=== PATIENT | male | born 1955 | race Two or more races ===

== ENCOUNTER 2024-05-01 12:15 | Inpatient (IN) | payer MEDICARE, MEDICAID, SELFPAY ==
[2024-05-01] VITALS (44 sets, daily range): BP systolic 111–212; BP diastolic 41–86; PULSE 55–81; RESP 11–98; TEMP 36.6–37.3; O2SAT 94–100; BMI 32.6
--- NOTE | 2024-05-01 | XR_ITS ---
Examinations: MRI Brain without intravenous contrast. MRA brain without intravenous contrast. MRA carotids without intravenous contrast 3-D vascular reconstructions Date and time of exam: May 01, 2024 1808 hrs. Indications: Onset stroke alert, focal neurologic deficit today Technique: Multiple axial and sagittal images of the brain have been obtained MRA brain carotid images without contrast obtained, including 3-D postprocessing, vascular maximum intensity projection images Findings: [place] is not enlarged. The optic chiasm and infundibular stalk are not remarkable. Prepontine and interpeduncular cisterns are not enlarged. No localized enlargement of the medulla or roro. Fourth ventricle and cerebellar tonsils normal in position. Subacute hemorrhage is not seen. Fourth ventricle is midline. Mass in the cerebellopontine angle region is not evident. 7th and 8th nerve complexes exhibits symmetry. Globes are symmetrical with no retro-orbital mass. Increased white matter signal prominent Significant frontal ethmoid sinusitis Diffusion-weighted images demonstrate no focus of restricted diffusion Mass-effect upon the ventricular system is not identified. MRA carotid images no significant stenoses MRA brain images high-grade stenosis P2 segment right posterior cerebral artery, possible stenosis bifurcation branch of the right middle cerebral artery Impression: Negative for acute hemorrhage mass effect or midline shift Prominent chronic microvascular white matter change High-grade stenosis P2 segment right posterior cerebral artery, possible stenosis bifurcation branch of the right middle cerebral artery
--- NOTE | 2024-05-01 12:25 | XR_ITS ---
Examination: CTA carotids with intravenous contrast CTA brain, head with intravenous contrast. 2-D sagittal, coronal reconstructions. 3-D reconstructions. Exam date and time: May 01, 2024 at 1246 hrs. Indications: Stroke alert, onset focal neurologic deficit today Early CTDI: vol (mGy) 22.7 DLP: (mGycm) 172 Technique: Multiple CTA axial brain, head carotid images post intravenous contrast injection 100 cc, Isovue-370. 2-D sagittal, coronal reconstructions. 3-D reconstructions, 3-D post processing including vascular maximum intensity projection images. Low dose protocols were performed. One or more of the following dose reduction techniques were used; automated exposure control, adjustment of the mA and/or KV according to patient size, use of iterative reconstruction technique. Findings: No significant common carotid carotid bifurcation or internal carotid artery stenoses Essentially codominant vertebral arteries with no critical stenoses Possible termination of the distal M1 segment right middle cerebral artery which may represent an anatomic variant Middle cerebral artery trifurcation vessels do fill Posterior cerebral branches and anterior cerebral arteries fill Impression: No significant neck arterial stenoses Fairly abrupt termination of the distal M1 segment right middle cerebral artery, clinical correlation advised
--- NOTE | 2024-05-01 12:25 | XR_ITS ---
Examination: CT brain head without contrast. 2-D sagittal coronal reconstructions Date and time of exam:May 01, 2024 1233 hrs. Indications: Shoulder, onset focal neurologic deficit today CTDI: vol (mGy):50.6 DLP: (mGycm):1280 Technique: Multiple CT axial sections of the brain have been obtained, 5 mm slice thickness. Contrast has not been administered. 2-D sagittal, coronal reconstructions have been obtained Low dose protocols were performed. One or more of the following dose reduction techniques were used; automated exposure control, adjustment of the mA and/or KV according to patient size, use of iterative reconstruction technique. Findings: No significant ventricular enlargement. Intra-axial or extra-axial hemorrhage density is not seen. No mass effect or midline shift Basal cisterns are not remarkable. Fourth ventricle is midline. Cranial vault intact. Impression: Negative for acute hemorrhage, mass effect or midline shift
--- NOTE | 2024-05-01 12:25 | EKG_ITS ---
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
--- NOTE | 2024-05-01 12:29 | PD.EDNEURO ---
Neuro Symptoms Deficit-RME/HPI General Chief Complaint: Neuro Symptoms/Deficit Stated Complaint: CONFUSED/TALKING INCOHERENT x25 MINUTES, LKW 1130 Time Seen by Provider: 05/01/24 12:25 Arrival date/time: 05/01/24 12:15 RME / HPI RME / HPI Narrative: 68-year-old male with a past medical history of hypertension diabetes type 2 chronic A-fib, heart failure with reduced ejection fraction of 35% (2021), abdominal wall hernia was brought in by family for evaluation regarding confusion, difficulty finding words, and difficulty ambulating. Onset of symptoms about 25 minutes prior to ER visit. Last well-known time 11:30 AM today. On my initial evaluation patient is having good eye contact however having difficulty expressing words. Patient also was noted to have difficulty ambulating. I did not notice any upper extremity weakness. There is no drifting noted. Stroke alert was initiated right away. Patient is taking Plavix. Related Data Home Medications ?Medication ?Instructions ?Recorded ?Confirmed tamsulosin 0.4 mg capsule 0.4 mg PO QDAY 06/13/20 03/01/24 clonidine HCl 0.2 mg tablet 0.2 mg PO BID 03/10/23 03/01/24 ferrous sulfate 325 mg (65 mg 325 mg PO BID 03/10/23 03/01/24 iron) tablet gabapentin 600 mg tablet 600 mg PO QDAY 03/10/23 03/01/24 glipizide 10 mg tablet 10 mg PO QDAY 03/10/23 03/01/24 metoprolol tartrate 25 mg tablet 50 mg PO QDAY 03/10/23 03/01/24 furosemide 20 mg tablet 20 mg PO QDAY 03/01/24 03/01/24 Previous Rx's ?Medication ?Instructions ?Recorded blood sugar diagnostic (Accu-Chek #50 ea 12/18/21 Angelina Plus test strips) flash glucose scanning reader #1 ea 12/18/21 (FreeStyle Antonino 14 Day [place]) flash glucose sensor (FreeStyle #1 ea 12/18/21 Antonino 2 Sensor kit) insulin degludec 100 unit/mL 20 unit (0.2 mL) subcut QDAY #10 mL 12/18/21 subcutaneous solution (Tresiba U-100 Insulin) lancets #100 ea 12/18/21 metformin 500 mg tablet 500 mg PO BID #60 tabs 12/18/21 Allergies Allergy/AdvReac Type Severity Reaction Status Date / Time No Known Allergies Allergy Verified 05/01/24 12:20 Review of Systems Review of Systems Narrative Review of Systems: Review of system reviewed and within normal limits except mentioned in HPI ED Exam Narrative Physical exam: VITAL SIGNS: Reviewed. GENERAL APPEARANCE: Alert and good eye contact, dysarthria, follows simple commands, no acute distress, HEAD AND FACE: Non-traumatic. ENT: PERRL, pink conjunctivitis, eyelid no trauma, Mucous membrane moist. NECK: Supple, nontender, no nuchal rigidity. CHEST: No tenderness, no crepitus, no paradoxical movement, no retractions. LUNGS: Clear, well ventilated, symmetric, no rales, no wheezing, no ronchi, no stridor, good breath sounds bilaterally. HEART: Regular rate, regular rhythm, no murmur, no gallops. ABDOMEN: Soft, positive bowel sounds, nondistended, no guarding, nontender, no rebound, no masses, RECTAL: Deferred. GENITAL: Deferred. NEUROLOGICAL: Gross motor function intact sensory function intact, Appropriate for age. MUSCULOSKELETAL: low back nontender, full range of motion. EXTREMITIES: Nontender, full range of motion. SKIN: Color pink, dry, no rash, no lacerations, no abrasions, no contusions. LYMPHATICS: Deferred. Course Quality Measures none Orders Category Date Time Status Bedside Blood Glucose NOW Care 05/01/24 12:25 Active COVID-19 Screening Questionnaire NOW Care 05/01/24 14:14 Active Building Performance Consultant NOW Care 05/01/24 12:25 Active Continuous Pulse Oximetry NOW Care 05/01/24 12:25 Completed Decision to Admit X1 Care 05/01/24 14:14 Completed EKG (ED ONLY) *Do not use* NOW Care 05/01/24 12:25 Completed In and Out Catheter NEEDED Care 05/01/24 12:25 Active Insert IV NOW Care 05/01/24 12:25 Active NIH Stroke Scale Q4HX8,QSHIFT Care 05/01/24 13:37 Active NIH Stroke Scale now Care 05/01/24 12:25 Active NPO NOW Care 05/01/24 12:25 Active Neuro Check Q15M Care 05/01/24 13:37 Active Nurse Swallow Screen x1 Care 05/01/24 12:25 Active Vital Signs Q15M Care 05/01/24 13:37 Active Consult to Neurology / Tele-Neurology Routine Cons 05/01/24 12:[address] angio stroke protocol Stat Exams 05/01/24 12:[address] stroke protocol Stat Exams 05/01/24 12:25 Completed EKG (ED Only) Stat Exams 05/01/24 12:25 Draft CBC Stat Lab 05/01/24 12:27 Completed Comprehensive Metabolic Panel Stat Lab 05/01/24 12:27 Completed Drug Screen,Urine Stat Lab 05/01/24 13:27 Received Magnesium Stat Lab 05/01/24 12:27 Completed Partial Thromboplastin Time Stat Lab 05/01/24 12:27 Completed Prothrombin Time with INR Stat Lab 05/01/24 12:27 Completed Troponin I Stat Lab 05/01/24 12:27 Completed Urinalysis Stat Lab 05/01/24 13:27 Received Urine Culture Stat Lab 05/01/24 12:25 Received Acetaminophen Supp [Tylenol Supp] Med 05/01/24 14:01 Discontinued 650 mg AR X1 ONE Labetalol IV [Trandate IV] Med 05/01/24 13:22 Active 10 mg IVP PRNMRX1 PRN Labetalol IV [Trandate IV] Med 05/01/24 13:22 Active 10 mg IVP PRNMRX1 PRN Nicardipine/Ns 20Mg Ivpb [Cardene Ivpb] Med 05/01/24 13:22 Active 20 mg in 200 ml IV 5 mg/hr Ondansetron Inj [Zofran Inj] Med 05/01/24 12:25 Active 4 mg IV Q4HR PRN Tenecteplase Inj [TNKase Inj] Med 05/01/24 13:22 Discontinued 24 mg IV X1 ONE Tenecteplase Inj [TNKase Inj] Med 05/01/24 13:24 Discontinued 50 mg .ROUTE .STK-MED ONE Oxygen Delivery NOW RT 05/01/24 12:25 Active Vital Signs Vital signs: Vital Signs Temperature 98.4 F 05/01/24 12:19 Pulse Rate 77 05/01/24 12:19 Respiratory Rate 18 05/01/24 12:19 Blood Pressure 186/66 H 05/01/24 12:19 Pulse Oximetry (%) 100 05/01/24 12:19 Oxygen Delivery Method Room Air 05/01/24 12:19 Neuro Symptoms / Deficit MDM Narrative MDM Narrative:: 68-year-old male with a past medical history of hypertension diabetes type 2 chronic A-fib, heart failure with reduced ejection fraction of 35% (2021), abdominal wall hernia was brought in by family for evaluation regarding confusion, difficulty finding words, and difficulty ambulating. Onset of symptoms about 25 minutes prior to ER visit. Last well-known time 11:30 AM today. On my initial evaluation patient is having good eye contact however having difficulty expressing words. Patient also was noted to have difficulty ambulating. I did not notice any upper extremity weakness. There is no drifting noted. Stroke alert was initiated right away. Patient is taking Plavix. Stroke alert was initiated right away Initial NIH H score was 4 I spoke with teleneurologist, who gave TNKase to the patient at 1332, after 10 minutes, patient fully recovered. Now talking normal walking normal Spoke with ICU MD, Dr. Myles, who admitted the patient Patient data External records reviewed:: None Clinical information provided by:: family Social determinants that could affect healthcare access:: none Patient has the following chronic illnesses:: Hypertension chronic A-fib congestive heart failure diabetes mellitus How is presenting disease/condition affected by chronic disease/condition?: exacerbated by Evaluation data The following diagnostics were reviewed and interpreted by me:: lab results, radiology exam(s) and EKG tracing(s) Lab and/or radiology exams considered but not ordered:: None Interpretation Summary: CT scan of the head came back unremarkable. CT angiogram of the head and neck showed possible occlusion of M1 segment but could be a variant anatomically according to radiologist. The rest of the labs unremarkable. Medications / Prescriptions Medications or Prescriptions considered but not ordered:: None Medication administrations:: Medication Administration History Nicardipine/Sodium Chloride (Cardene Ivpb) 20 mg in 200 mls @ 50 mls/hr IV .Q4H PRN; Protocol PRN Reason: Per Nicardipine Stroke Protocol Stop: 05/31/24 13:21 Labetalol HCl (Labetalol Inj 5 Mg/Ml Vial 20 Ml) 10 mg IVP PRNMRX1 PRN PRN Reason: SBP > 185 mmHg and/or DBP > 110 Labetalol HCl (Labetalol Inj 5 Mg/Ml Vial 20 Ml) 10 mg IVP PRNMRX1 PRN PRN Reason: SBP > 180 mmHg or DBP > 105 Ondansetron HCl (Ondansetron Inj 2 Mg/Ml Inj 2 Ml) 4 mg IV Q4HR PRN PRN Reason: NAUSEA OR VOMITING Stop: 05/31/24 12:24 Discontinued Medications Acetaminophen (Acetaminophen Supp 650 Mg Supp) 650 mg AR X1 ONE Stop: 05/01/24 14:02 Tenecteplase (Tenecteplase Inj 50 Mg Vial) 24 mg IV X1 ONE Stop: 05/01/24 13:23 Last Admin: 05/01/24 13:32 Dose: 24 mg Documented By: CORIN Co-signed By: NIKOS Tenecteplase (Tenecteplase Inj 50 Mg Vial) Confirm Administered Dose 50 mg .ROUTE .STK-MED ONE Stop: 05/01/24 13:25 Last Admin: 05/01/24 13:35 Dose: Not Given Documented By: CORIN Non-Admin Reason: Duplicate Medication on eMAR Tnkase, Tylenol, Zofran Consultations Consultation(s) initiated? (list below): Yes Consultation #1 (Physician, Specialty, Details): Teleneurologist Diagnosis Neuro Differential Diagnosis: cerebrovascular accident, transient cerebral ischemia and other Most likely diagnosis given after review of the tests above:: CVA Admission Indicated Admission indicated?: indicated Admission Request Was there a request for admission?: Yes Admission Attestation Admission request attestation: Discussed case with [Dr Myles] assembly line driver regarding admission. Discussed patients ED course, exam findings, labs, and radiology results. The Hospitalist [agrees] to accept the patient for admission. Disposition Plan Disposition Plan: Admit Critical Care Time Critical Care Time Total Critical Care Time (min.): 45 Attestation: Critical Care Time The very real possibility of a deterioration of this patient's condition required the highest level of my preparedness for sudden, emergent intervention for the following systems: Cardiac and Metabolic. I provided critical care services, which included medication orders, frequent re-evaluations of the patient's condition and response to treatment, ordering and reviewing test results, and discussing the case with various consultants including: nursing staff, hospitalist, and more. The critical care time associated with the care of this patient was 45 minutes. Discharge Plan Plan Patient Disposition: Admit Acute Care w/in Hospital Prescriptions/Referrals Prescriptions/Med Rec: No Action furosemide 20 mg tablet 20 mg PO QDAY tamsulosin 0.4 mg capsule 0.4 mg PO QDAY metformin 500 mg tablet 500 mg PO BID Qty: 60 0RF (DME) FreeStyle Antonino 14 Day Brusly Misc See Rx Instructions .Route Qty: 1 0RF Rx Instructions: As directed (DME) FreeStyle Antonino 2 Sensor Kit See Rx Instructions .Route Qty: 1 0RF Rx Instructions: As directed (DME) Accu-Chek Angelina Plus test strp Strip See Rx Instructions .Route Qty: 50 0RF Rx Instructions: As directed insulin degludec [Tresiba U-100 Insulin] 100 unit/mL solution 20 unit subcut QDAY Qty: 10 0RF (DME) lancets Misc See Rx Instructions .Route Qty: 100 0RF Rx Instructions: As directed metoprolol tartrate 25 mg tablet 50 mg PO QDAY Patient Comments: TOME DRISS TABLETA DOS VECES AL D A CON ALIMENTO gabapentin 600 mg tablet 600 mg PO QDAY glipizide 10 mg tablet 10 mg PO QDAY clonidine HCl 0.2 mg tablet 0.2 mg PO BID Patient Comments: TOME DRISS TABLETA POR V A ORAL DOS VECES AL D A PARA LA PRESI N ARTERIAL ferrous sulfate 325 mg (65 mg iron) Tablet 325 mg PO BID Referrals: Mitchel Lima MD [Primary Care Provider] - In 1 week Problem List Clinical Impression: Acute CVA (cerebrovascular accident) Patient/Caregiver Discharge Instructions Print Language: Guinean Stand Alone Forms: Kellen Award Info., Patient Portal Info Letter
[2024-05-01 12:47] LABS: Basophils % (Auto) 0 % (0-2.5); Eosinophils # (Auto) 0.2 Thou/mm3 (0.0-0.5); Eosinophils % (Auto) 2 % (0-10); Hematocrit 34.7 % (41.0-53.0); Immature Granulocytes % (Auto) 1 % (0-0); Immature Granulocytes Auto 0.05 Thou/mm3 (0.00-0.00); Lymphocytes # (Auto) 2.8 Thou/mm3 (1.0-4.8); Lymphocytes % (Auto) 30 % (10-50); Mean Corpuscular HGB Conc 31.7 g/dl (31.0-37.0); Mean Corpuscular Hemoglobin 23.5 pg (25.0-35.0); Mean Corpuscular Volume 74 fL (80-100); Monocytes # (Auto) 0.7 Thou/mm3 (0.0-0.8); Monocytes % (Auto) 7 % (0-12); Neutrophils # (Auto) 5.7 Thou/mm3 (1.8-7.7); Neutrophils % (Auto) 61 % (37-80); Nucleated Red Blood Cell % 0 /100 WBC (0); Platelet Count 317 Thou/mm3 (140-440); RDW Standard Deviation 46.6 fL (35.1-43.9); Red Blood Count 4.69 Miln/mm3 (4.50-5.90); White Blood Count 9.4 Thou/mm3 (3.8-10.6)
--- NOTE | 2024-05-01 13:04 | PRELIM_ITS ---
CT scan of the head without intravenous contrast (axial sections with sagittal and coronal reformats) May 01, 2024 1233 hoursClinical history: Focal neuro deficit, stroke suspectedComparison: No pr ior study is available for comparison. Findings:There is no evidence of intracranial hemorrhage, mass effect or midline shift. There are periventricular white matter hypodensities, compatible with chron ic small vessel ischemia. There is moderate volume loss. Basal ganglia calcifications are present mariam aterally. The calvarium is unremarkable. A retention cyst/polyp is seen in the left maxillary sinus. The remainder of the visualized paranasal sinuses and mastoid air cells are clear.Impression:No evide nce of intracranial hemorrhage, mass effect or midline shift. Chronic small vessel ischemia and volum e loss.If there are persistent clinical symptoms or additional clinical concerns, consider MRI. Repo rt Electronically Signed By: Colton Rene 05/01/2024 1:03:28 PM [EST]
[2024-05-01 13:05] LABS: INR 1.1 (0.9-1.3); Partial Thromboplastin Time 23.8 Seconds (22.0-36.0); Prothrombin Time 11.9 Seconds (9.0-12.2)
[2024-05-01 13:07] LABS: Alanine Aminotransferase 11 U/L (10-49); Albumin, Serum 4.2 gm/dL (3.4-4.8); Albumin/Globulin Ratio 1.7 (1.2-2.2); Alkaline Phosphatase 87 U/L (46-116); Anion Gap 4 (7-16); Aspartate Amino Transferase < 8 U/L (0-34); BUN/Creatinine Ratio 23 Ratio (12-20); Bilirubin,Total 0.4 mg/dL (0.3-1.2); Blood Urea Nitrogen 18 mg/dL (9-23); Calcium 9.4 mg/dL (8.3-10.6); Calcium (Corrected) 9.4 mg/dL (8.5-10.1); Carbon Dioxide 29.5 mMol/L (20.0-31.0); Chloride 103 mMol/L (98-107); Creatinine (Component) 0.8 mg/dL (0.6-1.3); Globulin 2.5 gm/dL (2.3-3.5); Glucose 196 mg/dL (74-106); Osmolality,Calculated 278 (275-295); Potassium 3.8 mMol/L (3.4-5.1); Sodium 136 mMol/L (136-145); Total Protein 6.7 gm/dL (5.7-8.2); Troponin I 0.037 ng/mL (0.0-0.045); eGFR > 60 See Note
[2024-05-01] MEDS: TENECTEPLASE INJ 50 MG VIAL 24 MG IV (13:32)
--- NOTE | 2024-05-01 13:37 | PC.NURSE ---
28 mg TNK administered at 1332. Patient complaining of not being to breath after TNK administration with spo2 at 98. Patient placed on 3L nasal canula.
--- NOTE | 2024-05-01 13:37 | PC.NURSE ---
48 mg TNK administered at 1332. Patient complaining of not being to breath after TNK administration with spo2 at 98. Patient placed on 3L nasal canula.
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
[2024-05-01 14:11] LABS: Collection Type, Urine Clean Catch
[2024-05-01 14:19] LABS: Bilirubin,Urine Negative (Negative); Blood,Urine Negative (Negative); Clarity,Urine Clear (Clear/Hazy); Color,Urine Lt-Yellow (Lt Yel-Yel); Glucose, Urine Negative (Negative); Ketones,Urine Negative (Negative); Leukocyte Esterase,Urine Negative (Negative); Nitrite,Urine Negative (Negative); PH,Urine 6.5 (5.0-7.0); Protein,Urine Negative (Neg - Trace); RBC,Urine 1 /hpf (0-3); Specific Gravity,Urine 1.037 (1.001-1.035); Squamous Epithelial Cell,Urine < 1 /hpf (0-5); Urobilinogen,Urine Negative mg/dL (0.0-1.0); WBC,Urine 1 /hpf (0-5)
[2024-05-01] MEDS: LABETALOL INJ 5 MG/ML VIAL 20 ML 10 MG IVP ×2 (14:22→17:20)
[2024-05-01 14:29] LABS: Amphetamine/Methamp Scrn,U Negative (Negative); Barbiturate Screen,Urine Negative (Negative); Benzodiazepines Screen,Urine Negative (Negative); Benzoylecgonine Screen, Ur Negative (Negative); Fentanyl Screen,Urine Negative (Negative); Opiate Screen,Urine Negative (Negative); THC Screen,Urine Negative (Negative)
--- NOTE | 2024-05-01 15:03 | XR_ITS ---
Examination: AP chest single view Technique: AP portable semiupright chest single view Exam date and time: May 01, 2024 1541 hrs. Comparison December 01, 2023 Indications: Onset chest pain today. Findings: Mild enlargement cardiac contour No pneumonia or pulmonary edema Mild accentuation basilar bronchovascular markings Impression: Mild basilar bronchitis pattern
--- NOTE | 2024-05-01 15:09 | ECHO_ITS ---
Transthoracic Echo Report Ht (in): 67 Wt (lb): 208 Exam Location: Echo Lab Status: Emergency Tax Technician: Selene Boothe Indications: Procedure Performed: BP: 184 / 76 HR: 68 Technical Quality: Technically difficult study MEASUREMENTS (Male / Female) Normal Values 2D ECHO LV Diastolic Diameter PLAX 4.0 cm 4.2 - 5.9 / 3.9 - 5.3 cm LV Systolic Diameter PLAX 2.9 cm IVS Diastolic Thickness 1.3 cm 0.6 - 1.0 / 0.6 - 0.9 cm LVPW Diastolic Thickness 1.3 cm 0.6 - 1.0 / 0.6 - 0.9 cm LV Relative Wall Thickness 0.7 LVOT Diameter 2.1 cm Aortic Root Diameter 3.5 cm DOPPLER AV Peak Velocity 278.0 cm/s AV Peak Gradient 30.9 mmHg AV Mean Gradient 16.0 mmHg AV Velocity Time Integral 56.3 cm LVOT Peak Velocity 125.0 cm/s LVOT Peak Gradient 6.3 mmHg LVOT Velocity Time Integral 19.7 cm LVOT Cardiac Index 2163.7 cm?/min?m? AV Area Cont Eq vti 1.2 cm? AV Area Cont Eq pk 1.6 cm? MV Area PHT 3.8 cm? Mitral E Point Velocity 50.0 cm/s Mitral A Point Velocity 62.5 cm/s Mitral E to A Ratio 0.8 FINDINGS Left Ventricle Normal left ventricular size, wall thickness, systolic function with no obvious regional wall motion abnormalities. Normal left ventricular diastolic filling pattern for age. The ejection fraction is v isually estimated at 60-65%. Right Ventricle The right ventricular systolic function is normal. Left Atrium The left atrium is normal by two-dimensional, color flow and Doppler imaging with no structural abnormalities, no thrombus formation present. Right Atrium The right atrium is normal by two-dimensional imaging, color flow and Doppler imaging with no struct ural abnormalities, no thrombus formation present. Atrial Septum The interatrial septum appears normal with no evidence of a shunt. Aorta The aorta is normal by two-dimensional, color flow and Doppler interrogation. Mitral Valve The mitral valve is mildly MAC. No mitral regurgitation. Aortic Valve Moderate stenosis. Tricuspid Valve The tricuspid valve is normal by two-dimensional, color flow and Doppler interrogation. There is tra ce tricuspid valve regurgitation. Pulmonic Valve The pulmonic valve is not well visualized. There is no significant pulmonic valve regurgitation. Vessels The pulmonary artery appears normal. The inferior vena cava pulmonary and hepatic veins appear sabiha l. Pericardium The pericardium is normal by two-dimensional imaging. There is no significant pericardial effusion. CONCLUSIONS Indication: TIA with bubble study Negative bubble study Normal LVsize, wall thickness. Estimated EF 60-65%. The RV systolic function is normal. MV is mildly MAC. Moderate . Trace TR. Nga Lindo (Electronically Signed) Final Date: 04 May 2024 14:55
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
[2024-05-01] MEDS: ACETAMINOPHEN 325 MG TABLET 650 MG PO ×2 (16:13→21:19)
[2024-05-01] MEDS: SODIUM CHLORIDE 0.9% 1000 ML 1,000 ML 60 ML IV (17:16)
[2024-05-01] MEDS: NICARDIPINE/NS 20MG IVPB 20 MG/200 ML BAG 50 MG IV (18:59)
--- NOTE | 2024-05-01 19:19 | PC.NURSE ---
received patient from ED RN Severo at 1855. Pt's BP elevated and started Nicardipine gtt per protocol. Report given to MARCIAL Vanegas. Assessment done jennifer Vanegas upon shift change.
[2024-05-01] MEDS: NIFEdipine 10 MG CAPSULE 20 MG PO (21:14)
[2024-05-01] MEDS: ATORVASTATIN CALCIUM 20 MG TABLET 80 MG PO (21:15)
[2024-05-02] VITALS (48 sets, daily range): BP systolic 117–181; BP diastolic 41–82; PULSE 60–94; RESP 2–25; TEMP 37.1–37.2; O2SAT 94–99; BMI 32.0
[2024-05-02] MEDS: ACETAMINOPHEN 325 MG TABLET 650 MG PO ×2 (05:40→20:52)
[2024-05-02] MEDS: NIFEdipine 10 MG CAPSULE 20 MG PO ×3 (05:40→20:39)
[2024-05-02 06:12] LABS: Basophils % (Auto) 0 % (0-2.5); Eosinophils # (Auto) 0.1 Thou/mm3 (0.0-0.5); Eosinophils % (Auto) 2 % (0-10); Hematocrit 34.1 % (41.0-53.0); Hemoglobin 10.7 g/dL (13.5-16.0); Immature Granulocytes % (Auto) 0 % (0-0); Immature Granulocytes Auto 0.02 Thou/mm3 (0.00-0.00); Lymphocytes # (Auto) 1.7 Thou/mm3 (1.0-4.8); Lymphocytes % (Auto) 22 % (10-50); Mean Corpuscular HGB Conc 31.4 g/dl (31.0-37.0); Mean Corpuscular Hemoglobin 23.2 pg (25.0-35.0); Mean Corpuscular Volume 74 fL (80-100); Monocytes # (Auto) 0.6 Thou/mm3 (0.0-0.8); Monocytes % (Auto) 8 % (0-12); Neutrophils # (Auto) 5.2 Thou/mm3 (1.8-7.7); Neutrophils % (Auto) 67 % (37-80); Nucleated Red Blood Cell % 0 /100 WBC (0); Platelet Count 319 Thou/mm3 (140-440); RDW Standard Deviation 46.8 fL (35.1-43.9); Red Blood Count 4.61 Miln/mm3 (4.50-5.90); White Blood Count 7.8 Thou/mm3 (3.8-10.6)
[2024-05-02 06:20] LABS: Glucose Estimated Average 128 mg/dL (80-131); Hemoglobin A1C 6.1 % Hgb (4.8-6.0)
[2024-05-02 06:34] LABS: Alanine Aminotransferase 13 U/L (10-49); Albumin/Globulin Ratio 1.6 (1.2-2.2); Alkaline Phosphatase 89 U/L (46-116); Anion Gap 6 (7-16); Aspartate Amino Transferase 14 U/L (0-34); BUN/Creatinine Ratio 19 Ratio (12-20); Bilirubin,Total 0.6 mg/dL (0.3-1.2); Blood Urea Nitrogen 13 mg/dL (9-23); Calcium 9.1 mg/dL (8.3-10.6); Calcium (Corrected) 9.1 mg/dL (8.5-10.1); Carbon Dioxide 28.8 mMol/L (20.0-31.0); Cardiac Risk Estimate 4.4 RATIO (4.0-6.7); Chloride 104 mMol/L (98-107); Cholesterol 190 mg/dL (132-200); Creatinine (Component) 0.7 mg/dL (0.6-1.3); Estimated Creatinine Clearance 112.2 mL/min (>60); Globulin 2.5 gm/dL (2.3-3.5); Glucose 117 mg/dL (74-106); HDL Cholesterol 43 mg/dL (40-60); LDL Cholesterol,Calculated 116 mg/dL (0-130); Osmolality,Calculated 278 (275-295); Phosphorous 3.7 mg/dL (2.4-5.1); Potassium 4.2 mMol/L (3.4-5.1); Sodium 139 mMol/L (136-145); Thyroid Stimulating Hormone 0.66 uIU/mL (0.55-4.78); Total Protein 6.5 gm/dL (5.7-8.2); Triglycerides 154 mg/dL (30-150); eGFR > 60 See Note
--- NOTE | 2024-05-02 08:24 | EKG_ITS ---
[facility] Test Date: 2024-05-02 Pat Name: RHINA GARDUNO [facility] Gender: Male Statistician Theoretical: CLARISSE : 1955 Requested By: Maria Del Rosario Alexandra Order Number: [id number] Reading MD: Maria Del Rosario Alexandra Measurements Intervals [place] Rate: 74 P: 67 [place]: 210 QRS: 27 QRSD: 109 T: 76 QT: 391 QTc: 436 Interpretive Statements SINUS RHYTHM WITH FIRST DEGREE AV BLOCK NONSPECIFIC T-WAVE ABNORMALITY Compared to ECG 05/01/2024 13:15:39 T-wave abnormality now present Intraventricular conduction delay no longer present /store/S0/[id number]
[2024-05-02 09:23] LABS: Iron 40 mcg/dL (65-175); Percent Iron Saturation 10 % (20-55); Total Iron Binding Capacity 365 mcg/dL (250-425); Unsaturated Iron Binding 325 (225-295)
--- NOTE | 2024-05-02 10:50 | ESPR_ITS ---
Documentation for date of: 05/02/24 Subjective Subjective Interval history: 05/02: overnigt pt has 1.1 L of urine output. Pt. was hypertensive with systolic above 200 and diastolic above 110. pt was given 2 doses of labetalol 10mg without improvement therefore Pt. was started on nicardipine drip. Pt vitals this morning are stable and saturating on room air. Pt. is alert & Oriented x3, able to speak in full sentenced and no focal neurological deficits noted. Pt has no new complain. Exam Vital Signs Temp Pulse Resp BP Pulse Ox O2 Del Method O2 Flow Rate 99.0 F 74 17 135/70 H 98 Room Air 1 05/02/24 07:02 05/02/24 10:00 05/02/24 10:00 05/02/24 10:00 05/02/24 10:00 05/01/24 18:56 05/01/24 17:16 Narrative Exam GENERAL: A&Ox3 . Awake, Not in acute distress NEURO: no focal neurological deficits HEENT: Atraumatic, Normocephalic. mucous membranes moist. Eyes open, symmetrical, & clear, facial reconstructive surgical scars HEART: Normal Heart Sounds LUNGS: Clear to auscultation with no wheezing or crackles. ABDOMEN: soft, non-distended, mildy-tender to palpation, extensive abdominal surgical scars SKIN: No Rash or ecchymoses EXTREMITIES: No edema, tenderness, able to move all 4 extremities, pedal pulses palpated Objective Labs 05/02/24 05:30 05/02/24 05:30 Labs: Laboratory Results - last 24 hr 05/01/24 05/01/24 05/02/24 12:27 13:27 05:30 WBC 9.4 7.8 RBC 4.69 4.61 Hgb 11.0 L 10.7 L Hct 34.7 L 34.1 L MCV 74 L 74 L MCH 23.5 L 23.2 L MCHC 31.7 31.4 RDW Std Deviation 46.6 H 46.8 H Plt Count 317 319 Neut % (Auto) 61 67 Lymph % (Auto) 30 22 [place] % (Auto) 7 8 Eos % (Auto) 2 2 Baso % (Auto) 0 0 Neut # (Auto) 5.7 5.2 Lymph # (Auto) 2.8 1.7 [place] # (Auto) 0.7 0.6 Eos # (Auto) 0.2 0.1 Baso # (Auto) 0.0 0.0 Immature Gran # (Auto) 0.05 H 0.02 H Absolute Nucleated RBC 0.00 0.00 Immature Gran % 1 H 0 Nucleated RBC % 0 0 PT 11.9 INR 1.1 APTT 23.8 Sodium 136 139 Potassium 3.8 4.2 Chloride 103 104 Carbon Dioxide 29.5 28.8 Anion Gap 4 L 6 L BUN 18 13 Creatinine 0.8 0.7 Estim Creat Clear Calc Not Performed. 112.2 eGFR > 60 > 60 BUN/Creatinine Ratio 23 H 19 Glucose [address] Glu mg/dL 128 Hemoglobin A1c 6.1 H Calculated Osmolality 278 278 Calcium 9.4 9.1 Corrected Calcium 9.4 9.1 Phosphorus 3.7 Magnesium 2.0 2.0 Iron 40 L TIBC 365 Iron Saturation 10 L Unsat Iron Binding 325 H Total Bilirubin 0.4 0.6 AST < 8 14 ALT 11 13 Alkaline Phosphatase 87 89 Troponin I 0.037 Total Protein 6.7 6.5 Albumin 4.2 4.0 Globulin 2.5 2.5 Albumin/Globulin Ratio 1.7 1.6 Triglycerides 154 H Cholesterol 190 LDL Cholesterol, Calc 116 HDL Cholesterol 43 Cholesterol/HDL Ratio 4.4 TSH 0.66 Ur Collection Type Clean Catch Urine Color Lt-Yellow Urine Clarity Clear Urine pH 6.5 Ur Specific [place] 1.037 H Urine Protein Negative Urine Glucose (UA) Negative Urine Ketones Negative Urine Blood Negative Urine Nitrite Negative Urine Bilirubin Negative Urine Urobilinogen (Auto) Negative Ur Leukocyte Esterase Negative Urine RBC 1 Urine WBC 1 Ur Squamous Epith Cells < 1 Urine Bacteria None Urine Opiates Screen Negative Urine Fentanyl Screen Negative Ur Barbiturates Screen Negative U Amphetamin/Meth Scrn Negative U Benzodiazepines Scrn Negative U Cocaine Metab Screen Negative U Marijuana (THC) Screen Negative Quality Measures Quality Measures none Advance care planning discussed with:: spouse and child Assessment & Plan Assessment Current Active Medications: Generic Name Dose Route Start Last Admin Trade Name Freq PRN Reason Stop Dose Admin Acetaminophen 650 mg 05/01/24 15:03 05/02/24 05:40 Acetaminophen 325 Mg Tablet PO 05/31/24 15:02 650 mg Q4HR PRN Administration PAIN SCALE 1-3 (mild Acetaminophen 650 mg 05/01/24 15:03 Acetaminophen Supp 650 Mg Supp FL 05/31/24 15:02 Q4HR PRN PAIN SCALE 1-3 (mild Al Hydrox/Mg Hydrox/Simethicone 30 ml 05/01/24 15:03 Mg Hyd/Al Hyd/Joel (Maalox Reg) Susp 30 Ml Udc PO 05/31/24 15:02 Q4HR PRN Heartburn or Upset Stomach Atorvastatin Calcium 80 mg 05/01/24 21:00 05/01/24 21:15 Atorvastatin Calcium 20 Mg Tablet PO 05/31/24 20:59 80 mg HS TERRI Administration Dextrose 25 ml 05/01/24 15:42 Dextrose 50%-Water Inj 50 Ml Syringe IV 05/31/24 15:41 Q15MIN PRN BG 50-70 responsive npo pt Dextrose 50 ml 05/01/24 15:42 Dextrose 50%-Water Inj 50 Ml Syringe IV 05/31/24 15:41 Q15MIN PRN BG <50 OR BG <70 & pt unresponsive Enoxaparin Sodium 40 mg 05/02/24 21:00 Enoxaparin Sod Inj 40 Mg/0.4 Ml Syringe SC 05/16/24 20:59 HS TERRI Glucagon 1 mg 05/01/24 15:42 Glucagon Inj 1 Mg Vial IM Q15MIN PRN BG <70, and no IV access Hydralazine HCl 10 mg 05/01/24 18:30 Hydralazine Inj 20 Mg/Ml Vial IV 05/31/24 18:29 Q4H PRN SBP>180 or DBP>105 and HR<75 Nicardipine/Sodium Chloride 20 mg in 200 mls @ 50 mls/hr 05/01/24 13:22 05/01/24 21:50 Cardene Ivpb IV 05/31/24 13:21 0 mg/hr .Q4H PRN 0 mls/hr Per Nicardipine Stroke Protocol Titration Protocol 5 MG/HR Insulin Glargine 10 unit 05/01/24 21:00 05/01/24 21:03 Insulin Glargine (Lantus) 5 Unit/0.05 Ml (Per 5 Units) SC 05/31/24 20:59 Not Given HS TERRI Insulin Human Lispro 0 unit 05/02/24 07:30 05/02/24 07:54 Insulin Lispro (Admelog) 1 Unit/0.01 Ml Unit SC 06/01/24 07:29 Not Given ACHS COUNT INCLUDES THE [facility] Protocol Labetalol HCl 50 mg 05/01/24 18:31 Labetalol 100 Mg Tablet PO 05/31/24 17:59 Q2H PRN SBP>180 or DBP>105 and HR>75 Magnesium Hydroxide 30 ml 05/01/24 15:03 Milk Of Magnesia Susp 30 Ml Udc PO 05/31/24 15:02 QDAY PRN CONSTIPATION Nifedipine 20 mg 05/01/24 22:00 05/02/24 05:40 Nifedipine 10 Mg Capsule PO 05/31/24 21:59 20 mg TID TERRI Administration Ondansetron HCl 4 mg 05/01/24 12:25 Ondansetron Inj 2 Mg/Ml Inj 2 Ml IV 05/31/24 12:24 Q4HR PRN NAUSEA OR VOMITING Plan Mr. Le is a 68-year-old male with past medical history significant for A-fib, CHF, hypertension and insulin-dependent type 2 diabetes presented to the ED after family noticed that he was having difficulties completing sentences and not being able to recognize close family members. Patient complains of a headache that is 10 out of 10 and feels like his eyes are burning and sensitive to light patient continues to be nauseous denies any vomiting. Patient states that he has had the headache for a long time and he takes 600 mg of ibuprofen daily. Patient denies any chest pain abdominal pain dizziness or weakness. Head CTA showed fairly abrupt termination of the distal M1 segment of right MCA and patient received 24 Mg tPA for ischemic stroke and patient is admitted to the ICU for close monitoring. Neuro: # Ischemic stroke -CT head negative for acute hemorrhage, mass effect or midline shift -Head/neck CTA?fairly abrupt termination of the distal M1 segment right middle cerebral artery -EKG showed sinus rhythm with first-degree heart block -Patient received 24 Mg tPA on 05/01 -repeat CT brain 24 hours post Thrombolytic- will be repeated at 12:30pm on 05/02 -A1c, lipid panel, TSH done (with in normal limits) -No antiplatelets or anticoagulation in the first 24 hours -Statin therapy started -In-house neurology consulted Cardiovasc: # History of CHF -Echo done in November [address] Lindo showed ejection fraction of 35 to 39% -Repeat echo November [address] Wisdom showed ejection fraction 60 to 65%, and moderate to severe calcific aortic valve stenosis -holding home furosemide- #History of A-fib -Hold home Plavix due to recent tPA administration #History of hypertension -Will hold home metoprolol, clonidine, furosemide due to permissive hypertension in the setting of a stroke Pulm: # No active problems Renal: # No active problems GI: ?No active problems -diet is carbohydrate consistent Endo: # Insulin-dependent type 2 diabetes -Hemoglobin A1c on 11/29/2023 was 6.1, blood glucose 196 -Will hold home metformin, Tresiba (20 units), glipizide 10 Mg -Insulin sliding scale started with 10 units of Lantus Heme/Onc: #Microcytic anemia -hemoglobin 11.0, hematocrit 34.7, MCV 74 -Iron panel ordered -Will continue to monitor daily CBC #DVT ppx - Lovenox will be resumed 05/02 Infxs: - No active problems Skin/Musc -No active problems Disposition: ICU- Pt. received tPA, requiring 24-hour close monitoring DVT Prophylaxis: started enoxaparin 40mg 05/02 Diet: diet is carbohydrate consistent Code status: Full Assessment and plan discussed with my attending physician Dr. Shar Todd (PGY-1)- Internal medicine resident Attending Provider Attestation/Addendum Patient was seen and examined, agree with above. In brief this is a 71-year-old male admitted yesterday for stroke status post TNK. The patient has done well overnight. He has no residual deficits. He is able to speak in clear and distinct sentences. He feels well and is tolerating a p.o. intake. He will be downgraded to telemetry to continue his stroke workup. Case discussed with ICU team Labs, imaging and records reviewed Approximate 35 minutes required for eval, exam, review, intervention and discussion and formulation of plan of care for this 62-year-old male with stroke
[2024-05-02] MEDS: INSULIN LISPRO (AdmeLOG) 1 UNIT/0.01 ML UNIT SC ×3 (11:35→20:37)
--- NOTE | 2024-05-02 11:45 | PCS.ST ---
swallow eval completed. see report for details
--- NOTE | 2024-05-02 12:43 | PD.INTPROC ---
Procedures Procedure Date / Time 05/02/24 1243 Central Line Placement Right IJ: Indication(s): shock Informed consent obtained: obtained from surrogate decision maker Time out done, and the following verified: correct patient, side and site, procedure, patient position and implants and/or equipment Patient placed on monitor/pulse ox: Yes Hand Hygiene: scrub and alcohol-based hand rub Max Sterile Barrier Techniques used: cap, mask, sterile gown, sterile gloves and sterile full body drape Central line prep: Povidone-Iodine 1%, Chlorhexidine scrub and sterile drapes applied Local anesthesia used: lidocaine 1% Amount of anesthesia used (mL): 4 Ultrasound used for placement: Yes Sterile Technique if Ultrasound used, including sterile gel: yes Central line lumen inserted: triple Post procedure: sutured in place, good blood return, all ports aspirated, flushed, capped and sterile dressing applied Post procedure x-ray: tip of catheter in good position and no pneumothorax seen Patient tolerated procedure: well and no complications EBL(ml): 5 Complications: none
--- NOTE | 2024-05-02 13:35 | XR_ITS ---
Examination: CT brain head without contrast. 2-D sagittal coronal reconstructions Date and time of exam:May 02, 2024 1659 hrs. Comparison May 01, 2024 Indications: Transient ischemic attacks, CT stroke alert May 01, 2014, onset focal neurologic deficit CTDI: vol (mGy):58.2 DLP: (mGycm):1204 Technique: Multiple CT axial sections of the brain have been obtained, 5 mm slice thickness. Contrast has not been administered. 2-D sagittal, coronal reconstructions have been obtained Low dose protocols were performed. One or more of the following dose reduction techniques were used; automated exposure control, adjustment of the mA and/or KV according to patient size, use of iterative reconstruction technique. Findings: No significant ventricular enlargement. Intra-axial or extra-axial hemorrhage density is not seen. No mass effect or midline shift Basal cisterns are not remarkable. Fourth ventricle is midline. Cranial vault intact. Impression: Negative for acute hemorrhage, mass effect or midline shift
--- NOTE | 2024-05-02 16:01 | PC.NURSE ---
Called CT X3 for pending Head CT order and no answer.
--- NOTE | 2024-05-02 17:49 | PC.NURSE ---
Pt back from CT @170. BP 155/65
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
[2024-05-02] MEDS: ATORVASTATIN CALCIUM 20 MG TABLET 80 MG PO (20:37)
[2024-05-02] MEDS: ENOXAPARIN SOD INJ 40 MG/0.4 ML SYRINGE SC (20:37)
[2024-05-02] MEDS: INSULIN GLARGINE (Lantus) 5 UNIT/0.05 ML (PER 5 UNITS) 10 UNIT SC (20:37)
--- NOTE | 2024-05-02 20:44 | VVPN_ITS ---
Telemedicine visit statement This visit was conducted with the use of phone was obtained on 05/02/24 at 2044. Documentation for date of: 05/02/24 Subjective Subjective Interval history: Patient is in ICU, s/p TNK, doing fine, no recurrence of similar symptoms noted. Virtual exam Vital Signs Temp Pulse Resp BP Pulse Ox O2 Del Method O2 Flow Rate 98.8 F 79 25 H 155/65 H 98 Room Air 1 05/02/24 16:00 05/02/24 20:39 05/02/24 17:09 05/02/24 20:39 05/02/24 17:09 05/01/24 18:56 05/01/24 17:16 Objective Labs 05/03/24 05:19 05/03/24 05:19 Labs: Laboratory Results - last 24 hr 05/02/24 05:30 WBC 7.8 RBC 4.61 Hgb 10.7 L Hct 34.1 L MCV 74 L MCH 23.2 L MCHC 31.4 RDW Std Deviation 46.8 H Plt Count 319 Neut % (Auto) 67 Lymph % (Auto) 22 [place] % (Auto) 8 Eos % (Auto) 2 Baso % (Auto) 0 Neut # (Auto) 5.2 Lymph # (Auto) 1.7 [place] # (Auto) 0.6 Eos # (Auto) 0.1 Baso # (Auto) 0.0 Immature Gran # (Auto) 0.02 H Absolute Nucleated RBC 0.00 Immature Gran % 0 Nucleated RBC % 0 Sodium 139 Potassium 4.2 Chloride 104 Carbon Dioxide 28.8 Anion Gap 6 L BUN 13 Creatinine 0.7 Estim Creat Clear Calc 112.2 eGFR > 60 BUN/Creatinine Ratio 19 Glucose [address] Glu mg/dL 128 Hemoglobin A1c 6.1 H Calculated Osmolality 278 Calcium 9.1 Corrected Calcium 9.1 Phosphorus 3.7 Magnesium 2.0 Iron 40 L TIBC 365 Iron Saturation 10 L Unsat Iron Binding 325 H Total Bilirubin 0.6 AST 14 ALT 13 Alkaline Phosphatase 89 Total Protein 6.5 Albumin 4.0 Globulin 2.5 Albumin/Globulin Ratio 1.6 Triglycerides 154 H Cholesterol 190 LDL Cholesterol, Calc 116 HDL Cholesterol 43 Cholesterol/HDL Ratio 4.4 TSH 0.66 Assessment & Plan Problem List (1) Acute CVA (cerebrovascular accident): Status: Acute Assessment and plan: resolved with no residual deficit or recurrence s/p TNK MRI brain: negative for acute infarction. As there is ICS from MRA, he would need DAPT upon discharge with close monitoring his HGB/HCT. continue with statin. (2) Type 2 diabetes mellitus with hyperosmolar nonketotic hyperglycemia: Status: Acute Assessment and plan: A1C: 6.1, continue to check FSG and follow sliding scale (3) Atrial fibrillation with RVR: Status: Acute Assessment and plan: can resume Palvix keep the rate controlled (4) Hypertension: Status: Acute Assessment and plan: continue with aggressive BP mgt. (5) Anemia: Status: Acute Assessment and plan: from iron deficiency Needs Iron supplement.
[2024-05-03] VITALS (14 sets, daily range): BP systolic 140–184; BP diastolic 69–89; PULSE 66–123; RESP 12–21; TEMP 36.6; O2SAT 96–98; BMI 33.0
[2024-05-03] MEDS: hydrALAZINE INJ 20 MG/ML VIAL 10 MG IV (05:03)
[2024-05-03] MEDS: NIFEdipine 10 MG CAPSULE 20 MG PO (05:04)
[2024-05-03 05:59] LABS: Basophils % (Auto) 1 % (0-2.5); Eosinophils # (Auto) 0.1 Thou/mm3 (0.0-0.5); Eosinophils % (Auto) 2 % (0-10); Hematocrit 36.2 % (41.0-53.0); Hemoglobin 11.3 g/dL (13.5-16.0); Immature Granulocytes % (Auto) 0 % (0-0); Immature Granulocytes Auto 0.03 Thou/mm3 (0.00-0.00); Lymphocytes # (Auto) 1.8 Thou/mm3 (1.0-4.8); Lymphocytes % (Auto) 21 % (10-50); Mean Corpuscular HGB Conc 31.2 g/dl (31.0-37.0); Mean Corpuscular Hemoglobin 23.2 pg (25.0-35.0); Mean Corpuscular Volume 74 fL (80-100); Monocytes # (Auto) 0.8 Thou/mm3 (0.0-0.8); Monocytes % (Auto) 9 % (0-12); Neutrophils # (Auto) 5.6 Thou/mm3 (1.8-7.7); Neutrophils % (Auto) 67 % (37-80); Nucleated Red Blood Cell % 0 /100 WBC (0); Platelet Count 353 Thou/mm3 (140-440); RDW Standard Deviation 46.4 fL (35.1-43.9); Red Blood Count 4.87 Miln/mm3 (4.50-5.90); White Blood Count 8.4 Thou/mm3 (3.8-10.6)
[2024-05-03 06:23] LABS: Alanine Aminotransferase 12 U/L (10-49); Albumin, Serum 3.9 gm/dL (3.4-4.8); Albumin/Globulin Ratio 1.3 (1.2-2.2); Alkaline Phosphatase 93 U/L (46-116); Anion Gap 8 (7-16); Aspartate Amino Transferase 13 U/L (0-34); BUN/Creatinine Ratio 20 Ratio (12-20); Bilirubin,Total 0.4 mg/dL (0.3-1.2); Blood Urea Nitrogen 12 mg/dL (9-23); Calcium 9.5 mg/dL (8.3-10.6); Calcium (Corrected) 9.6 mg/dL (8.5-10.1); Carbon Dioxide 27.2 mMol/L (20.0-31.0); Chloride 105 mMol/L (98-107); Creatinine (Component) 0.6 mg/dL (0.6-1.3); Estimated Creatinine Clearance 129.7 mL/min (>60); Glucose 131 mg/dL (74-106); Osmolality,Calculated 281 (275-295); Phosphorous 3.5 mg/dL (2.4-5.1); Potassium 4.1 mMol/L (3.4-5.1); Sodium 140 mMol/L (136-145); Total Protein 6.9 gm/dL (5.7-8.2); eGFR > 60 See Note
--- NOTE | 2024-05-03 07:08 | PC.NURSE ---
pt in a-fib, pt asymptomatic, notified dr arellano, no new orders received at this time
[2024-05-03] MEDS: ONDANSETRON INJ 2 MG/ML INJ 2 ML 4 MG IV (08:39)
[2024-05-03] MEDS: INSULIN LISPRO (AdmeLOG) 1 UNIT/0.01 ML UNIT SC ×4 (08:43→21:03)
[2024-05-03] MEDS: METOPROLOL SUCCINATE XL 25 MG TABCR 50 MG PO (08:46)
[2024-05-03] MEDS: Milk Of Magnesia Susp 30 ML UDC PO (08:47)
[2024-05-03] MEDS: ASPIRIN EC 81 MG TABEC PO (08:47)
[2024-05-03] MEDS: CLOPIDOGREL BISULFATE 75 MG TABLET PO (08:47)
[2024-05-03] MEDS: Furosemide 20 MG TABLET PO (08:48)
--- NOTE | 2024-05-03 10:13 | ESPR_ITS ---
<Statement entered by Brijesh Winkler MD - 05/03/24 16:13> Patient was seen and examined at the bedside. This patient is ICU downgrade post tPA for ischemic CVA. Restart the patient on aspirin and Eliquis as the patient has a history of A-fib per neurology recommendations. Patient was ambulating independently. We are currently waiting on echocardiogram.All labs and orders were reviewed. I saw and examined the patient, and I agree with current management stated by Dr José Luis MD,PGY1. Plan of care was discussed with the attending physician and resident physician. Disclaimer: Despite multiple revisions, due to the dictation software being used, the document bellow may not be free of grammatical errors including phonetic/typographic errors. However, this does not deter from our commitment to providing health care in the patient's best interest in mind. Dr. Peterson MD, PGY 2 Documentation for date of: 05/03/24 Subjective Subjective Interval history: Patient Danish-speaking and interaction facilitated by registered healthcare secondary school teacher Patient was seen and examined at bedside this AM. No acute exents overnight. Patient tolerating diet, adequate urine output and mentation is at baseline. Patient denies any dizziness, weakness, or signs of bleeding. Dysarthria and aphasia have now resolved Patient is now out of the window for permissive hypertension, Home medication, metoprolol succinate 50 Mg p.o. daily and furosemide 20 Mg p.o. daily were resumed Patient will need antiplatelet for stroke prophylaxis and also anticoagulation for A-fib. Neurology recommended Eliquis and aspirin with close monitoring for bleeding. Echocardiogram still pending Exam Vital Signs Temp Pulse Resp BP Pulse Ox O2 Del Method O2 Flow Rate 97.8 F 115 H 16 140/69 H 96 Room Air 1 05/03/24 04:03 05/03/24 08:48 05/03/24 04:03 05/03/24 08:48 05/03/24 04:03 05/01/24 18:56 05/01/24 17:16 Narrative Exam Constitutional Alert, oriented x 3 and comfortable HEENT Vision grossly intact. Patent nares. Trachea midline Respiratory Chest normal on inspection and clear auscultation bilaterally Cardiovascular S1 and S2 audible. JVD not assessed Abdominal Soft and non tender to palpation in all quadrants. BS + Genitourinary No bladder tenderness, no flank pain. Normal to palpation Musculoskeletal Extremities tone within normal limits. No LE edema. Neurological CN II - XII grossly intact. Extremity motor and sensation grossly intact. Skin Warm, dry and intact. No apparent lesions. Psychiatric Patient has good affect, is cooperative Objective Labs 05/04/24 05:56 05/04/24 05:56 Labs: Laboratory Results - last 24 hr 05/03/24 05:19 WBC 8.4 RBC 4.87 Hgb 11.3 L Hct 36.2 L MCV 74 L MCH 23.2 L MCHC 31.2 RDW Std Deviation 46.4 H Plt Count 353 D Neut % (Auto) 67 Lymph % (Auto) 21 [place] % (Auto) 9 Eos % (Auto) 2 Baso % (Auto) 1 Neut # (Auto) 5.6 Lymph # (Auto) 1.8 [place] # (Auto) 0.8 Eos # (Auto) 0.1 Baso # (Auto) 0.0 Immature Gran # (Auto) 0.03 H Absolute Nucleated RBC 0.00 Immature Gran % 0 Nucleated RBC % 0 Sodium 140 Potassium 4.1 Chloride 105 Carbon Dioxide 27.2 Anion Gap 8 BUN 12 Creatinine 0.6 Estim Creat Clear Calc 129.7 eGFR > 60 BUN/Creatinine Ratio 20 Glucose 131 H Calculated Osmolality 281 Calcium 9.5 Corrected Calcium 9.6 Phosphorus 3.5 Magnesium 2.0 Total Bilirubin 0.4 AST 13 ALT 12 Alkaline Phosphatase 93 Total Protein 6.9 Albumin 3.9 Globulin 3.0 Albumin/Globulin Ratio 1.3 Quality Measures Quality Measures none Advance care planning discussed with:: patient Assessment & Plan Assessment Current Active Medications: Generic Name Dose Route Start Last Admin Trade Name Freq PRN Reason Stop Dose Admin Acetaminophen 650 mg 05/01/24 15:03 05/02/24 20:52 Acetaminophen 325 Mg Tablet PO 05/31/24 15:02 650 mg Q4HR PRN Administration PAIN SCALE 1-3 (mild Acetaminophen 650 mg 05/01/24 15:03 Acetaminophen Supp 650 Mg Supp [place] 05/31/24 15:02 Q4HR PRN PAIN SCALE 1-3 (mild Al Hydrox/Mg Hydrox/Simethicone 30 ml 05/01/24 15:03 Mg Hyd/Al Hyd/Joel (Maalox Reg) Susp 30 Ml Udc PO 05/31/24 15:02 Q4HR PRN Heartburn or Upset Stomach Aspirin 81 mg 05/03/24 09:00 12/16/24 08:47 Aspirin Ec 81 Mg Tabec PO 06/02/24 08:59 81 mg QDAY TERRI Administration Atorvastatin Calcium 80 mg 05/01/24 21:00 05/02/24 20:37 Atorvastatin Calcium 20 Mg Tablet PO 05/31/24 20:59 80 mg HS TERRI Administration Clopidogrel Bisulfate 75 mg 05/03/24 09:00 05/03/24 08:47 Clopidogrel Bisulfate 75 Mg Tablet PO 06/02/24 08:59 75 mg QDAY TERRI Administration Dextrose 25 ml 05/01/24 15:42 Dextrose 50%-Water Inj 50 Ml Syringe IV 05/31/24 15:41 Q15MIN PRN BG 50-70 responsive npo pt Dextrose 50 ml 05/01/24 15:42 Dextrose 50%-Water Inj 50 Ml Syringe IV 05/31/24 15:41 Q15MIN PRN BG <50 OR BG <70 & pt unresponsive Enoxaparin Sodium 40 mg 05/02/24 21:00 05/02/24 20:37 Enoxaparin Sod Inj 40 Mg/0.4 Ml Syringe SC 05/16/24 20:59 40 mg HS TERRI Administration Furosemide 20 mg 05/03/24 09:00 05/03/24 08:48 Furosemide 20 Mg Tablet PO 06/02/24 08:59 20 mg QAM TERRI Administration Glucagon 1 mg 05/01/24 15:42 Glucagon Inj 1 Mg Vial IM Q15MIN PRN BG <70, and no IV access Hydralazine HCl 10 mg 05/03/24 08:08 Hydralazine Inj 20 Mg/Ml Vial IV 05/31/24 18:29 Q6HR PRN SBP>180 or DBP>105 and HR<75 Insulin Glargine 10 unit 05/01/24 21:00 05/02/24 20:37 Insulin Glargine (Lantus) 5 Unit/0.05 Ml (Per 5 Units) SC 05/31/24 20:59 10 unit HS TERRI Administration Insulin Human Lispro 0 unit 05/02/24 07:30 05/03/24 08:43 Insulin Lispro (Admelog) 1 Unit/0.01 Ml Unit SC 06/01/24 07:29 4 unit ACHS TERRI Administration Protocol Magnesium Hydroxide 30 ml 05/01/24 15:03 05/03/24 08:47 Milk Of Magnesia Susp 30 Ml Udc PO 05/31/24 15:02 30 ml QDAY PRN Administration CONSTIPATION Metoprolol Succinate 50 mg 05/03/24 09:00 05/03/24 08:46 Metoprolol Succinate Xl 25 Mg Tabcr PO 06/02/24 08:59 50 mg QDAY TERRI Administration Nifedipine 20 mg 05/01/24 22:00 05/03/24 05:04 Nifedipine 10 Mg Capsule PO 05/31/24 21:59 20 mg TID TERRI Administration Ondansetron HCl 4 mg 05/01/24 12:25 05/03/24 08:39 Ondansetron Inj 2 Mg/Ml Inj 2 Ml IV 05/31/24 12:24 4 mg Q4HR PRN Administration NAUSEA OR VOMITING Plan Patient is a 68-year-old male with a past medical history significant for essential hypertension, atrial fibrillation on Eliquis, HFpEF [60 to 65%] IDDM type II [6.1]. Presented with dysathria, headache, and altered mental status. Stroke alert was called and patient received TPA with resolution of symptoms. He was admitted to ICU for acute stroke work up. His blood pressure was controlled in the ICU on a nicardipine drip. Repeat head CT was negative and CTA showed abrupt termination in the RMCA M1. 1. Acute ischemic stroke Presented with dysathria, headache, and altered mental status. Stroke alert was called and patient received TPA with resolution of symptoms. He was admitted to ICU for acute stroke work up. His blood pressure was controlled in the ICU on a nicardipine drip. Repeat head CT was negative and CTA showed abrupt termination in the RMCA M1. Brain MRI with MRA showed high-grade stenosis P2 segment right posterior cerebral artery, possible stenosis bifurcation branch of the right MCA. Plan: - Neuro checks q 4H - Head of bed elevated to 30 degrees - PRN Acetaminophen 650mg to avoid hyperthermia ? Pending echo with bubble study ? Continue PT ? For anticoagulation and antiplatelet with Eliquis 5 Mg p.o. twice daily and aspirin 81 Mg p.o. daily with close monitoring for bleeding as per neurology recommendations. ? Neurology, Dr. Tubbs consulted 2. Atrial fibrillation?paroxysmal For a few years patient endorses intermittent palpitations. On admission EKG showed sinus rhythm with first-degree AV block, rate 74. No acute ST elevation or depression. [id number]: 6 points; 9.7% stroke risk per year [DM, stroke, HTN, CHF, Age] HAS-BLED : 4 points; high risk of major bleeding. Plan: ? Continue moderate telemetry monitoring ? Continue rate control with home medication metoprolol XL 50 Mg p.o. daily. ? Start anticoagulation with Eliquis 5 Mg p.o. twice daily from tomorrow 3. Chronic congestive heart failure with preserved ejection fraction [60-65%] 4. Moderate to severe aortic stenosis Patient does not currently have any SOB, lower extremity swollen. On exam also does not have any crackles on auscultation no lower extremity swelling. Home medication furosemide 20 Mg p.o. daily On admission BNP 251 NYHA class II stage B Transthoracic echocardiogram completed on 11/29/2023 findings include: Normal LV size and function. Mild LVH. Estimated EF 60-65% Normal RV size and function. Moderate to severe calcific aortic valve tenosis, peak gradient 45 mm hG mean gradient 25mmHg, vmax 3.5m/s. Mild tricuspid regurgitation Plan: ? 2G sodium restricted diet ? Daily weights ? Strict input output charting ? 1800 cc/day fluid restriction ? Furosemide 20 Mg p.o. daily ? Continue follow-up with your mail courier as outpatient for monitoring of moderate to severe aortic stenosis 5. Essential hypertension On admission BP 186/66. Currently BP 146/70 Home medication metoprolol XL 50 Mg p.o. daily and clonidine 0.2 Mg p.o. twice daily. Plan: ? Resume home medication metoprolol XL 50 Mg p.o. daily 6. Insulin-dependent diabetes mellitus type 2 [6.1] Patient's HbA1c on admission 6.1% Home medication Tresiba and metformin Plan: ? Increase insulin glargine to 11 units from 10 units at bedtime ? Insulin lispro 3U SC 3 times daily with meals ? SSI to cover any glucose spikes 7. Iron deficiency anemia Iron panel on this admission significant for FE 40, TIBC 325 Plan: ? Start ferrous sulfate 325 mg p.o. every other day 8. Hyperlipidemia Lipid panel significant for triglycerides 154, cholesterol 190, LDL 116, HDL 43 Plan: ? Continue atorvastatin 80 Mg p.o. at bedtime Health maintenance: Disposition: Pending echo with bubble study Diet: Cardiac Lines: pIVs GI Prophylaxis: None Thrombo Prophylaxis: Eliquis Code status: FULL CODE Plan of care discussed with Attending Dr. Martins and PGY2 Dr. Peterson Ordonez MD PGY 1 Attending Provider Attestation/Addendum Dinah, Razia Martins DO, attest that I was physically present for the [place] portions of the service and evaluated the patient with the resident and I reviewed and discussed the case with the resident and agree with the resident's findings and plans of care as documented above Patient is a 68-year-old male with past medical history of A-fib, cardiomyopathy, hypertension, type II IDDM who was brought to ED due to aphasia. Patient was downgraded from ICU today after he received tPA. Symptoms have since resolved. An MRI was done showing high-grade stenosis of P2 segment of right posterior cerebral artery and possible stenosis bifurcation branches of the right middle cerebral artery. Patient is now able to articulate speech without issue and ambulate to the bathroom independently. Patient states that prior to this episode he had experienced several episodes of dizziness in the past. Explained findings of MRI to patient and his family at bedside including his and daughter. They were aware that he had A-fib, but has not been on any anticoagulation. [id number] score is 6. Patient states that he had previously taken aspirin and Coumadin after an accident about 22 years ago. He had also undergone recent angiogram on February 11 of this year. Spoke with patient's outpatient mail courier, patient has clean coronaries and mild aortic stenosis. Otherwise, he has no stents. Due to [id number] score of 6 and evidence of A-fib, patient will need full dose anticoagulation. Cleared with cardiology and neurology regarding start of Eliquis in addition to 1 antiplatelet, instead of dual antiplatelet therapy as initially recommended. Neurology recommends starting aspirin and Eliquis and monitor for any signs of bleeding. Patient and family were given follow-up precautions and discussed bleeding risks with which they were well aware of and verbalized understanding. Currently pending echocardiogram and physical therapy. anticipate discharge in the next 24 hours.
--- NOTE | 2024-05-03 10:58 | PD.RESPRO ---
Documentation for date of: 05/03/24 Subjective Subjective Interval history: No overnight events, patient denies headache, dizziness, weakness. Tolerating well food, ambulating properly. Exam Vital Signs Temp Pulse Resp BP Pulse Ox O2 Del Method O2 Flow Rate 97.8 F 115 H 16 140/69 H 96 Room Air 1 05/03/24 04:03 05/03/24 08:48 05/03/24 04:03 05/03/24 08:48 05/03/24 04:03 05/01/24 18:56 05/01/24 17:16 Narrative Exam GENERAL APPEARANCE: Well hydrated, well-nourished in no acute distress. HEENT: Normocephalic, atraumatic, extraocular movements intact. Pupils: Equal reacting to light and accommodation, tympanic membranes are bilaterally intact. There is no bulge or retraction. Throat without erythema or exudate. Moist oral mucosa. NECK: Supple, no JVD or bruits. CARDIOVASULAR: Heart: S1, S2 heard, irregular without S3-S4 or murmur no rubs or gallops. LUNGS/CHEST: Clear to auscultation bilaterally. No rails, rhonchi, or wheezing. Normal inspection. ABDOMEN: Soft, nontender, with normal bowel sounds. No pulsatile masses. No rebound, rigidity, or guarding. Normal inspection and palpation. EXTREMITIES: Normal inspection and palpation. No edema, clubbing or cyanosis. SKIN: Warm and dry without rashes. Normal inspection. MUSCULOSKELETAL: No cervical, thoracic, lumbar or midline bony tenderness. Normal inspection. NEURO: Alert, awake and oriented x3. Cranial nerves: II through XII grossly intact. Speech and language: Normal with no dysarthria or dysphasia. Motor system: Tone and bulk: Normal: Strength: 5 out of 5 in all 4 extremities; No pronator drift noted. Deep tendon reflexes: 2+ bilaterally symmetrical. Plantar reflex: Downgoing bilaterally. Sensory system: Intact to all modalities of sensation bilaterally. Coordination: Intact to [id number] and exhh-[id number] test bilaterally. No ataxia, no dysmetria, or dysdiadochokinesia noted. No intention tremors noted. Gait: Normal. Toe, heel, tandem walk all are normal. Romberg: Negative. No signs of meningeal irritation noted. PSYCHIATRIC: Normal mood and affect. Objective Labs 05/04/24 05:56 05/04/24 05:56 Labs: Laboratory Results - last 24 hr 05/03/24 05:19 WBC 8.4 RBC 4.87 Hgb 11.3 L Hct 36.2 L MCV 74 L MCH 23.2 L MCHC 31.2 RDW Std Deviation 46.4 H Plt Count 353 D Neut % (Auto) 67 Lymph % (Auto) 21 [place] % (Auto) 9 Eos % (Auto) 2 Baso % (Auto) 1 Neut # (Auto) 5.6 Lymph # (Auto) 1.8 [place] # (Auto) 0.8 Eos # (Auto) 0.1 Baso # (Auto) 0.0 Immature Gran # (Auto) 0.03 H Absolute Nucleated RBC 0.00 Immature Gran % 0 Nucleated RBC % 0 Sodium 140 Potassium 4.1 Chloride 105 Carbon Dioxide 27.2 Anion Gap 8 BUN 12 Creatinine 0.6 Estim Creat Clear Calc 129.7 eGFR > 60 BUN/Creatinine Ratio 20 Glucose 131 H Calculated Osmolality 281 Calcium 9.5 Corrected Calcium 9.6 Phosphorus 3.5 Magnesium 2.0 Total Bilirubin 0.4 AST 13 ALT 12 Alkaline Phosphatase 93 Total Protein 6.9 Albumin 3.9 Globulin 3.0 Albumin/Globulin Ratio 1.3 Quality Measures Quality Measures none Advance care planning discussed with:: patient Assessment & Plan Assessment Current Active Medications: Generic Name Dose Route Start Last Admin Trade Name Freq PRN Reason Stop Dose Admin Acetaminophen 650 mg 05/01/24 15:03 05/02/24 20:52 Acetaminophen 325 Mg Tablet PO 05/31/24 15:02 650 mg Q4HR PRN Administration PAIN SCALE 1-3 (mild Acetaminophen 650 mg 05/01/24 15:03 Acetaminophen Supp 650 Mg Supp ND 05/31/24 15:02 Q4HR PRN PAIN SCALE 1-3 (mild Al Hydrox/Mg Hydrox/Simethicone 30 ml 05/01/24 15:03 Mg Hyd/Al Hyd/Joel (Maalox Reg) Susp 30 Ml Udc PO 05/31/24 15:02 Q4HR PRN Heartburn or Upset Stomach Aspirin 81 mg 05/03/24 09:00 05/03/24 08:47 Aspirin Ec 81 Mg Tabec PO 06/02/24 08:59 81 mg QDAY TERRI Administration Atorvastatin Calcium 80 mg 05/01/24 21:00 05/02/24 20:37 Atorvastatin Calcium 20 Mg Tablet PO 05/31/24 20:59 80 mg HS TERRI Administration Clopidogrel Bisulfate 75 mg 05/03/24 09:00 05/03/24 08:47 Clopidogrel Bisulfate 75 Mg Tablet PO 06/02/24 08:59 75 mg QDAY TERRI Administration Dextrose 25 ml 05/01/24 15:42 Dextrose 50%-Water Inj 50 Ml Syringe IV 05/31/24 15:41 Q15MIN PRN BG 50-70 responsive npo pt Dextrose 50 ml 05/01/24 15:42 Dextrose 50%-Water Inj 50 Ml Syringe IV 05/31/24 15:41 Q15MIN PRN BG <50 OR BG <70 & pt unresponsive Enoxaparin Sodium 40 mg 05/02/24 21:00 05/02/24 20:37 Enoxaparin Sod Inj 40 Mg/0.4 Ml Syringe SC 05/16/24 20:59 40 mg HS TERRI Administration Furosemide 20 mg 05/03/24 09:00 05/03/24 08:48 Furosemide 20 Mg Tablet PO 06/02/24 08:59 20 mg QAM TERRI Administration Glucagon 1 mg 05/01/24 15:42 Glucagon Inj 1 Mg Vial IM Q15MIN PRN BG <70, and no IV access Hydralazine HCl 10 mg 05/03/24 08:08 Hydralazine Inj 20 Mg/Ml Vial IV 05/31/24 18:29 Q6HR PRN SBP>180 or DBP>105 and HR<75 Insulin Glargine 10 unit 05/01/24 21:00 05/02/24 20:37 Insulin Glargine (Lantus) 5 Unit/0.05 Ml (Per 5 Units) SC 05/31/24 20:59 10 unit HS TERRI Administration Insulin Human Lispro 0 unit 05/02/24 07:30 05/03/24 08:43 Insulin Lispro (Admelog) 1 Unit/0.01 Ml Unit SC 06/01/24 07:29 4 unit ACHS TERRI Administration Protocol Magnesium Hydroxide 30 ml 05/01/24 15:03 05/03/24 08:47 Milk Of Magnesia Susp 30 Ml Udc PO 05/31/24 15:02 30 ml QDAY PRN Administration CONSTIPATION Metoprolol Succinate 50 mg 05/03/24 09:00 05/03/24 08:46 Metoprolol Succinate Xl 25 Mg Tabcr PO 06/02/24 08:59 50 mg QDAY TERRI Administration Nifedipine 30 mg 05/03/24 14:00 Nifedipine 10 Mg Capsule PO 06/02/24 13:59 TID TERRI Ondansetron HCl 4 mg 05/01/24 12:25 05/03/24 08:39 Ondansetron Inj 2 Mg/Ml Inj 2 Ml IV 05/31/24 12:24 4 mg Q4HR PRN Administration NAUSEA OR VOMITING Plan Mimi is a 68-year-old male with past medical history significant for A-fib, CHF, hypertension and insulin-dependent type 2 diabetes presented to the ED after family noticed that he was having difficulties completing sentences and not being able to recognize close family members, patient was brought to the ED and received tPA. #Acute CVA post tPA #Intracranial stenosis Resolved with no residual deficit or recurrence s/p TNK MRI brain: negative for acute infarction, chronic microvascular white matter change, High-grade stenosis P2 segment right posterior cerebral artery, possible stenosis bifurcation branch of the right middle cerebral artery As there is ICS from MRA chronic atrial fibrillation, he will need Eliquis and aspirin 81 mg upon discharge with close monitoring his HGB/HCT. Continue with statin. Patient's care discussed with attending physician, Dr Suly Hinton MD PGY3 Attending Provider Attestation/Addendum I personally have seen and examined the patient at the bedside and I agree with resident's findings, assessment and plan of care. Patient is stable for discharge on Eliquis and aspirin 81 upon discharge with close monitoring hemoglobin
[2024-05-03] MEDS: NIFEdipine 10 MG CAPSULE 30 MG PO ×2 (14:33→21:02)
[2024-05-03] MEDS: FERROUS SULF 325 MG TABLET PO (15:54)
[2024-05-03] MEDS: INSULIN LISPRO (AdmeLOG) 1 UNIT/0.01 ML UNIT 3 UNIT SC (16:51)
[2024-05-03] MEDS: ATORVASTATIN CALCIUM 20 MG TABLET 80 MG PO (21:00)
[2024-05-03] MEDS: SENNA TABLET 1 TAB PO (21:02)
[2024-05-03] MEDS: INSULIN GLARGINE (Lantus) 5 UNIT/0.05 ML (PER 5 UNITS) 11 UNIT SC (21:03)
[2024-05-04] VITALS (10 sets, daily range): BP systolic 145–164; BP diastolic 67–87; PULSE 64–80; RESP 14–18; TEMP 36.1–36.5; O2SAT 97–99
[2024-05-04] MEDS: NIFEdipine 10 MG CAPSULE 30 MG PO ×2 (05:16→13:53)
[2024-05-04 06:25] LABS: Basophils % (Auto) 0 % (0-2.5); Eosinophils # (Auto) 0.2 Thou/mm3 (0.0-0.5); Eosinophils % (Auto) 2 % (0-10); Hematocrit 37.1 % (41.0-53.0); Hemoglobin 11.8 g/dL (13.5-16.0); Immature Granulocytes % (Auto) 1 % (0-0); Immature Granulocytes Auto 0.05 Thou/mm3 (0.00-0.00); Lymphocytes # (Auto) 1.9 Thou/mm3 (1.0-4.8); Lymphocytes % (Auto) 18 % (10-50); Mean Corpuscular HGB Conc 31.8 g/dl (31.0-37.0); Mean Corpuscular Hemoglobin 23.3 pg (25.0-35.0); Mean Corpuscular Volume 73 fL (80-100); Monocytes # (Auto) 0.8 Thou/mm3 (0.0-0.8); Monocytes % (Auto) 8 % (0-12); Neutrophils # (Auto) 7.2 Thou/mm3 (1.8-7.7); Neutrophils % (Auto) 71 % (37-80); Nucleated Red Blood Cell % 0 /100 WBC (0); Platelet Count 386 Thou/mm3 (140-440); RDW Standard Deviation 47.4 fL (35.1-43.9); Red Blood Count 5.07 Miln/mm3 (4.50-5.90); White Blood Count 10.2 Thou/mm3 (3.8-10.6)
[2024-05-04 07:17] LABS: Alanine Aminotransferase 14 U/L (10-49); Albumin, Serum 4.2 gm/dL (3.4-4.8); Albumin/Globulin Ratio 1.6 (1.2-2.2); Alkaline Phosphatase 93 U/L (46-116); Anion Gap 7 (7-16); Aspartate Amino Transferase 13 U/L (0-34); BUN/Creatinine Ratio 18 Ratio (12-20); Bilirubin,Total 0.5 mg/dL (0.3-1.2); Blood Urea Nitrogen 14 mg/dL (9-23); Calcium 9.3 mg/dL (8.3-10.6); Calcium (Corrected) 9.3 mg/dL (8.5-10.1); Carbon Dioxide 26.2 mMol/L (20.0-31.0); Chloride 103 mMol/L (98-107); Creatinine (Component) 0.8 mg/dL (0.6-1.3); Estimated Creatinine Clearance 97.1 mL/min (>60); Globulin 2.6 gm/dL (2.3-3.5); Glucose 155 mg/dL (74-106); Magnesium 2.1 mg/dL (1.6-2.6); Osmolality,Calculated 275 (275-295); Phosphorous 3.2 mg/dL (2.4-5.1); Potassium 4.4 mMol/L (3.4-5.1); Sodium 136 mMol/L (136-145); Total Protein 6.8 gm/dL (5.7-8.2); eGFR > 60 See Note
[2024-05-04] MEDS: INSULIN LISPRO (AdmeLOG) 1 UNIT/0.01 ML UNIT SC ×2 (07:36→11:43)
[2024-05-04] MEDS: INSULIN LISPRO (AdmeLOG) 1 UNIT/0.01 ML UNIT 3 UNIT SC ×2 (07:36→11:42)
--- NOTE | 2024-05-04 07:51 | PD.RESPRO ---
Documentation for date of: 05/04/24 Subjective Subjective Interval history: Patient Chilean-speaking and interaction facilitated by registered healthcare store assistant Patient was seen and examined at bedside this AM. No acute exents overnight. Patient tolerating diet, adequate urine output and mentation is at baseline. Patient complains of intermittent palpitations which last for about 3?5 seconds and spontaneously resolved. He also has not had a bowel movement for the past 3 days. From telemetry review rate between 70s?90s, sinus rhythm with first-degree AV block overnight K 4.4 and Mg 2.1.will maintain potassium >4 and magnesium >2 at all times to prevent any further arrhythmias. Transthoracic echocardiogram with bubble study pending Exam Vital Signs Temp Pulse Resp BP Pulse Ox O2 Del Method O2 Flow Rate 97.0 F 67 14 156/87 H 97 Room Air 1 05/04/24 04:00 05/04/24 05:16 05/04/24 04:00 05/04/24 05:16 05/04/24 04:00 05/03/24 20:00 05/01/24 17:16 Narrative Exam Constitutional Alert, oriented x 3 and comfortable. Elderly male HEENT Vision grossly intact. Patent nares. Trachea midline Respiratory Chest normal on inspection and clear auscultation bilaterally Cardiovascular S1 and S2 audible. 4/6 ejection systolic murmur heard at right sternal border with radiation to the carotids B/L. JVD not assessed Abdominal Soft and non tender to palpation in all quadrants. BS + Genitourinary No bladder tenderness, no flank pain. Normal to palpation Musculoskeletal Extremities tone within normal limits. No LE edema. Neurological CN II - XII grossly intact. Extremity motor and sensation grossly intact. NIHSS 0 Skin Warm, dry and intact. No apparent lesions. Psychiatric Patient has good affect, is cooperative Objective Labs 05/04/24 05:56 05/04/24 05:56 Labs: Laboratory Results - last 24 hr 05/04/24 05:56 WBC 10.2 RBC 5.07 Hgb 11.8 L Hct 37.1 L MCV 73 L MCH 23.3 L MCHC 31.8 RDW Std Deviation 47.4 H Plt Count 386 D Neut % (Auto) 71 Lymph % (Auto) 18 [place] % (Auto) 8 Eos % (Auto) 2 Baso % (Auto) 0 Neut # (Auto) 7.2 Lymph # (Auto) 1.9 [place] # (Auto) 0.8 Eos # (Auto) 0.2 Baso # (Auto) 0.0 Immature Gran # (Auto) 0.05 H Absolute Nucleated RBC 0.00 Immature Gran % 1 H Nucleated RBC % 0 Sodium 136 Potassium 4.4 Chloride 103 Carbon Dioxide 26.2 Anion Gap 7 BUN 14 Creatinine 0.8 Estim Creat Clear Calc 97.1 eGFR > 60 BUN/Creatinine Ratio 18 Glucose 155 H Calculated Osmolality 275 Calcium 9.3 Corrected Calcium 9.3 Phosphorus 3.2 Magnesium 2.1 Total Bilirubin 0.5 AST 13 ALT 14 Alkaline Phosphatase 93 Total Protein 6.8 Albumin 4.2 Globulin 2.6 Albumin/Globulin Ratio 1.6 Quality Measures Quality Measures none Advance care planning discussed with:: patient Assessment & Plan Assessment Current Active Medications: Generic Name Dose Route Start Last Admin Trade Name Freq PRN Reason Stop Dose Admin Acetaminophen 650 mg 05/01/24 15:03 05/02/24 20:52 Acetaminophen 325 Mg Tablet PO 05/31/24 15:02 650 mg Q4HR PRN Administration PAIN SCALE 1-3 (mild Acetaminophen 650 mg 05/01/24 15:03 Acetaminophen Supp 650 Mg Supp TX 05/31/24 15:02 Q4HR PRN PAIN SCALE 1-3 (mild Al Hydrox/Mg Hydrox/Simethicone 30 ml 05/01/24 15:03 Mg Hyd/Al Hyd/Joel (Maalox Reg) Susp 30 Ml Udc PO 05/31/24 15:02 Q4HR PRN Heartburn or Upset Stomach Apixaban 5 mg 05/04/24 09:00 Apixaban 2.5 Mg Tablet PO 06/03/24 08:59 BID TERRI Aspirin 81 mg 05/03/24 09:00 05/03/24 08:47 Aspirin Ec 81 Mg Tabec PO 06/02/24 08:59 81 mg QDAY TERRI Administration Atorvastatin Calcium 80 mg 05/01/24 21:00 05/03/24 21:00 Atorvastatin Calcium 20 Mg Tablet PO 05/31/24 20:59 80 mg HS TERRI Administration Dextrose 25 ml 05/01/24 15:42 Dextrose 50%-Water Inj 50 Ml Syringe IV 05/31/24 15:41 Q15MIN PRN BG 50-70 responsive npo pt Dextrose 50 ml 05/01/24 15:42 Dextrose 50%-Water Inj 50 Ml Syringe IV 05/31/24 15:41 Q15MIN PRN BG <50 OR BG <70 & pt unresponsive Ferrous Sulfate 325 mg 05/03/24 15:45 05/03/24 15:54 Ferrous Sulf 325 Mg Tablet PO 06/02/24 15:44 325 mg QOD TERRI Administration Furosemide 20 mg 05/03/24 09:00 05/03/24 08:48 Furosemide 20 Mg Tablet PO 06/02/24 08:59 20 mg QAM TERRI Administration Glucagon 1 mg 05/01/24 15:42 Glucagon Inj 1 Mg Vial IM Q15MIN PRN BG <70, and no IV access Hydralazine HCl 10 mg 05/03/24 08:08 Hydralazine Inj 20 Mg/Ml Vial IV 05/31/24 18:29 Q6HR PRN SBP>180 or DBP>105 and HR<75 Insulin Glargine 11 unit 05/03/24 21:00 05/03/24 21:03 Insulin Glargine (Lantus) 5 Unit/0.05 Ml (Per 5 Units) SC 06/02/24 20:59 11 unit HS TERRI Administration Insulin Human Lispro 0 unit 05/02/24 07:30 05/04/24 07:36 Insulin Lispro (Admelog) 1 Unit/0.01 Ml Unit SC 06/01/24 07:29 2 unit ACHS TERRI Administration Protocol Insulin Human Lispro 3 unit 05/03/24 17:30 05/04/24 07:36 Insulin Lispro (Admelog) 1 Unit/0.01 Ml Unit SC 06/02/24 17:29 3 unit TIDWM TERRI Administration Magnesium Hydroxide 30 ml 05/01/24 15:03 05/03/24 08:47 Milk Of Magnesia Susp 30 Ml Udc PO 05/31/24 15:02 30 ml QDAY PRN Administration CONSTIPATION Metoprolol Succinate 50 mg 05/03/24 09:00 05/03/24 08:46 Metoprolol Succinate Xl 25 Mg Tabcr PO 06/02/24 08:59 50 mg QDAY TERRI Administration Nifedipine 30 mg 05/03/24 14:00 05/04/24 05:16 Nifedipine 10 Mg Capsule PO 06/02/24 13:59 30 mg TID TERRI Administration Ondansetron HCl 4 mg 05/01/24 12:25 05/03/24 08:39 Ondansetron Inj 2 Mg/Ml Inj 2 Ml IV 05/31/24 12:24 4 mg Q4HR PRN Administration NAUSEA OR VOMITING Sennosides 1 tab 05/03/24 21:00 05/03/24 21:02 Senna Tablet PO 06/02/24 20:59 1 tab QDAY TERRI Administration Protocol Plan Patient is a 68-year-old male with a past medical history significant for essential hypertension, atrial fibrillation on Eliquis, HFpEF [60 to 65%] IDDM type II [6.1]. Presented with dysathria, headache, and altered mental status. Stroke alert was called and patient received TPA with resolution of symptoms. He was admitted to ICU for acute stroke work up. His blood pressure was controlled in the ICU on a nicardipine drip. Repeat head CT was negative and CTA showed abrupt termination in the RMCA M1. 1. Acute ischemic stroke Presented with dysathria, headache, and altered mental status. Stroke alert was called and patient received TPA with resolution of symptoms. He was admitted to ICU for acute stroke work up. His blood pressure was controlled in the ICU on a nicardipine drip. Repeat head CT was negative and CTA showed abrupt termination in the RMCA M1. Brain MRI with MRA showed high-grade stenosis P2 segment right posterior cerebral artery, possible stenosis bifurcation branch of the right MCA. Currently patient's dysarthria and altered mental status have resolved and he is back to his baseline. Plan: - Neuro checks q 4H - Head of bed elevated to 30 degrees - PRN Acetaminophen 650mg to avoid hyperthermia ? Pending echo with bubble study ? Continue PT ? Comtinue anticoagulation and antiplatelet with Eliquis 5 Mg p.o. twice daily and aspirin 81 Mg p.o. daily with close monitoring for bleeding as per neurology recommendations. ? Neurology, Dr. Tubbs consulted 2. Atrial fibrillation?paroxysmal 3. First-degree AV block For a few years patient endorses intermittent palpitations. On admission EKG showed sinus rhythm with first-degree AV block, rate 74. No acute ST elevation or depression. [id number]: 6 points; 9.7% stroke risk per year [DM, stroke, HTN, CHF, Age] HAS-BLED : 4 points; high risk of major bleeding. From telemetry review rate between 70s?90s, sinus rhythm with first-degree AV block overnight K 4.4 and Mg 2.1.will maintain potassium >4 and magnesium >2 at all times to prevent any further arrhythmias. Plan: ? Continue Monitoring telemetry monitoring ? Continue rate control with home medication metoprolol XL 50 Mg p.o. daily. ? Start anticoagulation with Eliquis 5 Mg p.o. twice daily from tomorrow 4. Chronic congestive heart failure with preserved ejection fraction [60-65%] 5. Moderate to severe aortic stenosis Patient does not currently have any SOB, lower extremity swollen. On exam 08/22 ejection systolic murmur heard at right sternal border with radiation to carotids, does not have any crackles on auscultation no lower extremity swelling. Home medication furosemide 20 Mg p.o. daily On admission BNP 251 NYHA class II stage B Transthoracic echocardiogram completed on 11/29/2023 findings include: Normal LV size and function. Mild LVH. Estimated EF 60-65% Normal RV size and function. Moderate to severe calcific aortic valve tenosis, peak gradient 45 mm hG mean gradient 25mmHg, vmax 3.5m/s. Mild tricuspid regurgitation Plan: ? 2G sodium restricted diet ? Daily weights ? Strict input output charting ? 1800 cc/day fluid restriction ? Furosemide 20 Mg p.o. daily ? Continue follow-up with your strategic partner development manager as outpatient for monitoring of moderate to severe aortic stenosis 6. Essential hypertension On admission BP 186/66. Currently BP 156/87 Home medication metoprolol XL 50 Mg p.o. daily and clonidine 0.2 Mg p.o. twice daily. Plan: ? Continue home medication metoprolol XL 50 Mg p.o. daily ? Continue nifedipine 30 Mg p.o. 3 times daily ? Will transition to nicardipine XL 90 Mg p.o. daily upon discharge 7. Insulin-dependent diabetes mellitus type 2 [6.1] Patient's HbA1c on admission 6.1% Home medication Tresiba and metformin Plan: ? Increase insulin glargine to 11 units from 10 units at bedtime ? Insulin lispro 3U SC 3 times daily with meals ? SSI to cover any glucose spikes 8. Iron deficiency anemia Iron panel on this admission significant for FE 40, TIBC 325 Plan: ? Start ferrous sulfate 325 mg p.o. every other day 9. Hyperlipidemia Lipid panel significant for triglycerides 154, cholesterol 190, LDL 116, HDL 43 Plan: ? Continue atorvastatin 80 Mg p.o. at bedtime Health maintenance: Disposition: Pending echo with bubble study Diet: Cardiac Lines: pIVs GI Prophylaxis: None Thrombo Prophylaxis: Eliquis Code status: FULL CODE Plan of care discussed with Attending Dr. Martins and PGY2 Dr. Peterson Ordonez MD PGY 1
[2024-05-04] MEDS: SENNA TABLET 1 TAB PO (08:31)
[2024-05-04] MEDS: METOPROLOL SUCCINATE XL 25 MG TABCR 50 MG PO (08:31)
[2024-05-04] MEDS: APIXABAN 2.5 MG TABLET 5 MG PO (08:31)
[2024-05-04] MEDS: Furosemide 20 MG TABLET PO (08:32)
[2024-05-04] MEDS: ASPIRIN EC 81 MG TABEC PO (08:33)
[2024-05-04] MEDS: Milk Of Magnesia Susp 30 ML UDC PO (08:35)
--- NOTE | 2024-05-04 09:46 | PC.SS ---
Patient Addison Muñoz is a 68 Year old male admitted for APHASIA AND CONFUSION. SS contacted patient's , Jena Diaz in order to complete initial and verify demographic information. She reports patient lives at home with her, she reports she is surrogate decision maker [phone]. Patient did not utilize any source of DME to assist with ambulation. Patient does need assistance completing ADL's. Patient's PCP is Mitchel Lima. Choice of pharmacy is [email or web address]. At time of discharge patient will return home with HH. has not preference in HH agency. Family will provide transportation. Home with HH- No Preference in Agency Next of Kin: , Jena Diaz PCP: Mitchel Lima which he last seen last Friday
[2024-05-04] MEDS: POLYETHYLENE GLYCOL 17 GM PACKET PO (10:00)
--- NOTE | 2024-05-04 10:05 | ESPR_ITS ---
Documentation for date of: 05/04/24 Subjective Subjective Interval history: Patient was examined bedside this morning.No acute overnight events .he is complaning of not having bowel movement since 3 days. Exam Vital Signs Temp Pulse Resp BP Pulse Ox O2 Del Method O2 Flow Rate 97.4 F 75 14 164/70 H 99 Room Air 1 05/04/24 08:00 05/04/24 08:32 05/04/24 08:00 05/04/24 08:32 05/04/24 08:00 05/04/24 08:00 05/01/24 17:16 Narrative Exam GENERAL: Comfortable adult seen resting comfortably in hospital bed, no acute distress VITALS: All vitals were reviewed and the pulse ox is 98% on room air HEENT: Normocephalic, atraumatic. Pupils are equal and reactive. Oral mucosa is moist. NECK: Supple, nontender, no JVD CHEST: Symmetrical, atraumatic and with equal expansion ,Nontender on palpation CARDIOVASCULAR: Heart regular rhythm & rate. S1/S2. no murmur or gallop rub or extra beats. LUNGS: Clear to auscultation bilaterally with symmetrical chest rise. No laboring tachypnea or wheezing. No intercostal subcostal retraction. No rales and no rhonchi. ABDOMEN: Soft, flat, nontender to palpation, no guarding or rebound tenderness. Active and normal bowel sounds. EXTREMITIES:Moves all 4 extremities,No B/L LE edema. SKIN: Warm and dry, no jaundice or rashes noted. NEURO: Patient is AO x 3, Cranial nerves II through XII grossly intact. There is no focal neurologic deficits noted. PSYCHIATRIC: Patient is in normal mood, cooperative, no SI or HI or hallucinations. Objective Labs 05/04/24 05:56 05/04/24 05:56 Labs: Laboratory Results - last 24 hr 05/04/24 05:56 WBC 10.2 RBC 5.07 Hgb 11.8 L Hct 37.1 L MCV 73 L MCH 23.3 L MCHC 31.8 RDW Std Deviation 47.4 H Plt Count 386 D Neut % (Auto) 71 Lymph % (Auto) 18 [place] % (Auto) 8 Eos % (Auto) 2 Baso % (Auto) 0 Neut # (Auto) 7.2 Lymph # (Auto) 1.9 [place] # (Auto) 0.8 Eos # (Auto) 0.2 Baso # (Auto) 0.0 Immature Gran # (Auto) 0.05 H Absolute Nucleated RBC 0.00 Immature Gran % 1 H Nucleated RBC % 0 Sodium 136 Potassium 4.4 Chloride 103 Carbon Dioxide 26.2 Anion Gap 7 BUN 14 Creatinine 0.8 Estim Creat Clear Calc 97.1 eGFR > 60 BUN/Creatinine Ratio 18 Glucose 155 H Calculated Osmolality 275 Calcium 9.3 Corrected Calcium 9.3 Phosphorus 3.2 Magnesium 2.1 Total Bilirubin 0.5 AST 13 ALT 14 Alkaline Phosphatase 93 Total Protein 6.8 Albumin 4.2 Globulin 2.6 Albumin/Globulin Ratio 1.6 Quality Measures Quality Measures none Advance care planning discussed with:: patient Assessment & Plan Assessment Current Active Medications: Generic Name Dose Route Start Last Admin Trade Name Freq PRN Reason Stop Dose Admin Acetaminophen 650 mg 05/01/24 15:03 05/02/24 20:52 Acetaminophen 325 Mg Tablet PO 05/31/24 15:02 650 mg Q4HR PRN Administration PAIN SCALE 1-3 (mild Acetaminophen 650 mg 05/01/24 15:03 Acetaminophen Supp 650 Mg Supp MA 05/31/24 15:02 Q4HR PRN PAIN SCALE 1-3 (mild Al Hydrox/Mg Hydrox/Simethicone 30 ml 05/01/24 15:03 Mg Hyd/Al Hyd/Joel (Maalox Reg) Susp 30 Ml Udc PO 05/31/24 15:02 Q4HR PRN Heartburn or Upset Stomach Apixaban 5 mg 05/04/24 09:00 05/04/24 08:31 Apixaban 2.5 Mg Tablet PO 06/03/24 08:59 5 mg BID TERRI Administration Aspirin 81 mg 05/03/24 09:00 05/04/24 08:33 Aspirin Ec 81 Mg Tabec PO 06/02/24 08:59 81 mg QDAY TERRI Administration Atorvastatin Calcium 80 mg 05/01/24 21:00 05/03/24 21:00 Atorvastatin Calcium 20 Mg Tablet PO 05/31/24 20:59 80 mg HS TERRI Administration Dextrose 25 ml 05/01/24 15:42 Dextrose 50%-Water Inj 50 Ml Syringe IV 05/31/24 15:41 Q15MIN PRN BG 50-70 responsive npo pt Dextrose 50 ml 05/01/24 15:42 Dextrose 50%-Water Inj 50 Ml Syringe IV 05/31/24 15:41 Q15MIN PRN BG <50 OR BG <70 & pt unresponsive Ferrous Sulfate 325 mg 05/03/24 15:45 05/03/24 15:54 Ferrous Sulf 325 Mg Tablet PO 06/02/24 15:44 325 mg QOD TERRI Administration Furosemide 20 mg 05/03/24 09:00 05/04/24 08:32 Furosemide 20 Mg Tablet PO 06/02/24 08:59 20 mg QAM TERRI Administration Glucagon 1 mg 05/01/24 15:42 Glucagon Inj 1 Mg Vial IM Q15MIN PRN BG <70, and no IV access Hydralazine HCl 10 mg 05/03/24 08:08 Hydralazine Inj 20 Mg/Ml Vial IV 05/31/24 18:29 Q6HR PRN SBP>180 or DBP>105 and HR<75 Insulin Glargine 11 unit 05/03/24 21:00 05/03/24 21:03 Insulin Glargine (Lantus) 5 Unit/0.05 Ml (Per 5 Units) SC 06/02/24 20:59 11 unit HS TERRI Administration Insulin Human Lispro 0 unit 05/02/24 07:30 05/04/24 07:36 Insulin Lispro (Admelog) 1 Unit/0.01 Ml Unit SC 06/01/24 07:29 2 unit ACHS TERRI Administration Protocol Insulin Human Lispro 3 unit 05/03/24 17:30 05/04/24 07:36 Insulin Lispro (Admelog) 1 Unit/0.01 Ml Unit SC 06/02/24 17:29 3 unit TIDWM TERRI Administration Magnesium Hydroxide 30 ml 05/01/24 15:03 05/04/24 08:35 Milk Of Magnesia Susp 30 Ml Udc PO 05/31/24 15:02 30 ml QDAY PRN Administration CONSTIPATION Metoprolol Succinate 50 mg 05/03/24 09:00 05/04/24 08:31 Metoprolol Succinate Xl 25 Mg Tabcr PO 06/02/24 08:59 50 mg QDAY TERRI Administration Nifedipine 30 mg 05/03/24 14:00 05/04/24 05:16 Nifedipine 10 Mg Capsule PO 06/02/24 13:59 30 mg TID TERRI Administration Ondansetron HCl 4 mg 05/01/24 12:25 12/16/24 08:39 Ondansetron Inj 2 Mg/Ml Inj 2 Ml IV 05/31/24 12:24 4 mg Q4HR PRN Administration NAUSEA OR VOMITING Polyethylene Glycol 17 gm 05/04/24 09:45 05/04/24 10:00 Polyethylene Glycol 17 Gm Packet PO 06/03/24 09:44 17 gm QDAY TERRI Administration Sennosides 1 tab 05/03/24 21:00 05/04/24 08:31 Senna Tablet PO 06/02/24 20:59 1 tab QDAY TERRI Administration Protocol Plan Mimi is a 68-year-old male with past medical history significant for A- fib, CHF, hypertension and insulin-dependent type 2 diabetes presented to the ED after family noticed that he was having difficulties completing sentences and not being able to recognize close family members, patient was brought to the ED and received tPA. #Acute CVA post tPA #Intracranial stenosis -Resolved with no residual deficit or recurrence s/p TNK -MRI brain: negative for acute infarction, chronic microvascular white matter change, High-grade stenosis P2 segment right posterior cerebral artery, possible stenosis bifurcation branch of the right middle cerebral artery As there is ICS from MRA, he will need DAPT upon discharge with close monitoring his HGB/HCT. - Continue with statin. Patient's care discussed with attending physician, Dr Suly Lambert MD PGY3 Attending Provider Attestation/Addendum I personally have seen and examined the patient at the bedside and I agree with resident's findings, assessment and plan of care. Patient is stable for discharge home on Eliquis and aspirin with statin. Follow-up in 2 weeks Does not have any focal neurological deficit, MRI brain is negative for acute stroke. MRI brain showed WEAVER AXMINSTER stenosis.
--- NOTE | 2024-05-04 15:40 | PC.NURSE ---
ok to discharge per dr. hassan, folow up in 2 weeks, call [phone] for your appointment.
--- NOTE | 2024-05-04 16:48 | PC.PT ---
Patient will be D/C from PT services secondary to he is xI with his bed mobility, transfers, and ambulation with no DME. Patient is safe to ambulate xI in the hallway with no DME. Patient is at his PLOF. RN notified.
--- NOTE | 2024-05-04 17:07 | ESDS_ITS ---
<Statement entered by Razia Martins DO - 05/05/24 16:34> I, Razia Martins DO, attest that I was physically present for the [place] portions of the service and evaluated the patient with the resident and I reviewed and discussed the case with the resident and agree with the resident's findings and plans of care as documented above <Statement entered by Brijesh Winkler MD - 05/04/24 17:11> I saw and examined the patient, and I agree with current management stated by Dr José Luis MD,PGY1. Plan of care was discussed with the attending physician and resident physician. Disclaimer: Despite multiple revisions, due to the dictation software being used, the document bellow may not be free of grammatical errors including phonetic/typographic errors. However, this does not deter from our commitment to providing health care in the patient's best interest in mind. Dr. Peterson MD, PGY 2 Planned Discharge Date 05/04/24 DS: Providers Provider Date of admission: 05/01/24 15:03 Primary care physician: Mitchel Lima MD Admitting Provider: Maria Del Rosario Myles MD Attending Provider on Admission: Razia Martins DO Consults: 05/01/24 12:25 Consult to Neurology / Tele-Neurology Routine Comment: Consulting Provider: [facility] 05/01/24 15:21 Referral Physical Therapy Urgent Comment: Physician Instructions: Referral Speech Therapy Stat Comment: 05/01/24 15:32 Consult to Neurology / Tele-Neurology Stat Comment: TIA Consulting Provider: Kb Tubbs 05/03/24 08:11 Referral Physical Therapy Routine Comment: Physician Instructions: Attending Provider on DC: Kojo Ordonez MD Discharging Provider: Kojo Ordonez MD DS: Diagnosis Problem List Completed Was Problem List Reviewed/Reconciled?: Yes Hospital Course Hospital Course Hospital course: Patient is a 68-year-old male with a past medical history significant for essential hypertension, atrial fibrillation on Eliquis, HFpEF [60 to 65%] IDDM type II [6.1]. Presented with dysathria, headache, and altered mental status. Stroke alert was called and patient received TPA with resolution of symptoms. He was admitted to ICU for acute stroke work up. His blood pressure was controlled in the ICU on a nicardipine drip. Repeat head CT was negative and CTA showed abrupt termination in the RMCA M1. Brain MRI with MRA showed high-grade stenosis P2 segment right posterior cerebral artery, possible stenosis bifurcation branch of the right MCA. With regards to acute ischemic stroke patient's dysarthria, headache and altered mental status improved s/p tPA administration. He was admitted to the ICU initially and observed for [address] brain showed no signs of hemorrhage, mass effect or midline shift. For his paroxysmal atrial fibrillation patient [id number] score was 6 and was started on anticoagulation with Eliquis 5 Mg p.o. twice daily. Bleeding risks and fall precautions discussed with patient and family at bedside, all of whom verbalized understanding. All patient's labs are now returning to baseline. Patient is now clinically stable and fit for discharge to home with home health. Discharge diagnoses: 1. Acute ischemic stroke?resolved 2. Atrial fibrillation?paroxysmal 3. Chronic congestive heart failure with preserved ejection fraction [60 to 65%] 4. Moderate to severe aortic stenosis 5. Essential hypertension 6. Insulin-dependent diabetes mellitus type 2 [6.1%] 7. Iron deficiency anemia 8. Hyperlipidemia Discharge plan: -We have started you on aspirin. Please take 1 tablet once a day. -We have started you on a medication for your atrial fibrillation and to prevent strokes, Eliquis. Please take 1 tablet twice a day. -We have started you on a medication metoprolol succinate for your heart rate. Please take 1 tablet once a day. -We have started you on a cholesterol tablet atorvastatin. Please take 1 tablet at night. -I have started you on a new blood pressure medication nifedipine.please take 1 tablet once a day. -We have discontinued your blood pressure medication clonidine, Do not take anymore. -We have discontinued gabapentin, do not take any now. -We have discontinued your diabetes medication glipizide. Please do not take anymore. -Please follow-up with your contracts advisor within 1 week of discharge. -Please follow-up with neurology within 2 weeks of discharge -Please follow-up with your primary doctor within 1 week of discharge -If you experience any new, persistent or worsening symptoms please call your primary doctor, dial 911 or present to the emergency department. We are grateful to be able to participate in Mr. Le's care. We wish him the best. Plan of care discussed with Attending Dr. Martins and PGY2 Dr. Peterson Ordonez MD PGY 1 Time Spent with Patient Time attestation: Total time spent providing and/or coordinating discharge services: Time spent: Greater than 30 minutes (37) Home Health Home Health Referral Orders: 05/04/24 07:53 Home Health Referral Routine Reason For Exam: CVA Home-Bound The patient must either because of illness or injury, need the aid of supportive devices such as crutches, canes, wheelchairs, and walkers; the use of special transportation; or the assistance of another person in order to leave their place of residence; OR have a condition such that leaving his or her home is medically contraindicated. In addition, the patient also meets the following criteria: patient is normally unable to leave the home and leaving home requires considerable taxing effort. Addendum to Home Health Certification Practitioner's Certification: I certify that the patient has been under my care in the hospital and the care of attending physician (see below). We had a [id number] encounter on (see date below). My clinical findings indicate that the patient is home bound per the above criteria and the Home Health Services noted in these orders are medically necessary. The primary reason for the [id number] encounter is related to the fact that the patient requires home health services. Date Certifying [id number]-Ybuv Physician Encounter: 05/01/24 Physician's Name who will Assume Oversight for Services: Mitchel Lima Physician's Phone No.who will Assume Oversight for Service: FIELD SERVICE ENGINEER - Community Resources: No PT to Evaluate: Yes PT to evaluate and provide a treatmnet plan to increase patient's mobility and strength. Wound Care: No IV Therapy: No RN Safety Evaluation: Yes RN to evaluate and create a plan of care that will produce positive outcomes. Palliative Treatment: No Palliative treatment and evaluate the need for hospice. Home Health Aide - Personal Care: Yes Home Health Aide to assist with any ADL's. Exam Vital Signs Temp Pulse Resp BP Pulse Ox O2 Del Method O2 Flow Rate 97.6 F 78 18 155/75 H 97 Room Air 1 05/04/24 15:42 05/04/24 15:42 05/04/24 15:42 05/04/24 15:42 05/04/24 15:42 05/04/24 15:42 05/01/24 17:16 Narrative Exam Constitutional Alert, oriented x 3 and comfortable. Elderly Male HEENT Vision grossly intact. Patent nares. Trachea midline Respiratory Chest normal on inspection and clear auscultation bilaterally Cardiovascular S1 and S2 audible. JVD not assessed Abdominal Soft and non tender to palpation in all quadrants. BS + Genitourinary No bladder tenderness, no flank pain. Normal to palpation Musculoskeletal Extremities tone within normal limits. No LE edema. Neurological CN II - XII grossly intact. Extremity motor and sensation grossly intact. NIHSS 0 Skin Warm, dry and intact. No apparent lesions. Psychiatric Patient has good affect, is cooperative Discharge Plan Plan Patient Disposition: Home w/HOME HEALTH Patient condition on transfer: Stable Care Plan Goals: We have started you on aspirin. Please take 1 tablet once a day. We have started you on a medication for your atrial fibrillation and to prevent strokes, Eliquis. Please take 1 tablet twice a day. We have started you on a medication metoprolol succinate for your heart rate. Please take 1 tablet once a day. We have started you on a cholesterol tablet atorvastatin. Please take 1 tablet at night. I have started you on a new blood pressure medication nifedipine.please take 1 tablet once a day. We have discontinued your blood pressure medication clonidine, Do not take anymore. We have discontinued gabapentin, do not take any now. We have discontinued your diabetes medication glipizide. Please do not take anymore. Please follow-up with your contracts advisor within 1 week of discharge. Please follow-up with neurology within 2 weeks of discharge Please follow-up with your primary doctor within 1 week of discharge If you experience any new, persistent or worsening symptoms please call your primary doctor, dial 911 or present to the emergency department. Prescriptions/Referrals Prescriptions/Med Rec: New aspirin 81 mg Tablet,Delayed Release (Dr/Ec) 81 mg PO QDAY 21 Days Qty: 21 0RF atorvastatin 80 mg tablet 80 mg PO HS 30 Days Qty: 30 0RF metoprolol succinate 50 mg tablet extended release 24 hr 50 mg PO QDAY 30 Days Qty: 30 0RF Eliquis 5 mg tablet 5 mg PO BID Qty: 60 0RF nifedipine 90 mg tablet extended release 90 mg PO QDAY Qty: 30 0RF Rx Instructions: Hold if SBP below 100 and DBP below 60 mmHg Continued furosemide 20 mg tablet 20 mg PO QDAY tamsulosin 0.4 mg capsule 0.4 mg PO QDAY metformin 500 mg tablet 500 mg PO BID Qty: 60 0RF (DME) FreeStyle Antonino 14 Day [place] Misc See Rx Instructions .Route Qty: 1 0RF Rx Instructions: As directed (DME) FreeStyle Antonino 2 Sensor Kit See Rx Instructions .Route Qty: 1 0RF Rx Instructions: As directed (DME) Accu-Chek Angelina Plus test strp Strip See Rx Instructions .Route Qty: 50 0RF Rx Instructions: As directed insulin degludec [Tresiba U-100 Insulin] 100 unit/mL solution 20 unit subcut QDAY Qty: 10 0RF (DME) lancets Misc See Rx Instructions .Route Qty: 100 0RF Rx Instructions: As directed ferrous sulfate 325 mg (65 mg iron) Tablet 325 mg PO BID Discontinued metoprolol tartrate 25 mg tablet 50 mg PO QDAY Patient Comments: TOME DRISS TABLETA DOS VECES AL D A CON ALIMENTO gabapentin 600 mg tablet 600 mg PO QDAY glipizide 10 mg tablet 10 mg PO QDAY clonidine HCl 0.2 mg tablet 0.2 mg PO BID Patient Comments: TOME DRISS TABLETA POR V A ORAL DOS VECES AL D A PARA LA PRESI N ARTERIAL Referrals: Mitchel Lima MD [Primary Care Provider] - Kb Tubbs MD [Physician] - Patient/Caregiver Discharge Instructions Other Discharge Activity Instructions:: follow up with dr. tubbs in 2 weeks, call [phone] for your appointment Education Materials: Using Blood Thinners Anticoagulants, Stroke: Taking Medicines, Discharge Instructions for Stroke, Stroke Self Care After, Tests to Diagnose a Stroke Print Language: Russian Stand Alone Forms: Kellen Award Info., Patient Portal Info Letter Discharge Order Discharge Orders: Discharge (Routine); Ordered 05/04/24 Ordered By: Brijesh Winkler Quality Discharge Quality Measures VTE prophylaxis
--- NOTE | 2024-05-05 12:43 | PC.CM ---
Addendum entered by Eleazar Oliver RN 05/05/24 16:39: [facility] accepted the pt. Booked [facility]. Pending start of care date. Original Note: No preference of HH agency per SS notes. HH referral sent on [facility]. Awaiting responses. Pending start of care date.
--- NOTE | 2024-05-08 13:47 | PC.CM ---
[facility] accepted patient and start of care date set for 05/09.
--- NOTE | 2024-05-31 13:35 | PD.TNEURO ---
Tele Neuro Consultation Consultation Date 05/31/24 Most Recent Vital Signs Last Vital Signs Temp 97.6 F 05/04/24 15:42 Pulse 75 05/04/24 16:00 Resp 18 05/04/24 15:42 BP 155/75 H 05/04/24 15:42 Pulse Ox 97 05/04/24 15:42 O2 Del Method Room Air 05/04/24 15:42 O2 Flow Rate 1 05/01/24 17:16 Laboratory-Coagulation Panel PT 11.9 Seconds (9.0-12.2) 05/01/24 12:27 INR 1.1 (0.9-1.3) 05/01/24 12:27 APTT 23.8 Seconds (22.0-36.0) 05/01/24 12:27 Consultation Narrative [facility] Patient Name:???Addison Cottrell Date of :???1955 Identification Number:??? Date of Service:???05/31/2024 12:51:57 Diagnosis:?G45.9 - Transient cerebral ischemic attack, unspecified Impression: ?69 y/o male with hx of afib(On Eliquis), HTN, CHF, DM2 presenting with transient right facial numbness, left arm numbness and left shoulder pain lKN last night. NIHSS of 0. Head CT w/o acute intracranial abnormalities. ? ?Transient right facial numbness, left arm numbness concerning for a potential TIA given patient's risk factors. Recommend TIA workup. 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 ? ?Unclear the cause of his left shoulder pain, but cardiac has been ruled out. Recommend to consider abdominal imaging to r/o referred pain as patient is stating is a first time and was pretty acute. ? ?Recommendations: ?1. Brain MRI w/o ?2. Continue home Eliquis ?3. A1c, LDL, TSH ?4. Normotension ?5. Neurology follow up Our recommendations are outlined below. Recommendations: ? Stroke/Telemetry Floor ? Neuro Checks ? Bedside Swallow Eval ? IV Fluids, Normal Saline ? Head of Bed 30 Degrees ? Euglycemia and Avoid Hyperthermia (PRN Acetaminophen) Sign Out: ? Discussed with Emergency Department Provider Advanced Imaging:Advanced Imaging Deferred because: Non-disabling symptoms as verified by the patient; no cortical signs so not consistent with LVO Metrics: Last Known Well: 05/30/2024 20:00:07 Dispatch Time: 05/31/2024 12:51:57 Arrival Time: 05/31/2024 12:52:15 Initial Response Time: 05/31/2024 12:54:23Symptoms: transient right facial numbness, left hand numbness. . Initial patient interaction: 05/31/2024 12:55:14 NIHSS Assessment Completed: 05/31/2024 13:00:04Patient is not a candidate for Thrombolytic. Thrombolytic Medical Decision: 05/31/2024 13:00:09Patient was not deemed candidate for Thrombolytic because of following reasons: LKW outside 4.5 hr window. . Thrombin Inhibitor/Factor Xa inhibitor administered less than 48 hours with facility inability to obtain appropriate lab testing in timely fashion (including ecarin clotting time/direct factor Xa activity assays). . Resolved symptoms . I personally Reviewed the CT Head and it Showed no acute intracranial abnormalities Primary Provider Notified of Diagnostic Impression and Management Plan on: 05/31/2024 13:28:08 History of Present Illness:Patient is a 69 year old Male. Patient was brought by private transportation with symptoms of transient right facial numbness, left hand numbness. . Patient was on his usual state of health until last night when all of the sudden he developed severe left shoulder pain accompanied with left arm numbness. Patient also states that around the same time he experienced right facial numbness. symptoms subsided after several hours except for the left shoulder pain which patient states its severe, and has never experienced it before. He went to his PCP today, and they noticed his BP was elevated. Patient was advised to come to the ED because of that. Patient denies any active neurologic deficits at the moment. cardiac workup has been negative. ? Past Medical History: ?Diabetes Mellitus Medications: Anticoagulant use:??Yes?Eliquis 5mg BID No Antiplatelet use Reviewed EMR for current medications Allergies:? Reviewed Social History: Patient Is: Smoking: No Alcohol Use: No Drug Use: No Family History: There is no family history of premature cerebrovascular disease pertinent to this consultation ROS : 14 Points Review of Systems was performed and was negative except mentioned in HPI. Past Surgical History: There Is No Surgical History Contributory To Today?s Visit ? Examination: BP(193/76),?Pulse(78),?Blood Glucose(107) 1A: Level of Consciousness - Alert; keenly responsive?+ 0 1B: Ask Month and Age - Both Questions Right?+ 0 1C: Blink Eyes & Squeeze Hands - Performs Both Tasks?+ 0 2: Test Horizontal Extraocular Movements - Normal?+ 0 3: Test Visual Shaffer - No Visual Loss?+ 0 4: Test Facial Palsy (Use Grimace if Obtunded) - Normal symmetry?+ 0 5A: Test Left Arm Motor Drift - No Drift for 10 Seconds?+ 0 5B: Test Right Arm Motor Drift - No Drift for 10 Seconds?+ 0 6A: Test Left Leg Motor Drift - No Drift for 5 Seconds?+ 0 6B: Test Right Leg Motor Drift - No Drift for 5 Seconds?+ 0 7: Test Limb Ataxia (FNF/Heel-[place]) - No Ataxia?+ 0 8: Test Sensation - Normal; No sensory loss?+ 0 9: Test Language/Aphasia - Normal; No aphasia?+ 0 10: Test Dysarthria - Normal?+ 0 11: Test Extinction/Inattention - No abnormality?+ 0 NIHSS Score:?0 Pre-Morbid Modified Lui Scale:3 Points = Moderate disability; requiring some help, but able to walk without assistance Spoke with :?ED provider This consult was conducted in real time using interactive audio and video technology. Patient was informed of the technology being used for this visit and agreed to proceed. Patient located in hospital and provider located at home/office setting. Patient is being evaluated for possible acute neurologic impairment and high probability of imminent or life-threatening deterioration. I spent total of 45 minutes providing care to this patient, including time for face to face visit via telemedicine, review of medical records, imaging studies and discussion of findings with providers, the patient and/or family. Dr Rolando Balbuena [facility] For Inpatient follow-up with [facility] physician please call [facility] at . As we are not an outpatient service for any post hospital discharge needs please contact the hospital for assistance. If you have any questions for the [facility] physicians or need to reconsult for clinical or diagnostic changes please contact us via [facility] at . ?
== END 2024-05-04 18:33 | disposition home health service (06) | DRG 62 ==
LOC: SERX 14:19 → SERHOLD 15:50 → S2SX 18:55 → S2NX 05-03 13:43
PROVIDERS: Nurse Practitioner Family; Student in an Organized Health Care Education/Training Program; Admitting Provider Internal Medicine; Emergency Provider Emergency Medicine; PCP Family Medicine; Visit Provider Internal Medicine
DX: I63.531 Cerebral infarction due to unspecified occlusion or stenosis of right posterior cerebral artery (principal); I42.9 Cardiomyopathy, unspecified; I50.32 Chronic diastolic (congestive) heart failure; I11.0 Hypertensive heart disease with heart failure; E11.9 Type 2 diabetes mellitus without complications; I44.0 Atrioventricular block, first degree; R29.704 NIHSS score 4; R47.1 Dysarthria and anarthria; I35.0 Nonrheumatic aortic (valve) stenosis; I48.0 Paroxysmal atrial fibrillation; D50.9 Iron deficiency anemia, unspecified; E78.5 Hyperlipidemia, unspecified; Z79.01 Long term (current) use of anticoagulants; Z79.4 Long term (current) use of insulin; Z79.84 Long term (current) use of oral hypoglycemic drugs; Z79.82 Long term (current) use of aspirin; Z79.899 Other long term (current) drug therapy
CPT/HCPCS: 36415; 70450; 70496; 70498; 70544; 71045; 80053; 80061; 80307; 81001; 83036; 83540; 83550; 83735; 84100; 84443; 84484; 85025; 85610; 85730; 87081; 87086; 92610; 93005; 93306; 96374; 97162; 99291; A4649; J0360; J1650; J1815; J2404; J2405; J3101; J3490; J7030; Q9967; A9270; J1920

== ENCOUNTER 2024-05-31 10:03 | Inpatient (IN) | payer MEDICARE, MEDICAID, SELFPAY ==
[2024-05-31] VITALS (8 sets, daily range): BP systolic 142–223; BP diastolic 59–79; PULSE 52–70; RESP 15–98; TEMP 36.6–37; O2SAT 96–100
--- NOTE | 2024-05-31 | XR_ITS ---
Examinations: MRI Brain without intravenous contrast. MRA brain without intravenous contrast. MRA carotids without intravenous contrast 3-D vascular reconstructions Date and time of exam: May 31, 2024 1538 hours Comparison May 01, 2024 INDICATIONS: Onset generalized head pain numbness and paresthesias in the mouth left arm pain and left arm numbness intermittent beginning one month ago Technique: Multiple axial and sagittal images of the brain have been obtained MRA brain carotid images without contrast obtained, including 3-D postprocessing, vascular maximum intensity projection images Findings: Sellaturc[place] is not enlarged. The optic chiasm and infundibular stalk are not remarkable. Prepontine and interpeduncular cisterns are not enlarged. No localized enlargement of the medulla or roro. Fourth ventricle and cerebellar tonsils normal in position. Subacute hemorrhage is not seen. Fourth ventricle is midline. Mass in the cerebellopontine angle region is not evident. 7th and 8th nerve complexes exhibits symmetry. Globes are symmetrical with no retro-orbital mass. Increased white matter signal moderate Diffusion-weighted images demonstrate no focus of restricted diffusion Mass-effect upon the ventricular system is not identified. MRA carotid images no significant carotid stenoses. MRA brain images moderate generalized cerebral arterial irregularity 90% stenosis P2 segment right posterior cerebral artery 60% stenosis P1 segment left posterior cerebral artery 90% stenosis proximal right middle cerebral artery branch Impression: Negative for acute hemorrhage mass effect or midline shift No acute infarct Moderate chronic microvascular white matter change Significant cerebral arterial sclerotic disease as above
--- NOTE | 2024-05-31 10:41 | EKG_ITS ---
[facility] Test Date: 2024-05-31 Pat Name: RHINA GARDUNO Department: Room: - Gender: Male Back Grinder: : 1955 Requested By: Tony Field (SHIRT FOLDER) Order Number: [id number] Reading MD: Tony Field (SHIRT FOLDER) Measurements Intervals [place] Rate: 62 P: 2 W[place]: 209 QRS: 8 QRSD: 108 T: 88 QT: 394 QTc: 401 Interpretive Statements SINUS RHYTHM NONSPECIFIC ST & T-WAVE ABNORMALITY Compared to ECG 05/02/2024 08:57:35 First degree AV block no longer present T-wave abnormality still present /store/S0/[id number].pdf
--- NOTE | 2024-05-31 10:55 | XR_ITS ---
Examination: PA lateral chest 2 views TECHNIQUE: Upright PA lateral chest 2 views Exam date and time: May 31, 2024 1109 hours Comparison the 2023 INDICATIONS: Onset chest pain today. FINDINGS: Mild to moderate elevation left hemidiaphragm Pleural scarring at the left lateral costophrenic angle Mild opacity left base on the lateral view obscuring detail left hemidiaphragm Right lung clear IMPRESSION: Mild pneumonia left base
--- NOTE | 2024-05-31 10:55 | XR_ITS ---
Examination: CT brain head without contrast. 2-D sagittal coronal reconstructions Date and time of exam:May 31, 2024 1220 hours INDICATIONS: Onset generalized head pain radiating to the left arm today CTDI: vol (mGy):56.6 DLP: (mGycm):1159 Technique: Multiple CT axial sections of the brain have been obtained, 5 mm slice thickness. Contrast has not been administered. 2-D sagittal, coronal reconstructions have been obtained Low dose protocols were performed. One or more of the following dose reduction techniques were used; automated exposure control, adjustment of the mA and/or KV according to patient size, use of iterative reconstruction technique. Findings: No significant ventricular enlargement. Intra-axial or extra-axial hemorrhage density is not seen. No mass effect or midline shift Basal cisterns are not remarkable. Fourth ventricle is midline. Cranial vault intact. Old depression anterior cranial vault Impression: Negative for acute hemorrhage, mass effect or midline shift If new onset symptoms persist, consider brain MRI follow-up
--- NOTE | 2024-05-31 10:56 | PD.EDRME ---
Rapid Medical Screening Exam RME Arrival date/time: 05/31/24 10:03 69-year-old male with history of recent stroke presents emergency department complaints of numbness and tingling and headache ongoing x 1 month patient also reports left arm pain and left arm numbness intermittently Chief Complaint: Extremity Problem,Nontraumatic Time Seen by Provider: 05/31/24 10:14 Vital signs: Vital Signs Temperature 98.4 F 05/31/24 10:29 Pulse Rate 70 05/31/24 10:29 Respiratory Rate 20 05/31/24 10:29 Blood Pressure 183/72 H 05/31/24 10:29 Pulse Oximetry (%) 96 05/31/24 10:29 Oxygen Delivery Method Room Air 05/31/24 10:29
[2024-05-31 11:24] LABS: Basophils % (Auto) 0 % (0-2.5); Eosinophils # (Auto) 0.1 Thou/mm3 (0.0-0.5); Eosinophils % (Auto) 1 % (0-10); Hematocrit 31.9 % (41.0-53.0); Hemoglobin 9.9 g/dL (13.5-16.0); Immature Granulocytes % (Auto) 1 % (0-0); Immature Granulocytes Auto 0.04 Thou/mm3 (0.00-0.00); Lymphocytes # (Auto) 1.5 Thou/mm3 (1.0-4.8); Lymphocytes % (Auto) 19 % (10-50); Mean Corpuscular Hemoglobin 23.1 pg (25.0-35.0); Mean Corpuscular Volume 74 fL (80-100); Monocytes # (Auto) 0.5 Thou/mm3 (0.0-0.8); Monocytes % (Auto) 6 % (0-12); Neutrophils # (Auto) 5.9 Thou/mm3 (1.8-7.7); Neutrophils % (Auto) 74 % (37-80); Nucleated Red Blood Cell % 0 /100 WBC (0); Platelet Count 439 Thou/mm3 (140-440); RDW Standard Deviation 46.5 fL (35.1-43.9); Red Blood Count 4.29 Miln/mm3 (4.50-5.90)
[2024-05-31 11:37] LABS: Collection Type, Urine Clean Catch; Squamous Epithelial Cell,Urine 0 /hpf (0-5)
[2024-05-31 11:39] LABS: INR 1.2 (0.9-1.3); Partial Thromboplastin Time 28.3 Seconds (22.0-36.0); Prothrombin Time 13.4 Seconds (9.0-12.2)
[2024-05-31 11:44] LABS: B-Type Natriuretic Peptide 133 pg/mL (0-100)
[2024-05-31 11:46] LABS: Bilirubin,Urine Negative (Negative); Blood,Urine Negative (Negative); Clarity,Urine Clear (Clear/Hazy); Color,Urine Lt-Yellow (Lt Yel-Yel); Glucose, Urine Negative (Negative); Ketones,Urine Negative (Negative); Leukocyte Esterase,Urine Negative (Negative); Nitrite,Urine Negative (Negative); PH,Urine 6.5 (5.0-7.0); Protein,Urine Negative (Neg - Trace); RBC,Urine 2 /hpf (0-3); Specific Gravity,Urine 1.015 (1.001-1.035); Urobilinogen,Urine Negative mg/dL (0.0-1.0); WBC,Urine 1 /hpf (0-5)
[2024-05-31 12:44] LABS: Alanine Aminotransferase 12 U/L (10-49); Albumin, Serum 4.3 gm/dL (3.4-4.8); Albumin/Globulin Ratio 1.4 (1.2-2.2); Alkaline Phosphatase 117 U/L (46-116); Anion Gap 6 (7-16); Aspartate Amino Transferase 14 U/L (0-34); BUN/Creatinine Ratio 16 Ratio (12-20); Bilirubin,Total 0.3 mg/dL (0.3-1.2); Blood Urea Nitrogen 11 mg/dL (9-23); Calcium 9.4 mg/dL (8.3-10.6); Calcium (Corrected) 9.4 mg/dL (8.5-10.1); Carbon Dioxide 29.7 mMol/L (20.0-31.0); Chloride 105 mMol/L (98-107); Creatinine (Component) 0.7 mg/dL (0.6-1.3); Glucose 107 mg/dL (74-106); LDH (Lactate Dehydrogenase) 170 U/L (120-246); Magnesium 2.1 mg/dL (1.6-2.6); Osmolality,Calculated 280 (275-295); Potassium 4.3 mMol/L (3.4-5.1); Sodium 141 mMol/L (136-145); Total Protein 7.3 gm/dL (5.7-8.2); Troponin I < 0.020 ng/mL (0.0-0.045); eGFR > 60 See Note
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
--- NOTE | 2024-05-31 13:05 | PC.NURSE ---
Telenuro Dr. doty assessing Pt at this time
[2024-05-31] MEDS: APIXABAN 2.5 MG TABLET 5 MG PO ×2 (14:50→20:30)
[2024-05-31 15:44] LABS: Glucose Estimated Average 143 mg/dL (80-131); Hemoglobin A1C 6.6 % Hgb (4.8-6.0)
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
[2024-05-31] MEDS: METOPROLOL SUCCINATE XL 25 MG TABCR 50 MG PO (16:35)
[2024-05-31] MEDS: cloNIDine HCL 0.1 MG TABLET 0.2 MG PO (16:35)
--- NOTE | 2024-05-31 17:23 | PC.NURSE ---
Patient arrived to unit via marce Jimenez RN. Patient awake, alert and oriented with at bedside.
--- NOTE | 2024-05-31 18:01 | PC.NURSE ---
Dr. Tubbs at bedside speaking with patient.
[2024-05-31] MEDS: ATORVASTATIN CALCIUM 20 MG TABLET 80 MG PO (20:29)
[2024-06-01] VITALS (11 sets, daily range): BP systolic 118–179; BP diastolic 55–72; PULSE 43–74; RESP 14–97; TEMP 36.4–36.8; O2SAT 95–100; BMI 32.3
[2024-06-01] MEDS: ACETAMINOPHEN 325 MG TABLET 650 MG PO ×3 (03:49→23:08)
[2024-06-01 06:02] LABS: Basophils % (Auto) 0 % (0-2.5); Eosinophils # (Auto) 0.1 Thou/mm3 (0.0-0.5); Eosinophils % (Auto) 2 % (0-10); Hematocrit 28.6 % (41.0-53.0); Immature Granulocytes % (Auto) 1 % (0-0); Immature Granulocytes Auto 0.04 Thou/mm3 (0.00-0.00); Lymphocytes # (Auto) 1.4 Thou/mm3 (1.0-4.8); Lymphocytes % (Auto) 17 % (10-50); Mean Corpuscular HGB Conc 31.5 g/dl (31.0-37.0); Mean Corpuscular Hemoglobin 23.2 pg (25.0-35.0); Mean Corpuscular Volume 74 fL (80-100); Monocytes # (Auto) 0.8 Thou/mm3 (0.0-0.8); Monocytes % (Auto) 9 % (0-12); Neutrophils # (Auto) 6.2 Thou/mm3 (1.8-7.7); Neutrophils % (Auto) 72 % (37-80); Nucleated Red Blood Cell % 0 /100 WBC (0); Platelet Count 334 Thou/mm3 (140-440); RDW Standard Deviation 45.8 fL (35.1-43.9); Red Blood Count 3.88 Miln/mm3 (4.50-5.90); White Blood Count 8.6 Thou/mm3 (3.8-10.6)
--- NOTE | 2024-06-01 06:11 | PC.NURSE ---
satellite project site monitor notified me of patient HR sustaining 42, upon entering room patient asleep, once patient woke up HR went up to 60's, patient is in no respiratory distress, breathing unlabored and equal, alert and oriented.
[2024-06-01 06:52] LABS: Alanine Aminotransferase 10 U/L (10-49); Albumin, Serum 3.7 gm/dL (3.4-4.8); Albumin/Globulin Ratio 1.5 (1.2-2.2); Alkaline Phosphatase 103 U/L (46-116); Anion Gap 9 (7-16); Aspartate Amino Transferase 18 U/L (0-34); BUN/Creatinine Ratio 14 Ratio (12-20); Bilirubin,Total 0.3 mg/dL (0.3-1.2); Blood Urea Nitrogen 11 mg/dL (9-23); Calcium (Corrected) 9.2 mg/dL (8.5-10.1); Carbon Dioxide 26.7 mMol/L (20.0-31.0); Cardiac Risk Estimate 2.9 RATIO (4.0-6.7); Chloride 103 mMol/L (98-107); Cholesterol 82 mg/dL (132-200); Creatinine (Component) 0.8 mg/dL (0.6-1.3); Free T4 (Free Thyroxine) 1.07 ng/dL (0.89-1.76); Globulin 2.5 gm/dL (2.3-3.5); Glucose 148 mg/dL (74-106); HDL Cholesterol 28 mg/dL (40-60); LDL Cholesterol,Calculated 39 mg/dL (0-130); Osmolality,Calculated 279 (275-295); Phosphorous 3.8 mg/dL (2.4-5.1); Potassium 4.7 mMol/L (3.4-5.1); Sodium 139 mMol/L (136-145); Thyroid Stimulating Hormone 0.99 uIU/mL (0.55-4.78); Total Protein 6.2 gm/dL (5.7-8.2); Triglycerides 73 mg/dL (30-150); eGFR > 60 See Note
[2024-06-01] MEDS: METOPROLOL SUCCINATE XL 25 MG TABCR 50 MG PO (08:49)
[2024-06-01] MEDS: APIXABAN 2.5 MG TABLET 5 MG PO ×2 (08:49→20:52)
[2024-06-01] MEDS: Furosemide 20 MG TABLET PO (08:49)
[2024-06-01] MEDS: cloNIDine HCL 0.1 MG TABLET 0.2 MG PO (08:49)
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
--- NOTE | 2024-06-01 09:17 | PC.NURSE ---
Dr. Jon made aware patient does not have a fluid restriction ordered; patient notes he is on a 32oz fluid restriction at home per well tender, Dr. Lindo. Per Dr. Silvestre he will consult with team. No new orders received.
--- NOTE | 2024-06-01 10:29 | PC.SS ---
Patient Addison Diaz is a 69 Year old male admitted for Stroke R/O. SS met with patient at bedside to discuss discharge plan; Patient reports he lives at home with his , Jena Diaz who is his surrogate decision maker [phone]. Patient reports he utilizes a FWW at home to assist with ambulation. Patient is able to complete all ADL's independently. Choice of pharmacy is [facility]. PCP is Mitchel Lima. At time of discharge patient will return home. Next of Kin: , Jena Diaz Discharge plan: Home
[2024-06-01] MEDS: ASPIRIN EC 81 MG TABEC PO (12:04)
[2024-06-01] MEDS: INSULIN LISPRO (AdmeLOG) 1 UNIT/0.01 ML UNIT SC (12:04)
--- NOTE | 2024-06-01 14:30 | PC.NURSE ---
Dr. Rosas made aware of discrepancy in patients orthostatic vitals. New order received for bolus of NS.
[2024-06-01] MEDS: SODIUM CHLORIDE 0.9% 500 ML 500 ML 999 ML IV (14:49)
--- NOTE | 2024-06-01 15:23 | ESPR_ITS ---
Documentation for date of: 06/01/24 Subjective Subjective Interval history: Patient was seen in telemetry today. No new symptoms reported other than headache, for which he is asking for Tylenol or ibuprofen. His paresthesias in the left hemibody have completely resolved Exam - Neurology Vital Signs Temp Pulse Resp BP Pulse Ox O2 Del Method 97.6 F 52 L 18 172/66 H 97 Room Air 06/01/24 12:00 06/01/24 14:30 06/01/24 12:00 06/01/24 14:06/01/24 12:00 06/01/24 12:00 Narrative Exam GENERAL APPEARANCE: Well hydrated, well-nourished in no acute distress. HEENT: Normocephalic, atraumatic, extraocular movements intact. Pupils: Equal reacting to light and accommodation NECK: Supple, no JVD or bruits. CARDIOVASULAR: Heart: S1, S2 heard, regular without S3-S4 or murmur no rubs or gallops. LUNGS/CHEST: Clear to auscultation bilaterally. No rails, rhonchi, or wheezing. Normal inspection. ABDOMEN: Soft, nontender, with normal bowel sounds. No pulsatile masses. No rebound, rigidity, or guarding. Normal inspection and palpation. EXTREMITIES: Normal inspection and palpation. No edema, clubbing or cyanosis. SKIN: Warm and dry without rashes. Normal inspection. MUSCULOSKELETAL: No cervical, thoracic, lumbar or midline bony tenderness. Normal inspection. NEURO: Alert, awake and oriented x3. Cranial nerves: II through XII grossly intact. Speech and language: Normal with no dysarthria or dysphasia. Motor system: Tone and bulk: Normal: Strength: 5 out of 5 in all 4 extremities; No pronator drift noted. Deep tendon reflexes: 2+ bilaterally symmetrical. Plantar reflex: Downgoing bilaterally. Sensory system: Intact to all modalities of sensation bilaterally. Coordination: Intact to [id number]-[id number] and qjzg-quhl-[id number] test bilaterally. No ataxia, no dysmetria, or dysdiadochokinesia noted. No intention tremors noted. Gait: Normal. Toe, heel, tandem walk all are normal. Romberg: Negative. No signs of meningeal irritation noted. PSYCHIATRIC: Normal mood and affect. Objective Labs 06/01/24 04:30 06/01/24 04:30 Labs: Laboratory Results - last 24 hr 05/31/24 06/01/24 11:03 04:30 WBC 8.6 RBC 3.88 L Hgb 9.0 L Hct 28.6 L MCV 74 L MCH 23.2 L MCHC 31.5 RDW Std Deviation 45.8 H Plt Count 334 D Neut % (Auto) 72 Lymph % (Auto) 17 [place] % (Auto) 9 Eos % (Auto) 2 Baso % (Auto) 0 Neut # (Auto) 6.2 Lymph # (Auto) 1.4 [place] # (Auto) 0.8 Eos # (Auto) 0.1 Baso # (Auto) 0.0 Immature Gran # (Auto) 0.04 H Absolute Nucleated RBC 0.00 Immature Gran % 1 H Nucleated RBC % 0 Sodium 139 Potassium 4.7 Chloride 103 Carbon Dioxide 26.7 Anion Gap 9 BUN 11 Creatinine 0.8 Estim Creat Clear Calc Not Performed. eGFR > 60 BUN/Creatinine Ratio [address] Glu mg/dL 143 H Hemoglobin A1c 6.6 H Calculated Osmolality 279 Calcium 9.0 Corrected Calcium 9.2 Phosphorus 3.8 Magnesium 2.0 Total Bilirubin 0.3 AST 18 ALT 10 Alkaline Phosphatase 103 Total Protein 6.2 Albumin 3.7 D Globulin 2.5 Albumin/Globulin Ratio 1.5 Triglycerides 73 Cholesterol 82 L LDL Cholesterol, Calc 39 HDL Cholesterol 28 L Cholesterol/HDL Ratio 2.9 L TSH 0.99 Free T4 1.07 Assessment & Plan Assessment and plan (1) Transient ischemic attack: Status: Resolved Assessment and plan: Reassurance given to the patient regarding the negative workup. Continue with aspirin and Eliquis. Noted that it is covered by his insurance with less co-pay for better compliance for long-term therapy. Patient is stable for discharge and I will see him back in 2 to 3 weeks. (2) Hypertension: Status: Chronic Assessment and plan: Under control on clonidine, lisinopril, nifedipine (3) Type 2 diabetes mellitus with hyperosmolar nonketotic hyperglycemia: Status: Chronic Assessment and plan: Continue to keep diabetes under control on home meds in addition to diet and exercise (4) Chronic daily headache: Status: Chronic Assessment and plan: Will try gabapentin 300 mg 3 times a day advised him to stop taking Tylenol and ibuprofen to prevent rebound headache and complications with interactions with anticoagulant and antiplatelet agent (5) Chronic atrial fibrillation: Status: Acute
--- NOTE | 2024-06-01 19:40 | ESPR_ITS ---
<Statement entered by Brijesh Winkler MD - 06/02/24 07:33> I saw and examined the patient, and I agree with current management stated by Dr Mike MD,PGY1. Plan of care was discussed with the attending physician and resident physician. Disclaimer: Despite multiple revisions, due to the dictation software being used, the document bellow may not be free of grammatical errors including phonetic/typographic errors. However, this does not deter from our commitment to providing health care in the patient's best interest in mind. Dr. Peterson MD, PGY 2 Documentation for date of: 06/01/24 Subjective Subjective Interval history: 06/01: Neurology recommended restart Eliquis and aspirin for outpatient treatment. Patient mentating well this a.m. Vital signs appear stable, CBC appears stable, electrolytes appear stable, sugars well-controlled. Patient states that his left arm pain appears well resolved, states that his headache appears to be better. Initially about the discharge, however patient's orthostatic measurements quite significant, had a bout of major nausea upon changing positions. Greater than 30 change in systolic. Ordered a bolus of fluid, ordered PT evaluation, will continue to trend. Exam Vital Signs Temp Pulse Resp BP Pulse Ox O2 Del Method 98.2 F 55 L 20 128/59 L 98 Room Air 06/01/24 16:00 06/01/24 16:00 06/01/24 16:00 06/01/24 16:00 06/01/24 16:00 06/01/24 12:00 Narrative Exam GENERAL: NAD, NC/AT, responsive/cooperative. A&Ox3 NEURO: bridal stylist sales consultant grossly intact, moves extremities x4, [id number] test normal, finger-nose test normal. No apparent sensory neural deficits. HEENT: Moist mucosa. Eyes open, symmetrical, & clear CARDIO: No chest pain on palpation. Heart RRR, no obvious murmurs PULM: No noted coughing/dyspnea. Lungs CTA B/L, no R/W/R GI: Abdomen soft, nondistended, no pain on palpation. BSx4 URO/IGNITER ASSEMBLER:: No further abnormalities noted. SKIN/MSK/EXT: Pedal pulses present bilaterally. Small periumbilical ulcer noted on left side without drainage, erythema, tenderness to palpation. Appears to have chronic skin breakage Objective Labs 06/02/24 05:55 06/02/24 05:55 Labs: Laboratory Results - last 24 hr 06/01/24 04:30 WBC 8.6 RBC 3.88 L Hgb 9.0 L Hct 28.6 L MCV 74 L MCH 23.2 L MCHC 31.5 RDW Std Deviation 45.8 H Plt Count 334 D Neut % (Auto) 72 Lymph % (Auto) 17 [place] % (Auto) 9 Eos % (Auto) 2 Baso % (Auto) 0 Neut # (Auto) 6.2 Lymph # (Auto) 1.4 [place] # (Auto) 0.8 Eos # (Auto) 0.1 Baso # (Auto) 0.0 Immature Gran # (Auto) 0.04 H Absolute Nucleated RBC 0.00 Immature Gran % 1 H Nucleated RBC % 0 Sodium 139 Potassium 4.7 Chloride 103 Carbon Dioxide 26.7 Anion Gap 9 BUN 11 Creatinine 0.8 Estim Creat Clear Calc Not Performed. eGFR > 60 BUN/Creatinine Ratio 14 Glucose 148 H Calculated Osmolality 279 Calcium 9.0 Corrected Calcium 9.2 Phosphorus 3.8 Magnesium 2.0 Total Bilirubin 0.3 AST 18 ALT 10 Alkaline Phosphatase 103 Total Protein 6.2 Albumin 3.7 D Globulin 2.5 Albumin/Globulin Ratio 1.5 Triglycerides 73 Cholesterol 82 L LDL Cholesterol, Calc 39 HDL Cholesterol 28 L Cholesterol/HDL Ratio 2.9 L TSH 0.99 Free T4 1.07 Quality Measures Quality Measures VTE prophylaxis Advance care planning discussed with:: patient, spouse and child Assessment & Plan Assessment Current Active Medications: Generic Name Dose Route Start Last Admin Trade Name Freq PRN Reason Stop Dose Admin Acetaminophen 650 mg 05/31/24 14:06 Acetaminophen 325 Mg Tablet PO 06/30/24 14:05 Q6H PRN Fever >101.5 Acetaminophen 650 mg 05/31/24 14:06 06/01/24 16:56 Acetaminophen 325 Mg Tablet PO 06/30/24 14:05 650 mg Q6H PRN Administration PAIN SCALE 1-3 (mild Apixaban 5 mg 05/31/24 14:30 06/01/24 08:49 Apixaban 2.5 Mg Tablet PO 06/30/24 14:29 5 mg BID TERRI Administration Aspirin 81 mg 06/01/24 10:30 06/01/24 12:04 Aspirin Ec 81 Mg Tabec PO 07/01/24 10:29 81 mg QDAY TERRI Administration Atorvastatin Calcium 80 mg 05/31/24 21:00 05/31/24 20:29 Atorvastatin Calcium 20 Mg Tablet PO 06/30/24 20:59 80 mg HS TERRI Administration Clonidine 0.2 mg 05/31/24 16:00 06/01/24 08:49 Clonidine Hcl 0.1 Mg Tablet PO 06/30/24 15:59 0.2 mg QDAY TERRI Administration Dextrose 25 ml 05/31/24 16:41 Dextrose 50%-Water Inj 50 Ml Syringe IV 06/30/24 16:40 Q15MIN PRN BG 50-70 responsive npo pt Dextrose 50 ml 05/31/24 16:41 Dextrose 50%-Water Inj 50 Ml Syringe IV 06/30/24 16:40 Q15MIN PRN BG <50 OR BG <70 & pt unresponsive Furosemide 20 mg 06/01/24 09:00 06/01/24 08:49 Furosemide 20 Mg Tablet PO 07/01/24 08:59 20 mg QDAY TERRI Administration Glucagon 1 mg 05/31/24 16:41 Glucagon Inj 1 Mg Vial IM Q15MIN PRN BG <70, and no IV access Hydralazine HCl 5 mg 05/31/24 16:55 Hydralazine Inj 20 Mg/Ml Vial IV 06/30/24 15:56 Q6HR PRN Hypertension Insulin Human Lispro 0 unit 05/31/24 17:00 06/01/24 16:37 Insulin Lispro (Admelog) 1 Unit/0.01 Ml Unit SC 06/30/24 16:59 Not Given AC TERRI Protocol Metoprolol Succinate 50 mg 05/31/24 16:00 06/01/24 08:49 Metoprolol Succinate Xl 25 Mg Tabcr PO 06/30/24 15:59 50 mg QDAY TERRI Administration Ondansetron HCl 4 mg 05/31/24 14:06 Ondansetron Inj 2 Mg/Ml Inj 2 Ml IV 06/30/24 14:05 Q6H PRN NAUSEA OR VOMITING Protocol Sennosides 1 tab 05/31/24 15:51 Senna Tablet PO 06/30/24 15:50 QDAY PRN CONSTIPATION Protocol Plan Patient is a 69-year-old male with past medical history of CVA status post tPA administration without residual deficits, paroxysmal atrial fibrillation, HFpEF (60 to 65% EF), moderate to severe aortic stenosis, hypertension, diabetes melitis type II, hyperlipidemia presents to the emergency department for severe headache, left upper extremity numbness. Acute stroke ruled out. Pending orthostatics. #Orthostatic Hypotension Orthostatics positive upon re-evaluation. greater than 30mmHg decrease upon positional change Large instance of nausea upon position change - 500 bolus NS - Physical Therapy ordered #Stroke ruled out #Acute Ischemic Attack ruled out Patient previously admitted April 2024 for strokelike symptoms and received tPA with resolution of symptoms Previous head CT negative, previous CTA showed abrupt termination in the R MCA M1 Previous brain MRI 05/11 with MRI showed high-grade stenosis in the P2 segment right posterior cerebral artery, possible stenosis bifurcation branch of the right MCA Brain MRI negative for acute stroke this admission - Stroke/Telemetry Floor - Neuro Checks Q4hr - Bedside Swallow Eval - Head of Bed 30 Degrees - Euglycemia and Avoid Hyperthermia (PRN Acetaminophen) - Brain MRI w/o contrast-pending - Continue home eliquis, per tele-neurology - pending 1AC, LDL, TSH -Neurology Dr. Tubbs consulted, recommends outpatient DAPT -Previous echocardiogram bubble study negative. Patient is also on DAPT outpatient, not necessary for ECHO study per radiologist #Periumbilical Ulcer On physical examination patient has a small ulcer without erythema, tenderness or purulent drainage at site of skin graft in periumbilical area, left - Wound care #Paroxysmal afib History of paroxysmal atrial fibrillation [id number] score 6 HAS-BLED score 4 In the emergency department EKG normal sinus rhythm - home metoprolol 50 ER - eliquis home dose restarted #HFpEF (60-65%) #Moderate to severe aortic stenosis Home medication furosemide 20 Mg p.o. daily Transthoracic echocardiogram completed on 11/29/2023 findings include: Normal LV size and function. Mild LVH. Estimated EF 60-65% Normal RV size and function. Moderate to severe calcific aortic valve tenosis, peak gradient 45 mm hG mean gradient 25mmHg, vmax 3.5m/s. Mild tricuspid regurgitation - home furosemide 20 restarted - Strict ins and outs #Hypertension Blood pressure and examination in the emergency department Keep normotensive per teleneurology -home metoprolol XL 50 mg po daily and clonidine 0.2 restarted -Hydralazine 5 IV as needed # Insulin-dependent diabetes mellitus type 2 Patient's previous HbA1c on admission 6.1% Home medication Tresiba and metformin -Placing patient on sliding scale insulin, will make adjustments accordingly ?Hypoglycemia protocol in place #Hyperlipidemia - restart home atorvastatin 80 milligram p.o. at bedtime - pending lipid studies #Periumbilical Ulcer On physical examination patient has a small ulcer without erythema, tenderness or purulent drainage at site of skin graft in periumbilical area, left - Wound care ordered Attending Provider Attestation/Addendum I have discussed and was present for the essential components of the history, physical examination, diagnosis, and treatment plan with the resident. I agree with the patient's care as documented by the resident and amended herein by me. Anant Jean-Baptiste DO. Although this document has been carefully reviewed, there may still be some phonetic and other typographical errors. These errors are purely grammatical due to imperfections in the software program and should not be construed in any way to compromise the substance of the patient's medical care during this visit.
[2024-06-01] MEDS: ATORVASTATIN CALCIUM 20 MG TABLET 80 MG PO (20:52)
--- NOTE | 2024-06-01 21:50 | PC.NURSE ---
quality assurance monitor chassis notfied RN of HR 44, patient asleep, upon waking up patient HR up to 60's, patient in no respiratory distress, alert and oriented, MD made aware, call MD back if HR 40's sustaining while patient is awake or if patient is sustaining 40's while sleeping for at least 10 minutes.
[2024-06-02] VITALS (11 sets, daily range): BP systolic 154–192; BP diastolic 64–85; PULSE 47–66; RESP 14–98; TEMP 36.1–37.1; O2SAT 96–100; BMI 31.0; BMI 14.0
[2024-06-02] MEDS: hydrALAZINE INJ 20 MG/ML VIAL 5 MG IV (02:42)
[2024-06-02 06:24] LABS: Basophils # (Auto) 0.1 Thou/mm3 (0.0-0.2); Basophils % (Auto) 1 % (0-2.5); Eosinophils # (Auto) 0.1 Thou/mm3 (0.0-0.5); Eosinophils % (Auto) 2 % (0-10); Hematocrit 29.6 % (41.0-53.0); Hemoglobin 9.4 g/dL (13.5-16.0); Immature Granulocytes % (Auto) 0 % (0-0); Immature Granulocytes Auto 0.03 Thou/mm3 (0.00-0.00); Lymphocytes # (Auto) 1.7 Thou/mm3 (1.0-4.8); Lymphocytes % (Auto) 19 % (10-50); Mean Corpuscular HGB Conc 31.8 g/dl (31.0-37.0); Mean Corpuscular Hemoglobin 23.3 pg (25.0-35.0); Mean Corpuscular Volume 73 fL (80-100); Monocytes # (Auto) 0.6 Thou/mm3 (0.0-0.8); Monocytes % (Auto) 8 % (0-12); Neutrophils % (Auto) 71 % (37-80); Nucleated Red Blood Cell % 0 /100 WBC (0); Platelet Count 417 Thou/mm3 (140-440); RDW Standard Deviation 45.4 fL (35.1-43.9); Red Blood Count 4.04 Miln/mm3 (4.50-5.90); White Blood Count 8.5 Thou/mm3 (3.8-10.6)
[2024-06-02 07:04] LABS: Alanine Aminotransferase 10 U/L (10-49); Albumin, Serum 3.9 gm/dL (3.4-4.8); Albumin/Globulin Ratio 1.6 (1.2-2.2); Alkaline Phosphatase 110 U/L (46-116); Anion Gap 7 (7-16); Aspartate Amino Transferase < 8 U/L (0-34); BUN/Creatinine Ratio 18 Ratio (12-20); Bilirubin,Total 0.3 mg/dL (0.3-1.2); Blood Urea Nitrogen 11 mg/dL (9-23); Calcium 8.9 mg/dL (8.3-10.6); Carbon Dioxide 29.8 mMol/L (20.0-31.0); Chloride 104 mMol/L (98-107); Creatinine (Component) 0.6 mg/dL (0.6-1.3); Globulin 2.5 gm/dL (2.3-3.5); Glucose 142 mg/dL (74-106); Magnesium 2.1 mg/dL (1.6-2.6); Osmolality,Calculated 282 (275-295); Phosphorous 3.6 mg/dL (2.4-5.1); Potassium 4.1 mMol/L (3.4-5.1); Sodium 141 mMol/L (136-145); Total Protein 6.4 gm/dL (5.7-8.2); eGFR > 60 See Note
[2024-06-02] MEDS: METOPROLOL SUCCINATE XL 25 MG TABCR 50 MG PO (08:00)
[2024-06-02] MEDS: cloNIDine HCL 0.1 MG TABLET 0.2 MG PO (08:01)
[2024-06-02] MEDS: ASPIRIN EC 81 MG TABEC PO (08:01)
[2024-06-02] MEDS: Furosemide 20 MG TABLET PO (08:01)
[2024-06-02] MEDS: APIXABAN 2.5 MG TABLET 5 MG PO (08:01)
[2024-06-02] MEDS: NIFEdipine XL 30 MG TABCR 90 MG PO (08:06)
--- NOTE | 2024-06-02 14:55 | ESDS_ITS ---
<Statement entered by Brijesh Winkler MD - 06/02/24 15:06> I saw and examined the patient, and I agree with current management stated by Dr Mckeon,DO, PGY1 Plan of care was discussed with the attending physician and resident physician. Disclaimer: Despite multiple revisions, due to the dictation software being used, the document bellow may not be free of grammatical errors including phonetic/typographic errors. However, this does not deter from our commitment to providing health care in the patient's best interest in mind. Dr. Chetan MD, PGY 2 Planned Discharge Date 06/02/24 DS: Providers Provider Date of admission: 05/31/24 14:07 Primary care physician: Mitchel Lima MD Admitting Provider: Alphonso Jean-Baptiste DO Attending Provider on Admission: Alphonso Jean-Baptiste DO Consults: 05/31/24 14:12 Consult to Neurology / Tele-Neurology Stat Comment: stroke rule out Consulting Provider: Kb Tubbs 05/31/24 21:27 Referral Infection Control Routine Comment: Reason for Infection Control Referral: Readmitted within 30 days 06/01/24 17:36 Referral Physical Therapy Stat Comment: Physician Instructions: Attending Provider on DC: Dr. Jean-Baptiste Discharging Provider: Mike Guzman D.O. DS: Diagnosis Problem List Completed Was Problem List Reviewed/Reconciled?: Yes Hospital Course Hospital Course Hospital course: #Stroke ruled out #Acute Ischemic Attack ruled out #Periumbilical Ulcer #Paroxysmal afib #HFpEF (60-65%) #Hypertension #Insulin-dependent diabetes mellitus type 2 #Hyperlipidemia #Periumbilical Ulcer #Orthostatic Hypotension Patient is a 69-year-old male with past medical history of CVA status post tPA administration with resolution of symptoms, paroxysmal atrial fibrillation, chronic congestive heart failure with preserved ejection fraction 60 to 65%, moderate to severe aortic stenosis, essential hypertension, insulin-dependent diabetes mellitus type 2, hyperlipidemia presents emergency department with severe headache, left arm weakness. Patient states that for the past 3 to 4 days patient has been having a severe headache with left arm numbness and weakness. Patient states that he has had intermittent blurry vision during this time. Patient has not been taking his blood pressure meds because he states that he felt to try to take them. Patient recently had an admission on 05/01/2024 for symptoms of dysarthria,changes in vision, headache, and confusion. Stroke alert was called and patient received tPA with apparent resolution of symptoms. Patient has a follow-up appointment with Dr Tubbs later this month. In the emergency department initial vital signs were notable for blood pressure of 183/72, pulse 70, respirations 20, afebrile, saturating 96% on room air. Normal WBC, electrolytes normal. BNP 133. Troponin negative. Urine negative. EKG shows rate of [address] head negative for acute hemorrhage mass effect or midline shift. Teleneurologist consulted, and recommended MRI follow- up for possible CVA/TIA. On examination in the emergency department patient attested to headache. Cranial nerves intact, strength 5 out of 5 upper and lower extremities bilaterally. Lczm-[id number]-ebce test normal, finger-nose test normal. GCS 15 AO x 4. Patient states that his symptoms have appeared to resolved, but attests to chronic left arm pain. There is also appears to be a ulcerated skin lesion on left periumbilical area on top of skin graft patient received from 2001. MRI negative for acute hemorrhagic mass effect or midline shift, negative for a cute infarct. It did show however significant cerebral arterial sclerotic disease. This showed 90% stenosis of P2 segment of right posterior cerebral artery, 60% stenosis P1 segment of left posterior cerebral artery, 90% stenosis proximal right middle cerebral artery branch. Patient initially was supposed to be discharged, but had significant nausea and orthostatic changes upon position changes. Patient given fluids and reevaluated, symptoms resolved afterwards. Over the patient's hospital course patient's symptoms resolved. Patient's left arm pain and weakness was normal. Patient neurological exam was nonsignificant for any changes from baseline upon discharge. Patient advised upon discharge to follow-up with PCP for chronic monitoring of hypertension and symptoms. Patient recommended upon discharge to follow-up with neurologist Dr. Tubbs upon discharge for continued reevaluation. Patient advised to return emergency department if symptoms worsen or persist. Patient is in agreement. Status at Discharge Cognitive/behavioral status at discharge: Stable at time of discharge Time Spent with Patient Time attestation: Total time spent providing and/or coordinating discharge services: Exam Vital Signs Temp Pulse Resp BP Pulse Ox O2 Del Method 98.8 F 61 18 154/65 H 96 Room Air 06/02/24 12:00 06/02/24 12:00 06/02/24 12:00 06/02/24 12:00 06/02/24 12:06/02/24 12:00 Narrative Exam GENERAL: NAD, NC/AT, responsive/cooperative. A&Ox3 NEURO: appraisal analyst grossly intact, moves extremities x4, [id number]-[id number] test normal, finger-nose test normal. No apparent sensory neural deficits. HEENT: Moist mucosa. Eyes open, symmetrical, & clear CARDIO: No chest pain on palpation. Heart RRR, no obvious murmurs PULM: No noted coughing/dyspnea. Lungs CTA B/L, no R/W/R GI: Abdomen soft, nondistended, no pain on palpation. BSx4 URO/LEAD PROJECT MANAGER:: No further abnormalities noted. SKIN/MSK/EXT: Pedal pulses present bilaterally. Small periumbilical ulcer noted on left side without drainage, erythema, tenderness to palpation. Appears to have chronic skin breakage Discharge Plan Plan Patient Disposition: HOME (Self Care) Disposition Comment: Stable for admit Patient condition on transfer: Stable Care Plan Goals: Please take your home medications as prescribed Please follow-up with your primary care provider within 7 days of discharge If you do not have a primary care provider you can follow-up with [facility] at [facility]. See Baker, Vikash. [address] [id number] Please follow-up with Dr. Tubbs within 7 days of discharge [address] [facility] [id number] Please make sure you follow-up with your diversional therapist's assistant for continued reevaluation. It is extremely important to keep your blood pressure under control. It is advised to keep a daily blood pressure log with multiple random blood pressure readings throughout the day. Keep this log for 1 to 2 months and bring to your primary care provider for readjustment of your medications If your symptoms persist or worsen please return to the emergency department Prescriptions/Referrals Prescriptions/Med Rec: New Eliquis 5 mg tablet 5 mg PO BID Qty: 60 3RF (DME) compress.stocking,knee,reg,lrg Misc See Rx Instructions .Route Qty: 2 0RF Rx Instructions: As directed melatonin 5 mg capsule 5 mg PO HS Qty: 30 0RF nifedipine 20 mg capsule 60 mg PO QAM Qty: 30 0RF nifedipine 20 mg capsule 20 mg PO HS Qty: 30 0RF Continued furosemide 20 mg tablet 20 mg PO QDAY metformin 500 mg tablet 500 mg PO BID Qty: 60 0RF (DME) FreeStyle Antonino 14 Day Fallon Misc See Rx Instructions .Route Qty: 1 0RF Rx Instructions: As directed (DME) FreeStyle Antonino 2 Sensor Kit See Rx Instructions .Route Qty: 1 0RF Rx Instructions: As directed (DME) Accu-Chek Angelina Plus test strp Strip See Rx Instructions .Route Qty: 50 0RF Rx Instructions: As directed insulin degludec [Tresiba U-100 Insulin] 100 unit/mL solution 20 unit subcut QDAY Qty: 10 0RF (DME) lancets Misc See Rx Instructions .Route Qty: 100 0RF Rx Instructions: As directed atorvastatin 80 mg tablet 80 mg PO HS 30 Days Qty: 30 0RF omeprazole 20 mg Capsule,Delayed Release(Dr/Ec) 20 mg PO QDAY clopidogrel [Plavix] 75 mg Tablet 75 mg PO QDAY lisinopril 40 mg Tablet 40 mg PO QDAY atorvastatin 80 mg tablet 80 mg PO DAILY Patient Comments: TOME DRISS TABLETA POR V A ORAL AL ACOSTARSE glipizide 10 mg tablet 10 mg PO BID clonidine HCl 0.2 mg tablet 0.2 mg PO BID Patient Comments: TOME 1 TABLETA POR V A ORAL DOS VECES AL D A PARA LA PRESI N ARTERIAL tamsulosin 0.4 mg capsule 0.4 mg PO QDAY Qty: 30 0RF Discontinued Eliquis 5 mg tablet 5 mg PO BID Qty: 60 0RF nifedipine 90 mg tablet extended release 90 mg PO QDAY Qty: 30 0RF Rx Instructions: Hold if SBP below 100 and DBP below 60 mmHg cephalexin 500 mg Capsule 500 mg PO TID Rx Instructions: Take 1 capsule three times a day for 10 days. trazodone 100 mg Tablet 100 mg PO HS Eliquis 5 mg tablet 5 mg PO BID nifedipine 90 mg tablet extended release 90 mg PO DAILY Patient Comments: TAKE 1 TABLET BY MOUTH DAILY HOLD IF SBP BELOW 100 AND DBP BELOW 60 [facility] Referrals: Mitchel Lima MD [Primary Care Provider] - Kb Tubbs MD [Physician] - Patient/Caregiver Discharge Instructions Other Discharge Activity Instructions:: Please take your home medications as prescribed Please follow-up with your primary care provider within 7 days of discharge If you do not have a primary care provider you can follow-up with [facility] at [address], [address], [facility] [id number] Please follow-up with Dr. Tubbs within 7 days of discharge [address] [facility] [id number] It is extremely important to keep your blood pressure under control. It is advised to keep a daily blood pressure log with multiple random blood pressure readings throughout the day. Keep this log for 1 to 2 months and bring to your primary care provider for readjustment of your medications If your symptoms persist or worsen please return to the emergency department Education Materials: ED Headache, Tension, ED Headache, Migraine, Classic, ED TIA: Transient Ischemic Attack, ED Headache, Cluster Print Language: Turkmen Stand Alone Forms: Kellen Award Info., Patient Portal Info Letter Discharge Order Discharge Orders: Discharge (Routine); Ordered 06/02/24 Ordered By: Brijesh Winkler Quality Discharge Quality Measures VTE prophylaxis MD Attestestation MD Attestation I have discussed and was present for the essential components of the discharge history, physical examination, diagnosis, and discharge treatment plan with the resident. I agree with the patient's discharge care as documented by the resident and amended herein by me. Anant Jean-Baptiste DO. The patient understood all discharge instructions, all questions were answered satisfactorily. The patient was instructed to return to the Emergency Department is symptoms worsened or persisted. Although this document has been carefully reviewed, there may still be some phonetic and other typographical errors. These errors are purely grammatical due to imperfections in the software program and should not be construed in any way to compromise the substance of the patient's medical care during this visit.
== END 2024-06-02 11:40 | disposition home or self-care (01) | DRG 92 ==
LOC: SERX 14:02 → SERHOLD 14:48 → S2NX 17:26
PROVIDERS: Nurse Practitioner Primary Care; Admitting Provider Student in an Organized Health Care Education/Training Program; Emergency Provider Emergency Medicine; PCP Family Medicine; Visit Provider Student in an Organized Health Care Education/Training Program
DX: R20.0 Anesthesia of skin (principal); I50.32 Chronic diastolic (congestive) heart failure; R53.1 Weakness; I11.0 Hypertensive heart disease with heart failure; E11.65 Type 2 diabetes mellitus with hyperglycemia; I48.0 Paroxysmal atrial fibrillation; L98.499 Non-pressure chronic ulcer of skin of other sites with unspecified severity; E78.5 Hyperlipidemia, unspecified; R51.9 Headache, unspecified; I35.0 Nonrheumatic aortic (valve) stenosis; T46.5X6A Underdosing of other antihypertensive drugs, initial encounter; I07.1 Rheumatic tricuspid insufficiency; M79.602 Pain in left arm; G89.29 Other chronic pain; I95.1 Orthostatic hypotension; I66.23 Occlusion and stenosis of bilateral posterior cerebral arteries; Z86.73 Personal history of transient ischemic attack (TIA), and cerebral infarction without residual deficits; Z91.148 Patient's other noncompliance with medication regimen for other reason; Z79.01 Long term (current) use of anticoagulants; Z79.4 Long term (current) use of insulin; Z79.84 Long term (current) use of oral hypoglycemic drugs; Z79.02 Long term (current) use of antithrombotics/antiplatelets; Z79.899 Other long term (current) drug therapy
CPT/HCPCS: 36415; 70450; 70544; 71046; 80053; 80061; 81001; 83036; 83615; 83735; 83880; 84100; 84439; 84443; 84484; 85025; 85610; 85730; 87081; 87811; 93005; 97163; 99213; 99291; J0360; J1815; J7040; A9270; G0463

== ENCOUNTER → 2024-05-31 | Outpatient (CLI) | payer MEDICARE, MEDICAID, SELFPAY | END | disposition home or self-care (01) | PROVIDERS: PCP Family Medicine; Referring Provider Family Medicine; Visit Provider Surgery | DX: R51.9 Headache, unspecified (principal); I10 Essential (primary) hypertension | CPT/HCPCS: 99213; G0463 ==

== ENCOUNTER 2024-06-04 14:12 | Outpatient (AMB) | payer MEDICARE, MEDICAID, SELFPAY ==
--- NOTE | 2024-06-04 14:40 | ACNOTE_ITS ---
Allergies/Meds Allergies & Medications Allergies No Known Allergies Allergy (Verified 07/04/24 15:15) MA Intake Visit Data Collection New Patient or Established: Established Patient (seen at [facility] within 3 years) Seen by Clinical Staff ONLY (RN/MA): No Pain Present Currently: No Pain scale:: 0 Pain Scale Used: Coello-Brown/Numerical Manager Credit Collections Required: Yes PCP or OBGYN visit in last 3 months: Yes Hx Now: No Do You Feel Safe at Home: Yes Authorities Contacted: N/A Smoking Status Smoking Status: Never smoker Immunization / Flu Flu Vaccine in the Last 12 Months: No Flu Vaccine Exclusion Criteria: No Exclusion Criteria Past Medical History Past Medical History NEUROLOGIC: Positive Cerebrovascular Accident and Head Trauma; Negative Neurological Disorders, Transient Ischemic Attacks (TIA), Dementia, Alzheimer's Disease, Parkinson's Disease, Brain Tumor, Meningitis, Seizures, Epilepsy, Multiple Sclerosis, Cerebral Palsy, Amyotrophic Lateral Sclerosis (ALS/Fifi Gehrig's), Guillain-Farrell Syndrome, Spina Bifida, Paralysis, Peripheral Neuropathy, Farley's Palsy, Subdural Hematoma, Migraine, Spinal Cord Injury or Traumatic Brain Injury CARDIAC: Positive Cardiac Disorders, Heart Murmur, Hypercholesterolemia, Edema, Deep Vein Thrombosis and Hypertension; Negative Myocardial Infarction, Cardiac Arrhythmia, Atrial Fibrillation, Angina, Coronary Artery Disease, Atherosclerotic Heart Disease, Peripheral Vascular Disease, Aneurysm, Congestive Heart Failure, Congenital Heart Disease, Valvular Heart Disease, Rheumatic Fever, Cardiomyopathy, Pericarditis, Cellulitis, Hypotension or Varicose Veins RESPIRATORY: Positive Bronchitis and Pneumonia; Negative Chronic Obstructive Pulmonary Disease (COPD), Asthma, Emphysema, Pulmonary Fibrosis, Cystic Fibrosis, Tuberculosis, Pulmonary Embolism, Pulmonary Edema or Sleep Apnea GASTROINTESTINAL: Positive Gastrointestinal Disorders, Gastroesophageal Reflux Disease and Obesity; Negative Hepatitis, Cirrhosis, Pancreatitis, Celiac Disease, Gall Bladder Disease, Gastrointestinal Bleed, Esophageal Varices, Joseph's Esophagus, Colitis, Ulcerative Colitis, Diverticulitis, Diverticulosis, Ulcer, Colorectal Cancer, Irritable Bowel, Crohn's Disease, Obstructive Bowel, Hiatal Hernia or Hemorrhoids GENITOURINARY: Positive Genitourinary Disorders and Benign Prostatic Hyperplasia; Negative Renal Disease, Kidney Stones, Polycystic Kidney Disease, Neurogenic Bladder, Inguinal Hernia, Dialysis or Prostate Cancer REPRODUCTIVE: Negative Breast Cancer, Fibroids, Genital Herpes, Gonorrhea, Syphilis or Testicular Cancer MUSCULOSKELETAL: Positive Arthritis and Fractures; Negative Muscular Dystrophy, Myasthenia Gravis, Marfan's Syndrome, Bone Cancer, Rheumatoid Arthritis, Osteoporosis, Degenerative Disk Disease, Gout, Scoliosis, Carpal Tunnel Syndrome, Fibromyalgia, Degenerative Joint Disease, Osteomyelitis or Poliovirus ENT: Positive Cataracts, Glaucoma and Head Trauma; Negative Blind, Retinal Detachment, Macular Degeneration, Ear Infection, Deafness or Eye Prosthesis ENDOCRINE: Positive Endocrine Disorders and Diabetes Mellitus Type 2; Negative Diabetes Mellitus Type 1, Hypoglycemia, Rudi's Syndrome, [place]'s Disease, Hyperthyroidism, Hypothyroidism, Parathyroid Disease, Pituitary Dise ase, Systemic Lupus Erythematosus, Syndrome of Inappropriate Antidiuretic Hormone (SIADH), Adrenal Disease or Graves' Disease HEMATOLOGIC: Positive Anemia; Negative Blood Disorders, Leukemia, Hemophilia, Thalassemia, Sickle Cell Disease or Clotting Problems PSYCHO/SOCIAL: Negative Psychiatric Problems, Schizophrenia, Recreational Drug Use, Bipolar Disorder, Depression, Anxiety, Behavior Problems, Self-Mutilation, Attention Deficit Disorder, Attention Deficit Hyperactivity Disorder, Depression, Post Traumatic Stress Disorder or Eating Disorder OTHER HISTORY: Positive Falls and Blood Transfusions; Negative Hospitalization, Down Syndrome, Autism, Developmental Delay, Shingles, Blood Transfusion Reaction, Anesthesia Reactions, Organ Transplant, Chemotherapy, Radiation Therapy, Hyperbaric Therapy, MRSA, VRSA, Vancomycin- Resistant Enterococci, Human Immunodeficiency Virus (HIV), Chicken Pox, Mumps, Rubella (Ni[place]an Measles), Pertussis, Clostridium Difficile, Cancer, Breast Cancer, Cervical Cancer, Colorectal Cancer, Lung Cancer, Prostate Cancer or Testicular Cancer Family History FAMILY HISTORY: Positive Family Respiratory Disorders, Family Cardiac Disorders and Family Cancer; Negative Family Psychiatric Problems, Family Gastrointestinal Problems, Family Surgery or Family Anesthesia Reaction Surgical History SURGICAL: Positive Abdominal Surgery and Bowel Surgery; Negative Cardiac Surgery, Open Heart Surgery, Coronary Artery Bypass Graft, Valve Replacement, Vascular Surgery, Coronary Stent, Cardiac Catheterization, Pa cemaker, Angiogram, Auto Implanted Cardiovert Defib, Carotid Endarterectomy, Endocrine Surgery, Thyroidectomy, Ear Surgery, Tympanostomy Tube, Eye Surgery, Nose Surgery, Oral Surgery, Tonsillectomy, Adenoidectomy, Cochlear Implant, Corneal Transplant, Throat Surgery, Tracheostomy, Gastric Bypass Surgery, Gastrostomy, Nephrectomy, Transurethral Resection, Joint Replacement, Amputation, Open Reduction Internal Fixation, Arthroscopy, Neurologic Surgery, Brain Shunt, Mastectomy, Lumpectomy, Hysterectomy, Vasectomy or Organ Transplant Social History SMOKING STATUS: Smoking status: Never smoker SECOND HAND EXPOSURE: second hand exposure: No ALCOHOL: Alcohol Intake: Never HOUSING: Housing: House LIVES WITH: Lives With: Family Patient Portal Questionaires Social History Living Situation History Housing: House Housing Other:: Pt lives at home with family Tobacco History Smoking Status: Never smoker Second Hand Smoke Exposure: No Alcohol History Alcohol Intake: Never Domestic Abuse History Do You Feel Safe at Home: Yes Review of Systems Report any current symptoms Only answer those that you have currently: Past Medical History Past Medical History Have you ever been diagnosed with any of the following: Neurological Problems Cerebrovascular Accident (CVA): Yes Transient Ischemic Attacks (TIA): No Dementia: No Alzheimer's Disease: No Parkinson's Disease: No Brain Tumor: No Meningitis: No Seizures: No Epilepsy: No Multiple Sclerosis: No Cerebral Palsy: No Amyotrophic Lateral Sclerosis (ALS/Fifi Gehrig's): No Guillain-Farrell Syndrome: No Spina Bifida: No Paralysis: No Peripheral Neuropathy: No Farley's Palsy: No Subdural Hematoma: No Migraine: No Head Trauma: Yes Spinal Cord Injury: No Traumatic Brain Injury: No Cardiology Problems Myocardial Infarction: No Cardiac Arrhythmia: No Atrial Fibrillation: No Angina: No Heart Murmur: Yes Coronary Artery Disease: No Atherosclerotic Heart Disease: No Peripheral Vascular Disease: No Hypercholesterolemia: Yes Aneurysm: No Congestive Heart Failure: No Congenital Heart Disease: No Valvular Heart Disease: No Rheumatic Fever: No Cardiomyopathy: No Edema: Yes Pericarditis: No Cellulitis: No Deep Vein Thrombosis: Yes Hypertension: Yes Hypotension: No Varicose Veins: No Respiratory Problems Chronic Obstructive Pulmonary Disease (COPD): No Asthma: No Bronchitis: Yes Emphysema: No Pneumonia: Yes Pulmonary Fibrosis: No Tuberculosis: No Pulmonary Embolism: No Pulmonary Edema: No Sleep Apnea: No Stomache/Intestinal Problems Hepatitis: No Cirrhosis: No Pancreatitis: No Celiac Disease: No Gall Bladder Disease: No Gastrointestinal Bleed: No Esophageal Varices: No Joseph's Esophagus: No Colitis: No Ulcerative Colitis: No Diverticulitis: No Diverticulosis: No Ulcer: No Colorectal Cancer: No Irritable Bowel: No Crohn's Disease: No Obstructive Bowel: No Hiatal Hernia: No Hemorrhoids: No Gastroesophageal Reflux Disease: Yes Obesity: Yes Genital/Urinary Problems Renal Disease: No Kidney Stones: No Polycystic Kidney Disease: No Neurogenic Bladder: No Inguinal Hernia: No Dialysis: No Prostate Cancer: No Benign Prostatic Hyperplasia: Yes Reproductive Problems Breast Cancer: No Fibroids: No Genital Herpes: No Gonorrhea: No Syphilis: No Testicular Cancer: No Musculoskeletal Problems Muscular Dystrophy: No Myasthenia Gravis: No Marfan's Syndrome: No Bone Cancer: No Arthritis: Yes Rheumatoid Arthritis: No Osteoporosis: No Degenerative Disk Disease: No Gout: No Scoliosis: No Carpal Tunnel Syndrome: No Fibromyalgia: No Fractures: Yes Degenerative Joint Disease: No Osteomyelitis: No Poliovirus: No Head,Eye,Nose,Throat Problems Cataracts: Yes Glaucoma: Yes Blind: No Retinal Detachment: No Macular Degeneration: No Chronic Ear Infections: No Deafness: No Eye Prosthesis: No Endocrine Problems Diabetes Mellitus Type 1: No Diabetes Mellitus Type 2: Yes Hypoglycemia: No [place]'s Syndrome: No [place]und[place]'s Disease: No Hyperthyroidism: No Hypothyroidism: No Parathyroid Disease: No Pituitary Disease: No Systemic Lupus Erythematosus: No Syndrome of Inappropriate Antidiuretic Hormone: No Adrenal Disease: No Graves' Disease: No Blood Problems Anemia: Yes Leukemia: No Hemophilia: No Thalassemia: No Sickle Cell Disease: No Clotting Problems: No Psychologic Problems Schizophrenia: No Recreational Drug Use: No Bipolar Disorder: No Depression: No Anxiety: No Behavior Problems: No Self-Mutilation: No Attention Deficit Disorder: No Attention Deficit Hyperactivity Disorder: No Depression: No Post Traumatic Stress Disorder: No Eating Disorder: No Other Problems Hospitalization: No Down Syndrome: No Autism: No Developmental Delay: No Shingles: No Falls: Yes Blood Transfusions: Yes Blood Transfusion Reaction: No Anesthesia Reactions: No Organ Transplant: No Chemotherapy: No Radiation Therapy: No Hyperbaric Therapy: No MRSA: No VRSA: No Vancomycin-Resistant Enterococci: No Human Immunodeficiency Virus (HIV): No Chicken Pox: No Mumps: No Rubella (Niuean Measles): No Pertussis: No Clostridium Difficile: No Cancer: No Cervical Cancer: No Lung Cancer: No Surgical History Carotid Endarterectomy: No Coronary Artery Bypass Graft: No Valve Replacement: No Hysterectomy: No Pacemaker: No Thyroidectomy: No History of Present Illness HPI Narrative 69-year-old male with past medical history of CVA status post tPA administration with resolution of symptoms, paroxysmal atrial fibrillation, chronic congestive heart failure with preserved ejection fraction 60 to 65%, moderate to severe aortic stenosis, essential hypertension, insulin-dependent diabetes mellitus type 2, hyperlipidemia presents emergency department with severe headache, left arm weakness. Patient states that for the past 3 to 4 days patient has been having a severe headache with left arm numbness and weakness. Patient states that he has had intermittent blurry vision during this time. Patient has not been taking his blood pressure meds because he states that he felt to try to take them. Patient recently had an admission on 05/01/2024 for symptoms of dysarthria,changes in vision, headache, and confusion. Stroke alert was called and patient received tPA with apparent resolution of symptoms. Patient has a follow-up appointment with Dr Tubbs later this month. In the emergency department initial vital signs were notable for blood pressure of 183/72, pulse 70, respirations 20, afebrile, saturating 96% on room air. Normal WBC, electrolytes normal. BNP 133. Troponin negative. Urine negative. EKG shows rate of [address] head negative for acute hemorrhage mass effect or midline shift. Teleneurologist consulted, and recommended MRI follow- up for possible CVA/TIA. On examination in the emergency department patient attested to headache. Cranial nerves intact, strength 5 out of 5 upper and lower extremities bilaterally. [id number] test normal, finger-nose test normal. GCS 15 AO x 4. Patient states that his symptoms have appeared to resolved, but attests to chronic left arm pain. There is also appears to be a ulcerated skin lesion on left periumbilical area on top of skin graft patient received from 2001. MRI negative for acute hemorrhagic mass effect or midline shift, negative for acute infarct. It did show however significant cerebral arterial sclerotic disease. This showed 90% stenosis of P2 segment of right posterior cerebral artery, 60% stenosis P1 segment of left posterior cerebral artery, 90% stenosis proximal right middle cerebral artery branch. Patient initially was supposed to be discharged, but had significant nausea and orthostatic changes upon position changes. Patient given fluids and reevaluated, symptoms resolved afterwards. Over the patient's hospital course patient's symptoms resolved. Patient's left arm pain and weakness was normal. Patient neurological exam was nonsignificant for any changes from baseline upon discharge. Patient advised upon discharge to follow-up with PCP for chronic monitoring of hypertension and symptoms. Patient recommended upon discharge to follow-up with neurologist Dr. Tubbs upon discharge for continued reevaluation. Patient advised to return emergency department if symptoms worsen or persist. Patient is in agreement. Objective/Exam Narrative Physical exam: Constitutional: AOx3, able to speak full sentences HEENT: NC/AT, PERRLA, oral mucosa moist, neck supple CVS: RRR, S1-S2 present, no murmurs RESP: CTAB GI: non distended, non tender to palpation, NBS MSK: full ROM, no peripheral edema, peripheral pulses present Skin: warm and dry, no rashes Neuro: settlement agent II-XII grossly intact. Sensation grossly intact. Assessment & Plan Diagnosis / Problem List (1) Transient ischemic attack: Status: Resolved Assessment & Plan: CT head negative MR brain negative Plan: Cont aspirin and statin therapy (2) Type 2 diabetes mellitus with hyperosmolar nonketotic hyperglycemia: Status: Chronic Assessment & Plan: A1c 6. on 06/12 Plan: Continue current medication as prescribed. Diet, exercise and lifestyle modifications recommeded. (3) Chronic atrial fibrillation: Status: Acute Assessment & Plan: CHADVasc >3 Rate controlled Plan: Continue DOAC eliquis, metoprolol succ 50mg QD, clonidine 0.2mg Follow up with cardiology (4) Hypertension: Status: Chronic Qualifiers: Hypertension type: primary hypertension Qualified Code(s): I10 - Essential (primary) hypertension Assessment & Plan: Had episodes of hypotension at home Plan: Monitor blood pressure at home (5) HLD (hyperlipidemia): Status: Acute Plan: Cont statin therapy Lifestyle modification recommended Additional Assessment Internal Medicine Attending Note: Case discussed with and agree with note and management plan of Resident Physician as per Resident's Note above. Issues of concern for present visit are as follows: New patient to clinic. Recent presentation to emergency department with subsequent admission for TIA. CT of head negative, MRI of brain was negative for CVA, MRA showed 90% stenosis of P2 segment of right posterior cerebral artery, 60% stenosis P1 segment of left posterior cerebral artery, 90% stenosis of proximal right middle cerebral artery branch. Initial symptoms of dysarthria, visual change, headache, and confusion resolved, as patient received tPA. Hospital course prolonged due to nausea and orthostatic changes with position change. Symptoms resolved with hydration. Outpatient follow-up with neurology was recommended. Patient with prior diagnosis of type 2 diabetes mellitus. Hemoglobin A1c was 6 on his admission. Remains on insulin. Patient also has history of chronic atrial fibrillation and is rate controlled with metoprolol succinate and anticoagulated with Eliquis. Recommended follow-up with cardiology. Blood pressure under r easonable control. Referral for outpatient neurologic follow-up. Hunter Naranjo MD Advanced Care Planning Advance care planning discussed with:: patient Physician Billing New Patient New Patient: E/M Level 3-CPT 64078 Office Procedures [facility] Level of Care Nursing/Assessment Patient Status: Established Patient Nursing Assessment/Reassessment: Medication Reconciliation and Update PMH in EMR Coordination of Care: Complex Care and Chronic Disease 1-5, Consent,records obtained, informed consent, Education Simp Pt/Fam and Staff clarify orders Established Patient Charge Established Patient Point Assignment: 70 Established Patient Point Charge: EP Level 2 (40-75)
== END 2024-06-04 14:45 | disposition home or self-care (01) ==
LOC: HODAHC 14:12
PROVIDERS: PCP Student in an Organized Health Care Education/Training Program; Referring Provider Student in an Organized Health Care Education/Training Program; Supervising Provider Internal Medicine; Visit Provider Student in an Organized Health Care Education/Training Program
DX: Z09 Encounter for follow-up examination after completed treatment for conditions other than malignant neoplasm (principal); Z86.73 Personal history of transient ischemic attack (TIA), and cerebral infarction without residual deficits; E11.00 Type 2 diabetes mellitus with hyperosmolarity without nonketotic hyperglycemic-hyperosmolar coma (NKHHC); Z79.4 Long term (current) use of insulin; I48.20 Chronic atrial fibrillation, unspecified; Z79.01 Long term (current) use of anticoagulants; I10 Essential (primary) hypertension; E78.5 Hyperlipidemia, unspecified
CPT/HCPCS: 99212; G0463

== ENCOUNTER 2024-06-30 20:03 | Emergency (ER) | payer MEDICARE, MEDICAID, SELFPAY ==
[2024-06-30 20:17] VITALS: BP 121/57; PULSE 81; RESP 18; TEMP 37.2; O2SAT 98; BMI 34.2
--- NOTE | 2024-06-30 20:26 | PD.EDHA ---
ED Headache RME/HPI General Chief Complaint: Headache Stated Complaint: HEADACHE Time Seen by Provider: 06/30/24 20:07 Arrival date/time: 06/30/24 20:03 RME / HPI RME / HPI Narrative: This section includes all my notes and documentations, including HPI, PE, and ED course. Vikas Little MD HPI: 69yo male with a history of CVA, HTN, HLD, IDDM, aFib presents to the ED for a chief complaint of a headache. Patient states he's had a headache for the last 4 days, rating it moderate in severity. No radiation or migration. He reports associated nausea. He's been taking gabapentin and ibuprofen without any alleviation of symptoms. He denies any vomiting, cough, chest pain or any other associated symptoms. No other complaints reported. ROS: All negative except as documented in HPI. Physical Exam: General: Alert and oriented. No acute distress when remaining still. Eyes: Conjunctivae and lids clear. EOMI. PERRL. ENT: No nasal congestion. Neck: Supple. Heart: RRR. Lungs: No respiratory distress. Good air movement. No rhonchi, wheezing, rales. Abdomen: Soft and nontender. Legs: No clubbing, cyanosis, edema. Skin: Warm and dry. Neuro: Alert and oriented X 3. Cranial nerves II to XII grossly normal. No peripheral motor deficits. I reviewed all diagnostic test results. My review of the head CT report is no acute findings. At this point, diagnoses include tension headache. Treatment here included Zofran and Tylenol with Codeine. Significant improvement noted. Recommended more outpatient workup. Based on my best medical judgment, made decision no further evaluation or treatment indicated at this time. Patient understands and agrees to the discharge instructions customized and printed, see below. Discharge Instructions from Dr. Little printed for you: 1. Fortunately, there is no life-threatening condition. Such as stroke or brain tumor. 2. Zofran for nausea/vomiting. Tylenol codeine for severe headache. 3. See a private doctor on 07/01/2024 for recheck and further care. Ask for help finding the cause of your headache, to make sure there is no serious underlying condition. With more care not readily available here in the ER. Such as MRI imaging of the brain and referral to see specialists. 4. Seek immediate medical care with worsening or with any concerns. Vikas Little MD Related Data Home Medications ?Medication ?Instructions ?Recorded ?Confirmed furosemide 20 mg tablet 20 mg PO QDAY 03/01/24 05/31/24 atorvastatin 80 mg tablet 80 mg PO DAILY 06/01/24 06/01/24 clonidine HCl 0.2 mg tablet 0.2 mg PO BID 06/01/24 06/01/24 clopidogrel 75 mg tablet (Plavix) 75 mg PO QDAY 06/01/24 06/01/24 glipizide 10 mg tablet 10 mg PO BID 06/01/24 06/01/24 lisinopril 40 mg tablet 40 mg PO QDAY 06/01/24 06/01/24 omeprazole 20 mg capsule,delayed 20 mg PO QDAY 06/01/24 06/01/24 release Previous Rx's ?Medication ?Instructions ?Recorded blood sugar diagnostic (Accu-Chek #50 ea 12/18/21 Angelina Plus test strips) flash glucose scanning reader #1 ea 12/18/21 ([employer]care BluebookStyle Antonino 14 Day [place]) flash glucose sensor (Nexterrayle #1 ea 12/18/21 Antonino 2 Sensor kit) insulin degludec 100 unit/mL 20 unit (0.2 mL) subcut QDAY #10 mL 12/18/21 subcutaneous solution (Tresiba U-100 Insulin) lancets #100 ea 12/18/21 metformin 500 mg tablet 500 mg PO BID #60 tabs 12/18/21 apixaban 5 mg tablet (Eliquis) 5 mg PO BID #60 tabs 06/01/24 compress.stocking,knee,reg,lrg #2 ea 06/02/24 melatonin 5 mg capsule 5 mg PO HS #30 caps 06/02/24 nifedipine 20 mg capsule 60 mg (3 x 20 mg) PO QAM #30 caps 06/02/24 tamsulosin 0.4 mg capsule 0.4 mg PO QDAY #30 caps 06/02/24 nifedipine 20 mg capsule 20 mg PO TID #90 caps 06/08/24 acetaminophen 300 mg-codeine 30 mg 2 tab PO TID PRN pain #20 tabs 06/30/24 tablet ondansetron 4 mg disintegrating 4 mg PO TID PRN nausea and 06/30/24 tablet vomiting 5 days #10 tabs Allergies Allergy/AdvReac Type Severity Reaction Status Date / Time No Known Allergies Allergy Verified 06/30/24 20:04 Review of Systems Review of Systems Systems Reviewed: All systems reviewed, normal except as documented Past Medical History Past Medical History NEUROLOGIC: Positive Cerebrovascular Accident and Head Trauma; Negative Neurological Disorders, Transient Ischemic Attacks (TIA), Dementia, Alzheimer's Disease, Parkinson's Disease, Brain Tumor, Meningitis, Seizures, Epilepsy, Multiple Sclerosis, Cerebral Palsy, Amyotrophic Lateral Sclerosis (ALS/Fifi Gehrig's), Guillain-Clarendon Syndrome, Spina Bifida, Paralysis, Peripheral Neuropathy, Farley's Palsy, Subdural Hematoma, Migraine, Spinal Cord Injury or Traumatic Brain Injury CARDIAC: Positive Cardiac Disorders, Heart Murmur, Hypercholesterolemia, Edema, Deep Vein Thrombosis and Hypertension; Negative Myocardial Infarction, Cardiac Arrhythmia, Atrial Fibrillation, Angina, Coronary Artery Disease, Atherosclerotic Heart Disease, Peripheral Vascular Disease, Aneurysm, Congestive Heart Failure, Congenital Heart Disease, Valvular Heart Disease, Rheumatic Fever, Cardiomyopathy, Pericarditis, Cellulitis, Hypotension or Varicose Veins RESPIRATORY: Positive Bronchitis and Pneumonia; Negative Chronic Obstructive Pulmonary Disease (COPD), Asthma, Emphysema, Pulmonary Fibrosis, Cystic Fibrosis, Tuberculosis, Pulmonary Embolism, Pulmonary Edema or Sleep Apnea GASTROINTESTINAL: Positive Gastrointestinal Disorders, Gastroesophageal Reflux Disease and Obesity; Negative Hepatitis, Cirrhosis, Pancreatitis, Celiac Disease, Gall Bladder Disease, Gastrointestinal Bleed, Esophageal Varices, Joseph's Esophagus, Colitis, Ulcerative Colitis, Diverticulitis, Diverticulosis, Ulcer, Colorectal Cancer, Irritable Bowel, Crohn's Disease, Obstructive Bowel, Hiatal Hernia or Hemorrhoids GENITOURINARY: Positive Genitourinary Disorders and Benign Prostatic Hyperplasia; Negative Renal Disease, Kidney Stones, Polycystic Kidney Disease, Neurogenic Bladder, Inguinal Hernia, Dialysis or Prostate Cancer REPRODUCTIVE: Negative Breast Cancer, Fibroids, Genital Herpes, Gonorrhea, Syphilis or Testicular Cancer MUSCULOSKELETAL: Positive Musculoskeletal Disorders, Arthritis and Fractures; Negative Muscular Dystrophy, Myasthenia Gravis, Marfan's Syndrome, Bone Cancer, Rheumatoid Arthritis, Osteoporosis, Degenerative Disk Disease, Gout, Scoliosis, Carpal Tunnel Syndrome, Fibromyalgia, Degenerative Joint Disease, Osteomyelitis or Poliovirus ENT: Positive Cataracts, Glaucoma and Head Trauma; Negative Blind, Retinal Detachment, Macular Degeneration, Ear Infection, Deafness or Eye Prosthesis ENDOCRINE: Positive Endocrine Disorders and Diabetes Mellitus Type 2; Negative Diabetes Mellitus Type 1, Hypoglycemia, Rudi's Syndrome, Everett's Disease, Hyperthyroidism, Hypothyroidism, Parathyroid Disease, Pituitary Disease, Systemic Lupus Erythematosus, Syndrome of Inappropriate Antidiuretic Hormone (SIADH), Adrenal Disease or Graves' Disease HEMATOLOGIC: Positive Anemia; Negative Blood Disorders, Leukemia, Hemophilia, Thalassemia, Sickle Cell Disease or Clotting Problems PSYCHO/SOCIAL: Negative Psychiatric Problems, Schizophrenia, Recreational Drug Use, Bipolar Disorder, Depression, Anxiety, Behavior Problems, Self-Mutilation, Attention Deficit Disorder, Attention Deficit Hyperactivity Disorder, Depression, Post Traumatic Stress Disorder or Eating Disorder OTHER HISTORY: Positive Falls and Blood Transfusions; Negative Hospitalization, Autoimmune Disease, Down Syndrome, Autism, Developmental Delay, Shingles, Blood Transfusion Reaction, Anesthesia Reactions, Organ Transplant, Chemotherapy, Radiation Therapy, Hyperbaric Therapy, MRSA, VRSA, Vancomycin-Resistant Enterococci, Human Immunodeficiency Virus (HIV), Chicken Pox, Mumps, Rubella (Faroese Measles), Pertussis, Clostridium Difficile, Cancer, Breast Cancer, Cervical Cancer, Colorectal Cancer, Lung Cancer, Prostate Cancer or Testicular Cancer Family History FAMILY HISTORY: Positive Family Respiratory Disorders, Family Cardiac Disorders and Family Cancer; Negative Family Psychiatric Problems, Family Gastrointestinal Problems, Family Surgery or Family Anesthesia Reaction Surgical History SURGICAL: Positive Abdominal Surgery and Bowel Surgery; Negative Cardiac Surgery, Open Heart Surgery, Coronary Artery Bypass Graft, Valve Replacement, Vascular Surgery, Coronary Stent, Cardiac Catheterization, Pacemaker, Angiogram, Auto Implanted Cardiovert Defib, Carotid Endarterectomy, Endocrine Surgery, Thyroidectomy, Ear Surgery, Tympanostomy Tube, Eye Surgery, Nose Surgery, Oral Surgery, Tonsillectomy, Adenoidectomy, Cochlear Implant, Corneal Transplant, Throat Surgery, Tracheostomy, Gastric Bypass Surgery, Gastrostomy, Nephrectomy, Transurethral Resection, Joint Replacement, Amputation, Open Reduction Internal Fixation, Arthroscopy, Neurologic Surgery, Brain Shunt, Mastectomy, Lumpectomy, Hysterectomy, Vasectomy or Organ Transplant Social History SMOKING STATUS: Never smoker SECOND HAND EXPOSURE: No SUBSTANCE USE: does not use ED Exam Narrative Physical exam: As noted in HPI. Course Quality Measures none Orders Category Date Time Status CT head/brain wo con Stat Exams 06/30/24 20:33 Completed ACETAMINOPHEN w/COD 300-30 [Tylenol w/Cod #3] Med 06/30/24 20:32 Discontinued 2 tab PO X1 ONE Ondansetron Odt [Zofran Odt] Med 06/30/24 20:32 Discontinued 4 mg PO X1 ONE Vital Signs Vital signs: Vital Signs Temperature 98.9 F 06/30/24 20:17 Pulse Rate 81 06/30/24 20:17 Respiratory Rate 18 06/30/24 20:17 Blood Pressure 121/57 L 06/30/24 20:17 Pulse Oximetry (%) 98 06/30/24 20:17 Oxygen Delivery Method Aerosol Mask 06/30/24 20:17 Headache MDM Narrative MDM Narrative:: Scribe Attestation: 06/30/24 Elisabeth Lara am scribing for and in the presence of Dr. Little. Patient data External records reviewed:: [facility] previous records (Per chart review, patient was admitted here on 05/31/24 for a TIA.) Clinical information provided by:: patient Social determinants that could affect healthcare access:: none Patient has the following chronic illnesses:: CVA status post tPA administration with resolution of symptoms, paroxysmal atrial fibrillation, chronic CHF, moderate to severe aortic stenosis, HTN, IDDM, HLD How is presenting disease/condition affected by chronic disease/condition?: uneffected by Evaluation data The following diagnostics were reviewed and interpreted by me:: radiology exam(s) Lab and/or radiology exams considered but not ordered:: none Interpretation Summary: Tension headache Medications / Prescriptions Medications or Prescriptions considered but not ordered:: None Medication administrations:: Medication Administration History Discontinued Medications Acetaminophen/Codeine Phosphate (Acetaminophen W/Cod 300-30 Tablet) 2 tab PO X1 ONE Stop: 06/30/24 20:33 Last Admin: 06/30/24 20:45 Dose: 2 tab Documented By: DREAL Ondansetron HCl (Ondansetron Odt 4 Mg Tabrap) 4 mg PO X1 ONE; Protocol Stop: 06/30/24 20:33 Last Admin: 06/30/24 20:45 Dose: 4 mg Documented By: CVL Tylenol with Codeine, Zofran Consultations Consultation(s) initiated? (list below): No Diagnosis Differential diagnosis headache: migraine, tension headache and subarachnoid hemorrhage Most likely diagnosis given after review of the tests above:: Tension headache Admission Indicated Admission indicated?: not indicated Explain why admission is indicated or not indicated:: No criteria for admission. Admission Request Was there a request for admission?: No Disposition Plan Disposition Plan: Discharge Discharge Attestation Discharge Attestation: The patient and all family members were given an opportunity to ask questions and understood the discharge instructions. Discharge instructions specifically effects, indications for sooner follow up or return to the emergency department, and the expected course of current diagnosis. Patient condition: Stable Discharge Plan Plan Patient Disposition: HOME (Self Care) Prescriptions/Referrals Prescriptions/Med Rec: New acetaminophen-codeine 300-30 mg tablet 2 tab PO TID MDD 6 PRN (Reason: pain) Qty: 20 0RF ondansetron 4 mg tablet,disintegrating 4 mg PO TID PRN (Reason: nausea and vomiting) 5 Days Qty: 10 0RF No Action furosemide 20 mg tablet 20 mg PO QDAY nifedipine 20 mg capsule 20 mg PO TID Qty: 90 3RF metformin 500 mg tablet 500 mg PO BID Qty: 60 0RF (DME) FreeStyle Antonino 14 Day [place] Misc See Rx Instructions .Route Qty: 1 0RF Rx Instructions: As directed (DME) FreeStyle Antonino 2 Sensor Kit See Rx Instructions .Route Qty: 1 0RF Rx Instructions: As directed (DME) Accu-Chek Angelina Plus test strp Strip See Rx Instructions .Route Qty: 50 0RF Rx Instructions: As directed insulin degludec [Tresiba U-100 Insulin] 100 unit/mL solution 20 unit subcut QDAY Qty: 10 0RF (DME) lancets Misc See Rx Instructions .Route Qty: 100 0RF Rx Instructions: As directed omeprazole 20 mg Capsule,Delayed Release(Dr/Ec) 20 mg PO QDAY clopidogrel [Plavix] 75 mg Tablet 75 mg PO QDAY lisinopril 40 mg Tablet 40 mg PO QDAY atorvastatin 80 mg tablet 80 mg PO DAILY Patient Comments: TOME JEREMY TABLETA POR V A ORAL AL ACOSTARSE glipizide 10 mg tablet 10 mg PO BID clonidine HCl 0.2 mg tablet 0.2 mg PO BID Patient Comments: TOME 1 TABLETA POR V A ORAL DOS VECES AL D A PARA LA PRESI N ARTERIAL Eliquis 5 mg tablet 5 mg PO BID Qty: 60 3RF (DME) compress.stocking,knee,reg,lrg Misc See Rx Instructions .Route Qty: 2 0RF Rx Instructions: As directed melatonin 5 mg capsule 5 mg PO HS Qty: 30 0RF tamsulosin 0.4 mg capsule 0.4 mg PO QDAY Qty: 30 0RF nifedipine 20 mg capsule 60 mg PO QAM Qty: 30 0RF Referrals: Mitchel Lima MD [Primary Care Provider] - In 1 week Problem List Clinical Impression: Headache Patient/Caregiver Discharge Instructions Discharge Activity: activity as tolerated Education Materials: ED Headache, Tension Additional Instructions: Discharge Instructions from Dr. Little printed for you: 1. Fortunately, there is no life-threatening condition. Such as stroke or brain tumor. 2. Zofran for nausea/vomiting. Tylenol codeine for severe headache. 3. See a private doctor on 07/01/2024 for recheck and further care. Ask for help finding the cause of your headache, to make sure there is no serious underlying condition. With more care not readily available here in the ER. Such as MRI imaging of the brain and referral to see specialists. 4. Seek immediate medical care with worsening or with any concerns. Instrucciones de enmanuel del Dr. Little impresas para usted: 1. Afortunadamente, no hay ninguna afecci?n que ponga en peligro rodriguez terence, taran un derrame cerebral o un tumor cerebral. 2. Zofran para las n?useas y los v?mitos. Tylenol con code?na para el dolor de stephan intenso. 3. Visite a un m?dico privado el 01/07/2024 para que le conchita un nuevo control y le brinden m?s atenci?n. Pida ayuda para encontrar la causa de rodriguez dolor de stephan, para asegurarse de que no haya jeremy afecci?n subyacente grave. No hay m?s atenci?n disponible aqu? en la vazquez de emergencias, taran jeremy resonancia magn?nic del cerebro y jeremy derivaci?n a especialistas. 4. Busque atenci?n m?dica inmediata si empeora o tiene alguna inquietud. Print Language: Maltese Stand Alone Forms: Kellen Award Info., Patient Portal Info Letter
--- NOTE | 2024-06-30 20:33 | XR_ITS ---
Examination: CT brain head without contrast. 2-D sagittal coronal reconstructions Date and time of exam:July 01, 2019 9:43 PM Indications: Headaches 60 days CTDI: vol (mGy):55.7 DLP: (mGycm):1192 Technique: Multiple CT axial sections of the brain have been obtained, 5 mm slice thickness. Contrast has not been administered. 2-D sagittal, coronal reconstructions have been obtained Low dose protocols were performed. One or more of the following dose reduction techniques were used; automated exposure control, adjustment of the mA and/or KV according to patient size, use of iterative reconstruction technique. Findings: No significant ventricular enlargement. Intra-axial or extra-axial hemorrhage density is not seen. No mass effect or midline shift Basal cisterns are not remarkable. Fourth ventricle is midline. Cranial vault intact. Bilateral otitis externa Impression: Negative for acute hemorrhage, mass effect or midline shift
[2024-06-30] MEDS: ONDANSETRON ODT 4 MG TABRAP PO (20:45)
[2024-06-30] MEDS: ACETAMINOPHEN w/COD 300-30 TABLET 2 TAB PO (20:45)
[2024-06-30 23:34] VITALS: BP 156/64; PULSE 69; RESP 18; O2SAT 98
== END 2024-06-30 23:36 | disposition home or self-care (01) ==
PROVIDERS: Emergency Provider Emergency Medicine; PCP Family Medicine
DX: R51.9 Headache, unspecified (principal); I10 Essential (primary) hypertension; E11.9 Type 2 diabetes mellitus without complications; E78.5 Hyperlipidemia, unspecified
CPT/HCPCS: 70450; 99284; Q0162; A9270

== ENCOUNTER 2024-07-03 19:52 | Inpatient (IN) | payer MEDICARE, MEDICAID, SELFPAY ==
[2024-07-03 19:54] VITALS: BMI 33.2
[2024-07-03 20:51] VITALS: BP 134/68; PULSE 83; RESP 20; TEMP 37.4; O2SAT 95
--- NOTE | 2024-07-03 21:03 | XR_ITS ---
Examination: CT brain head without contrast. 2-D sagittal coronal reconstructions Date and time of exam:July 03, 2024 at 0935 hrs. Indications: Headaches today, headaches June 30, 2024 CTDI: vol (mGy):51.9 DLP: (mGycm):1059 Technique: Multiple CT axial sections of the brain have been obtained, 5 mm slice thickness. Contrast has not been administered. 2-D sagittal, coronal reconstructions have been obtained Low dose protocols were performed. One or more of the following dose reduction techniques were used; automated exposure control, adjustment of the mA and/or KV according to patient size, use of iterative reconstruction technique. Findings: No significant ventricular enlargement. Intra-axial or extra-axial hemorrhage density is not seen. No mass effect or midline shift Basal cisterns are not remarkable. Fourth ventricle is midline. Cranial vault intact. 20 mm left maxillary retention cyst Impression: Negative for acute hemorrhage, mass effect or midline shift Advise clinical correlation and follow-up accordingly
--- NOTE | 2024-07-03 21:04 | EKG_ITS ---
[facility] Test Date: 2024-07-03 Pat Name: RHINA GARDUNO Department: Room: - Gender: Male Client Associate: : [id number] Requested By: Fadi Camilo Order Number: [id number] Reading MD: Fadi Camilo Measurements Intervals [place] Rate: 82 P: 3 [place]: 211 QRS: 29 QRSD: 112 T: 90 QT: 350 QTc: 409 Interpretive Statements SINUS RHYTHM WITH FIRST DEGREE AV BLOCK MODERATE INTRAVENTRICULAR CONDUCTION DELAY [110+ ms QRS DURATION] NONSPECIFIC T-WAVE ABNORMALITY Compared to ECG 05/31/2024 10:45:57 First degree AV block now present Intraventricular conduction delay now present T-wave abnormality still present /store/S0/[id number]
--- NOTE | 2024-07-03 21:05 | PD.EDEXREM ---
ED Extremity Problem RME/HPI General Chief complaint: Extremity Problem,Nontraumatic Stated complaint: L ARM, L LEG AND L RIB PAIN Time Seen by Provider: 07/03/24 20:04 Arrival date/time: 07/03/24 19:52 RME / HPI RME / HPI Narrative: 69-year-old male patient with past medical history of CVA status post tPA administration with resolution of symptoms, paroxysmal atrial fibrillation, chronic congestive heart failure , moderate to severe aortic stenosis, essential hypertension, diabetes mellitus, hyperlipidemiawas brought in by family for evaluation regarding headache. Onset of symptoms since yesterday as left-sided headache, described as dull ache, radiating to the left arm, left chest, and left lower extremity. Patient also complaining of constipation, last bowel movement was 4 days ago but it was colored black. Patient told me that he had difficulty ambulating due to pain. Patient denies any dizziness denies any slurring of speech denies any other complaints. Patient is currently taking Plavix, aspirin and Eliquis. Denies any recent trauma or fall. Denies any fever. Denies any cough. Related Data Home Medications ?Medication ?Instructions ?Recorded ?Confirmed furosemide 20 mg tablet 20 mg PO QDAY 03/01/24 05/31/24 atorvastatin 80 mg tablet 80 mg PO DAILY 06/01/24 06/01/24 clonidine HCl 0.2 mg tablet 0.2 mg PO BID 06/01/24 06/01/24 clopidogrel 75 mg tablet (Plavix) 75 mg PO QDAY 06/01/24 06/01/24 glipizide 10 mg tablet 10 mg PO BID 06/01/24 06/01/24 lisinopril 40 mg tablet 40 mg PO QDAY 06/01/24 06/01/24 omeprazole 20 mg capsule,delayed 20 mg PO QDAY 06/01/24 06/01/24 release Previous Rx's ?Medication ?Instructions ?Recorded blood sugar diagnostic (Accu-Chek #50 ea 12/18/21 Angelina Plus test strips) flash glucose scanning reader #1 ea 12/18/21 (FreeStyle Antonino 14 Day Denison) flash glucose sensor (FreeStyle #1 ea 12/18/21 Antonino 2 Sensor kit) insulin degludec 100 unit/mL 20 unit (0.2 mL) subcut QDAY #10 mL 12/18/21 subcutaneous solution (Tresiba U-100 Insulin) lancets #100 ea 12/18/21 metformin 500 mg tablet 500 mg PO BID #60 tabs 12/18/21 apixaban 5 mg tablet (Eliquis) 5 mg PO BID #60 tabs 06/01/24 compress.stocking,knee,reg,lrg #2 ea 06/02/24 melatonin 5 mg capsule 5 mg PO HS #30 caps 06/02/24 nifedipine 20 mg capsule 60 mg (3 x 20 mg) PO QAM #30 caps 06/02/24 tamsulosin 0.4 mg capsule 0.4 mg PO QDAY #30 caps 06/02/24 nifedipine 20 mg capsule 20 mg PO TID #90 caps 06/08/24 acetaminophen 300 mg-codeine 30 mg 2 tab PO TID PRN pain #20 tabs 06/30/24 tablet ondansetron 4 mg disintegrating 4 mg PO TID PRN nausea and 06/30/24 tablet vomiting 5 days #10 tabs Allergies Allergy/AdvReac Type Severity Reaction Status Date / Time No Known Allergies Allergy Verified 06/30/24 20:04 Review of Systems Review of Systems Narrative Review of Systems: Review of system reviewed and within normal limits except mentioned in HPI ED Exam Narrative Physical exam: VITAL SIGNS: Reviewed. GENERAL APPEARANCE: Alert and interactive, follows commands, no acute distress, HEAD AND FACE: Non-traumatic. ENT: PERRL, pink conjunctivitis, eyelid no trauma, Mucous membrane moist. NECK: Supple, nontender, no nuchal rigidity. CHEST: No tenderness, no crepitus, no paradoxical movement, no retractions. LUNGS: Clear, well ventilated, symmetric, no rales, no wheezing, no ronchi, no stridor, good breath sounds bilaterally. HEART: Regular rate, regular rhythm, no murmur, no gallops. ABDOMEN: Soft, positive bowel sounds, nondistended, no guarding, nontender, no rebound, no masses, RECTAL: Deferred. GENITAL: Deferred. NEUROLOGICAL: Gross motor function intact sensory function intact, Appropriate for age. MUSCULOSKELETAL: low back nontender, full range of motion. EXTREMITIES: Nontender, full range of motion. SKIN: Color pink, dry, no rash, no lacerations, no abrasions, no contusions. LYMPHATICS: Deferred. Course Quality Measures none Orders Category Date Time Status COVID-19 Screening Questionnaire NOW Care 07/03/24 22:46 Active Decision to Admit X1 Care 07/03/24 22:46 Active EKG (ED ONLY) *Do not use* NOW Care 07/03/24 21:04 Completed NPO after Midnight ONCE Care 07/03/24 22:49 Active Occult Blood,Stool (Nursing) ONCE Care 07/03/24 22:38 Active Transfuse,blood/blood products ONCE Care 07/03/24 22:39 Active Consult to Gastroenterology Stat Cons 07/03/24 22:39 Ordered Diet NPO after Midnight Diet 07/04/24 00:[address] head/brain wo con Stat Exams 07/03/24 21:03 Completed EKG (ED Only) Stat Exams 07/03/24 21:04 Draft CBC [CBC] Stat Lab 07/03/24 21:18 Completed CMP [Comprehensive Metabolic Panel] Stat Lab 07/03/24 21:18 Completed PT [Prothrombin Time with INR] Stat Lab 07/03/24 21:18 Completed PTT [Partial Thromboplastin Time] Stat Lab 07/03/24 21:18 Completed Type and Screen Stat Lab 07/03/24 22:39 Ordered prbc [Red Blood Cells] Stat Lab 07/03/24 22:39 Ordered Morphine Inj Med 07/03/24 21:04 Discontinued 5 mg IM X1 ONE NA ROSALES/NAHCO3/LOYD/PEG (Golytely) [Golytely] Med 07/03/24 22:49 Discontinued 4,000 ml PO X1 ONE Ondansetron Odt [Zofran Odt] Med 07/03/24 21:04 Discontinued 4 mg PO X1 ONE Pantoprazole Inj [Protonix Inj] Med 07/03/24 22:39 Discontinued 80 mg IV X1 ONE Vital Signs Vital signs: Vital Signs Temperature 99.3 F 07/03/24 20:51 Pulse Rate 83 07/03/24 20:51 Respiratory Rate 20 07/03/24 20:51 Blood Pressure 134/68 H 07/03/24 20:51 Pulse Oximetry (%) 95 07/03/24 20:51 Oxygen Delivery Method Room Air 07/03/24 20:51 Extremity Problem MDM Narrative MDM Narrative:: 69-year-old male patient with past medical history of CVA status post tPA administration with resolution of symptoms, paroxysmal atrial fibrillation, chronic congestive heart failure , moderate to severe aortic stenosis, essential hypertension, diabetes mellitus, hyperlipidemiawas brought in by family for evaluation regarding headache. Onset of symptoms since yesterday as left-sided headache, described as dull ache, radiating to the left arm, left chest, and left lower extremity. Patient also complaining of constipation, last bowel movement was 4 days ago but it was colored black. Patient told me that he had difficulty ambulating due to pain. Patient denies any dizziness denies any slurring of speech denies any other complaints. Patient is currently taking Plavix, aspirin and Eliquis. Denies any recent trauma or fall. Denies any fever. Denies any cough. CT scan of the head came back unremarkable. EKG showed normal sinus rhythm, ventricular rate of 82 bpm, no ST segment elevation depression noted. Patient's hemoglobin was noted to be 7.0, at a significant drop from 9.4 a month ago. I did a rectal exam and strongly positive for occult blood. Patient received IV Protonix, 2 units of packed RBC, and I consulted Dr. Santo, GI specialist on-call who will scope the patient tomorrow. Thank you Dr. Santo Spoke with hospitalist, who admitted the patient. Patient data External records reviewed:: [facility] previous records Clinical information provided by:: patient and family Social determinants that could affect healthcare access:: none Patient has the following chronic illnesses:: Hypertension diabetes mellitus, chronic A-fib congestive heart failure, abdominal hernia, recent CVA. How is presenting disease/condition affected by chronic disease/condition?: exacerbated by Evaluation data The following diagnostics were reviewed and interpreted by me:: lab results, radiology exam(s) and EKG tracing(s) Lab and/or radiology exams considered but not ordered:: None Interpretation Summary: See results in [facility] Medications / Prescriptions Medications or Prescriptions considered but not ordered:: None Medication administrations:: Medication Administration History Discontinued Medications Morphine Sulfate (Morphine Sulf Inj 10 Mg/Ml Vial) 5 mg IM X1 ONE Stop: 07/03/24 21:05 Last Admin: 07/03/24 21:28 Dose: 5 mg Documented By: CORTNEY Ondansetron HCl (Ondansetron Odt 4 Mg Tabrap) 4 mg PO X1 ONE; Protocol Stop: 07/03/24 21:05 Last Admin: 07/03/24 21:28 Dose: 4 mg Documented By: CORTNEY Pantoprazole Sodium (Pantoprazole Inj 40 Mg Vial) 80 mg IV X1 ONE Stop: 07/03/24 22:40 Polyethylene Glycol/Electrolytes (Na Rosales/Nahco3/Loyd/Peg (Golytely) 4,000 Ml Btl) 4,000 ml PO X1 ONE Stop: 07/03/24 22:50 Patient received IV Protonix, and GoLytely patient was also given morphine and Zofran Consultations Consultation(s) initiated? (list below): No Diagnosis Extremity Problem Differential Diagnosis: other (Headache, CVA, upper GI bleed anemia) Most likely diagnosis given after review of the tests above:: Anemia, upper GI bleed Admission Indicated Admission indicated?: indicated Explain why admission is indicated or not indicated:: Patient needs to be admitted Admission Request Was there a request for admission?: Yes Admission Attestation Admission request attestation: Discussed case with [Dr. Quinteor] from Hospitalist service regarding admission. Discussed patients ED course, exam findings, labs, and radiology results. The Hospitalist [agrees] to accept the patient for admission. Disposition Plan Disposition Plan: Admit Discharge Plan Plan Patient Disposition: Admit Acute Care w/in Hospital Disposition Comment: Stable Prescriptions/Referrals Prescriptions/Med Rec: No Action furosemide 20 mg tablet 20 mg PO QDAY nifedipine 20 mg capsule 20 mg PO TID Qty: 90 3RF metformin 500 mg tablet 500 mg PO BID Qty: 60 0RF (DME) FreeStyle Antonino 14 Day Denison Misc See Rx Instructions .Route Qty: 1 0RF Rx Instructions: As directed (DME) FreeStyle Antonino 2 Sensor Kit See Rx Instructions .Route Qty: 1 0RF Rx Instructions: As directed (DME) Accu-Chek Angelina Plus test strp Strip See Rx Instructions .Route Qty: 50 0RF Rx Instructions: As directed insulin degludec [Tresiba U-100 Insulin] 100 unit/mL solution 20 unit subcut QDAY Qty: 10 0RF (DME) lancets Misc See Rx Instructions .Route Qty: 100 0RF Rx Instructions: As directed acetaminophen-codeine 300-30 mg tablet 2 tab PO TID MDD 6 PRN (Reason: pain) Qty: 20 0RF ondansetron 4 mg tablet,disintegrating 4 mg PO TID PRN (Reason: nausea and vomiting) 5 Days Qty: 10 0RF omeprazole 20 mg Capsule,Delayed Release(Dr/Ec) 20 mg PO QDAY clopidogrel [Plavix] 75 mg Tablet 75 mg PO QDAY lisinopril 40 mg Tablet 40 mg PO QDAY atorvastatin 80 mg tablet 80 mg PO DAILY Patient Comments: TOME DRISS TABLETA POR V A ORAL AL ACOSTARSE glipizide 10 mg tablet 10 mg PO BID clonidine HCl 0.2 mg tablet 0.2 mg PO BID Patient Comments: TOME 1 TABLETA POR V A ORAL DOS VECES AL D A PARA LA PRESI N ARTERIAL Eliquis 5 mg tablet 5 mg PO BID Qty: 60 3RF (DME) compress.stocking,knee,reg,lrg Misc See Rx Instructions .Route Qty: 2 0RF Rx Instructions: As directed melatonin 5 mg capsule 5 mg PO HS Qty: 30 0RF tamsulosin 0.4 mg capsule 0.4 mg PO QDAY Qty: 30 0RF nifedipine 20 mg capsule 60 mg PO QAM Qty: 30 0RF Problem List Clinical Impression: Headache, Anemia, Extremity pain, Acute upper GI bleed Patient/Caregiver Discharge Instructions Discharge Activity: activity as tolerated Print Language: Guyanese Stand Alone Forms: [employer]ellen Award Info., Patient Portal Info Letter
[2024-07-03] MEDS: ONDANSETRON ODT 4 MG TABRAP PO (21:28)
[2024-07-03] MEDS: MORPHINE SULF INJ 10 MG/ML VIAL 5 MG IM (21:28)
[2024-07-03 21:43] LABS: Basophils % (Auto) 0 % (0-2.5); Eosinophils # (Auto) 0.1 Thou/mm3 (0.0-0.5); Eosinophils % (Auto) 1 % (0-10); Hematocrit 22.9 % (41.0-53.0); Immature Granulocytes % (Auto) 1 % (0-0); Immature Granulocytes Auto 0.07 Thou/mm3 (0.00-0.00); Lymphocytes # (Auto) 1.6 Thou/mm3 (1.0-4.8); Lymphocytes % (Auto) 12 % (10-50); Mean Corpuscular HGB Conc 30.6 g/dl (31.0-37.0); Mean Corpuscular Hemoglobin 21.3 pg (25.0-35.0); Mean Corpuscular Volume 70 fL (80-100); Monocytes # (Auto) 1.1 Thou/mm3 (0.0-0.8); Monocytes % (Auto) 8 % (0-12); Neutrophils # (Auto) 11.2 Thou/mm3 (1.8-7.7); Neutrophils % (Auto) 79 % (37-80); Nucleated Red Blood Cell % 0 /100 WBC (0); Platelet Count 495 Thou/mm3 (140-440); RDW Standard Deviation 42.8 fL (35.1-43.9); Red Blood Count 3.29 Miln/mm3 (4.50-5.90); White Blood Count 14.1 Thou/mm3 (3.8-10.6)
[2024-07-03 22:04] LABS: Alanine Aminotransferase 11 U/L (10-49); Albumin/Globulin Ratio 1.3 (1.2-2.2); Alkaline Phosphatase 117 U/L (46-116); Anion Gap 6 (7-16); Aspartate Amino Transferase < 10 U/L (0-34); BUN/Creatinine Ratio 24 Ratio (12-20); Bilirubin,Total 0.2 mg/dL (0.3-1.2); Blood Urea Nitrogen 24 mg/dL (9-23); Carbon Dioxide 31.7 mMol/L (20.0-31.0); Chloride 100 mMol/L (98-107); Estimated Creatinine Clearance 75.7 mL/min (>60); Glucose 163 mg/dL (74-106); Osmolality,Calculated 283 (275-295); Potassium 4.2 mMol/L (3.4-5.1); Sodium 138 mMol/L (136-145); eGFR > 60 See Note
[2024-07-03 22:08] LABS: INR 1.2 (0.9-1.3); Partial Thromboplastin Time 28.9 Seconds (22.0-36.0); Prothrombin Time 13.1 Seconds (9.0-12.2)
[2024-07-03 23:34] VITALS: BP 111/61; PULSE 81; RESP 19; TEMP 37.1; O2SAT 97
--- NOTE | 2024-07-03 23:35 | PD.EDADDENDU ---
Emergency Room Addendum Addendum Narrative: I spoke with Dr. Santo, who advised me to transfer the patient because of worries regarding abdominal hernia
[2024-07-04] VITALS (31 sets, daily range): BP systolic 132–175; BP diastolic 36–88; PULSE 65–88; RESP 12–21; TEMP 36.6–37.2; O2SAT 88–100; BMI 33.2
[2024-07-04] MEDS: PANTOPRAZOLE INJ 40 MG VIAL 80 MG IV (00:06)
--- NOTE | 2024-07-04 00:22 | PC.NURSE ---
[facility] FAXED PAPERWORK FOR POSSIBLE TRANSFER, SPOKE WITH JOSÉ
--- NOTE | 2024-07-04 00:27 | PC.NURSE ---
Received care and report of pt from Johnny CEJA. Pt informed with regards to plan of care, translated by Johnny CEJA.
--- NOTE | 2024-07-04 00:28 | XR_ITS ---
Examination: CTA chest, with intravenous contrast. CTA abdomen, with intravenous contrast. CTA pelvis, with intravenous contrast. 2-D sagittal and coronal reconstructions. 3-D reconstructions. Date and time of exam: July 04, 2024 0446 hrs. Indications: Chest pain left arm and leg pain abdominal pain rib pain shortness of breath beginning 2 days ago CTDI vol (mgy) 9.98 DLP (MGycm) 733 Technique: Multiple CTA images, 2.0 mm slice thickness, obtained chest, abdomen, pelvis, with the high-resolution 64 slice scanner. 100 cc Isovue 370 is administered intravenously. Sagittal and coronal 2-D reconstructions are obtained. 3-D reconstructions, angiographic images are obtained. 3-D postprocessing, including vascular maximum intensity projections. Low dose protocols were performed. One or more of the following dose reduction techniques were used; automated exposure control, adjustment of the mA and/or KV according to patient size, use of iterative reconstruction technique. Findings: Thoracic aortic calcification no aneurysmal dilatation Pulmonary artery opacification is relatively poor, no pulmonary artery filling defects noted Mild to moderate enlargement cardiac contour 12 mm pulmonary nodule lingular segment 6 mm pulmonary nodule right middle lobe Vascular congestion No lobar pneumonia or pulmonary edema Small benign liver cysts Very large anterior abdominal wall hernia defect containing bowel but no incarcerated bowel Mesenteric lymph nodes, the largest 15 mm IVC filter Abdominal aorta is not enlarged No hydronephrosis No pancreatic mass Gallbladder is mildly distended No diverticulitis Moderate prostatomegaly Intact urinary bladder, mild wall thickening Moderate osteopenia Old deformity of the anterior rami Impression: Pulmonary artery opacification is poor, no gross pulmonary artery emboli Pulmonary nodules as above, recommend 6 month follow-up CT chest without contrast No bowel obstruction Moderate prostatomegaly Minimal urinary bladder wall thickening consider early urinary tract outflow obstruction secondary to the patient's prostatomegaly
[2024-07-04] MEDS: FAMOTIDINE INJ 10 MG/ML VIAL 2 ML 40 MG IVP (00:48)
[2024-07-04] MEDS: OCTREOTIDE ACET INJ 50 mCg/ML VIAL IV (00:53)
[2024-07-04] MEDS: OCTREOTIDE ACET INJ 1,000 MCG in SODIUM CHLORIDE 0.9% 100 ML 5.1 MCG IV (01:00)
--- NOTE | 2024-07-04 01:42 | PC.NURSE ---
Awaiting for golytely from [facility]
--- NOTE | 2024-07-04 02:25 | PC.NURSE ---
Golytely not given, plan to transfer pt to another facility.
--- NOTE | 2024-07-04 03:39 | PC.NURSE ---
PRBC infusing well without adverse reaction noted. Denies SOB or pain.
--- NOTE | 2024-07-04 04:43 | PC.NURSE ---
To ct-scan via gurney.
--- NOTE | 2024-07-04 05:11 | PC.NURSE ---
Pt c/o chest feels heavy and SOB after ct-scan. O2 sats 88% on RA. Placed on O2 at 2L/NC, Dr Mitchell carter.
--- NOTE | 2024-07-04 05:13 | EDNOTE_ITS ---
Emergency Room Addendum Addendum Narrative: I took over the care from Fadi Camilo NP at 11 PM on 07/03/2024 see his notes for complete H&P and ED course. At 6 AM on 07/04/2024, the care of the patient was transferred to Dr. Judge. When patient returned from the CT scan, he reported shortness of breath and br ief hypotension noted. Vikas Little MD
[2024-07-04] MEDS: ALBUTEROL/IPRATROPIUM (Duoneb) RT SOL 3 ML NEBU INH (05:22)
[2024-07-04 05:38] LABS: Path Review Blood Smear Sent to Pathologist
[2024-07-04] MEDS: MethylPREDNISolone SOD SUCC 62.5 MG/ML 2ML VIAL 125 MG IVP (05:45)
[2024-07-04] MEDS: DiphenhydrAMINE INJ 50 MG/ML VIAL IVP (05:47)
--- NOTE | 2024-07-04 07:07 | PD.EDADDENDU ---
Emergency Room Addendum Addendum Narrative: 0600: Care assumed from Dr. Little, the previous shift emergency physician. I will assume the care of the patient at this time, pending transfer for GI services. Please refer to the emergency department record for history and examination from initial visit.? EMS notes reviewed by me. Nursing notes reviewed by me. Vital signs reviewed by me. detention records reviewed by me. [place] medical records reviewed by me.
--- NOTE | 2024-07-04 07:08 | PD.EDADDENDU ---
Emergency Room Addendum <Tony Judge MD - Last Filed: 07/04/24 08:47> Addendum Narrative: The patient was signed out to me at 6:[address] Little pending CT angiogram of the chest abdomen and pelvic and he already initiated a transfer request to [facility].... Based on the recommendation by our GI specialist Dr. Santo. But shortly after he left, warehouse supervisor 3rd shift head nurse Desean informed me that [facility] has rejected our request for transfer, even threatening EMTALA violation. 7 AM then I spoke to Dr. Santo and discussed with him. He said that if I can convince the internal medicine to admit the patient then that should be fine by him. 7:10 AM I spoke to discussed with Dr. angel, resident of Dr. Collins, hospitalist on-call. He said he will present to his attending and call me back 8:46 AM, I spoke to discussed with , hospitalist on-call. He agreed to admit the patient for further evaluation and treatment. Thank you very much RADIOLOGY Ordering Physician: Fadi Camilo Date of Service: 07/03/24 Procedure(s): CT head/brain wo [facility] Accession Number(s): [id number] cc: Fadi Camilo; Marcus Greco MD~ Examination: CT brain head without contrast. 2-D sagittal coronal reconstructions Date and time of exam:July 03, 2024 at 0935 hrs. Indications: Headaches today, headaches June 30, 2024 CTDI: vol (mGy):51.9 DLP: (mGycm):1059 Technique: Multiple CT axial sections of the brain have been obtained, 5 mm slice thickness. Contrast has not been administered. 2-D sagittal, coronal reconstructions have been obtained Low dose protocols were performed. One or more of the following dose reduction techniques were used; automated exposure control, adjustment of the mA and/or KV according to patient size, use of iterative reconstruction technique. Findings: No significant ventricular enlargement. Intra-axial or extra-axial hemorrhage density is not seen. No mass effect or midline shift Basal cisterns are not remarkable. Fourth ventricle is midline. Cranial vault intact. 20 mm left maxillary retention cyst Impression: Negative for acute hemorrhage, mass effect or midline shift Advise clinical correlation and follow-up accordingly Dictated By: Marcus Greco MD Signed By: <Electronically signed by Marcus Greco MD in OV>07/03/24 2150 TELERAD REPORT EXAM: CT angiogram of the chest, abdomen and pelvis with IV contrast July 04, 2024 0446 hours Impresion: 1. No evidence of aortic dissection of aneurysm. 2. No CT evidence of pulmonary thromboembolism (limited evaluation of some fo the subsegmental pulmonary artery divisions due to a suboptimal bolus of contrast). Recommend additional evaluation, if clinically indicated. 3. Pulmonary nodules along the left obliquwe fissue as described. Recommend followup. 4. Moderate prostatomegaly with urinary bladder wall thickening, which may rperesent cystitis versus sequelae of chronic urinary bladder outflow obstruction. 5. Other findings as described above. This report has been electronically signed by: Sorin Jack Diagnosis: Occult upper GI bleed Anemia Blood transfusion Conditions: Stable and improved being transfused <Annabel Schmidt - Last Filed: 07/04/24 07:37> Addendum Narrative: The patient was signed out to me at 6:[address] Little pending CT angiogram of the chest abdomen and pelvic and he already initiated a transfer request to [facility].... Based on the recommendation by our GI specialist Dr. Santo. But shortly after he left, warehouse supervisor 3rd shift head nurse Desean informed me that [facility] has rejected our request for transfer, even threatening EMTALA violation. 7 AM then I spoke to Dr. Santo and discussed with him. He said that if I can convince the internal medicine to admit the patient then that should be fine by him. 7:10 AM I spoke to discussed with Dr. angel, resident of Dr. Collins, hospitalist on-call. He said he will present to his attending and call me back RADIOLOGY Ordering Physician: Fadi Camilo Date of Service: 07/03/24 Procedure(s): CT head/brain wo con Accession Number(s): [id number] cc: Fadi Camilo; Marcus Greco MD~ Examination: CT brain head without contrast. 2-D sagittal coronal reconstructions Date and time of exam:July 03, 2024 at 0935 hrs. Indications: Headaches today, headaches June 30, 2024 CTDI: vol (mGy):51.9 DLP: (mGycm):1059 Technique: Multiple CT axial sections of the brain have been obtained, 5 mm slice thickness. Contrast has not been administered. 2-D sagittal, coronal reconstructions have been obtained Low dose protocols were performed. One or more of the following dose reduction techniques were used; automated exposure control, adjustment of the mA and/or KV according to patient size, use of iterative reconstruction technique. Findings: No significant ventricular enlargement. Intra-axial or extra-axial hemorrhage density is not seen. No mass effect or midline shift Basal cisterns are not remarkable. Fourth ventricle is midline. Cranial vault intact. 20 mm left maxillary retention cyst Impression: Negative for acute hemorrhage, mass effect or midline shift Advise clinical correlation and follow-up accordingly Dictated By: Marcus Greco MD Signed By: <Electronically signed by Marcus Greco MD in OV>07/03/24 2885 TELERAD REPORT EXAM: CT angiogram of the chest, abdomen and pelvis with IV contrast July 04, 2024 0446 hours Impresion: 1. No evidence of aortic dissection of aneurysm. 2. No CT evidence of pulmonary thromboembolism (limited evaluation of some fo the subsegmental pulmonary artery divisions due to a suboptimal bolus of contrast). Recommend additional evaluation, if clinically indicated. 3. Pulmonary nodules along the left obliquwe fissue as described. Recommend followup. 4. Moderate prostatomegaly with urinary bladder wall thickening, which may rperesent cystitis versus sequelae of chronic urinary bladder outflow obstruction. 5. Other findings as described above. This report has been electronically signed by: Sorin Jack
--- NOTE | 2024-07-04 07:32 | EKG_ITS ---
[facility] Test Date: 2024-07-04 Pat Name: RHINA GARDUNO Department: Room: - Gender: Male Vice President Tax: : 1955 Requested By: Tony Judge Order Number: [id number] Reading MD: Tony Judge Measurements Intervals Verdi Rate: 89 P: 39 CA: 230 QRS: -8 QRSD: 113 T: 82 QT: 352 QTc: 428 Interpretive Statements SINUS RHYTHM WITH FIRST DEGREE AV BLOCK MODERATE INTRAVENTRICULAR CONDUCTION DELAY [105+ ms QRS DURATION, 80+ ms Q/S IN V1/V2, NO Q AND 60+ ms R IN I/aVL/V5/V6] NONSPECIFIC ST & T-WAVE ABNORMALITY Compared to ECG 07/03/2024 21:12:21 No significant changes /store/S0/[id number]/[id number].pdf
[2024-07-04] MEDS: MG HYD/AL HYD/SIME (Maalox Reg) SUSP 30 ML UDC PO (07:50)
--- NOTE | 2024-07-04 07:52 | PC.NURSE ---
Upon assumption of care pt complaining of difficulty breathing and requesting to speak with provider, this rn went and got the provider who went to bedside with this rn and case folder, provider ordered repeat ekg and maalox. BS was checked as pt is on Octreotide, bs was 233. VSS on tele, blood infusing no apparent signs of adverse events, pt denies any symptoms. Family at bedside attentive to pt. Pt conversating with family does not appear to be in distress at this time, call tomlinson remains in reach. Will continue to follow POC.
--- NOTE | 2024-07-04 10:01 | PC.NURSE ---
RAUL LEIVA SPOKE WITH HOSPITALIST WHO AGREE TO ADMIT PT TO OUR HOSPITAL
[2024-07-04 10:24] LABS: Basophils % (Auto) 0 % (0-2.5); Eosinophils % (Auto) 0 % (0-10); Hematocrit 31.7 % (41.0-53.0); Immature Granulocytes % (Auto) 2 % (0-0); Immature Granulocytes Auto 0.28 Thou/mm3 (0.00-0.00); Lymphocytes # (Auto) 0.7 Thou/mm3 (1.0-4.8); Lymphocytes % (Auto) 5 % (10-50); Mean Corpuscular HGB Conc 31.5 g/dl (31.0-37.0); Mean Corpuscular Hemoglobin 22.9 pg (25.0-35.0); Mean Corpuscular Volume 73 fL (80-100); Monocytes # (Auto) 0.2 Thou/mm3 (0.0-0.8); Monocytes % (Auto) 1 % (0-12); Neutrophils # (Auto) 12.3 Thou/mm3 (1.8-7.7); Neutrophils % (Auto) 91 % (37-80); Nucleated Red Blood Cell # 0.02 Thou/mm3 (0.00-0.00); Nucleated Red Blood Cell % 0 /100 WBC (0); Platelet Count 455 Thou/mm3 (140-440); RDW Standard Deviation 50.1 fL (35.1-43.9); Red Blood Count 4.36 Miln/mm3 (4.50-5.90); White Blood Count 13.5 Thou/mm3 (3.8-10.6)
--- NOTE | 2024-07-04 11:27 | PD.IMCONS ---
HPI Data of Consult Requesting Physician: Chon Collins MD Primary Care Provider: Mitchel Lima MD Consult Narrative Reason for consult: Hemoccult positive stool H/H 7.0/22.9 History of present illness: 69 years old male who presented to the hospital with headache found to have hemoglobin of 7.0 hematocrit 22.9 with Hemoccult positive stool requiring blood transfusion Initially when I got a call patient has a very large ventral hernia endoscopically it would be a problem to scope him I recommended he transferred but nobody excepted him and the patient was subsequently admitted here Patient denies any history of ramya melanotic stools hematochezia or hematemesis Patient does have a history of paroxysmal atrial fibrillation on aspirin Plavix and Eliquis as a history of CVA requiring tPA congestive heart failure severe aortic stenosis diabetes mellitus cc:: cc: Chon Collins MD Review of Systems Review of Systems Systems Reviewed: All systems reviewed, normal except as documented Past Medical History Surgical History OTHER SURGICAL HX: As in the history of present illness Meds Home Medications and Allergies Home Medications ?Medication ?Instructions ?Recorded ?Confirmed ?Type furosemide 20 mg tablet 20 mg PO QDAY 03/01/24 07/03/24 History atorvastatin 80 mg tablet 80 mg PO DAILY 06/01/24 07/03/24 History clonidine HCl 0.2 mg tablet 0.2 mg PO BID 06/01/24 07/03/24 History clopidogrel 75 mg tablet (Plavix) 75 mg PO QDAY 06/01/24 07/03/24 History glipizide 10 mg tablet 10 mg PO BID 06/01/24 07/03/24 History lisinopril 40 mg tablet 40 mg PO QDAY 06/01/24 07/03/24 History omeprazole 20 mg capsule,delayed 20 mg PO QDAY 06/01/24 07/03/24 History release aspirin 81 mg tablet,delayed 81 mg PO QDAY 07/03/24 07/03/24 History release gabapentin 400 mg capsule 400 mg PO TID 07/03/24 07/03/24 History hydrochlorothiazide 25 mg tablet 25 mg PO QDAY 07/03/24 07/03/24 History metoprolol succinate 50 mg 50 mg PO QDAY 07/03/24 07/03/24 History tablet,extended release 24 hr nifedipine 20 mg capsule 20 mg PO .qhs 07/03/24 07/03/24 History Allergies Allergy/AdvReac Type Severity Reaction Status Date / Time No Known Allergies Allergy Verified 07/04/24 15:15 Exam Vital Signs Temp Pulse Resp BP Pulse Ox O2 Del Method O2 Flow Rate 98.9 F 72 20 149/74 H 95 Nasal Cannula 2 07/04/24 08:36 07/04/24 10:15 07/04/24 10:15 07/04/24 08:36 07/04/24 10:15 07/04/24 08:03 07/04/24 10:15 Constitutional Comments: Alert oriented Albanian-speaking Routine Respiratory Exam Comments: Normal to auscultation Routine Abdominal Exam Comments: The entire abdominal cavity is a ventral hernia requiring surgical intervention in the past Results Labs 07/04/24 10:00 07/03/24 21:18 Labs: Short CBC 07/03/24 07/04/24 Range/Units 21:18 10:00 WBC 14.1 H 13.5 H (3.8-10.6) Thou/mm3 Hgb 7.0 L 10.0 L D (13.5-16.0) g/dL Hct 22.9 L 31.7 L (41.0-53.0) % Plt Count 495 H D 455 H D (140-440) Thou/mm3 BMP 07/03/24 21:18 Sodium 138 Potassium 4.2 Chloride 100 Carbon Dioxide 31.7 H BUN 24 H Creatinine 1.0 Glucose 163 H Calcium 9.0 Liver Function 07/03/24 Range/Units 21:18 Total Bilirubin 0.2 L (0.3-1.2) mg/dL AST < 10 (0-34) U/L ALT 11 (10-49) U/L Alkaline Phosphatase 117 H (46-116) U/L Albumin 4.0 (3.4-4.8) gm/dL Assessment and Plan Additional Assessment & Plan Additional Plan: # Occult GI bleeding # Acute posthemorrhagic anemia Plan Agree with the blood transfusion Consent obtained for fiberoptic esophagogastroduodenoscopy with possible therapeutic intervention possible biopsy under intravenous moderate sedation If EGD is negative will attempt a colonoscopy although secondary to me difficult because of the presence of large ventral hernia Other medical problems include # Paroxysmal atrial fibrillation on Eliquis aspirin and Plavix # CVA on aspirin and Plavix # Diabetes mellitus type 1 # Aortic stenosis # Systolic congestive heart failure Thank you for the opportunity to participate in the care of this patient
--- NOTE | 2024-07-04 11:41 | PC.NURSE ---
PT TRANSFERRED UP TO FLOOR CONNECTED TO TELE. STAFF AT BEDSIDE TO ASSUME CARE
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
--- NOTE | 2024-07-04 15:13 | PC.NURSE ---
PT WAS TAKEN TO EGD AT THIS TIME
--- NOTE | 2024-07-04 16:30 | SUR.PHASEI ---
[id number] patient arrived to recovery, report received from Yovana CEJA
--- NOTE | 2024-07-04 17:07 | SUR.PHASEI ---
1702 Report given to Jaswinder CEJA, patient meets discharge criteria from recovery, awake and talking with staff, on oxygen 2L via nasal cannula, breathing unlabored,vital signs stable, patient drinking water; tolerating well, denies nausea, denies pain. 1707 Patient transported via gurney to room 365 without incident, patient able to ambulate with stand by assist from this greeting card writer from rney to bed, patient has family in his room, patient sitting in bed with call light in reach when this greeting card writer left patients room
[2024-07-04] MEDS: NA SU/NAHCO3/KC/PEG (Golytely) 4,000 ML BTL 4000 ML PO (18:02)
[2024-07-04] MEDS: INSULIN LISPRO (AdmeLOG) 1 UNIT/0.01 ML UNIT SC (18:17)
[2024-07-05] VITALS (21 sets, daily range): BP systolic 140–185; BP diastolic 52–103; PULSE 61–89; RESP 13–92; TEMP 36.1–36.9; O2SAT 93–100
[2024-07-05] MEDS: INSULIN LISPRO (AdmeLOG) 1 UNIT/0.01 ML UNIT SC ×3 (00:42→12:12)
[2024-07-05] MEDS: OCTREOTIDE ACET INJ 1,000 MCG in SODIUM CHLORIDE 0.9% 100 ML 5.1 MCG IV (00:48)
[2024-07-05 06:52] LABS: Basophils % (Auto) 0 % (0-2.5); Eosinophils % (Auto) 0 % (0-10); Hematocrit 29.5 % (41.0-53.0); Hemoglobin 9.4 g/dL (13.5-16.0); Immature Granulocytes % (Auto) 1 % (0-0); Immature Granulocytes Auto 0.15 Thou/mm3 (0.00-0.00); Lymphocytes # (Auto) 1.6 Thou/mm3 (1.0-4.8); Lymphocytes % (Auto) 8 % (10-50); Mean Corpuscular HGB Conc 31.9 g/dl (31.0-37.0); Mean Corpuscular Hemoglobin 23.2 pg (25.0-35.0); Mean Corpuscular Volume 73 fL (80-100); Monocytes # (Auto) 1.2 Thou/mm3 (0.0-0.8); Monocytes % (Auto) 6 % (0-12); Neutrophils # (Auto) 16.9 Thou/mm3 (1.8-7.7); Neutrophils % (Auto) 85 % (37-80); Nucleated Red Blood Cell % 0 /100 WBC (0); Platelet Count 519 Thou/mm3 (140-440); RDW Standard Deviation 48.3 fL (35.1-43.9); Red Blood Count 4.05 Miln/mm3 (4.50-5.90); White Blood Count 19.9 Thou/mm3 (3.8-10.6)
[2024-07-05 07:05] LABS: Alanine Aminotransferase 14 U/L (10-49); Albumin, Serum 3.9 gm/dL (3.4-4.8); Albumin/Globulin Ratio 1.2 (1.2-2.2); Alkaline Phosphatase 117 U/L (46-116); Anion Gap 10 (7-16); Aspartate Amino Transferase 17 U/L (0-34); BUN/Creatinine Ratio 29 Ratio (12-20); Bilirubin,Total 0.5 mg/dL (0.3-1.2); Blood Urea Nitrogen 26 mg/dL (9-23); Calcium 9.1 mg/dL (8.3-10.6); Calcium (Corrected) 9.2 mg/dL (8.5-10.1); Chloride 96 mMol/L (98-107); Creatinine (Component) 0.9 mg/dL (0.6-1.3); Estimated Creatinine Clearance 84.1 mL/min (>60); Globulin 3.2 gm/dL (2.3-3.5); Glucose 208 mg/dL (74-106); Magnesium 2.6 mg/dL (1.6-2.6); Osmolality,Calculated 282 (275-295); Phosphorous 3.1 mg/dL (2.4-5.1); Potassium 4.5 mMol/L (3.4-5.1); Sodium 136 mMol/L (136-145); Thyroid Stimulating Hormone 0.12 uIU/mL (0.55-4.78); Total Protein 7.1 gm/dL (5.7-8.2); eGFR > 60 See Note
[2024-07-05] MEDS: PANTOPRAZOLE INJ 40 MG VIAL IVP ×2 (09:18→21:11)
[2024-07-05] MEDS: FLUCONAZOLE 100 MG TABLET 200 MG PO (09:18)
[2024-07-05] MEDS: NYSTATIN SUSP 5 ML UDC PO ×2 (09:19→21:12)
[2024-07-05] MEDS: NA SU/NAHCO3/KC/PEG (Golytely) 4,000 ML BTL 4000 ML PO (09:20)
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
[2024-07-05 14:43] LABS: Basophils % (Auto) 0 % (0-2.5); Eosinophils % (Auto) 0 % (0-10); Hematocrit 28.1 % (41.0-53.0); Immature Granulocytes % (Auto) 1 % (0-0); Immature Granulocytes Auto 0.08 Thou/mm3 (0.00-0.00); Lymphocytes # (Auto) 2.1 Thou/mm3 (1.0-4.8); Lymphocytes % (Auto) 13 % (10-50); Mean Corpuscular HGB Conc 31.3 g/dl (31.0-37.0); Mean Corpuscular Hemoglobin 23.2 pg (25.0-35.0); Mean Corpuscular Volume 74 fL (80-100); Monocytes # (Auto) 1.1 Thou/mm3 (0.0-0.8); Monocytes % (Auto) 6 % (0-12); Neutrophils # (Auto) 13.6 Thou/mm3 (1.8-7.7); Neutrophils % (Auto) 80 % (37-80); Nucleated Red Blood Cell % 0 /100 WBC (0); Platelet Count 498 Thou/mm3 (140-440); RDW Standard Deviation 49.6 fL (35.1-43.9); White Blood Count 16.9 Thou/mm3 (3.8-10.6)
[2024-07-05 14:47] LABS: Hemoglobin 8.8 g/dL (13.5-16.0)
[2024-07-05 15:04] LABS: Free T4 (Free Thyroxine) 1.28 ng/dL (0.89-1.76)
--- NOTE | 2024-07-05 15:10 | XR_ITS ---
Examination: AP chest single view Technique one AP portable upright chest single view Exam date and time: July 05, 2024 1528 hrs. Indications: Patient with chest pain shortness of breath today. Findings: Normal heart size 4 definition left hemidiaphragm Right lung clear No pulmonary edema Impression: Suspicious for early left base pneumonia
--- NOTE | 2024-07-05 16:04 | PC.NURSE ---
Patient taken for colonoscopy procedure via gurney at 1404 will resume care when patient back to unit.
--- NOTE | 2024-07-05 16:54 | SUR.PHASEI ---
pt received from OR in recovery bay 1. pt asleep but responds to voice, breathing unlabored on room air. v/s stable. report recevied from Yovana CEJA.
--- NOTE | 2024-07-05 17:30 | SUR.PHASEI ---
pt awake and alert, breathing unlabored on room air. v/s stable. report called to Taylor CEJA. pt will be transferred to room at this time.
--- NOTE | 2024-07-05 17:35 | PC.NURSE ---
Patient returned to [facility] at 17:34 via gurney after colonoscopy procedure, patient stable, made comfortable in bed, call light and belongings placed within reach current, bed in lowest position with breaks on. Vital signs 184/63, 66, 97.5, 17, 96% Dr. Decker notified of elevated blood pressure pending orders.
[2024-07-05] MEDS: hydrALAZINE INJ 20 MG/ML VIAL 10 MG IV (18:22)
[2024-07-06] VITALS (9 sets, daily range): BP systolic 128–178; BP diastolic 56–96; PULSE 62–86; RESP 16–117; TEMP 36.8–37.7; O2SAT 92–97
[2024-07-06] MEDS: NYSTATIN SUSP 5 ML UDC PO ×2 (05:01→14:24)
[2024-07-06 05:20] LABS: Basophils % (Auto) 0 % (0-2.5); Eosinophils # (Auto) 0.1 Thou/mm3 (0.0-0.5); Eosinophils % (Auto) 0 % (0-10); Hemoglobin 8.4 g/dL (13.5-16.0); Immature Granulocytes % (Auto) 1 % (0-0); Immature Granulocytes Auto 0.18 Thou/mm3 (0.00-0.00); Lymphocytes # (Auto) 1.8 Thou/mm3 (1.0-4.8); Lymphocytes % (Auto) 12 % (10-50); Mean Corpuscular HGB Conc 31.1 g/dl (31.0-37.0); Mean Corpuscular Hemoglobin 23.1 pg (25.0-35.0); Mean Corpuscular Volume 74 fL (80-100); Monocytes # (Auto) 1.1 Thou/mm3 (0.0-0.8); Monocytes % (Auto) 7 % (0-12); Neutrophils # (Auto) 12.3 Thou/mm3 (1.8-7.7); Neutrophils % (Auto) 80 % (37-80); Nucleated Red Blood Cell # 0.02 Thou/mm3 (0.00-0.00); Nucleated Red Blood Cell % 0 /100 WBC (0); Platelet Count 458 Thou/mm3 (140-440); RDW Standard Deviation 51.4 fL (35.1-43.9); Red Blood Count 3.64 Miln/mm3 (4.50-5.90); White Blood Count 15.5 Thou/mm3 (3.8-10.6)
[2024-07-06 05:48] LABS: Alanine Aminotransferase 11 U/L (10-49); Albumin, Serum 3.5 gm/dL (3.4-4.8); Albumin/Globulin Ratio 1.3 (1.2-2.2); Alkaline Phosphatase 107 U/L (46-116); Anion Gap 7 (7-16); Aspartate Amino Transferase 17 U/L (0-34); BUN/Creatinine Ratio 16 Ratio (12-20); Bilirubin,Total 0.4 mg/dL (0.3-1.2); Blood Urea Nitrogen 13 mg/dL (9-23); Calcium 8.9 mg/dL (8.3-10.6); Calcium (Corrected) 9.3 mg/dL (8.5-10.1); Carbon Dioxide 31.1 mMol/L (20.0-31.0); Chloride 102 mMol/L (98-107); Creatinine (Component) 0.8 mg/dL (0.6-1.3); Estimated Creatinine Clearance 94.6 mL/min (>60); Globulin 2.7 gm/dL (2.3-3.5); Glucose 196 mg/dL (74-106); Magnesium 2.4 mg/dL (1.6-2.6); Osmolality,Calculated 284 (275-295); Phosphorous 2.4 mg/dL (2.4-5.1); Potassium 4.4 mMol/L (3.4-5.1); Sodium 140 mMol/L (136-145); Total Protein 6.2 gm/dL (5.7-8.2); eGFR > 60 See Note
[2024-07-06] MEDS: INSULIN LISPRO (AdmeLOG) 1 UNIT/0.01 ML UNIT SC ×2 (07:34→11:39)
[2024-07-06 08:23] LABS: Collection Type, Urine Clean Catch
[2024-07-06 08:33] LABS: Bilirubin,Urine Negative (Negative); Blood,Urine Negative (Negative); Clarity,Urine Clear (Clear/Hazy); Color,Urine Lt-Yellow (Lt Yel-Yel); Glucose, Urine Negative (Negative); Ketones,Urine Negative (Negative); Leukocyte Esterase,Urine Negative (Negative); Nitrite,Urine Negative (Negative); PH,Urine 8.5 (5.0-7.0); Protein,Urine Trace (Neg - Trace); RBC,Urine < 1 /hpf (0-3); Specific Gravity,Urine 1.018 (1.001-1.035); Squamous Epithelial Cell,Urine 1 /hpf (0-5); WBC,Urine 1 /hpf (0-5)
--- NOTE | 2024-07-06 08:58 | PC.NURSE ---
pt up to chair call light within reach
[2024-07-06] MEDS: FLUCONAZOLE 100 MG TABLET 200 MG PO (09:39)
[2024-07-06] MEDS: PANTOPRAZOLE INJ 40 MG VIAL IVP (09:42)
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
[2024-07-06] MEDS: IRON SUCROSE CPLX INJ 20 MG/ML VIAL 5 ML 200 MG IVP (11:40)
[2024-07-06] MEDS: FERROUS SULF 325 MG TABLET PO (11:41)
[2024-07-06] MEDS: hydrALAZINE INJ 20 MG/ML VIAL 10 MG IV (12:22)
[2024-07-06 12:35] LABS: Path Review Blood Smear Sent to Pathologist
--- NOTE | 2024-07-06 13:45 | PC.NURSE ---
Discharging patient. Last vitals, Blood pressure was 177/96. Contacted Dr. Ortega. ordered Lisinopril and Clonidine for patient and ordered to check blood pressure approximately 40 minutes after administration.
--- NOTE | 2024-07-06 13:45 | PC.NURSE ---
After med administration blood pressure is 177/96. Dr. Ortega aware and cleared patient to discharge.
[2024-07-06] MEDS: cloNIDine HCL 0.1 MG TABLET 0.2 MG PO (14:24)
[2024-07-06] MEDS: Lisinopril 20 MG TABLET 40 MG PO (14:24)
--- NOTE | 2024-07-06 15:00 | PC.NURSE ---
Rechecked blood pressure after med administration. blood pressure 128/56. Dr. Ortega aware and okayed patient to be discharged.
--- NOTE | 2024-07-06 15:34 | PD.RESDS ---
Planned Discharge Date 07/06/24 DS: Providers Provider Date of admission: 07/04/24 08:52 Primary care physician: Mitchel Lima MD Admitting Provider: Chon Collins MD Attending Provider on Admission: Chon Collins MD Consults: 07/03/24 22:39 Consult to Gastroenterology Stat Comment: ugib Consulting Provider: Sulema Santo 07/04/24 09:38 Consult to General Surgery Routine Comment: Chronic ventral hernia Consulting Provider: Martha Quick Attending Provider on DC: Jose Jain MD Discharging Provider: Ha Villalta MD DS: Diagnosis Discharge Diagnosis (1) Diverticulosis: Status: Acute (2) Esophagitis with gastritis: Status: Acute Problem List Completed Was Problem List Reviewed/Reconciled?: Yes Hospital Course Hospital Course Hospital course: Hospital Course: Patient is a 61-year-old male with a past medical history of CVA status post tPA in April 2024, hypertension, hyperlipidemia, paroxysmal A-fib, HFpEF 60-65% , moderate to severe stenosis, type II DM, ventral hernia presents again to 2024 with headache, left-sided chest pain, subjective and constipation. He underwent EGD showing Chyna esophagitis. He was started on Nystatin swish and swallow. Patient's colonoscopy showed moderate diverticulosis without bleeding or infection. Patient takes DAPT and eliquis at home. He was advised to discontinue plavis and hold aspirin until PCP follow up. he has been cleared by GI to continue Elqiuis 5mg twice a day. High fiber diet is recommended, he will benefit from OTC fiber supplements. He is also being sent home with a course of Ciprofloxacin and Flagyl given elevated WBC. He remained afebrile throughout the hospitalization. Problems on this admission: - Diverticulosis - Chyna esophagitis - GI bleed - ruled out - Constipation. - Chyna esophagitis. - Chronic ventral hernia. - History of hypertension. - History of hyperlipidemia. - Paroxysmal A-fib. - Type 2 Diabetes. - HFpEF 60 to 65%. - Moderate to severe aortic stenosis. - History of CVA. - BPH. Procedures: None Discharge instructions: - Follow up with PCP after discharge. If you dont have a PCP, you can follow up at [facility] on [address], for appointment please call - You will need a referral to GI to schedule capsule endoscopy for further evaluation of possible GI bleeding. - Take ciprofloxacin 500 mg twice daily + metronidazole 500 mg twice daily , for 5 days to complete antibiotic course - Use Nystatin suspension 5 ml twice daily swish and swallow for 15 days. - Resume Eliquis 5mg twice a day. Stop taking Plavix. Hold Aspirin until follow up with your PCP. - Start Janumet twice a day for Diabetes. Stop Metformin and Glipizide. - Continue Lisinopril and Clonidine for BP control. Added Amlodipine 5mg nightly. Stop Nifedipine and Hydrochlorothiazide. - Continue other home medications as prescribed. - Follow up with neurology within 2 weeks. - Repeat CBC in 2 weeks to follow up elevated WBCs. - Return to ED if symptoms worsen. We are grateful to be able to participate in Mr Diaz's care. We wish him the best. - Ha Villalta MD Status at Discharge Cognitive/behavioral status at discharge: Stable and returned to baseline. Time Spent with Patient Time attestation: Total time spent providing and/or coordinating discharge services: more than 50% Exam Vital Signs Temp Pulse Resp BP Pulse Ox O2 Del Method O2 Flow Rate 98.5 F 62 117 H 128/56 L 96 Room Air 2 07/06/24 15:12 07/06/24 15:12 07/06/24 15:12 07/06/24 15:12 07/06/24 15:12 07/06/24 15:12 07/05/24 21:00 Narrative Exam Constitutional Alert, oriented x3 and comfortable HEENT Vision grossly intact. Patent nares. Trachea midline. Respiratory Chest normal on inspection and clear to auscultation bilaterally. Cardiovascular S1 and S2 audible, RRR. No murmurs or carotid bruit. No gross JVD. Abdominal Soft and non tender to palpation in all quadrants. BS + Genitourinary No bladder tenderness, no flank pain. Normal to palpation. Musculoskeletal Extremities tone within normal limits. No LE edema. Neurological CN II - XII grossly intact. Extremity motor and sensation grossly intact. Skin Warm, dry and intact. No apparent lesions. Psychiatric Patient has a good affect, is cooperative. Discharge Plan Plan Patient Disposition: HOME (Self Care) Disposition Comment: Stable Patient condition on transfer: Stable Care Plan Goals: - Follow up with PCP after discharge. If you dont have a PCP, you can follow up at [facility] on [address], for appointment please call - You will need a referral to GI to schedule capsule endoscopy for further evaluation of possible GI bleeding. - Take ciprofloxacin 500 mg twice daily + metronidazole 500 mg twice daily , for 5 days to complete antibiotic course - Use Nystatin suspension 5 ml twice daily swish and swallow for 15 days. - Resume Eliquis 5mg twice a day. Stop taking Plavix. Hold Aspirin until follow up with your PCP. - Start Janumet twice a day for Diabetes. Stop Metformin and Glipizide. - Continue Lisinopril and Clonidine for BP control. Added Amlodipine 5mg nightly. Stop Nifedipine and Hydrochlorothiazide. - Continue other home medications as prescribed. - Follow up with neurology within 2 weeks. - Repeat CBC in 2 weeks to follow up elevated WBCs. - Return to ED if symptoms worsen. Prescriptions/Referrals Prescriptions/Med Rec: New nystatin 100,000 unit/mL suspension 5 ml PO BID 15 Days Qty: 150 0RF Rx Instructions: swish and swallow ciprofloxacin HCl 500 mg tablet 500 mg PO BID 5 Days Qty: 10 0RF metronidazole 500 mg tablet 500 mg PO BID 5 Days Qty: 10 0RF Janumet 50-500 mg tablet 1 tab PO BID 30 Days Qty: 60 0RF amlodipine 5 mg tablet 5 mg PO HS 30 Days Qty: 30 0RF Continued furosemide 20 mg tablet 20 mg PO QDAY (DME) FreeStyle Antonino 14 Day [place] Misc See Rx Instructions .Route Qty: 1 0RF Rx Instructions: As directed (DME) FreeStyle Antonino 2 Sensor Kit See Rx Instructions .Route Qty: 1 0RF Rx Instructions: As directed (DME) Accu-Chek Angelina Plus test strp Strip See Rx Instructions .Route Qty: 50 0RF Rx Instructions: As directed insulin degludec [Tresiba U-100 Insulin] 100 unit/mL solution 20 unit subcut QDAY Qty: 10 0RF (DME) lancets Misc See Rx Instructions .Route Qty: 100 0RF Rx Instructions: As directed acetaminophen-codeine 300-30 mg tablet 2 tab PO TID MDD 6 PRN (Reason: pain) Qty: 20 0RF gabapentin 400 mg capsule 400 mg PO TID Patient Comments: MOO Horan C PSULA POR V A ORAL YUNIOR VECES AL D A metoprolol succinate 50 mg tablet extended release 24 hr 50 mg PO QDAY Patient Comments: MOO Horan TABLETA POR V A ORAL TODOS LOS D FOR 90 DAYS lisinopril 40 mg Tablet 40 mg PO QDAY atorvastatin 80 mg tablet 80 mg PO DAILY Patient Comments: MOO POLLACKA POR V A ORAL AL ACOSTARSE clonidine HCl 0.2 mg tablet 0.2 mg PO BID Patient Comments: MOO Horan TABLETA POR V A ORAL DOS VECES AL D A PARA LA PRESI N ARTERIAL Eliquis 5 mg tablet 5 mg PO BID Qty: 60 3RF (DME) compress.stocking,knee,reg,lrg Misc See Rx Instructions .Route Qty: 2 0RF Rx Instructions: As directed melatonin 5 mg capsule 5 mg PO HS Qty: 30 0RF tamsulosin 0.4 mg capsule 0.4 mg PO QDAY Qty: 30 0RF Held aspirin 81 mg tablet,delayed release (DR/EC) 81 mg PO QDAY Hold Instructions: Resume on 07/20/24. HOLD until follow up with PCP Patient Comments: MOO Horan TABLETA POR V A ORAL TODOS LOS D Discontinued metformin 500 mg tablet 500 mg PO BID Qty: 60 0RF hydrochlorothiazide 25 mg tablet 25 mg PO QDAY Patient Comments: MOO NAQVI TABLETA POR V A ORAL TODOS LOS D nifedipine 20 mg capsule 20 mg PO .qhs omeprazole 20 mg Capsule,Delayed Release(Dr/Ec) 20 mg PO QDAY clopidogrel [Plavix] 75 mg Tablet 75 mg PO QDAY glipizide 10 mg tablet 10 mg PO BID nifedipine 20 mg capsule 60 mg PO QAM Qty: 30 0RF Referrals: Mitchel Lima MD [Primary Care Provider] - Patient/Caregiver Discharge Instructions Discharge Activity: activity as tolerated Education Materials: Bleeding Gastrointestinal, Anemia, Diverticulosis Diverticulitis, ED Esophagitis, Chyna Print Language: Estonian Stand Alone Forms: Kellen Award Info., Patient Portal Info Letter Discharge Order Discharge Orders: Discharge (Routine); Ordered 07/06/24 Ordered By: Jaron Ortega Quality Discharge Quality Measures VTE prophylaxis Attestestation Attestation I have examined the patient, reviewed labs and imaging findings, discussed the case with the resident(s), and reviewed entered orders. I agree with the plan of care as outlined in this note. Dr. Jain
== END 2024-07-06 15:42 | disposition home or self-care (01) | DRG 368 ==
LOC: SERX 07-04 06:54 → SERHOLD 07-04 09:06 → S3NX 07-04 11:27
PROVIDERS: Nurse Practitioner Family; Specialist; Student in an Organized Health Care Education/Training Program; Admitting Provider Internal Medicine; Emergency Provider Emergency Medicine; PCP Family Medicine; Visit Provider Internal Medicine
PROC: 0DJ08ZZ Inspection of Upper Intestinal Tract, Via Natural or Artificial Opening Endoscopic (ICD-10-PCS; CPT 43239; principal; 2024-07-04 16:30)
PROC: 0DJD8ZZ Inspection of Lower Intestinal Tract, Via Natural or Artificial Opening Endoscopic (ICD-10-PCS; CPT 45378; principal; 2024-07-05 17:30)
DX: B37.81 Candidal esophagitis (principal); K29.71 Gastritis, unspecified, with bleeding; I50.32 Chronic diastolic (congestive) heart failure; D62 Acute posthemorrhagic anemia; K59.00 Constipation, unspecified; I44.0 Atrioventricular block, first degree; E11.9 Type 2 diabetes mellitus without complications; I11.0 Hypertensive heart disease with heart failure; E78.5 Hyperlipidemia, unspecified; I48.0 Paroxysmal atrial fibrillation; K43.2 Incisional hernia without obstruction or gangrene; I35.0 Nonrheumatic aortic (valve) stenosis; N40.0 Benign prostatic hyperplasia without lower urinary tract symptoms; I95.9 Hypotension, unspecified; K57.30 Diverticulosis of large intestine without perforation or abscess without bleeding; Z86.73 Personal history of transient ischemic attack (TIA), and cerebral infarction without residual deficits; Z79.4 Long term (current) use of insulin; Z79.84 Long term (current) use of oral hypoglycemic drugs; Z79.82 Long term (current) use of aspirin; Z79.899 Other long term (current) drug therapy
CPT/HCPCS: 36415; 70450; 71045; 71275; 74174; 80053; 81001; 83735; 84100; 84439; 84443; 85025; 85610; 85730; 86850; 86900; 86901; 86923; 93005; 93225; 94640; 96374; 96375; 99285; A4649; A9270; J0360; J1200; J1756; J1815; J2250; J2270; J2354; J2470; J2919; J3010; J3490; J7050; P9016; Q0162; Q9967

== ENCOUNTER → 2024-08-12 | Outpatient (CLI) | payer MEDICARE, MEDICAID, SELFPAY ==
[2024-08-12 12:12] LABS: Alanine Aminotransferase 8 U/L (10-49); Albumin, Serum 3.5 gm/dL (3.4-4.8); Alkaline Phosphatase 99 U/L (46-116); Anion Gap 10 (7-16); Aspartate Amino Transferase 12 U/L (0-34); BUN/Creatinine Ratio 23 Ratio (12-20); Bilirubin,Direct < 0.1 mg/dL (0.0-0.3); Bilirubin,Total 0.2 mg/dL (0.3-1.2); Blood Urea Nitrogen 18 mg/dL (9-23); C-Reactive Protein 0.5 mg/dL (0.0-0.9); Calcium 8.5 mg/dL (8.3-10.6); Carbon Dioxide 27.1 mMol/L (20.0-31.0); Chloride 103 mMol/L (98-107); Creatinine (Component) 0.8 mg/dL (0.6-1.3); Glucose 151 mg/dL (74-106); Osmolality,Calculated 284 (275-295); Phosphorous 3.9 mg/dL (2.4-5.1); Potassium 4.3 mMol/L (3.4-5.1); Sodium 140 mMol/L (136-145); eGFR > 60 See Note
[2024-08-12 12:47] LABS: Sed Rate (ESR) 25 mm/hr (0-20)
== END | disposition home or self-care (01) ==
PROVIDERS: PCP Family Medicine; Referring Provider Psychiatry & Neurology Neurology; Visit Provider Psychiatry & Neurology Neurology
DX: M31.5 Giant cell arteritis with polymyalgia rheumatica (principal); I10 Essential (primary) hypertension
CPT/HCPCS: 36415; 80048; 80069; 80076; 84100; 85652; 86140

== ENCOUNTER 2024-08-14 07:39 | Emergency (ER) | payer MEDICARE, MEDICAID, SELFPAY ==
[2024-08-14 08:13] VITALS: BP 173/72; BP 187/67; PULSE 80; RESP 18; TEMP 36.8; O2SAT 97; BMI 29.5
--- NOTE | 2024-08-14 08:19 | XR_ITS ---
EXAMINATION: Ankle, right 3 views . Technique: Ankle AP, oblique, lateral 3 views Date and time of exam: August 14, 2024 0839 hrs. Comparison July 30, 2014 Indications: Right ankle pain this month increasing in severity Findings: Again noted operative reduction internal fixation bimalleolar fractures with significant healing Moderate osteoarthritis tibiotalar joint No acute fracture No ramya cortical bone destruction Impression: Moderate osteoarthritis tibiotalar joint
--- NOTE | 2024-08-14 08:19 | EDNOTE_ITS ---
<Statement entered by Cristina Arndt MD - 08/14/24 17:33> As co-signing physician, I was present and available for consult prn. I concur with the plan and care as documented by the midlevel provider. ED General RME/HPI General Chief complaint: Headache Stated complaint: FULTON, DIZZINESS, BILAT FEET PAIN Time Seen by Provider: 08/14/24 08:10 Arrival date/time: 08/14/24 07:39 CC: Left ankle pain, headache HPI ankle pain ongoing for 6 months, headache ongoing for 14 days was seen by his primary care doctor put on gabapentin 3 days ago and still has the headache patient denies fall blunt trauma shortness of breath difficulty breathing blurred vision seeing spots nausea vomiting. Ankle pain has been for 6 months. Was given a shot by his PCP months ago which made it worse . Related Data Home Medications ?Medication ?Instructions ?Recorded ?Confirmed furosemide 20 mg tablet 20 mg PO QDAY 03/01/2407/03 atorvastatin 80 mg tablet 80 mg PO DAILY 06/01/2406/19 clonidine HCl 0.2 mg tablet 0.2 mg PO BID 06/01/24 lisinopril 40 mg tablet 40 mg PO QDAY 06/01/2407/03 aspirin 81 mg tablet,delayed 81 mg PO QDAY 07/03/24 release Held on 07/06/24. Instructions: Resume on 07/20/24. HOLD until follow up with PCP gabapentin 400 mg capsule 400 mg PO TID 07/03/2407/03 metoprolol succinate 50 mg 50 mg PO QDAY 07/03/2406/19 tablet,extended release 24 hr Previous Rx's ?Medication ?Instructions ?Recorded blood sugar diagnostic (Accu-Chek #50 ea 12/18/21 Angelina Plus test strips) flash glucose scanning reader #1 ea 12/18/21 (FreeStyle Antonino 14 Day [place]) flash glucose sensor (FreeStyle #1 ea 12/18/21 Antonino 2 Sensor kit) insulin degludec 100 unit/mL 20 unit (0.2 mL) subcut Q DAY #10 mL 12/18/21 subcutaneous solution (Tresiba U-100 Insulin) lancets #100 ea 12/18/21 apixaban 5 mg tablet (Eliquis) 5 mg PO BID #60 tabs compress.stocking,knee,reg,lrg #2 ea 06/02/24 melatonin 5 mg capsule 5 mg PO HS #30 caps 06/02/24 tamsulosin 0.4 mg capsule 0.4 mg PO QDAY #30 caps 05/19 10/10 acetaminophen 300 mg-codeine 30 mg 2 tab PO TID PRN pa in #20 tabs 06/30/24 tablet Allergies Allergy/AdvReac Type Severity Reaction Status Date / Time No Known Allergies Allergy Verified 07/04/24 15:15 Review of Systems Review of Systems Narrative Review of Systems: GEN: No fever, no chills, no weight loss EYES: No discharge, no visual changes, no pain HEENT: No ear pain, no congestion, no sore throat PULM: No shortness of breath, no cough, no congestion CV: No chest pain, no dyspnea on exertion, no palpitations GI: No nausea, no vomiting, no diarrhea, no pain, no constipation : No frequency, no urgency, no dysuria MUSC/SKEL: + joint pain, no back pain SKIN: No rash PSYCH: No hallucinations, no depression HEME/LYMPH: No easy bleeding or bruising tendencies NEURO: No weakness, + headache ED Exam Narrative Physical exam: [General: Appears not in any acute distress Head normocephalic old facial scarring between the eyes that is well-healed HEENT: Eyes pupils are PERRLA EOMs are intact mouth pink moist membranes uvula midline swallow symmetrical. Within acceptable limits Neck is supple nontender Chest equal chest rise nontender to palpation Respiratory: Clear to auscultation no wheezes crackles or rubs CV: Rate rhythm is regular no murmurs rubs or clicks Abdomen is distended secondary to body habitus soft nontender no masses positive bowel sounds all 4 quadrants Back: No CVA tenderness no spinous process tenderness from cervical spine thoracic and lumbar spine Skin: Intact no petechiae rash induration ulceration or crepitus Extremities: Left ankle, nonerythematous nonedematous, mild tenderness to palpation to the medial malleolus and just distal to the malleolus. Full range of motion of the toes and the ankle. Moving all other extremities against resistance cap refill less than 2 seconds neurosensory intact Neuro: Awake alert oriented x3 Glascow coma 15 no focal deficits] Course Quality Measures none Orders Category Date Time Status XR ankle comp LT min 3V Stat Exams 08/14/24 08:20 Completed XR ankle comp RT min 3V Stat Exams 08/14/24 08:19 Completed Ketorolac Inj [Toradol Inj] Med 08/14/24 08:19 Discontinued 15 mg IM X1 ONE Vital Signs Vital signs: Vital Signs Temperature 98.3 F 08/14/24 08:13 Pulse Rate 80 08/14/24 08:13 Respiratory Rate 18 08/14/24 08:13 Blood Pressure 187/67 H 08/14/24 08:13 Pulse Oximetry (%) 97 08/14/24 08:13 Oxygen Delivery Method Room Air 08/14/24 08:13 [facility] Patient data External records reviewed:: [facility] previous records Clinical information provided by:: patient Social determinants that could affect healthcare access:: none Patient has the following chronic illnesses:: Diabetes hypertension hyperlipidemia on blood thinners How is presenting disease/condition affected by chronic disease/condition?: uneffected by Evaluation data The following diagnostics were reviewed and interpreted by me:: radiology exam(s) Lab and/or radiology exams considered but not ordered:: X-rays interpreted by me shows no acute fracture hide there are significant osteophytes and age-related degradation with joint space narrowing. X-rays interpreted by the radiologist shows no acute finding. Interpretation Summary: Chronic ankle pain headache Medications Medications considered but not ordered:: None Medication administrations:: Medication Administration History Discontinued Medications Ketorolac Tromethamine (Ketorolac Inj 60 Mg/2 Ml Vial) 15 mg IM X1 ONE Stop: 08/14/24 08:20 Last Admin: 08/14/24 08:33 Dose: 15 mg Documented By: DO None Consultations Consultation(s) initiated? (list below): No Diagnosis Differential Diagnosis ED Complaint MDM: Chronic ankle pain Most likely diagnosis given after review of the tests above:: Chronic ankle pain headache Admission Indicated Admission indicated?: not indicated Explain why admission is indicated or not indicated:: Stable Admission Request Was there a request for admission?: No Disposition Plan Disposition Plan: Discharge Discharge Attestation Discharge Attestation: The patient and all family members were given an opportunity to ask questions and understood the discharge instructions. Discharge instructions specifically effects, indications for sooner follow up or return to the emergency department, and the expected course of current diagnosis. Patient condition: Stable Medical Decision Making Differential Diagnosis Differential Diagnosis: Chronic ankle pain Discharge Plan Plan Patient Disposition: HOME (Self Care) Patient condition on transfer: Stable Prescriptions/Referrals Prescriptions/Med Rec: No Action furosemide 20 mg tablet 20 mg PO QDAY (DME) FreeStyle Antonino 14 Day [place] Misc See Rx Instructions .Route Qty: 1 0RF Rx Instructions: As directed (DME) FreeStyle Antonino 2 Sensor Kit See Rx Instructions .Route Qty: 1 0RF Rx Instructions: As directed (DME) Accu-Chek Angelina Plus test strp Strip See Rx Instructions .Route Qty: 50 0RF Rx Instructions: As directed insulin degludec [Tresiba U-100 Insulin] 100 unit/mL solution 20 unit subcut QDAY Qty: 10 0RF (DME) lancets Misc See Rx Instructions .Route Qty: 100 0RF Rx Instructions: As directed acetaminophen-codeine 300-30 mg tablet 2 tab PO TID MDD 6 PRN (Reason: pain) Qty: 20 0RF gabapentin 400 mg capsule 400 mg PO TID Patient Comments: TOME 1 C PSULA POR V A ORAL YUNIOR VECES AL D A aspirin 81 mg tablet,delayed release (DR/EC) 81 mg PO QDAY Patient Comments: TOME 1 TABLETA POR V A ORAL TODOS LOS D metoprolol succinate 50 mg tablet extended release 24 hr 50 mg PO QDAY Patient Comments: TOME 1 TABLETA POR V A ORAL TODOS LOS D FOR 90 DAYS lisinopril 40 mg Tablet 40 mg PO QDAY atorvastatin 80 mg tablet 80 mg PO DAILY Patient Comments: TOME DRISS TABLETA POR V A ORAL AL ACOSTARSE clonidine HCl 0.2 mg tablet 0.2 mg PO BID Patient Comments: TOME 1 TABLETA POR V A ORAL DOS VECES AL D A PARA LA PRESI N ARTERIAL Eliquis 5 mg tablet 5 mg PO BID Qty: 60 3RF (DME) compress.stocking,knee,reg,lrg Misc See Rx Instructions .Route Qty: 2 0RF Rx Instructions: As directed melatonin 5 mg capsule 5 mg PO HS Qty: 30 0RF tamsulosin 0.4 mg capsule 0.4 mg PO QDAY Qty: 30 0RF Referrals: Mitchel Lima MD [Primary Care Provider] - In 1 week Problem List Clinical Impression: Ankle pain, chronic, Headache Patient/Caregiver Discharge Instructions Other Activity Instructions:: Continue to take the medicines given by your doctor, follow-up with your doctor if you want stronger medicines for your headache your ankle x-ray shows nothing acute. Education Materials: Self-Care for Headaches, ED Chronic Pain Print Language: German Stand Alone Forms: Kellen Award Info., Work/School Release, Patient Portal Info Letter PA/MANAGER GLOBAL COMMUNICATIONS Supervising Physician PA/MANAGER GLOBAL COMMUNICATIONS Supervising Physician: Sunny Germain ENP
--- NOTE | 2024-08-14 08:20 | XR_ITS ---
EXAMINATION: Ankle, left 3 views . Technique: Ankle AP, oblique, lateral 3 views Date and time of exam: August 14, 2024 0839 hrs. Indications: Ankle pain 2 weeks. Findings: Moderate osteopenia Moderate osteoarthritis tibiotalar joint Moderate to advanced diffuse intertarsal osteoarthritis especially talonavicular joint No fracture. No ramya cortical bone destruction Impression: Significant osteoarthritis as above
[2024-08-14] MEDS: KETOROLAC INJ 60 MG/2 ML VIAL 15 MG IM (08:33)
== END 2024-08-14 11:14 | disposition home or self-care (01) ==
PROVIDERS: Emergency Provider Emergency Medicine; PCP Family Medicine
DX: M25.772 Osteophyte, left ankle (principal); M25.771 Osteophyte, right ankle; M25.872 Other specified joint disorders, left ankle and foot; M25.871 Other specified joint disorders, right ankle and foot; R51.9 Headache, unspecified
CPT/HCPCS: 73610; 96372; 99283; J1885

== ENCOUNTER → 2024-08-30 | Outpatient (BNVA) | payer MEDICARE, MEDICAID, SELFPAY | END | disposition home or self-care (01) | PROVIDERS: PCP Family Medicine; Referring Provider Family Medicine; Visit Provider Urology | DX: N40.1 Benign prostatic hyperplasia with lower urinary tract symptoms (principal); N13.8 Other obstructive and reflux uropathy; Z80.42 Family history of malignant neoplasm of prostate; K46.9 Unspecified abdominal hernia without obstruction or gangrene; E11.9 Type 2 diabetes mellitus without complications; I10 Essential (primary) hypertension; I25.10 Atherosclerotic heart disease of native coronary artery without angina pectoris; D64.9 Anemia, unspecified; Z86.73 Personal history of transient ischemic attack (TIA), and cerebral infarction without residual deficits | CPT/HCPCS: 81003; 99212; G0463 ==

== ENCOUNTER → 2024-09-08 | Outpatient (CLI) | payer MEDICARE, MEDICAID, SELFPAY | END | disposition home or self-care (01) | PROVIDERS: Visit Provider Surgery | DX: E11.621 Type 2 diabetes mellitus with foot ulcer (principal); L97.522 Non-pressure chronic ulcer of other part of left foot with fat layer exposed; D64.9 Anemia, unspecified; I10 Essential (primary) hypertension | CPT/HCPCS: 97597; 99214; A9270; G0463 ==

== ENCOUNTER 2024-09-10 19:36 | Emergency (ER) | payer MEDICARE, MEDICAID, SELFPAY ==
--- NOTE | 2024-09-10 19:40 | EKG_ITS ---
[facility] Test Date: 2024-09-10 Pat Name: RHINA GARDUNO Department: Room: - Gender: Male Clerk Funeral Detail: : 1955 Requested By: Fahad Rosales Order Number: [id number] Reading MD: Fahad Rosales Measurements Intervals [place] Rate: 72 P: 62 WV: 230 QRS: 21 QRSD: 109 T: 89 QT: 373 QTc: 409 Interpretive Statements SINUS RHYTHM WITH FIRST DEGREE AV BLOCK NONSPECIFIC ST & T-WAVE ABNORMALITY Compared to ECG 07/04/2024 07:43:23 Intraventricular conduction delay no longer present T-wave abnormality still present /store/S0/[id number]/ecg/[id number].pdf
[2024-09-10 20:01] VITALS: BP 171/121; PULSE 80; RESP 18; TEMP 37.2; O2SAT 98
--- NOTE | 2024-09-10 20:33 | XR_ITS ---
Examination: PA and lateral chest 2 views TECHNIQUE: Upright PA and lateral chest 2 views Exam date and time: September 10, 2024, 2037 hours INDICATIONS: Chest pain beginning 3 days ago shortness of breath today. FINDINGS: Normal heart size No lobar pneumonia Minimal blunting of the left lateral costophrenic angle. No pulmonary edema IMPRESSION: No pneumonia or pulmonary edema
--- NOTE | 2024-09-10 20:33 | XR_ITS ---
Examination: CT brain head without contrast. 2-D sagittal coronal reconstructions Date and time of exam:September 10, 2024 at 2143 hours INDICATIONS: Onset right-sided body weakness today CTDI: vol (mGy):58 DLP: (mGycm):1276 Technique: Multiple CT axial sections of the brain have been obtained, 5 mm slice thickness. Contrast has not been administered. 2-D sagittal, coronal reconstructions have been obtained Low dose protocols were performed. One or more of the following dose reduction techniques were used; automated exposure control, adjustment of the mA and/or KV according to patient size, use of iterative reconstruction technique. Findings: No significant ventricular enlargement. Intra-axial or extra-axial hemorrhage density is not seen. No mass effect or midline shift Basal cisterns are not remarkable. Fourth ventricle is midline. Cranial vault intact. Impression: Negative for acute hemorrhage, mass effect or midline shift If weakness persists, consider brain MRI follow up stroke protocol
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
[2024-09-10 21:06] LABS: Basophils % (Auto) 1 % (0-2.5); Eosinophils # (Auto) 0.1 Thou/mm3 (0.0-0.5); Eosinophils % (Auto) 1 % (0-10); Hematocrit 29.2 % (41.0-53.0); Hemoglobin 9.3 g/dL (13.5-16.0); Immature Granulocytes % (Auto) 1 % (0-0); Immature Granulocytes Auto 0.04 Thou/mm3 (0.00-0.00); Lymphocytes # (Auto) 1.7 Thou/mm3 (1.0-4.8); Lymphocytes % (Auto) 20 % (10-50); Mean Corpuscular HGB Conc 31.8 g/dl (31.0-37.0); Mean Corpuscular Hemoglobin 23.5 pg (25.0-35.0); Mean Corpuscular Volume 74 fL (80-100); Monocytes # (Auto) 0.6 Thou/mm3 (0.0-0.8); Monocytes % (Auto) 8 % (0-12); Neutrophils # (Auto) 5.8 Thou/mm3 (1.8-7.7); Neutrophils % (Auto) 70 % (37-80); Nucleated Red Blood Cell % 0 /100 WBC (0); Platelet Count 424 Thou/mm3 (140-440); RDW Standard Deviation 53.5 fL (35.1-43.9); Red Blood Count 3.95 Miln/mm3 (4.50-5.90); White Blood Count 8.3 Thou/mm3 (3.8-10.6)
[2024-09-10 21:27] LABS: INR 1.1 (0.9-1.3); Partial Thromboplastin Time 27.3 Seconds (22.0-36.0); Prothrombin Time 12.4 Seconds (9.0-12.2)
[2024-09-10 21:30] LABS: B-Type Natriuretic Peptide 100 pg/mL (0-100)
[2024-09-10 21:44] LABS: Alanine Aminotransferase 7 U/L (10-49); Albumin, Serum 3.9 gm/dL (3.4-4.8); Albumin/Globulin Ratio 1.3 (1.2-2.2); Alkaline Phosphatase 117 U/L (46-116); Anion Gap 7 (7-16); Aspartate Amino Transferase < 10 U/L (0-34); BUN/Creatinine Ratio 16 Ratio (12-20); Bilirubin,Total 0.2 mg/dL (0.3-1.2); Blood Urea Nitrogen 13 mg/dL (9-23); Calcium 8.8 mg/dL (8.3-10.6); Calcium (Corrected) 8.9 mg/dL (8.5-10.1); Carbon Dioxide 28.4 mMol/L (20.0-31.0); Chloride 104 mMol/L (98-107); Creatinine (Component) 0.8 mg/dL (0.6-1.3); Glucose 152 mg/dL (74-106); Magnesium 1.8 mg/dL (1.6-2.6); Osmolality,Calculated 280 (275-295); Potassium 4.3 mMol/L (3.4-5.1); Sodium 139 mMol/L (136-145); Total Protein 6.9 gm/dL (5.7-8.2); eGFR > 60 See Note
[2024-09-10 22:54] VITALS: BP 148/69; PULSE 70; RESP 18; TEMP 36.8; O2SAT 100
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
[2024-09-10] MEDS: METOCLOPRAMIDE 5 MG TABLET 10 MG PO (23:58)
[2024-09-10] MEDS: ACETAMINOPHEN 500 MG TABLET 1000 MG PO (23:58)
[2024-09-10] MEDS: DiphenhydrAMINE 25 MG CAPSULE PO (23:58)
== END 2024-09-11 00:07 | disposition home or self-care (01) ==
PROVIDERS: Physician Assistant; Emergency Provider Emergency Medicine; PCP Family Medicine
DX: R51.9 Headache, unspecified (principal); R07.9 Chest pain, unspecified; M54.9 Dorsalgia, unspecified; G89.29 Other chronic pain; R06.02 Shortness of breath; R53.1 Weakness; I44.0 Atrioventricular block, first degree; I48.91 Unspecified atrial fibrillation; E78.00 Pure hypercholesterolemia, unspecified; I10 Essential (primary) hypertension
CPT/HCPCS: 36415; 70450; 71045; 80053; 83735; 83880; 84484; 85025; 85610; 85730; 93005; 99284; A9270

== ENCOUNTER → 2024-09-14 | Outpatient (CLI) | payer MEDICARE, MEDICAID, SELFPAY ==
[2024-09-14 09:48] LABS: Basophils % (Auto) 0 % (0-2.5); Eosinophils # (Auto) 0.1 Thou/mm3 (0.0-0.5); Eosinophils % (Auto) 1 % (0-10); Hematocrit 31.1 % (41.0-53.0); Hemoglobin 9.5 g/dL (13.5-16.0); Immature Granulocytes % (Auto) 1 % (0-0); Immature Granulocytes Auto 0.05 Thou/mm3 (0.00-0.00); Lymphocytes # (Auto) 1.7 Thou/mm3 (1.0-4.8); Lymphocytes % (Auto) 17 % (10-50); Mean Corpuscular HGB Conc 30.5 g/dl (31.0-37.0); Mean Corpuscular Hemoglobin 23.6 pg (25.0-35.0); Mean Corpuscular Volume 77 fL (80-100); Monocytes # (Auto) 0.7 Thou/mm3 (0.0-0.8); Monocytes % (Auto) 7 % (0-12); Neutrophils # (Auto) 7.5 Thou/mm3 (1.8-7.7); Neutrophils % (Auto) 74 % (37-80); Nucleated Red Blood Cell % 0 /100 WBC (0); Platelet Count 478 Thou/mm3 (140-440); RDW Standard Deviation 54.8 fL (35.1-43.9); Red Blood Count 4.03 Miln/mm3 (4.50-5.90)
[2024-09-14 09:52] LABS: INR 1.1 (0.9-1.3); Partial Thromboplastin Time 26.8 Seconds (22.0-36.0); Prothrombin Time 12.1 Seconds (9.0-12.2)
[2024-09-14 10:11] LABS: Anion Gap 6 (7-16); BUN/Creatinine Ratio 27 Ratio (12-20); Blood Urea Nitrogen 16 mg/dL (9-23); Calcium 9.2 mg/dL (8.3-10.6); Carbon Dioxide 32.2 mMol/L (20.0-31.0); Chloride 99 mMol/L (98-107); Creatinine (Component) 0.6 mg/dL (0.6-1.3); Glucose 100 mg/dL (74-106); Osmolality,Calculated 275 (275-295); Potassium 4.2 mMol/L (3.4-5.1); Sodium 137 mMol/L (136-145); eGFR > 60 See Note
== END | disposition home or self-care (01) ==
LOC: COPL 08:40
PROVIDERS: PCP Family Medicine; Referring Provider Internal Medicine; Visit Provider Internal Medicine
DX: I25.10 Atherosclerotic heart disease of native coronary artery without angina pectoris (principal); I48.91 Unspecified atrial fibrillation
CPT/HCPCS: 36415; 80048; 85025; 85610; 85730

== ENCOUNTER → 2024-09-22 | Outpatient (CLI) | payer MEDICARE, MEDICAID, SELFPAY | END | disposition home or self-care (01) | LOC: SWHD 11:04 | PROVIDERS: PCP Family Medicine; Referring Provider Family Medicine; Visit Provider Surgery | DX: E11.621 Type 2 diabetes mellitus with foot ulcer (principal); L97.512 Non-pressure chronic ulcer of other part of right foot with fat layer exposed; E11.40 Type 2 diabetes mellitus with diabetic neuropathy, unspecified; M19.09 Primary osteoarthritis, other specified site; M21.371 Foot drop, right foot | CPT/HCPCS: 97597; A9270 ==

== ENCOUNTER → 2024-10-06 | Outpatient (CLI) | payer MEDICARE, MEDICAID, SELFPAY | END | disposition home or self-care (01) | LOC: SWHD 10:15 | PROVIDERS: PCP Family Medicine; Referring Provider Family Medicine; Visit Provider Student in an Organized Health Care Education/Training Program | DX: E11.621 Type 2 diabetes mellitus with foot ulcer (principal); L97.512 Non-pressure chronic ulcer of other part of right foot with fat layer exposed; M19.09 Primary osteoarthritis, other specified site; M21.371 Foot drop, right foot; Z79.4 Long term (current) use of insulin; E11.40 Type 2 diabetes mellitus with diabetic neuropathy, unspecified | CPT/HCPCS: 99212; G0463 ==

== ENCOUNTER → 2024-10-12 | Outpatient (CLI) | payer MEDICARE, MEDICAID, SELFPAY ==
[2024-10-12 13:50] LABS: Glucose Estimated Average 131 mg/dL (80-131); Hemoglobin A1C 6.2 % Hgb (4.8-6.0)
== END | disposition home or self-care (01) ==
LOC: COPL 12:07
PROVIDERS: PCP Family Medicine; Referring Provider Student in an Organized Health Care Education/Training Program; Visit Provider Student in an Organized Health Care Education/Training Program
DX: E11.621 Type 2 diabetes mellitus with foot ulcer (principal)
CPT/HCPCS: 36415; 83036

== ENCOUNTER → 2024-10-20 | Outpatient (CLI) | payer MEDICARE, MEDICAID, SELFPAY | END | disposition home or self-care (01) | LOC: SWHD 10:58 | PROVIDERS: PCP Family Medicine; Referring Provider Family Medicine; Visit Provider Surgery | DX: E11.621 Type 2 diabetes mellitus with foot ulcer (principal); L97.512 Non-pressure chronic ulcer of other part of right foot with fat layer exposed; M19.09 Primary osteoarthritis, other specified site; M21.371 Foot drop, right foot; E11.40 Type 2 diabetes mellitus with diabetic neuropathy, unspecified; Z79.4 Long term (current) use of insulin | CPT/HCPCS: 99212; G0463 ==

== ENCOUNTER 2024-11-01 19:15 | Emergency (ER) | payer MEDICARE, MEDICAID, SELFPAY ==
[2024-11-01 19:16] VITALS: BMI 31.0
[2024-11-01 19:35] VITALS: BP 151/74; PULSE 87; RESP 18; TEMP 37.1; O2SAT 97
--- NOTE | 2024-11-01 19:51 | PD.EDANKLE ---
Lower Extremity Injury RME/HPI General Chief Complaint: Ankle/Foot Injury Stated Complaint: LEFT TOE PAIN Time Seen by Provider: 11/01/24 19:44 Arrival date/time: 11/01/24 19:15 RME / HPI RME / HPI Narrative: 69-year-old male, with a past medical history of diabetes, venous insufficiency, diverticulosis, esophagitis with gastritis, prostate cancer, hyperlipidemia, hypertension, anemia, atrial fibrillation, NSTEMI, CHF, CVA, and TIA no acute distress. He is currently taking Eliquis. He presents to the ED with a complaint of left great toe injury secondary to an injury he sustained home. He states he was going to close the door when the door hit his left great toe. He states he is a diabetic and is concerned. His last tetanus was approximately 4 years ago. Related Data Home Medications ?Medication ?Instructions ?Recorded ?Confirmed furosemide 20 mg tablet 20 mg PO QDAY 03/01/24 08/30/24 atorvastatin 80 mg tablet 80 mg PO DAILY 06/01/24 08/30/24 clonidine HCl 0.2 mg tablet 0.2 mg PO BID 06/01/24 08/30/24 lisinopril 40 mg tablet 40 mg PO QDAY 06/01/24 08/30/24 aspirin 81 mg tablet,delayed 81 mg PO QDAY 07/03/24 08/30/24 release Held on 07/06/24. Instructions: Resume on 07/20/24. HOLD until follow up with PCP gabapentin 400 mg capsule 400 mg PO TID 07/03/24 08/30/24 metoprolol succinate 50 mg 50 mg PO QDAY 07/03/24 08/30/24 tablet,extended release 24 hr Previous Rx's ?Medication ?Instructions ?Recorded blood sugar diagnostic (Accu-Chek #50 ea 12/18/21 Angelina Plus test strips) flash glucose scanning reader #1 ea 12/18/21 (FreeStyle Antonino 14 Day Flushing) flash glucose sensor (FreeStyle #1 ea 12/18/21 Antonino 2 Sensor kit) insulin degludec 100 unit/mL 20 unit (0.2 mL) subcut QDAY #10 mL 12/18/21 subcutaneous solution (Tresiba U-100 Insulin) lancets #100 ea 12/18/21 apixaban 5 mg tablet (Eliquis) 5 mg PO BID #60 tabs 06/01/24 compress.stocking,knee,reg,lrg #2 ea 06/02/24 melatonin 5 mg capsule 5 mg PO HS #30 caps 06/02/24 tamsulosin 0.4 mg capsule 0.4 mg PO QDAY #30 caps 06/02/24 acetaminophen 300 mg-codeine 30 mg 2 tab PO TID PRN pain #20 tabs 06/30/24 tablet Allergies Allergy/AdvReac Type Severity Reaction Status Date / Time No Known Allergies Allergy Verified 11/01/24 19:19 Review of Systems Review of Systems Systems Reviewed: All systems reviewed, normal except as documented Past Medical History Past Medical History NEUROLOGIC: Positive Cerebrovascular Accident and Head Trauma; Negative Neurological Disorders, Transient Ischemic Attacks (TIA), Dementia, Alzheimer's Disease, Parkinson's Disease, Brain Tumor, Meningitis, Seizures, Epilepsy, Multiple Sclerosis, Cerebral Palsy, Amyotrophic Lateral Sclerosis (ALS/Fifi Gehrig's), Guillain-Pyatt Syndrome, Spina Bifida, Paralysis, Peripheral Neuropathy, Farley's Palsy, Subdural Hematoma, Migraine, Spinal Cord Injury or Traumatic Brain Injury CARDIAC: Positive Cardiac Disorders, Heart Murmur, Hypercholesterolemia, Edema, Deep Vein Thrombosis and Hypertension; Negative Myocardial Infarction, Cardiac Arrhythmia, Atrial Fibrillation, Angina, Coronary Artery Disease, Atherosclerotic Heart Disease, Peripheral Vascular Disease, Aneurysm, Congestive Heart Failure, Congenital Heart Disease, Valvular Heart Disease, Rheumatic Fever, Cardiomyopathy, Pericarditis, Cellulitis, Hypotension or Varicose Veins RESPIRATORY: Positive Bronchitis and Pneumonia; Negative Chronic Obstructive Pulmonary Disease (COPD), Asthma, Emphysema, Pulmonary Fibrosis, Cystic Fibrosis, Tuberculosis, Pulmonary Embolism, Pulmonary Edema or Sleep Apnea GASTROINTESTINAL: Positive Gastrointestinal Disorders, Gastroesophageal Reflux Disease and Obesity; Negative Hepatitis, Cirrhosis, Pancreatitis, Celiac Disease, Gall Bladder Disease, Gastrointestinal Bleed, Esophageal Varices, Joseph's Esophagus, Colitis, Ulcerative Colitis, Diverticulitis, Diverticulosis, Ulcer, Colorectal Cancer, Irritable Bowel, Crohn's Disease, Obstructive Bowel, Hiatal Hernia or Hemorrhoids GENITOURINARY: Positive Genitourinary Disorders and Benign Prostatic Hyperplasia; Negative Renal Disease, Kidney Stones, Polycystic Kidney Disease, Neurogenic Bladder, Inguinal Hernia, Dialysis or Prostate Cancer REPRODUCTIVE: Negative Breast Cancer, Fibroids, Genital Herpes, Gonorrhea, Syphilis or Testicular Cancer MUSCULOSKELETAL: Positive Musculoskeletal Disorders, Arthritis and Fractures; Negative Muscular Dystrophy, Myasthenia Gravis, Marfan's Syndrome, Bone Cancer, Rheumatoid Arthritis, Osteoporosis, Degenerative Disk Disease, Gout, Scoliosis, Carpal Tunnel Syndrome, Fibromyalgia, Degenerative Joint Disease, Osteomyelitis or Poliovirus ENT: Positive Cataracts, Glaucoma and Head Trauma; Negative Blind, Retinal Detachment, Macular Degeneration, Ear Infection, Deafness or Eye Prosthesis ENDOCRINE: Positive Endocrine Disorders and Diabetes Mellitus Type 2; Negative Diabetes Mellitus Type 1, Hypoglycemia, Rudi's Syndrome, Bingham's Disease, Hyperthyroidism, Hypothyroidism, Parathyroid Disease, Pituitary Disease, Systemic Lupus Erythematosus, Syndrome of Inappropriate Antidiuretic Hormone (SIADH), Adrenal Disease or Graves' Disease HEMATOLOGIC: Positive Anemia; Negative Blood Disorders, Leukemia, Hemophilia, Thalassemia, Sickle Cell Disease or Clotting Problems PSYCHO/SOCIAL: Negative Psychiatric Problems, Schizophrenia, Recreational Drug Use, Bipolar Disorder, Depression, Anxiety, Behavior Problems, Self-Mutilation, Attention Deficit Disorder, Attention Deficit Hyperactivity Disorder, Depression, Post Traumatic Stress Disorder or Eating Disorder OTHER HISTORY: Positive Falls and Blood Transfusions; Negative Hospitalization, Autoimmune Disease, Down Syndrome, Autism, Developmental Delay, Shingles, Blood Transfusion Reaction, Anesthesia Reactions, Organ Transplant, Chemotherapy, Radiation Therapy, Hyperbaric Therapy, MRSA, VRSA, Vancomycin-Resistant Enterococci, Human Immunodeficiency Virus (HIV), Chicken Pox, Mumps, Rubella ([place] Measles), Pertussis, Clostridium Difficile, Cancer, Breast Cancer, Cervical Cancer, Colorectal Cancer, Lung Cancer, Prostate Cancer or Testicular Cancer Family History FAMILY HISTORY: Positive Family Respiratory Disorders, Family Cardiac Disorders and Family Cancer; Negative Family Psychiatric Problems, Family Gastrointestinal Problems, Family Surgery or Family Anesthesia Reaction Surgical History SURGICAL: Positive Abdominal Surgery and Bowel Surgery; Negative Cardiac Surgery, Open Heart Surgery, Coronary Artery Bypass Graft, Valve Replacement, Vascular Surgery, Coronary Stent, Cardiac Catheterization, Pacemaker, Angiogram, Auto Implanted Cardiovert Defib, Carotid Endarterectomy, Endocrine Surgery, Thyroidectomy, Ear Surgery, Tympanostomy Tube, Eye Surgery, Nose Surgery, Oral Surgery, Tonsillectomy, Adenoidectomy, Cochlear Implant, Corneal Transplant, Throat Surgery, Tracheostomy, Gastric Bypass Surgery, Gastrostomy, Nephrectomy, Transurethral Resection, Joint Replacement, Amputation, Open Reduction Internal Fixation, Arthroscopy, Neurologic Surgery, Brain Shunt, Mastectomy, Lumpectomy, Hysterectomy, Vasectomy or Organ Transplant Social History SMOKING STATUS: Never smoker SECOND HAND EXPOSURE: No SUBSTANCE USE: does not use ED Exam Narrative Physical exam: Alert and oriented 69-year-old male, with a past medical history of diabetes, venous insufficiency, diverticulosis, esophagitis with gastritis, prostate cancer, hyperlipidemia, hypertension, anemia, atrial fibrillation, NSTEMI, CHF, CVA, and TIA no acute distress. He is currently taking Eliquis. No respiratory distress is noted. Left great toe with skin avulsion with mild bleeding noted to the medial aspect of the left great toe. Previous removal of medial aspect of left great toenail. Course Course Course Narrative: Wound was cleansed and a dressing applied. He was given Tylenol 650 mg p.o. and Keflex 500 mg p.o. X-ray of the left toes reveals IMPRESSION: No acute fracture. No cortical bone destruction. Old fracture deformity third metatarsal Quality Measures none Orders Category Date Time Status Cleanse Wound NEEDED Care 11/01/24 19:56 Completed XR toe LT min 2V Stat Exams 11/01/24 19:57 Completed Acetaminophen Tab [Tylenol Tab] Med 11/01/24 22:16 Discontinued 650 mg PO X1 ONE cephALEXin [Keflex] Med 11/01/24 22:16 Discontinued 500 mg PO X1 ONE Vital Signs Vital signs: Vital Signs Temperature 98.8 F 11/01/24 19:35 Pulse Rate 87 11/01/24 19:35 Respiratory Rate 18 11/01/24 19:35 Blood Pressure 151/74 H 11/01/24 19:35 Pulse Oximetry (%) 97 11/01/24 19:35 Oxygen Delivery Method Room Air 11/01/24 19:35 Extremity Injury, Lower MDM Narrative MDM Narrative:: 69-year-old male, with a past medical history of diabetes, venous insufficiency, diverticulosis, esophagitis with gastritis, prostate cancer, hyperlipidemia, hypertension, anemia, atrial fibrillation, NSTEMI, CHF, CVA, and TIA no acute distress. He is currently taking Eliquis. He presents to the ED with a complaint of left great toe injury secondary to an injury he sustained home. He states he was going to close the door when the door hit his left great toe. He states he is a diabetic and is concerned. His last tetanus was approximately 4 years ago. Alert and oriented 69-year-old male, with a past medical history of diabetes, venous insufficiency, diverticulosis, esophagitis with gastritis, prostate cancer, hyperlipidemia, hypertension, anemia, atrial fibrillation, NSTEMI, CHF, CVA, and TIA no acute distress. He is currently taking Eliquis. No respiratory distress is noted. Left great toe with skin avulsion with mild bleeding noted to the medial aspect of the left great toe. Previous removal of medial aspect of left great toenail. Wound was cleansed and a dressing applied. He was given Tylenol 650 mg p.o. and Keflex 500 mg p.o. X-ray of the left toes reveals IMPRESSION: No acute fracture. No cortical bone destruction. Old fracture deformity third metatarsal Patient data External records reviewed:: [facility] previous records Clinical information provided by:: patient Social determinants that could affect healthcare access:: none Patient has the following chronic illnesses:: Diabetes, hyperlipidemia, CVA, CHF, NSTEMI, A-fib, hypertension, venous insufficiency. How is presenting disease/condition affected by chronic disease/condition?: caused by Evaluation data The following diagnostics were reviewed and interpreted by me:: radiology exam(s) Lab and/or radiology exams considered but not ordered:: N/A Interpretation Summary: X-ray of the left toes reveals IMPRESSION: No acute fracture. No cortical bone destruction. Old fracture deformity third metatarsal Medications / Prescriptions Medications or Prescriptions considered but not ordered:: N/A Medication administrations:: Medication Administration History Discontinued Medications Acetaminophen (Acetaminophen 325 Mg Tablet) 650 mg PO X1 ONE Stop: 11/01/24 22:17 Last Admin: 11/01/24 22:23 Dose: 650 mg Documented By: CORTNEY Cephalexin HCl (Cephalexin 250 Mg Capsule) 500 mg PO X1 ONE Stop: 11/01/24 22:17 Last Admin: 11/01/24 22:23 Dose: 500 mg Documented By: CORTNEY Tylenol 650 mg p.o. and Keflex 500 mg p.o. Consultations Consultation(s) initiated? (list below): No Diagnosis Extremity Injury, Lower Differential Diagnosis: puncture wound of foot, fracture of toe and other (Toe contusion versus paronychia versus skin tear ) Most likely diagnosis given after review of the tests above:: Toe contusion with skin tear Admission Indicated Admission indicated?: not indicated Explain why admission is indicated or not indicated:: Patient is stable for discharge Admission Request Was there a request for admission?: No Disposition Plan Disposition Plan: Discharge Discharge Attestation Discharge Attestation: The patient and all family members were given an opportunity to ask questions and understood the discharge instructions. Discharge instructions specifically effects, indications for sooner follow up or return to the emergency department, and the expected course of current diagnosis. Patient condition: Stable Discharge Plan Plan Patient Disposition: HOME (Self Care) Discharge Disposition comment: Stable and Improved Prescriptions/Referrals Prescriptions/Med Rec: No Action furosemide 20 mg tablet 20 mg PO QDAY (DME) FreeStyle Antonino 14 Day Flushing Misc See Rx Instructions .Route Qty: 1 0RF Rx Instructions: As directed (DME) FreeStyle Antonino 2 Sensor Kit See Rx Instructions .Route Qty: 1 0RF Rx Instructions: As directed (DME) Accu-Chek Angelina Plus test strp Strip See Rx Instructions .Route Qty: 50 0RF Rx Instructions: As directed insulin degludec [Tresiba U-100 Insulin] 100 unit/mL solution 20 unit subcut QDAY Qty: 10 0RF (DME) lancets Misc See Rx Instructions .Route Qty: 100 0RF Rx Instructions: As directed acetaminophen-codeine 300-30 mg tablet 2 tab PO TID MDD 6 PRN (Reason: pain) Qty: 20 0RF gabapentin 400 mg capsule 400 mg PO TID Patient Comments: TOME 1 C PSULA POR V A ORAL YUNIOR VECES AL D A aspirin 81 mg tablet,delayed release (DR/EC) 81 mg PO QDAY Patient Comments: TOME 1 TABLETA POR V A ORAL TODOS LOS D metoprolol succinate 50 mg tablet extended release 24 hr 50 mg PO QDAY Patient Comments: TOME 1 TABLETA POR V A ORAL TODOS LOS D FOR 90 DAYS lisinopril 40 mg Tablet 40 mg PO QDAY atorvastatin 80 mg tablet 80 mg PO DAILY Patient Comments: TOME DRISS TABLETA POR V A ORAL AL ACOSTARSE clonidine HCl 0.2 mg tablet 0.2 mg PO BID Patient Comments: TOME 1 TABLETA POR V A ORAL DOS VECES AL D A PARA LA PRESI N ARTERIAL Eliquis 5 mg tablet 5 mg PO BID Qty: 60 3RF (DME) compress.stocking,knee,reg,lrg Misc See Rx Instructions .Route Qty: 2 0RF Rx Instructions: As directed melatonin 5 mg capsule 5 mg PO HS Qty: 30 0RF tamsulosin 0.4 mg capsule 0.4 mg PO QDAY Qty: 30 0RF Referrals: Mitchel Lima MD [Primary Care Provider] - In 1 week Problem List Clinical Impression: Skin tear, Contusion Patient/Caregiver Discharge Instructions Education Materials: ED Soft Tissue Contusion, ED Skin Avulsion Additional Instructions: [place] los antibioticos wolf lo prescrito y complete elcurso a pesar de que puede sentirse major. Sarita un seguimiento con rodriguez medico de atencion primaria en 24 a 48 horas. Regresar al departamento de emergencias por cualquier sintoma nuevo o que empeore. Print Language: Upper Sorbian Stand Alone Forms: Kellen Award Info., Patient Portal Info Letter PA/MANAGER CONTRACT Supervising Physician PA/MANAGER CONTRACT Supervising Physician: Dr. Hale
--- NOTE | 2024-11-01 19:57 | XR_ITS ---
Examination: Toes, left foot first digit 3 views Technique: Toes AP oblique lateral 3 views first digit 3 views Date and time of exam: November 01, 2024 2016 hours FINDINGS: Severe osteopenia No definite acute fracture IMPRESSION: No acute fracture. No cortical bone destruction Old fracture deformity third metatarsal
[2024-11-01] MEDS: cephALEXin 250 MG CAPSULE 500 MG PO (22:23)
[2024-11-01] MEDS: ACETAMINOPHEN 325 MG TABLET 650 MG PO (22:23)
== END 2024-11-01 23:11 | disposition home or self-care (01) ==
PROVIDERS: Emergency Provider Emergency Medicine; PCP Family Medicine
DX: S91.112A Laceration without foreign body of left great toe without damage to nail, initial encounter (principal); W20.8XXA Other cause of strike by thrown, projected or falling object, initial encounter; Y92.009 Unspecified place in unspecified non-institutional (private) residence as the place of occurrence of the external cause
CPT/HCPCS: 73660; 99283; A9270

== ENCOUNTER → 2024-11-24 | Outpatient (CLI) | payer MEDICARE, MEDICAID, SELFPAY ==
[2024-11-26 17:50] LABS: PSA, Free 0.54 ng/mL; PSA, Total 4.2 ng/mL (< OR = 4.0)
[2024-11-29 09:33] LABS: PSA, % Free 13 % (calc) (>25)
== END | disposition home or self-care (01) ==
LOC: COPL 07:41
PROVIDERS: PCP Family Medicine; Referring Provider Urology; Visit Provider Urology
DX: N40.1 Benign prostatic hyperplasia with lower urinary tract symptoms (principal)
CPT/HCPCS: 36415; 84153; 84154

== ENCOUNTER → 2024-12-03 | Outpatient (BNVA) | payer MEDICARE, MEDICAID, SELFPAY | END | disposition home or self-care (01) | PROVIDERS: PCP Family Medicine; Referring Provider Family Medicine; Visit Provider Urology | DX: N40.1 Benign prostatic hyperplasia with lower urinary tract symptoms (principal); N13.8 Other obstructive and reflux uropathy; Z80.42 Family history of malignant neoplasm of prostate; K46.9 Unspecified abdominal hernia without obstruction or gangrene; E11.9 Type 2 diabetes mellitus without complications; I10 Essential (primary) hypertension; I25.10 Atherosclerotic heart disease of native coronary artery without angina pectoris; Z86.73 Personal history of transient ischemic attack (TIA), and cerebral infarction without residual deficits; E78.00 Pure hypercholesterolemia, unspecified; Z86.718 Personal history of other venous thrombosis and embolism; K21.9 Gastro-esophageal reflux disease without esophagitis | CPT/HCPCS: 81003; 99212; G0463 ==

== ENCOUNTER 2024-12-17 14:23 | Emergency (ER) | payer MEDICARE, MEDICAID, SELFPAY ==
--- NOTE | 2024-12-17 | XR_ITS ---
Examination: MRI brain without intravenous contrast. Date and time of exam: December 17, 2024, 1737 hours INDICATIONS: Onset chest pain and dizziness syncopal episodes beginning 3 days ago, history CVA. Technique: Multiple axial and sagittal images of the brain obtained. Siemens high-resolution 1.5 Kelsey short bore scanners utilized. Sagittal sections, T1-weighted, TR 500, TE 14, are performed. Axial sections proton-density and T2-weighted have been obtained. Inversion recovery axial images, TR 9, 260, TE 111, TI 2500. Diffusion weighted images, axial sections, TR 4800, TE 128, B value 1000 Axial sections, ADC map, TR 4800, TE 128 Findings: Enlargement of the sella turcica is not present. The optic chiasm and infundibular are not remarkable. Prepontine and interpeduncular cisterns are not enlarged. There is no localized enlargement of the medulla or roro. Fourth ventricle and cerebellar tonsils appear normal in position. No subacute area of hemorrhage density is seen. Mass in the cerebellopontine angle region is not evident. Globes symmetrical. Orbital musculature including medial lateral rectus muscles do not exhibit abnormality. Diffusion-weighted images demonstrate no focus of restricted diffusion. Increased white matter signal not significant Retention cysts are present in the bilateral frontal air cells at the superior lateral margins both orbits as well as retention cyst in the left maxillary antrum Mass effect upon the ventricular system is not identified. Impression: Negative for acute hemorrhage, mass effect or midline shift No acute infarct Sinus retention cysts as above
[2024-12-17 14:24] VITALS: BMI 31.0
[2024-12-17 14:47] VITALS: BP 100/61; PULSE 68; RESP 17; TEMP 37.1; O2SAT 97
--- NOTE | 2024-12-17 14:49 | XR_ITS ---
Examination: AP chest single view TECHNIQUE: Upright AP chest single view Date and time: December 17, 2024 1503 hours Comparison September 10, 2024 INDICATIONS: Chest pain beginning one month ago. FINDINGS: Stable blunting of the left lateral costophrenic angle. Normal heart size No interval pneumonia or pulmonary edema IMPRESSION: No interval pneumonia or pulmonary edema
--- NOTE | 2024-12-17 14:49 | EDRME_ITS ---
Rapid Medical Screening Exam [facility] Arrival date/time: 12/17/24 14:23 CC: Lightheaded dizzy with chest pain for 3 days. Lightheaded and dizziness onset approximately 1015 minutes ago patient has significant history for diabetes hypertension hyperlipidemia and stroke. Chief Complaint: Dizziness Vital signs: Vital Signs Temperature 98.7 F 12/17/24 14:47 Pulse Rate 68 12/17/24 14:47 Respiratory Rate 17 12/17/24 14:47 Blood Pressure 100/61 12/17/24 14:47 Pulse Oximetry (%) 97 12/17/24 14:47 Oxygen Delivery Method Room Air 12/17/24 14:47
--- NOTE | 2024-12-17 14:49 | EKG_ITS ---
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
--- NOTE | 2024-12-17 15:41 | PC.NURSE ---
PATIENT BROUGHT TO ROOM WITH COMPLAINT OF WEAKNESS AND CHEST PAIN TIMES 2 DAYS. PATIENT DENIES N/V AND STATES HE HAS HAD SIMILAR ISSUES IN THE PAST. PATIENT PLACED ON GURNEY, PLACED ON MONITOR, IV ESTABLISHED. PATIENT TOLERATED WELL. FAMILY AT BEDSIDE. WILL CONTINUE TO MONITOR PATIENT.
[2024-12-17 15:52] LABS: Basophils # (Auto) 0.0 Thou/mm3 (0.0-0.2); Basophils % (Auto) 0 % (0-2.5); Eosinophils # (Auto) 0.1 Thou/mm3 (0.0-0.5); Eosinophils % (Auto) 1 % (0-10); Hematocrit 30.2 % (41.0-53.0); Hemoglobin 9.6 g/dL (13.5-16.0); Immature Granulocytes Auto 0.02 Thou/mm3 (0.00-0.00); Lymphocytes # (Auto) 1.2 Thou/mm3 (1.0-4.8); Lymphocytes % (Auto) 14 % (10-50); Mean Corpuscular HGB Conc 31.8 g/dl (31.0-37.0); Mean Corpuscular Hemoglobin 24.1 pg (25.0-35.0); Mean Corpuscular Volume 76 fL (80-100); Monocytes # (Auto) 0.6 Thou/mm3 (0.0-0.8); Monocytes % (Auto) 7 % (0-12); Neutrophils # (Auto) 6.6 Thou/mm3 (1.8-7.7); Neutrophils % (Auto) 78 % (37-80); Nucleated Red Blood Cell # 0.00 Thou/mm3 (0.00-0.00); Nucleated Red Blood Cell % 0 /100 WBC (0); Platelet Count 369 Thou/mm3 (140-440); RDW Standard Deviation 42.5 fL (35.1-43.9); Red Blood Count 3.98 Miln/mm3 (4.50-5.90); White Blood Count 8.5 Thou/mm3 (3.8-10.6)
[2024-12-17 16:04] LABS: B-Type Natriuretic Peptide 146 pg/mL (0-100)
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
[2024-12-17 16:15] VITALS: BP 127/88; PULSE 56; RESP 19; TEMP 36.8; O2SAT 98
[2024-12-17 16:21] LABS: INR 1.1 (0.9-1.3); Partial Thromboplastin Time 26.5 Seconds (22.0-36.0); Prothrombin Time 12.4 Seconds (9.0-12.2)
[2024-12-17] MEDS: MECLIZINE HCL 25 MG TABLET PO (16:21)
[2024-12-17] MEDS: SODIUM CHLORIDE 0.9% 1000 ML 1,000 ML 999 ML IV (16:38)
[2024-12-17 16:56] LABS: Alanine Aminotransferase 8 U/L (10-49); Albumin, Serum 3.9 gm/dL (3.4-4.8); Albumin/Globulin Ratio 1.4 (1.2-2.2); Alkaline Phosphatase 126 U/L (46-116); Anion Gap 10 (7-16); Aspartate Amino Transferase < 10 U/L (0-34); BUN/Creatinine Ratio 21 Ratio (12-20); Bilirubin,Total 0.2 mg/dL (0.3-1.2); Blood Urea Nitrogen 17 mg/dL (9-23); Calcium 9.0 mg/dL (8.3-10.6); Calcium (Corrected) 9.1 mg/dL (8.5-10.1); Carbon Dioxide 28.6 mMol/L (20.0-31.0); Chloride 100 mMol/L (98-107); Creatinine (Component) 0.8 mg/dL (0.6-1.3); Estimated Creatinine Clearance 94.5 mL/min (>60); Globulin 2.8 gm/dL (2.3-3.5); Glucose 205 mg/dL (74-106); LDH (Lactate Dehydrogenase) 132 U/L (120-246); Magnesium 1.5 mg/dL (1.6-2.6); Osmolality,Calculated 285 (275-295); Potassium 4.2 mMol/L (3.4-5.1); Sodium 139 mMol/L (136-145); Total Protein 6.7 gm/dL (5.7-8.2); Troponin I < 0.020 ng/mL (0.0-0.045); eGFR > 60 See Note
[2024-12-17 17:34] LABS: Collection Type, Urine Clean Catch; Squamous Epithelial Cell,Urine 0 /hpf (0-5)
[2024-12-17 17:39] LABS: Bilirubin,Urine Negative (Negative); Blood,Urine Negative (Negative); Clarity,Urine Clear (Clear/Hazy); Color,Urine Yellow (Lt Yel-Yel); Glucose, Urine Negative (Negative); Hyaline Casts,Urine < 1 /hpf (0-1); Ketones,Urine Negative (Negative); Leukocyte Esterase,Urine Negative (Negative); Nitrite,Urine Negative (Negative); PH,Urine 6.0 (5.0-7.0); Protein,Urine Negative (Neg - Trace); RBC,Urine 2 /hpf (0-3); Specific Gravity,Urine 1.022 (1.001-1.035); Urobilinogen,Urine Negative mg/dL (0.0-1.0); WBC,Urine 1 /hpf (0-5)
[2024-12-17 17:46] LABS: Amphetamine/Methamp Scrn,U Negative (Negative); Barbiturate Screen,Urine Negative (Negative); Benzodiazepines Screen,Urine Negative (Negative); Benzoylecgonine Screen, Ur Negative (Negative); Fentanyl Screen,Urine Negative (Negative); Opiate Screen,Urine Negative (Negative); THC Screen,Urine Negative (Negative)
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
[2024-12-17 18:38] VITALS: BP 171/65; PULSE 17; PULSE 55; RESP 17; TEMP 37; O2SAT 100
[2024-12-17] MEDS: Magnesium Sulfate 4 GM Ivpb 4 GM/50 ML BAG IV (18:50)
[2024-12-17] MEDS: MAGNESIUM OXIDE 400 MG TABLET PO (19:37)
[2024-12-17 20:07] VITALS: BP 167/67; PULSE 54; RESP 16; TEMP 36.7; O2SAT 100
== END 2024-12-17 20:09 | disposition home or self-care (01) ==
PROVIDERS: Registered Nurse General Practice; Emergency Provider Emergency Medicine; PCP Family Medicine
DX: R42 Dizziness and giddiness (principal); R55 Syncope and collapse; M27.40 Unspecified cyst of jaw; I44.0 Atrioventricular block, first degree; R07.9 Chest pain, unspecified; Z86.73 Personal history of transient ischemic attack (TIA), and cerebral infarction without residual deficits; I10 Essential (primary) hypertension; I48.0 Paroxysmal atrial fibrillation; E78.00 Pure hypercholesterolemia, unspecified
CPT/HCPCS: 36415; 70551; 71045; 80053; 80307; 81001; 83615; 83735; 83880; 84484; 85025; 85610; 85730; 93005; 96361; 96365; 99283; J3475; J7030; A9270

== ENCOUNTER 2025-02-10 08:53 | Emergency (ER) | payer MEDICARE, MEDICAID, SELFPAY ==
[2025-02-10 09:16] VITALS: BP 145/67; PULSE 83; RESP 18; TEMP 36.8; O2SAT 98
[2025-02-10 09:17] VITALS: BMI 30.9
--- NOTE | 2025-02-10 09:21 | XR_ITS ---
Examination: Foot, left, 3 views Technique: AP, oblique, lateral views foot, 3 views Date and time of exam: February 10, 2025, 0949 hours, comparison November 01, 2024 INDICATIONS: Redness swelling and pain involving the foot 3 months, diabetic FINDINGS: Severe osteopenia Old fracture deformity distal third metatarsal Small radiolucent areas in the proximal phalanx first digit Soft tissue swelling about the fifth digit No arthritic change tarsometatarsal joints Soft tissue vascular calcification IMPRESSION: Multiple radiolucencies in the proximal phalanx first digit MRI foot without contrast follow-up would best confirm osteomyelitis at this site
--- NOTE | 2025-02-10 09:21 | XR_ITS ---
Examination: Duplex scan of the lower extremity, unilateral left Date and time of exam: February 10, 2025 0932 hours INDICATIONS: Left lower leg pain beginning 10 months ago Technique: Duplex scan of the extremity veins using B-mode/grayscale imaging and Doppler spectral analysis and color flow Attention is directed to internal echogenicity, compression and augmentation involving these veins, color flow assessment, spectral analysis Findings: Major deep venous structures in the extremity demonstrate normal course and caliber. There is no evidence of deep vein thrombosis. Normal color flow and spectral analysis Impression: Negative for DVT..
--- NOTE | 2025-02-10 09:22 | PD.EDRME ---
Rapid Medical Screening Exam RME Arrival date/time: 02/10/25 08:53 69-year-old male presents to the Emergency Department for complaint of generalized pain and left foot swelling Chief Complaint: General Adult/Misc Complain Time Seen by Provider: 02/10/25 08:57 Vital signs: Vital Signs Temperature 98.2 F 02/10/25 09:16 Pulse Rate 83 02/10/25 09:16 Respiratory Rate 18 02/10/25 09:16 Blood Pressure 145/67 H 02/10/25 09:16 Pulse Oximetry (%) 98 02/10/25 09:16 Oxygen Delivery Method Room Air 02/10/25 09:16
[2025-02-10 10:12] LABS: Basophils # (Auto) 0.1 Thou/mm3 (0.0-0.2); Basophils % (Auto) 1 % (0-2.5); Eosinophils # (Auto) 0.1 Thou/mm3 (0.0-0.5); Eosinophils % (Auto) 1 % (0-10); Hematocrit 30.1 % (41.0-53.0); Hemoglobin 9.1 g/dL (13.5-16.0); Immature Granulocytes Auto 0.06 Thou/mm3 (0.00-0.00); Lymphocytes # (Auto) 1.4 Thou/mm3 (1.0-4.8); Lymphocytes % (Auto) 13 % (10-50); Mean Corpuscular HGB Conc 30.2 g/dl (31.0-37.0); Mean Corpuscular Hemoglobin 21.7 pg (25.0-35.0); Mean Corpuscular Volume 72 fL (80-100); Monocytes # (Auto) 0.8 Thou/mm3 (0.0-0.8); Monocytes % (Auto) 8 % (0-12); Neutrophils # (Auto) 8.0 Thou/mm3 (1.8-7.7); Neutrophils % (Auto) 77 % (37-80); Nucleated Red Blood Cell # 0.00 Thou/mm3 (0.00-0.00); Nucleated Red Blood Cell % 0 /100 WBC (0); Platelet Count 553 Thou/mm3 (140-440); RDW Standard Deviation 40.3 fL (35.1-43.9); Red Blood Count 4.20 Miln/mm3 (4.50-5.90); White Blood Count 10.4 Thou/mm3 (3.8-10.6)
[2025-02-10 10:44] LABS: Alanine Aminotransferase 11 U/L (10-49); Albumin, Serum 4.0 gm/dL (3.4-4.8); Albumin/Globulin Ratio 1.4 (1.2-2.2); Alkaline Phosphatase 142 U/L (46-116); Anion Gap 8 (7-16); Aspartate Amino Transferase 10 U/L (0-34); BUN/Creatinine Ratio 17 Ratio (12-20); Bilirubin,Total 0.3 mg/dL (0.3-1.2); Blood Urea Nitrogen 10 mg/dL (9-23); Calcium 9.1 mg/dL (8.3-10.6); Calcium (Corrected) 9.1 mg/dL (8.5-10.1); Carbon Dioxide 30.2 mMol/L (20.0-31.0); Chloride 100 mMol/L (98-107); Creatinine (Component) 0.6 mg/dL (0.6-1.3); Estimated Creatinine Clearance 125.9 mL/min (>60); Globulin 2.8 gm/dL (2.3-3.5); Glucose 248 mg/dL (74-106); Lipase 31 U/L (12-53); Osmolality,Calculated 282 (275-295); Potassium 4.7 mMol/L (3.4-5.1); Sodium 138 mMol/L (136-145); Total Protein 6.8 gm/dL (5.7-8.2); eGFR > 60 See Note
[2025-02-10 10:57] LABS: Collection Type, Urine Clean Catch
[2025-02-10 11:13] LABS: Bacteria,Urine Rare; Bilirubin,Urine Negative (Negative); Blood,Urine Negative (Negative); Clarity,Urine Turbid (Clear/Hazy); Color,Urine Yellow (Lt Yel-Yel); Culture Indicated,Urine Not Indicated; Glucose, Urine Negative (Negative); Ketones,Urine Negative (Negative); Leukocyte Esterase,Urine Negative (Negative); Nitrite,Urine Negative (Negative); PH,Urine 6.5 (5.0-7.0); Protein,Urine 1+ (Neg - Trace); RBC,Urine 10 /hpf (0-3); Specific Gravity,Urine 1.026 (1.001-1.035); Squamous Epithelial Cell,Urine < 1 /hpf (0-5); Urobilinogen,Urine Negative mg/dL (0.0-1.0); WBC,Urine 1 /hpf (0-5)
--- NOTE | 2025-02-10 13:57 | PD.EDADULT ---
ED General RME/HPI General Chief complaint: General Adult/Misc Complain Stated complaint: gen. body pain, sorethroat x 1 week Time Seen by Provider: 02/10/25 08:57 Arrival date/time: 02/10/25 08:53 RME / HPI RME / HPI narrative: 69-year-old male patient came in for evaluation regarding sore throat. Patient is having sore throat for more than a month, described as painful swallowing, severity mild. Patient still able to eat solid food and drink water without any difficulty. Denies any vomiting. Patient also complaining of generalized bodyaches. Denies any other complaints. Patient also complained of right foot pain, on the plantar aspect, has been ongoing for several months, seen by mix mill tender, and currently wearing special Ortho shoe. Denies any redness denies any wound denies any other complaints. No medication was taken prior to ER visit. Related Data Home Medications ?Medication ?Instructions ?Recorded ?Confirmed furosemide 20 mg tablet 20 mg PO QDAY 03/01/24 12/03/24 atorvastatin 80 mg tablet 80 mg PO DAILY 06/01/24 12/03/24 clonidine HCl 0.2 mg tablet 0.2 mg PO BID 06/01/24 12/03/24 lisinopril 40 mg tablet 40 mg PO QDAY 06/01/24 12/03/24 aspirin 81 mg tablet,delayed 81 mg PO QDAY 07/03/24 12/03/24 release Held on 07/06/24. Instructions: Resume on 07/20/24. HOLD until follow up with PCP gabapentin 400 mg capsule 400 mg PO TID 07/03/24 12/03/24 metoprolol succinate 50 mg 50 mg PO QDAY 07/03/24 12/03/24 tablet,extended release 24 hr Previous Rx's ?Medication ?Instructions ?Recorded blood sugar diagnostic (Accu-Chek #50 ea 12/18/21 Angelina Plus test strips) flash glucose scanning reader #1 ea 12/18/21 (FreeStyle Antonino 14 Day Metaline) flash glucose sensor (FreeStyle #1 ea 12/18/21 Antonino 2 Sensor kit) insulin degludec 100 unit/mL 20 unit (0.2 mL) subcut QDAY #10 mL 12/18/21 subcutaneous solution (Tresiba U-100 Insulin) lancets #100 ea 12/18/21 apixaban 5 mg tablet (Eliquis) 5 mg PO BID #60 tabs 06/01/24 compress.stocking,knee,reg,lrg #2 ea 06/02/24 melatonin 5 mg capsule 5 mg PO HS #30 caps 06/02/24 tamsulosin 0.4 mg capsule 0.4 mg PO QDAY #30 caps 06/02/24 acetaminophen 300 mg-codeine 30 mg 2 tab PO TID PRN pain #20 tabs 06/30/24 tablet meclizine 25 mg tablet 25 mg PO TID #14 tabs 12/17/24 acetaminophen 300 mg-codeine 30 mg 1 tab PO Q8H PRN pain #20 tabs 02/10/25 tablet pantoprazole 40 mg tablet,delayed 40 mg PO QDAY #20 tabs 02/10/25 release (Protonix) Allergies Allergy/AdvReac Type Severity Reaction Status Date / Time No Known Allergies Allergy Verified 02/10/25 08:56 Review of Systems Review of Systems Narrative Review of Systems: Review of system reviewed and within normal limits except mentioned in HPI ED Exam Narrative Physical exam: VITAL SIGNS: Reviewed. GENERAL APPEARANCE: Alert and interactive, follows commands, no acute distress, HEAD AND FACE: Non-traumatic. ENT: PERRL, pink conjunctivitis, eyelid no trauma, Mucous membrane moist., Tonsils not enlarged, no exudates, uvula in the midline NECK: Supple, nontender, no nuchal rigidity. CHEST: No tenderness, no crepitus, no paradoxical movement, no retractions. LUNGS: Clear, well ventilated, symmetric, no rales, no wheezing, no ronchi, no stridor, good breath sounds bilaterally. HEART: Regular rate, regular rhythm, no murmur, no gallops. ABDOMEN: Soft, positive bowel sounds, nondistended, no guarding, nontender, no rebound, no masses, RECTAL: Deferred. GENITAL: Deferred. NEUROLOGICAL: Gross motor function intact sensory function intact, Appropriate for age. MUSCULOSKELETAL: low back nontender, full range of motion. EXTREMITIES: No swelling no redness no wound noted on the left foot, except for significant flatfoot noted, full range of motion. Distal neurovascular status intact. SKIN: Color pink, dry, no rash, no lacerations, no abrasions, no contusions. LYMPHATICS: Deferred. Course Quality Measures none Orders Category Date Time Status Bedside COVID-19 Antigen Test NOW Care 02/10/25 08:59 Active Bedside Influenza A&B Antigen Test NOW Care 02/10/25 08:59 Completed US venous doppler LE LT Stat Exams 02/10/25 09:21 Completed XR foot comp LT min 3V Stat Exams 02/10/25 09:21 Completed CBC Stat Lab 02/10/25 10:04 Completed Comprehensive Metabolic Panel Stat Lab 02/10/25 10:04 Completed Lipase Stat Lab 02/10/25 10:04 Completed Strep A Rapid Stat Lab 02/10/25 13:40 Completed UA, C/S IF [Urinalysis, C/S if Indicated] Stat Lab 02/10/25 10:50 Completed Vital Signs Vital signs: Vital Signs Temperature 98.2 F 02/10/25 09:16 Pulse Rate 83 02/10/25 09:16 Respiratory Rate 18 02/10/25 09:16 Blood Pressure 145/67 H 02/10/25 09:16 Pulse Oximetry (%) 98 02/10/25 09:16 Oxygen Delivery Method Room Air 02/10/25 09:16 Discharge Plan Plan Patient Disposition: HOME (Self Care) Discharge Disposition comment: Stable Prescriptions/Referrals Prescriptions/Med Rec: New acetaminophen-codeine 300-30 mg tablet 1 tab PO Q8H PRN (Reason: pain) Qty: 20 0RF pantoprazole [Protonix] 40 mg tablet,delayed release (DR/EC) 40 mg PO QDAY Qty: 20 0RF No Action furosemide 20 mg tablet 20 mg PO QDAY (DME) FreeStyle Antonino 14 Day Metaline Misc See Rx Instructions .Route Qty: 1 0RF Rx Instructions: As directed (DME) FreeStyle Antonino 2 Sensor Kit See Rx Instructions .Route Qty: 1 0RF Rx Instructions: As directed (DME) Accu-Chek Angelina Plus test strp Strip See Rx Instructions .Route Qty: 50 0RF Rx Instructions: As directed insulin degludec [Tresiba U-100 Insulin] 100 unit/mL solution 20 unit subcut QDAY Qty: 10 0RF (DME) lancets Misc See Rx Instructions .Route Qty: 100 0RF Rx Instructions: As directed acetaminophen-codeine 300-30 mg tablet 2 tab PO TID MDD 6 PRN (Reason: pain) Qty: 20 0RF gabapentin 400 mg capsule 400 mg PO TID Patient Comments: MOO 1 C PSULA POR V A ORAL YUNIOR VECES AL D A aspirin 81 mg tablet,delayed release (DR/EC) 81 mg PO QDAY Patient Comments: MOO 1 TABLETA POR V A ORAL TODOS LOS D metoprolol succinate 50 mg tablet extended release 24 hr 50 mg PO QDAY Patient Comments: OMO 1 TABLETA POR V A ORAL TODOS LOS D FOR 90 DAYS lisinopril 40 mg Tablet 40 mg PO QDAY atorvastatin 80 mg tablet 80 mg PO DAILY Patient Comments: MOO DRISS TABLETA POR V A ORAL AL ACOSTARSE clonidine HCl 0.2 mg tablet 0.2 mg PO BID Patient Comments: MOO 1 TABLETA POR V A ORAL DOS VECES AL D A PARA LA PRESI N ARTERIAL Eliquis 5 mg tablet 5 mg PO BID Qty: 60 3RF (DME) compress.stocking,knee,reg,lrg Misc See Rx Instructions .Route Qty: 2 0RF Rx Instructions: As directed melatonin 5 mg capsule 5 mg PO HS Qty: 30 0RF tamsulosin 0.4 mg capsule 0.4 mg PO QDAY Qty: 30 0RF meclizine 25 mg tablet 25 mg PO TID Qty: 14 0RF Referrals: Mitchel Lima MD [Primary Care Provider, Family Practice] - In 1 week Problem List Clinical Impression: Chronic foot pain, Dysphagia Patient/Caregiver Discharge Instructions Discharge Activity: activity as tolerated Education Materials: Dysphagia: Exercises Additional Instructions: Thank you for the opportunity for serving you today. You are stable for discharged . You are advised to: Follow-up with your PCP in 1 to 2 days Return to ED for worsening of symptoms Increase oral fluids Take medication as prescribed As your PCP to refer you to a GI specialist for further evaluation regarding dysphagia. Possible outpatient endoscopy. Print Language: Uzbek Stand Alone Forms: Kellen Award Info., Patient Portal Info Letter PA/PHILOSOPHY PROFESSOR Supervising Physician LAURA/CARLOS Supervising Physician: MD Alexia MDM Narrative MDM hospital course (for use when minimal MDM required): 69-year-old male patient came in for evaluation regarding sore throat. Patient is having sore throat for more than a month, described as painful swallowing, severity mild. Patient still able to eat solid food and drink water without any difficulty. Denies any vomiting. Patient also complaining of generalized bodyaches. Denies any other complaints. Patient also complained of right foot pain, on the plantar aspect, has been ongoing for several months, seen by mix mill tender, and currently wearing special Ortho shoe. Denies any redness denies any wound denies any other complaints. No medication was taken prior to ER visit CBC showed anemia of 9.1, hematocrit of 30.1. Patient has significant history of chronic anemia. Patient CMP unremarkable except for slightly elevated alkaline phos, lipase is normal. Ultrasound of the lower extremities negative for DVT, x-ray of the foot showed radiolucencies noted on the proximal phalanx of the first digit right foot. Clinically there is no sign of redness or wound to the foot. Patient was advised to see GI specialist for outpatient endoscopy to rule out the source of the dysphagia. Patient has been having dysphagia for more than a month. Patient was also advised to follow-up again with mix mill tender. Patient probably needs to adjust Ortho shoe. Patient will be sent home on Protonix. Stable for discharge home
[2025-02-10 14:06] LABS: Strep A Rapid Negative (Negative)
== END 2025-02-10 16:10 | disposition home or self-care (01) ==
PROVIDERS: Nurse Practitioner Primary Care; Emergency Provider Emergency Medicine; PCP Family Medicine
DX: R13.10 Dysphagia, unspecified (principal); M79.662 Pain in left lower leg
CPT/HCPCS: 36415; 73630; 80053; 81001; 83690; 85025; 87400; 87651; 87811; 93971; 99284

== ENCOUNTER → 2025-02-28 | Outpatient (CLI) | payer MEDICARE, MEDICAID, SELFPAY ==
[2025-02-28 12:09] LABS: Basophils # (Auto) 0.1 Thou/mm3 (0.0-0.2); Basophils % (Auto) 1 % (0-2.5); Eosinophils # (Auto) 0.1 Thou/mm3 (0.0-0.5); Eosinophils % (Auto) 1 % (0-10); Hematocrit 31.5 % (41.0-53.0); Hemoglobin 9.5 g/dL (13.5-16.0); Immature Granulocytes Auto 0.07 Thou/mm3 (0.00-0.00); Lymphocytes # (Auto) 1.9 Thou/mm3 (1.0-4.8); Lymphocytes % (Auto) 17 % (10-50); Mean Corpuscular HGB Conc 30.2 g/dl (31.0-37.0); Mean Corpuscular Hemoglobin 21.2 pg (25.0-35.0); Mean Corpuscular Volume 70 fL (80-100); Monocytes # (Auto) 0.8 Thou/mm3 (0.0-0.8); Monocytes % (Auto) 7 % (0-12); Neutrophils # (Auto) 8.3 Thou/mm3 (1.8-7.7); Neutrophils % (Auto) 75 % (37-80); Nucleated Red Blood Cell # 0.00 Thou/mm3 (0.00-0.00); Nucleated Red Blood Cell % 0 /100 WBC (0); Platelet Count 587 Thou/mm3 (140-440); RDW Standard Deviation 40.5 fL (35.1-43.9); Red Blood Count 4.49 Miln/mm3 (4.50-5.90); White Blood Count 11.1 Thou/mm3 (3.8-10.6)
[2025-02-28 12:22] LABS: Anion Gap 9 (7-16); BUN/Creatinine Ratio 18 Ratio (12-20); Blood Urea Nitrogen 11 mg/dL (9-23); Calcium 9.4 mg/dL (8.3-10.6); Carbon Dioxide 30.1 mMol/L (20.0-31.0); Chloride 102 mMol/L (98-107); Creatinine (Component) 0.6 mg/dL (0.6-1.3); Glucose 145 mg/dL (74-106); Osmolality,Calculated 283 (275-295); Potassium 4.4 mMol/L (3.4-5.1); Sodium 141 mMol/L (136-145); eGFR > 60 See Note
[2025-02-28 12:24] LABS: INR 1.1 (0.9-1.3); Partial Thromboplastin Time 25.7 Seconds (22.0-36.0); Prothrombin Time 11.9 Seconds (9.0-12.2)
== END | disposition home or self-care (01) ==
LOC: COPL 11:00
PROVIDERS: PCP Family Medicine; Referring Provider Internal Medicine; Visit Provider Internal Medicine
DX: I25.10 Atherosclerotic heart disease of native coronary artery without angina pectoris (principal); I48.91 Unspecified atrial fibrillation
CPT/HCPCS: 36415; 80048; 85025; 85610; 85730

== ENCOUNTER 2025-05-09 02:08 | Inpatient (IN) | payer MEDICARE, MEDICAID, SELFPAY ==
[2025-05-09] VITALS (21 sets, daily range): BP systolic 123–212; BP diastolic 47–74; PULSE 49–71; RESP 14–24; TEMP 36.4–37; O2SAT 93–98; BMI 31.9
--- NOTE | 2025-05-09 02:20 | EKG_ITS ---
[facility] Test Date: 2025-05-09 Pat Name: RHINA GARDUNO Department: Room: - Gender: Male Rn Embedded: : 1955 Requested By: ED Temporary Provider Order Number: [id number] Reading MD: ED Temporary Provider Measurements Intervals [place] Rate: 58 P: 28 OK: 232 QRS: -13 QRSD: 108 T: 80 QT: 426 QTc: 419 Interpretive Statements SINUS BRADYCARDIA WITH FIRST DEGREE AV BLOCK LEFT VENTRICULAR HYPERTROPHY AND ST-T CHANGE [VOLTAGE CRITERIA PLUS ST/T ABNORMALITY] Compared to ECG 12/17/2024 14:53:27 Left ventricular hypertrophy now present ST (T wave) deviation now present Sinus rhythm no longer present Early repolarization no longer present T-wave abnormality no longer present Possible ischemia no longer present /store/S0/[id number].pdf
--- NOTE | 2025-05-09 02:35 | EKG_ITS ---
[facility] Test Date: 2025-05-09 Pat Name: RHINA GARDUNO Department: Room: - Gender: Male Chorus Dancer: ALANNA : 1955 Requested By: Ilan Baca Order Number: [id number] Reading MD: Ilan Baca Measurements Intervals [place] Rate: 58 P: 25 ND: 234 QRS: 36 QRSD: 117 T: 35 QT: 443 QTc: 437 Interpretive Statements SINUS BRADYCARDIA WITH FIRST DEGREE AV BLOCK MODERATE INTRAVENTRICULAR CONDUCTION DELAY NONSPECIFIC ST & T-WAVE ABNORMALITY Compared to ECG 05/09/2025 02:44:20 Intraventricular conduction delay now present T-wave abnormality now present Left ventricular hypertrophy no longer present ST (T wave) deviation no longer present /store/S0/[id number].pdf
--- NOTE | 2025-05-09 02:35 | XR_ITS ---
EXAMINATION: PA chest single view TECHNIQUE: Upright PA chest single view Date and time: May 09, 2025, 0243 hours, comparison December 17, 2024 INDICATIONS: Chest pain shortness of breath today. FINDINGS: Mild heart failure. Mild enlargement cardiac contour, prominent vascular congestion with septal edema at the lung bases, consider superimposed pneumonia right base Large left pleural effusion Moderate osteopenia IMPRESSION: Mild heart failure Pneumonia right base Large left pleural effusion
--- NOTE | 2025-05-09 02:36 | PD.EDRME ---
Rapid Medical Screening Exam RME Arrival date/time: 05/09/25 02:08 This is a case of 70-year-old male who came in in the emergency room came in due to chest pain and shortness of breath patient have history of hypertension diabetes and heart disease patient daughter states that due to worsening of the symptoms thus decided to bring the patient here in the emergency room Chief Complaint: Chest Pain Time Seen by Provider: 05/09/25 02:34 Vital signs: Vital Signs Temperature 98.5 F 05/09/25 02:25 Pulse Rate 65 05/09/25 02:25 Respiratory Rate 17 05/09/25 02:25 Blood Pressure 157/64 H 05/09/25 02:25 Pulse Oximetry (%) 95 05/09/25 02:25 Oxygen Delivery Method Room Air 05/09/25 02:25 Exam: Wheezing both lower lung nesbitt no crackles no rales no retraction no stridor normal rate regular rhythm no murmur Clinical Impression: Chest pain shortness of breath
[2025-05-09 03:39] LABS: Basophils # (Auto) 0.0 Thou/mm3 (0.0-0.2); Basophils % (Auto) 0 % (0-2.5); Eosinophils # (Auto) 0.2 Thou/mm3 (0.0-0.5); Eosinophils % (Auto) 2 % (0-10); Hematocrit 25.6 % (41.0-53.0); Immature Granulocytes Auto 0.02 Thou/mm3 (0.00-0.00); Lymphocytes # (Auto) 1.5 Thou/mm3 (1.0-4.8); Lymphocytes % (Auto) 16 % (10-50); Mean Corpuscular HGB Conc 28.9 g/dl (31.0-37.0); Mean Corpuscular Hemoglobin 18.7 pg (25.0-35.0); Mean Corpuscular Volume 65 fL (80-100); Monocytes # (Auto) 0.8 Thou/mm3 (0.0-0.8); Monocytes % (Auto) 9 % (0-12); Neutrophils # (Auto) 6.7 Thou/mm3 (1.8-7.7); Neutrophils % (Auto) 73 % (37-80); Nucleated Red Blood Cell # 0.00 Thou/mm3 (0.00-0.00); Nucleated Red Blood Cell % 0 /100 WBC (0); Platelet Count 439 Thou/mm3 (140-440); RDW Standard Deviation 42.6 fL (35.1-43.9); Red Blood Count 3.95 Miln/mm3 (4.50-5.90); White Blood Count 9.3 Thou/mm3 (3.8-10.6)
[2025-05-09 03:54] LABS: Hemoglobin 7.4 g/dL (13.5-16.0)
[2025-05-09 03:54] LABS: Collection Type, Urine Voided
[2025-05-09 04:01] LABS: B-Type Natriuretic Peptide 422 pg/mL (0-100); D-Dimer 657 ng/mL (<600)
[2025-05-09 04:04] LABS: Bacteria,Urine Rare; Bilirubin,Urine Negative (Negative); Blood,Urine Negative (Negative); Clarity,Urine Clear (Clear/Hazy); Color,Urine Lt-Yellow (Lt Yel-Yel); Glucose, Urine Negative (Negative); Ketones,Urine Negative (Negative); Leukocyte Esterase,Urine Negative (Negative); Nitrite,Urine Negative (Negative); PH,Urine 7.5 (5.0-7.0); Protein,Urine Trace (Neg - Trace); RBC,Urine 1 /hpf (0-3); Specific Gravity,Urine 1.027 (1.001-1.035); Squamous Epithelial Cell,Urine 1 /hpf (0-5); Urobilinogen,Urine 2.0 mg/dL (0.0-1.0); WBC,Urine < 1 /hpf (0-5)
[2025-05-09 04:05] LABS: Alanine Aminotransferase < 7 U/L (10-49); Albumin, Serum 3.7 gm/dL (3.4-4.8); Albumin/Globulin Ratio 1.2 (1.2-2.2); Alkaline Phosphatase 129 U/L (46-116); Anion Gap 7 (7-16); Aspartate Amino Transferase < 10 U/L (0-34); BUN/Creatinine Ratio 24 Ratio (12-20); Bilirubin,Total 0.3 mg/dL (0.3-1.2); Blood Urea Nitrogen 17 mg/dL (9-23); Calcium 7.7 mg/dL (8.3-10.6); Calcium (Corrected) 7.9 mg/dL (8.5-10.1); Carbon Dioxide 30.0 mMol/L (20.0-31.0); Chloride 104 mMol/L (98-107); Creatinine (Component) 0.7 mg/dL (0.6-1.3); Estimated Creatinine Clearance 108.0 mL/min (>60); Globulin 3.1 gm/dL (2.3-3.5); Glucose 138 mg/dL (74-106); Osmolality,Calculated 284 (275-295); Potassium 4.6 mMol/L (3.4-5.1); Sodium 141 mMol/L (136-145); Total Protein 6.8 gm/dL (5.7-8.2); eGFR > 60 See Note
[2025-05-09 04:08] LABS: Troponin I 0.421 ng/mL (0.0-0.045)
[2025-05-09 05:04] LABS: Path Review Blood Smear Sent to Pathologist
[2025-05-09 06:34] LABS: Troponin I 0.448 ng/mL (0.0-0.045)
--- NOTE | 2025-05-09 06:43 | XR_ITS ---
Examination: CTA chest with intravenous contrast 2-D reconstructions 3-D reconstructions, vascular Date and time of exam: May 09, 2025, 0747 hours INDICATIONS: Chest pain shortness of breath beginning 3 days ago CTDI: vol (mGy) 17.1 DLP: (mGycm) 409 Technique: Multiple axial sections of the thorax have been obtained. 3 mm slice thickness, from below the hemidiaphragms to above the apices of the lungs. Mediastinal and lung density settings have been obtained. 2-D sagittal and coronal reconstructions. 3-D angiographic renderings, 3-D volume renderings, 3D post processing, vascular maximum intensity projections obtained. Contrast administered is 100 cc Isovue-370. Low dose protocols were performed. One or more of the following dose reduction techniques were used; automated exposure control, adjustment of the mA and/or KV according to patient size, use of iterative reconstruction technique. Findings: No thoracic aortic aneurysm dilatation or dissection No pulmonary artery filling defects Small tracheobronchial lymph nodes Prominent vascular congestion with septal edema Pneumonia both bases Mild right moderate left pleural fluid Liver mildly irregular in contour No liver or splenic lesion No gallstones No pancreatic mass Significant osteopenia IMPRESSION: Negative for pulmonary artery emboli Mild to moderate heart failure with interstitial pulmonary edema Pneumonia both bases Mild right moderate left pleural fluid
--- NOTE | 2025-05-09 06:44 | PD.EDCHEST ---
ED Chest Pain RME/HPI General Chief Complaint: Chest Pain Stated Complaint: CHEST PAIN, FEELS SOB Time Seen by Provider: 05/09/25 02:34 Arrival date/time: 05/09/25 02:08 RME / HPI RME / HPI narrative: 05/09/25 02:08 This is a case of 70-year-old male who came in in the emergency room came in due to chest pain and shortness of breath patient have history of hypertension diabetes and heart disease patient daughter states that due to worsening of the symptoms thus decided to bring the patient here in the emergency room MAIN ED EVALUATION DR. ABURTO 0630hrs 70-year-old male coming in for evaluation of chest burning pain and shortness of breath with dyspnea on exertion that has been ongoing mainly for the past 3 days. Does note that he has had some shortness of breath over the past month though again this is worse over the last 3 days. He has also had recently nausea and feeling of dizziness at times and left arm pains with tingling to the hands. Denies any vomiting, diarrhea, constipation, abdominal pain, fever. Has had slight occasional cough at night the last few nights. Past medical history significant for stroke, diabetes, hypertension, pneumonia, congestive heart failure, heart murmur, anemia. Notes that he also has a history of and GI bleed about a year ago for which he had a transfusion as well as an EGD and colonoscopy. Notes that he was found to have abnormalities on his EGD with a normal colonoscopy at that time. Did receive 3 units of blood then. Denies any current dark stools or blood in stool. Having yellow stools currently. Related Data Home Medications ?Medication ?Instructions ?Recorded ?Confirmed furosemide 20 mg tablet 20 mg PO QDAY 03/01/24 05/09/25 clonidine HCl 0.2 mg tablet 0.2 mg PO BID 06/01/24 05/09/25 lisinopril 40 mg tablet 40 mg PO QDAY 06/01/24 05/09/25 aspirin 81 mg tablet,delayed 81 mg PO QDAY 07/03/24 05/09/25 release gabapentin 400 mg capsule 400 mg PO TID 07/03/24 05/09/25 metoprolol succinate 50 mg 50 mg PO QDAY 07/03/24 05/09/25 tablet,extended release 24 hr duloxetine 30 mg capsule,delayed 30 mg PO .QD 05/09/25 05/09/25 release metformin 500 mg tablet 500 mg PO QPM 05/09/25 05/09/25 omeprazole 20 mg capsule,delayed 20 mg PO .QD 05/09/25 05/09/25 release Previous Rx's ?Medication ?Instructions ?Recorded blood sugar diagnostic (Accu-Chek #50 ea 12/18/21 Angelina Plus test strips) flash glucose scanning reader #1 ea 12/18/21 (FreeStyle Antonino 14 Day [place]) flash glucose sensor (FreeStyle #1 ea 12/18/21 Antonino 2 Sensor kit) insulin degludec 100 unit/mL 20 unit (0.2 mL) subcut QDAY #10 mL 12/18/21 subcutaneous solution (Tresiba U-100 Insulin) lancets #100 ea 12/18/21 apixaban 5 mg tablet (Eliquis) 5 mg PO BID #60 tabs 06/01/24 compress.stocking,knee,reg,lrg #2 ea 06/02/24 tamsulosin 0.4 mg capsule 0.4 mg PO QDAY #30 caps 06/02/24 Allergies Allergy/AdvReac Type Severity Reaction Status Date / Time No Known Allergies Allergy Verified 02/10/25 08:56 Review of Systems Review of Systems Systems Reviewed: All systems reviewed, normal except as documented Past Medical History Past Medical History Comments PMH COMMENT: DM, HTN, CVA, pneumonia, CHF, anemia ED Exam Narrative Physical exam: Constitutional: Awake, alert, elderly, nontoxic, does not appear in acute distress at this time. HEENT: Normocephalic, atraumatic, extraocular movements intact. CV: Regular rate and rhythm, systolic murmur noted. Lungs: Rales noted to bilateral bases. Does not appear in acute respiratory distress at this time. Sats are 98% on room air. Abd: Soft, NT, ND, no HSM noted to palpation Neuro: AAOx3, CN 2-12 GIBL, no acute neuro deficit noted. Skin: Warm, dry, intact Course Course Course Narrative: 854h: Spoke with hospitalist team see resident regarding patient's presentation and ED course thus far. They will be down to see patient for admission. Currently vitally stable. Blood pressure was elevated in the 190s over 70s earlier but is down to 177/72 currently. Does have history of hypertension and has not yet taken AM meds - will be added now. Quality Measures none Orders Category Date Time Status COVID-19 Screening Questionnaire NOW Care 05/09/25 09:05 Active Decision to Admit X1 Care 05/09/25 09:05 Active EKG (ED ONLY) *Do not use* NOW Care 05/09/25 02:20 Completed EKG (ED ONLY) *Do not use* NOW Care 05/09/25 02:35 Completed Insert IV NOW Care 05/09/25 05:19 Active Transfuse,blood/blood products ONCE Care 05/09/25 06:[address] angio chest Stat Exams 05/09/25 06:43 Completed EKG (ED Only) Stat Exams 05/09/25 02:20 Draft EKG (ED Only) Stat Exams 05/09/25 02:35 Ordered XR chest 1V Stat Exams 05/09/25 02:35 Completed BNP [B-Type Natriuretic Peptide] Stat Lab 05/09/25 03:27 Completed CBC Stat Lab 05/09/25 03:27 Completed CMP [Comprehensive Metabolic Panel] Stat Lab 05/09/25 03:27 Completed D-Dimer Stat Lab 05/09/25 03:27 Completed Path Review Blood Smear Stat Lab 05/09/25 03:27 Completed Troponin I Stat Lab 05/09/25 03:27 Completed Troponin I Stat Lab 05/09/25 05:23 Completed Type and Screen Stat Lab 05/09/25 05:23 Results Urinalysis Stat Lab 05/09/25 03:49 Completed prbc [Red Blood Cells] Stat Lab 05/09/25 05:23 Results Albuterol/Ipratr Rt Zakia [Duoneb Rt Zakia] Med 05/09/25 02:35 Discontinued 3 ml INH X1 ONE Furosemide Inj [Lasix Inj] Med 05/09/25 08:53 Discontinued 80 mg IVP X1 ONE Lisinopril [Prinivil] Med 05/09/25 08:57 Discontinued 40 mg PO X1 ONE cloNIDine HCL [Catapres] Med 05/09/25 08:57 Discontinued 0.2 mg PO X1 ONE Vital Signs Vital signs: Vital Signs Temperature 98.5 F 05/09/25 02:25 Pulse Rate 65 05/09/25 02:25 Respiratory Rate 17 05/09/25 02:25 Blood Pressure 157/64 H 05/09/25 02:25 Pulse Oximetry (%) 95 05/09/25 02:25 Oxygen Delivery Method Room Air 05/09/25 02:25 Chest Pain MDM Narrative MDM Narrative:: 70-year-old male coming in for evaluation of chest pain and shortness of breath/dyspnea on exertion that has been ongoing for a little while but is worse over the past 3 days. Has history significant for congestive heart failure, diabetes, hypertension, stroke. Workup ordered including labs and imaging. Labs with concerning findings including hemoglobin of 7.4 which is decreased from baseline of 9 g, corrected calcium of 7.9, troponin of 0.448, BNP of 422, and chest x-ray showing effusion to left base. A CT angio was added of chest for further evaluation revealing pulmonary edema as well as bilateral pleural effusions consistent with heart failure exacerbation. Elevated troponin possibly secondary to same. Will require admission for further management inpatient. Transfusion was ordered given dip in hemoglobin from previous baseline and heart disease. Would hold off on anticoagulation at this point given the anemia and history of GI bleeds in the past. Patient data External records reviewed:: [facility] previous records Clinical information provided by:: patient and family Social determinants that could affect healthcare access:: none Patient has the following chronic illnesses:: Diabetes, hypertension, CVA, CHF, anemia How is presenting disease/condition affected by chronic disease/condition?: exacerbated by Evaluation data The following diagnostics were reviewed and interpreted by me:: lab results and radiology exam(s) Lab and/or radiology exams considered but not ordered:: none Interpretation Summary: as above Medications / Prescriptions Medications or Prescriptions considered but not ordered:: none Medication administrations:: Medication Administration History Discontinued Medications Albuterol/Ipratropium (Albuterol/Ipratropium (Duoneb) Rt Zakia 3 Ml Nebu) 3 ml INH X1 ONE Stop: 05/09/25 02:36 Last Admin: 05/09/25 03:01 Dose: Not Given Documented By: OA Non-Admin Reason: Discontinued Clonidine (Clonidine Hcl 0.1 Mg Tablet) 0.2 mg PO X1 ONE Stop: 05/09/25 08:58 Furosemide (Furosemide Inj 10 Mg/Ml 4ml Vial) 80 mg IVP X1 ONE Stop: 05/09/25 08:54 Lisinopril (Lisinopril 20 Mg Tablet) 40 mg PO X1 ONE Stop: 05/09/25 08:58 . Consultations Consultation(s) initiated? (list below): Yes Diagnosis Chest Pain Differential Diagnosis: stable angina, unstable angina pectoris, atypical chest pain, st elevation myocardial infarction, chest pain and other Most likely diagnosis given after review of the tests above:: CHF exacerbation, elevated troponin, pleural effusions, anemia Admission Indicated Admission indicated?: indicated Admission Request Was there a request for admission?: Yes Admission Attestation Admission request attestation: Discussed case with [] from Hospitalist service regarding admission. Discussed patients ED course, exam findings, labs, and radiology results. The Hospitalist [agrees,declines] to accept the patient for admission. Disposition Plan Disposition Plan: Admit Critical Care Time Critical Care Time Critical Care Time: Yes Total Critical Care Time (min.): 40 Attestation: The high probability of a clinically significant, sudden or life threatening deterioration required my full and direct attention, intervention and personal management. The aggregate critical care time was [40] minutes. This time is in addition to time spent performing reported procedures but includes the following: [x] Data Review and interpretation [x] Patient assessment and monitoring of vital signs [x] Documentation [x] Medication orders and management Discharge Plan Plan Patient Disposition: Admit Acute Care w/in Hospital Patient condition on transfer: Stable Prescriptions/Referrals Prescriptions/Med Rec: No Action furosemide 20 mg tablet 20 mg PO QDAY (DME) FreeStyle Antonino 14 Day [place] Misc See Rx Instructions .Route Qty: 1 0RF Rx Instructions: As directed (DME) FreeStyle Antonino 2 Sensor Kit See Rx Instructions .Route Qty: 1 0RF Rx Instructions: As directed (DME) Accu-Chek Angelina Plus test strp Strip See Rx Instructions .Route Qty: 50 0RF Rx Instructions: As directed insulin degludec [Tresiba U-100 Insulin] 100 unit/mL solution 20 unit subcut QDAY Qty: 10 0RF (DME) lancets Misc See Rx Instructions .Route Qty: 100 0RF Rx Instructions: As directed gabapentin 400 mg capsule 400 mg PO TID Patient Comments: TOME 1 C PSULA POR V A ORAL YUNIOR VECES AL D A aspirin 81 mg tablet,delayed release (DR/EC) 81 mg PO QDAY Patient Comments: TOME 1 TABLETA POR V A ORAL TODOS LOS D metoprolol succinate 50 mg tablet extended release 24 hr 50 mg PO QDAY Patient Comments: MOO 1 TABLETA POR V A ORAL TODOS LOS D FOR 90 DAYS lisinopril 40 mg Tablet 40 mg PO QDAY clonidine HCl 0.2 mg tablet 0.2 mg PO BID Patient Comments: MOO 1 TABLETA POR V A ORAL DOS VECES AL D A PARA LA PRESI N ARTERIAL Eliquis 5 mg tablet 5 mg PO BID Qty: 60 3RF (DME) compress.stocking,knee,reg,lrg Misc See Rx Instructions .Route Qty: 2 0RF Rx Instructions: As directed tamsulosin 0.4 mg capsule 0.4 mg PO QDAY Qty: 30 0RF omeprazole 20 mg capsule,delayed release(DR/EC) 20 mg PO .QD Patient Comments: MOO 1 C PSULA POR V A ORAL TODOS LOS D duloxetine 30 mg capsule,delayed release(DR/EC) 30 mg PO .QD Patient Comments: MOO 1 C PSULA POR V A ORAL DOS VECES AL D A metformin 500 mg tablet 500 mg PO QPM Referrals: Mitchel Lima MD [Primary Care Provider, Family Practice] - In 1 week Problem List Clinical Impression: Acute exacerbation of CHF (congestive heart failure), Elevated troponin, Anemia, Pleural effusion Patient/Caregiver Discharge Instructions Print Language: [place]an Stand Alone Forms: Kellen Award Info., Patient Portal Info Letter
--- NOTE | 2025-05-09 07:40 | PC.NURSE ---
[facility]
[2025-05-09 10:06] LABS: Base Excess, Venous 4 (-3-3); Lactate (Lactic Acid) 1.4 mMol/L (0.4-2.0); O2 Saturation, Venous 80 % (96-97); PCO2, Venous 48 mmHg (36-56); PO2, Venous 46 mmHg (15-58); pH, Venous 7.39 (7.33-7.66)
[2025-05-09] MEDS: FUROSEMIDE INJ 10 MG/ML 4ML VIAL 80 MG IVP (10:30)
[2025-05-09] MEDS: cefTRIAXone/D5w 1gm IV premix 1 GM/50 ML BAG IV (10:32)
[2025-05-09 10:45] LABS: INR 1.2 (0.9-1.3); Partial Thromboplastin Time 26.8 Seconds (22.0-36.0); Prothrombin Time 12.7 Seconds (9.0-12.2)
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
[2025-05-09 10:53] LABS: Magnesium 1.9 mg/dL (1.6-2.6); Phosphorous 3.0 mg/dL (2.4-5.1)
[2025-05-09 11:03] LABS: Troponin I 0.304 ng/mL (0.0-0.045)
--- NOTE | 2025-05-09 12:56 | ECHO_ITS ---
Patient Info Name: Addison Le Age: 70 years : 1955 Gender: Male Ht: 170 cm Wt: 93 kg BSA: 2.12 m2 BP: 182 / 74 mmHg HR: 54 bpm Exam Date: 05/09/2025 1:23 PM Admit Date: 05/09/2025 Site: [facility] Room Number: 252 Patient Status: I Exam Type: CA echo doppler complete Teacher Counselor: Liz Cordero Ordering Physician: Brijesh Winkler Study Info Indications Hx of HF - Primary Location: S2SX Left Ventricular Outflow Tract Name Value Normal LVOT 2D LVOT Diameter 2.0 cm LVOT Doppler LVOT Peak Velocity 107 cm/s LVOT Mean Gradient 2 mmHg LVOT VTI 27 cm LVOT VTI/AV VTI Ratio 0.3 LVOT Stroke Volume 85 ml Pulmonic Valve Name Value Normal PV Doppler PV Peak Velocity 105 cm/s PV Regurgitation Doppler DE Peak End Diastolic Velocity 91 cm/s Mitral Valve Name Value Normal MV Doppler MV Mean Gradient 2 mmHg MV Decel Clay 425 cm/s2 MV PHT 69 ms MV Area (PHT) 3.2 cm2 4.0-5.0 MV Area (Cont Eq VTI) 1.9 cm2 MV Diastolic Function MV E Peak Velocity 101 cm/s MV A Peak Velocity 50 cm/s MV E/A 2.0 MV Annular TDI MV Septal e' Velocity 4.9 cm/s MV E/e' (Septal) 20.6 MV Lateral e' Velocity 7.1 cm/s MV E/e' (Lateral) 14.3 MV e' Average 5.99 cm/s MV E/e' (Average) 17.4 Tricuspid Valve Name Value Normal TV Regurgitation Doppler TR Peak Velocity 170 cm/s Estimated PAP/RSVP RA Pressure 15 mmHg <=5 PA Systolic Pressure 27 mmHg <36 RV Systolic Pressure 27 mmHg <36 TV Annular TDI TV Lateral Rylee s' Velocity 14.3 cm/s >=9.5 Aortic Valve Name Value Normal AV 2D/MM AV Cusp Sep (MM) 1.2 cm AV Doppler AV Peak Velocity 337 cm/s AV Mean Gradient 27 mmHg AV VTI 96 cm AV Area (Cont Eq VTI) 0.9 cm2 >=3.0 AV Area (Cont Eq Ronaldo) 1.0 cm2 AV DI (Ronaldo) 0.32 AV Regurgitation 2D LVOT Area 3.1 cm2 Ventricles Name Value Normal LV Dimensions 2D/MM IVS Diastolic Thickness (2D) 1.2 cm 0.6-1.0 LVID Diastole (2D) 4.2 cm 4.2-5.8 LVIW Diastolic Thickness (2D) 1.2 cm 0.6-1.0 LVID Systole (2D) 3.0 cm 2.5-4.0 LVOT Diameter 2.0 cm LV Mass (2D Cubed) 178.16 g 88.00-224.00 LV Mass Index (2D Cubed) 84 g/m2 49-115 Relative Wall Thickness (2D) 0.57 <=0.42 IVS/LVIW Diastolic Thickness (2D) 1.00 0.00-1.50 LV Fractional Shortening/Ejection Fraction 2D/MM LV Fractional Shortening (2D) 29 % 25-43 LV EF (2D Teichholz) 55 % RV Dimensions 2D/MM TV Lateral Rylee s' Velocity 14.3 cm/s >=9.5 Atria Name Value Normal LA Dimensions LA Volume (4C A-L) 50 ml LA Volume (BP A-L) 48 ml Left Ventricle Left ventricular chamber dimension is normal. Left ventricular systolic function is normal with visually estimated ejection fraction of 60-65%. There is mild concentric hypertrophy noted in the left ventricle. Left ventricular segmental wall motion is normal. There is grade I diastolic dysfunction in the left ventricle. Right Ventricle Right ventricular chamber dimension is normal. Right ventricular systolic function is normal. Left Atrium Left atrial chamber dimension is normal. Right Atrium Right atrial chamber dimension is normal. Aortic Valve The aortic valve is trileaflet. There is no aortic valve sclerosis. There is moderate aortic valve stenosis with a peak velocity of 337 cm/s, mean gradient of 27 mmHg, and aortic valve area of 0.9 cm2. There is no aortic valve regurgitation. Pulmonic Valve The pulmonic valve is normal. There is no pulmonic valve stenosis. There is trace pulmonic regurgitation. Mitral Valve The mitral valve has a calcified annulus. There is no mitral valve stenosis. There is trace mitral valve regurgitation. Tricuspid Valve The tricuspid valve leaflets are normal. There is no tricuspid valve stenosis. There is trace tricuspid valve regurgitation. Pericardium/Pleural The pericardium appears normal. No pleural effusion visualized. There is trivial pericardial effusion with no tamponade. Inferior Vena Cava Dilated inferior vena cava with >50% collapse upon inspiration consistent with normal right atrial pressure, 15 mmHg. Aorta The aortic measurements are indexed to age and body surface area. The aortic root at the sinus of Valsalva is not well visualized. The prox ascending aorta is not well visualized. Summary 1. Left ventricle size is normal and systolic function is normal. Estimated ejection fraction is 60-65%. There is grade I diastolic dysfunction. There is mild concentric hypertrophy noted. 2. Right ventricle chamber size is normal and systolic function is normal. Estimated RVSP is 27 mmHg and calculated PASP with 42 mm hg - mildly elevated. 3. Moderate aortic valve stenosis. Peak gradient is 45mmHg, mean gradient is 27mmHg, Vmax is 3.3m/s. MIHAI 1.0 sq cm. 4. Moderate MAC posterior > anterior. Mild MR, TR and PI. 5. There is trivial pericardial effusion with no tamponade. 6. Dilated inferior vena cava with >50% collapse upon inspiration consistent with normal right atrial pressure, 15 mmHg. Report Signatures Finalized by Juni Whitfield on 05/09/2025 08:00 PM
[2025-05-09] MEDS: CALCIUM GLUC/NS 1000MG IVPB 1,000 MG/50 ML BAG 50 MG IV (13:29)
[2025-05-09] MEDS: Magnesium Sulfate 2 GM Ivpb 2 GM/50 ML BAG IV (13:35)
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
[2025-05-09] MEDS: AZITHROMYCIN INJ 250 MG, Sterile Water 2.5 ML in SODIUM CHLORIDE 0.9% 250 ML 250 ML 252.5 MG IV (17:38)
[2025-05-09] MEDS: FUROSEMIDE INJ 10 MG/ML 4ML VIAL 40 MG IVP (17:39)
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
[2025-05-09 18:54] LABS: Hematocrit 36.2 % (41.0-53.0); Hemoglobin 11.0 g/dL (13.5-16.0)
--- NOTE | 2025-05-09 19:36 | PC.NURSE ---
at 1530, MD zhu notified of patient hr as low as 48, MD zhu and nichelle at bedside for assessment
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
[2025-05-10] VITALS (18 sets, daily range): BP systolic 77–187; BP diastolic 43–74; PULSE 44–79; RESP 12–29; TEMP 36.4–37.3; O2SAT 90–100; BMI 34.0
[2025-05-10] MEDS: GABAPENTIN 100 MG, GABAPENTIN 300 MG 400 MG PO ×3 (06:14→21:04)
[2025-05-10] MEDS: FUROSEMIDE INJ 10 MG/ML 4ML VIAL 40 MG IVP (06:14)
[2025-05-10 06:18] LABS: Basophils # (Auto) 0.0 Thou/mm3 (0.0-0.2); Basophils % (Auto) 1 % (0-2.5); Eosinophils # (Auto) 0.2 Thou/mm3 (0.0-0.5); Eosinophils % (Auto) 2 % (0-10); Hematocrit 33.5 % (41.0-53.0); Hemoglobin 10.1 g/dL (13.5-16.0); Immature Granulocytes Auto 0.03 Thou/mm3 (0.00-0.00); Lymphocytes # (Auto) 1.5 Thou/mm3 (1.0-4.8); Lymphocytes % (Auto) 17 % (10-50); Mean Corpuscular HGB Conc 30.1 g/dl (31.0-37.0); Mean Corpuscular Hemoglobin 20.0 pg (25.0-35.0); Mean Corpuscular Volume 66 fL (80-100); Monocytes # (Auto) 0.9 Thou/mm3 (0.0-0.8); Monocytes % (Auto) 10 % (0-12); Neutrophils # (Auto) 6.2 Thou/mm3 (1.8-7.7); Neutrophils % (Auto) 71 % (37-80); Nucleated Red Blood Cell # 0.00 Thou/mm3 (0.00-0.00); Nucleated Red Blood Cell % 0 /100 WBC (0); Platelet Count 456 Thou/mm3 (140-440); RDW Standard Deviation 47.3 fL (35.1-43.9); Red Blood Count 5.06 Miln/mm3 (4.50-5.90); White Blood Count 8.8 Thou/mm3 (3.8-10.6)
[2025-05-10 06:43] LABS: Alanine Aminotransferase < 7 U/L (10-49); Albumin, Serum 3.6 gm/dL (3.4-4.8); Albumin/Globulin Ratio 1.1 (1.2-2.2); Alkaline Phosphatase 150 U/L (46-116); Anion Gap 11 (7-16); Aspartate Amino Transferase < 8 U/L (0-34); BUN/Creatinine Ratio 17 Ratio (12-20); Bilirubin,Total 0.8 mg/dL (0.3-1.2); Blood Urea Nitrogen 12 mg/dL (9-23); Calcium 9.2 mg/dL (8.3-10.6); Calcium (Corrected) 9.5 mg/dL (8.5-10.1); Carbon Dioxide 29.5 mMol/L (20.0-31.0); Cardiac Risk Estimate 3.1 RATIO (4.0-6.7); Chloride 100 mMol/L (98-107); Cholesterol 95 mg/dL (132-200); Creatinine (Component) 0.7 mg/dL (0.6-1.3); Estimated Creatinine Clearance 111.4 mL/min (>60); Globulin 3.4 gm/dL (2.3-3.5); Glucose 147 mg/dL (74-106); HDL Cholesterol 31 mg/dL (40-60); LDL Cholesterol,Calculated 45 mg/dL (0-130); Magnesium 2.2 mg/dL (1.6-2.6); Osmolality,Calculated 282 (275-295); Phosphorous 4.4 mg/dL (2.4-5.1); Potassium 4.2 mMol/L (3.4-5.1); Sodium 140 mMol/L (136-145); Total Protein 7.0 gm/dL (5.7-8.2); Triglycerides 95 mg/dL (30-150); eGFR > 60 See Note
[2025-05-10 07:00] LABS: Ferritin 9 ng/mL (10.5-307.3); Iron 19 mcg/dL (65-175); Percent Iron Saturation 5 % (20-55); Total Iron Binding Capacity 324 mcg/dL (250-425); Unsaturated Iron Binding 305 (225-295)
[2025-05-10 07:01] LABS: Glucose Estimated Average 157 mg/dL (80-131); Hemoglobin A1C 7.1 % Hgb (4.8-6.0)
[2025-05-10] MEDS: cefTRIAXone/D5w 1gm IV premix 1 GM/50 ML BAG IV (08:22)
[2025-05-10] MEDS: FERRIC SOD GLUC INJ 125 MG in SODIUM CHLORIDE 0.9% 100 ML 110 MG IV (08:22)
[2025-05-10] MEDS: AZITHROMYCIN INJ 250 MG, Sterile Water 2.5 ML in SODIUM CHLORIDE 0.9% 250 ML 250 ML 252.5 MG IV (09:04)
--- NOTE | 2025-05-10 10:46 | ESPR_ITS ---
<Statement entered by Davon Tubbs MD - 05/10/25 19:18> Patient was seen and examined at bedside. Agree on the assessment and plan on this note. - Patient's plan and care discussed with my attending, Dr. Shaye Tubbs MD Internal Medicine PGY-3 Documentation for date of: 05/10/25 Subjective Subjective Interval history: Kidney injury clinic. Patient seen and examined at bedside reports mild improvement shortness of breath, no chest pain. Patient is vitally stable. Stopped Lasix 60 mg and started Bumex 1 mg twice daily for diuresis. Patient underwent EGD today, s/p EGD orthostatic hypotension blood pressure while lying down 144/65 and sitting up 77/44 with map 54. Started patient on SCDs, will consider decreasing dose of lisinopril or Bumex tomorrow. Overall today patient had a urine output of 900 cc. Received ferric sodium 125 mg IV infusion as iron level was low. Exam Vital Signs Temp Pulse Resp BP Pulse Ox O2 Del Method 98.5 F 60 17 136/54 H 97 Room Air 05/09/25 17:49 05/10/25 08:29 05/09/25 17:49 05/10/25 08:29 05/09/25 17:49 05/09/25 11:51 Narrative Exam General: Alert, no acute distress.Conversational and non-toxic appearing. Skin: Warm, dry, intact. No rash or ecchymoses. Head: Telangiectasia at glabella. Normocephalic, atraumatic. Eye: Normal conjunctiva, PERRL. Throat: Oral mucosa moist. No obvious lesions in oropharynx. Cardiovascular: bradycardic, 3/6 systolic murmur at left sternal boarder consitent of aortic stenosis , no murmur, +S1/S2. Respiratory: Lungs are clear to auscultation, respirations unlabored, no crackles, no wheezing. Gastrointestinal: Soft, nontender, the patient presents with a significant hernia protrusion resulting from a prior trauma, accompanied by an indentation at the border of the sternum. No guarding or rebound tenderness. Extremities: +1 pitting edema, LUE and LLE 3/5 strength. No cyanosis, no clubbing. Neuro: Alert and oriented x3.No focal deficits observed. Conversant, moving all extremities. No overt cerebellar signs/incoordination. Psychiatric: Cooperative, appropriate affect Objective Labs 05/11/25 04:33 05/11/25 04:33 Labs: Laboratory Results - last 24 hr 05/09/25 05/09/25 05/09/25 05:23 09:49 18:19 WBC RBC Hgb 11.0 L D Hct 36.2 L D MCV MCH MCHC RDW Std Deviation Plt Count Neut % (Auto) Lymph % (Auto) [place] % (Auto) Eos % (Auto) Baso % (Auto) Neut # (Auto) Lymph # (Auto) [place] # (Auto) Eos # (Auto) Baso # (Auto) Immature Gran # (Auto) Absolute Nucleated RBC Immature Gran % Nucleated RBC % Sodium Potassium Chloride Carbon Dioxide Anion Gap BUN Creatinine Estim Creat Clear Calc eGFR BUN/Creatinine Ratio Glucose Estimated Ave Glu mg/dL Hemoglobin A1c Calculated Osmolality Calcium Corrected Calcium Phosphorus 3.0 Magnesium 1.9 Iron TIBC Iron Saturation Unsat Iron Binding Ferritin Total Bilirubin AST ALT Alkaline Phosphatase Troponin I 0.304 H* Total Protein Albumin Globulin Albumin/Globulin Ratio Triglycerides Cholesterol LDL Cholesterol, Calc HDL Cholesterol Cholesterol/HDL Ratio Blood Type A Positive Antibody Screen NEGATIVE Crossmatch See Detail Blood Bank Wristband ID Yes 05/10/25 04:56 WBC 8.8 RBC 5.06 Hgb 10.1 L Hct 33.5 L MCV 66 L MCH 20.0 L MCHC 30.1 L RDW Std Deviation 47.3 H Plt Count 456 H Neut % (Auto) 71 Lymph % (Auto) 17 [place] % (Auto) 10 Eos % (Auto) 2 Baso % (Auto) 1 Neut # (Auto) 6.2 Lymph # (Auto) 1.5 [place] # (Auto) 0.9 H Eos # (Auto) 0.2 Baso # (Auto) 0.0 Immature Gran # (Auto) 0.03 H Absolute Nucleated RBC 0.00 Immature Gran % 0 Nucleated RBC % 0 Sodium 140 Potassium 4.2 Chloride 100 Carbon Dioxide 29.5 Anion Gap 11 BUN 12 Creatinine 0.7 Estim Creat Clear Calc 111.4 eGFR > 60 BUN/Creatinine Ratio [address] Glu mg/dL 157 H Hemoglobin A1c 7.1 H Calculated Osmolality 282 Calcium 9.2 D Corrected Calcium 9.5 D Phosphorus 4.4 Magnesium 2.2 Iron 19 L TIBC 324 Iron Saturation 5 L Unsat Iron Binding 305 H Ferritin 9 L Total Bilirubin 0.8 D AST < 8 ALT < 7 L Alkaline Phosphatase 150 H D Troponin I Total Protein 7.0 Albumin 3.6 Globulin 3.4 Albumin/Globulin Ratio 1.1 L Triglycerides 95 Cholesterol 95 L LDL Cholesterol, Calc 45 HDL Cholesterol 31 L Cholesterol/HDL Ratio 3.1 L Blood Type Antibody Screen Crossmatch Blood Bank Wristband ID ABG Interpretation ABG results: 05/09/25 09:49 VBG pH 7.39 VBG pCO2 48 VBG pO2 46 VBG Base Excess 4 H Quality Measures Quality Measures none Advance care planning discussed with:: patient and child Assessment & Plan Assessment Current Active Medications: Generic Name Dose Route Start Last Admin Trade Name Freq PRN Reason Stop Dose Admin Bumetanide 1 mg 05/10/25 10:00 Bumetanide Inj 0.25 Mg/Ml Vial 4 Ml IVP 06/09/25 09:59 BID TERRI Clonidine 0.2 mg 05/09/25 21:00 05/10/25 08:29 Clonidine Hcl 0.1 Mg Tablet PO 06/08/25 20:59 0.2 mg BID TERRI Administration Dextrose 25 ml 05/09/25 09:57 Dextrose 50%-Water Inj 50 Ml Syringe IV 06/08/25 09:56 Q15MIN PRN BG 50-70 responsive npo pt Dextrose 50 ml 05/09/25 09:57 Dextrose 50%-Water Inj 50 Ml Syringe IV 06/08/25 09:56 Q15MIN PRN BG <50 OR BG <70 & pt unresponsive Duloxetine HCl 30 mg 05/10/25 18:00 Duloxetine Hcl 30 Mg Capsule PO 06/09/25 17:59 QDAY TERRI Gabapentin 100 mg/ Gabapentin 400 mg 05/10/25 06:00 05/10/25 06:14 300 mg PO 06/09/25 05:59 400 mg TID TERRI Administration Glucagon 1 mg 05/09/25 09:57 Glucagon Inj 1 Mg Vial IM Q15MIN PRN BG <70, and no IV access Hydralazine HCl 10 mg 05/09/25 16:05 Hydralazine Inj 20 Mg/Ml Vial IVP Q1H PRN Give if SBP>180 Ceftriaxone Sodium/Dextrose 1 gm in 50 mls @ 100 mls/hr 05/09/25 09:52 05/10/25 08:22 Rocephin/D5w 1gm Iv Premix IV 05/16/25 09:51 100 mls/hr QDAY TERRI Administration Azithromycin 250 mg/ Sterile 252.5 mls @ 252.5 mls/hr 05/09/25 16:27 05/10/25 09:04 Water 2.5 ml/ Sodium Chloride IV 05/13/25 16:26 252.5 mls/hr QDAY TERRI Administration Insulin Human Lispro 0 unit 05/09/25 12:00 05/10/25 06:04 Insulin Lispro (Admelog) 1 Unit/0.01 Ml Unit SC 06/08/25 11:59 Not Given Q6HR TERRI Protocol Lisinopril 40 mg 05/09/25 11:30 05/10/25 08:29 Lisinopril 20 Mg Tablet PO 06/08/25 11:29 40 mg QDAY TERRI Administration Nitroglycerin 0.4 mg 05/09/25 09:51 Nitroglycerin 0.4 Mg Subl Btl #25 SL Q5MIN PRN CHEST PAIN Ondansetron HCl 4 mg 05/09/25 09:51 Ondansetron Inj 2 Mg/Ml Inj 2 Ml IVP 06/08/25 09:50 Q6HR PRN NAUSEA OR VOMITING Protocol Pantoprazole Sodium 40 mg 05/09/25 09:15 05/10/25 08:28 Pantoprazole Inj 40 Mg Vial IVP 06/08/25 09:14 40 mg BID TERRI Administration Plan Mr. Le, he is a 70-year-old male past medical symptom CVA (x 3 with left-sided weakness), insulin-dependent diabetes mellitus, hypertension, hyperlipidemia presented to the ED on 05/09/2025 with chief complaint of chest pain.- Patient was admitted for NSTEMI and hypertensive emergency evaluation and managment. Acute decompensated Heart failure ACS rule out NSTEMI likely type II in setting of Hypertensive emergency Sinus bradycardia with First-degree heart block Moderate aortic stenosis The patient presented to the ED with substernal chest pain radiating to the left arm, associated with clamminess, numbness, shortness of breath, and a headache. The episode lasted for approximately 15 minutes and was followed by generalized weakness. On arrival, the patient's blood pressure was significantly elevated at 212/70 mmHg, and elevated troponin levels were noted (0.448), suggesting myocardial injury. These findings, along with the patient's clinical presentation, are most consistent with an NSTEMI likely secondary to ischemia from a hypertensive emergency, with elevated blood pressure contributing to end- organ damage and myocardial injury.The patient?s headache and generalized weakness are likely a result of the hypertensive crisis. Additionally, the EKG revealed sinus bradycardia (rate 58), which may be contributing to the generalized weakness, as bradycardia can reduce cardiac output and perfusion, exacerbating symptoms of weakness. Initial EKG showed sinus bradycardia rate 58 with T all p-waves then repeat shows UT prolongation in the monitor tech. No arrhythmia or ST segment elevation was seen. - Echocardiogram 05/09/25. Left ventricle size is normal and systolic function is normal. Estimated ejection fraction is 60-65%. There is grade I diastolic dysfunction. There is mild concentric hypertrophy noted. Moderate aortic valve stenosis. Moderate MAC posterior > anterior. Mild MR, TR and PI.There is trivial pericardial effusion with no tamponade. Plan - Cardiology consulted-recommendation appreciated - Clonidine 0.2 mg p.o. twice daily - Hydralazine 10 mg IVP as needed - Nitroglycerin 0.5 mg sublingual as needed Paroxysmal Atrial fibrillation CHADsVAS score 6?13.6% risk of stroke/TIA/systemic embolism. HAS BLED score 3 Plan - Home medication Eliquis 5 mg p.o. twice daily metoprolol succinate 50 mg - Eliquis due to concern of GI bleed - Will continue to monitor telemetry - Keep K > 4 and Mg > 2 Bilateral pneumonia Mild left pleural effusion Mild to moderate HF with pulmonary edema Patient does report shortness of breath along for which she uses nasal cannula however the oxygen percentage. Also reports PND but denies orthopnea. Denies cough, fever or recent sick contact.Upon examination patient was admitted on room air. No crackles, wheezes are heard on auscultation. Shortness of breath likely from pleural effusion and pneumonia - MRSA nasal screen ( negative) Plan - Ceftriaxone 1 g (05/09- - Azithromycin 2 mg IV (05/09- - Stop Lasix 40 mg twice daily--started Bumex 1 mg twice daily - Blood culture ordered Acute blood loss anemia Microcytic hypochromic anemia with anisopoikilocytosis Iron deficiency anemia Admission hemoglobin 1.4 and hematocrit 25.6, which is lower than baseline. Patient denies any emesis, dark blood dark or bloody stool. Pathology reports show microcytic hypochromic anemia unremarkable platelets and unremarkable granulocytes. -EGD done on 07/04/2024 showed esophagitis and gastritis. -Colonoscopy done on 07/05/2024 showed diverticulosis of large intestine and internal hemorrhoids. -2 Unit PRBC received -Iron panel 19, iron saturation 5, ferritin 9, saturated iron binding 305 Plan - Daily CBC - Transfuse if hemoglobin less than 7 -Transfused ferric sodium 125 mg IVP x 1 - GI consulted, recommendation appreciated- EGD today Insulin-dependent diabetes mellitus Diabetic neuropathy Patient has a history of diabetes mellitus which she take metformin 500 mg twice daily and 20 units of insulin at night. Reports compliance to medication. On admission glucose 138, last A1c 6.2 on 10/12/24 - Insulin sliding - Duloxetine 30 mg - Gabapentin for 100 mg p.o. 3 times daily Primary hypertension - lisinopril 40 mg p.o. daily Multiple CVAs with residual deficits Per patient and daughter had 2 CVAs last year and 1 CVA DC with left-sided residual deficit. - Aspirin 81 mg p.o., held due to concern for GI bleed Hospital management: Lines: peripheral IV Diet: Clear liquid diet Bowel: Senna GI prophylaxis: pantoprazole DVT prophylaxis: SCDS Disposition: telemetry CODE STATUS: Full code Patient assessed under supervision of attending physician and senior resident Dr. Tubbs PGY-3 Radha Montero MD PGY-1, Internal Medicine Please note: this document was transcribed using voice recognition technology; minor inaccuracies may be present. Attending Provider Attestation/Addendum I have seen and examined the patient. I was physically present for the [place] portions of the services provided including history, physical exam, diagnosis, treatment plans and orders. I agree with assessment and plan of care as documented by residents. Even though this this note was carefully revised there may still be minor errors in pan washer due to voice recognition software. Varun Corbett MD
[2025-05-10] MEDS: BUMETANIDE INJ 0.25 MG/ML VIAL 4 ML 1 MG IVP ×2 (11:16→20:41)
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
--- NOTE | 2025-05-10 15:15 | PC.SS ---
Rounding Note: Patient has been downgraded to Tele, 05-10-25. EGD is pending.
--- NOTE | 2025-05-10 16:33 | PC.PT ---
Patient is safe to use the toilet in the ICU/bathroom with a FWW and 1 staff assist. RN made aware.
--- NOTE | 2025-05-10 16:45 | SUR.PHASEI ---
1645: Pt. AAOX4, vitals stable, breathing unlabored, no complaint of pain or nausea, no dressing in place, no active bleed noted, report received from Omayra CEJA.
[2025-05-10] MEDS: DULoxetine HCL 30 MG CAPSULE PO (17:43)
[2025-05-10] MEDS: NYSTATIN SUSP 5 ML UDC PO (21:05)
[2025-05-11] VITALS (10 sets, daily range): BP systolic 109–154; BP diastolic 56–73; PULSE 41–79; RESP 15–33; TEMP 36.6–36.7; O2SAT 91–99; BMI 29.5
[2025-05-11 05:32] LABS: Basophils # (Auto) 0.0 Thou/mm3 (0.0-0.2); Basophils % (Auto) 0 % (0-2.5); Eosinophils # (Auto) 0.3 Thou/mm3 (0.0-0.5); Eosinophils % (Auto) 3 % (0-10); Hematocrit 33.9 % (41.0-53.0); Hemoglobin 10.1 g/dL (13.5-16.0); Immature Granulocytes Auto 0.03 Thou/mm3 (0.00-0.00); Lymphocytes # (Auto) 1.5 Thou/mm3 (1.0-4.8); Lymphocytes % (Auto) 18 % (10-50); Mean Corpuscular HGB Conc 29.8 g/dl (31.0-37.0); Mean Corpuscular Hemoglobin 19.8 pg (25.0-35.0); Mean Corpuscular Volume 67 fL (80-100); Monocytes # (Auto) 0.9 Thou/mm3 (0.0-0.8); Monocytes % (Auto) 11 % (0-12); Neutrophils # (Auto) 5.8 Thou/mm3 (1.8-7.7); Neutrophils % (Auto) 68 % (37-80); Nucleated Red Blood Cell # 0.00 Thou/mm3 (0.00-0.00); Nucleated Red Blood Cell % 0 /100 WBC (0); Platelet Count 483 Thou/mm3 (140-440); RDW Standard Deviation 47.9 fL (35.1-43.9); Red Blood Count 5.10 Miln/mm3 (4.50-5.90); White Blood Count 8.6 Thou/mm3 (3.8-10.6)
[2025-05-11] MEDS: NYSTATIN SUSP 5 ML UDC PO (05:38)
[2025-05-11] MEDS: GABAPENTIN 100 MG, GABAPENTIN 300 MG 400 MG PO (05:38)
[2025-05-11 06:08] LABS: Alanine Aminotransferase 8 U/L (10-49); Albumin, Serum 3.8 gm/dL (3.4-4.8); Albumin/Globulin Ratio 1.2 (1.2-2.2); Alkaline Phosphatase 151 U/L (46-116); Anion Gap 10 (7-16); Aspartate Amino Transferase 12 U/L (0-34); BUN/Creatinine Ratio 18 Ratio (12-20); Bilirubin,Total 0.7 mg/dL (0.3-1.2); Blood Urea Nitrogen 14 mg/dL (9-23); Calcium 8.8 mg/dL (8.3-10.6); Calcium (Corrected) 9.0 mg/dL (8.5-10.1); Carbon Dioxide 32.1 mMol/L (20.0-31.0); Chloride 99 mMol/L (98-107); Creatinine (Component) 0.8 mg/dL (0.6-1.3); Estimated Creatinine Clearance 91.0 mL/min (>60); Globulin 3.2 gm/dL (2.3-3.5); Glucose 154 mg/dL (74-106); Magnesium 1.9 mg/dL (1.6-2.6); Osmolality,Calculated 284 (275-295); Phosphorous 4.8 mg/dL (2.4-5.1); Potassium 3.8 mMol/L (3.4-5.1); Sodium 141 mMol/L (136-145); Total Protein 7.0 gm/dL (5.7-8.2); eGFR > 60 See Note
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
[2025-05-11] MEDS: BUMETANIDE INJ 0.25 MG/ML VIAL 4 ML 1 MG IVP (08:14)
[2025-05-11] MEDS: cefTRIAXone/D5w 1gm IV premix 1 GM/50 ML BAG IV (08:14)
[2025-05-11] MEDS: DULoxetine HCL 30 MG CAPSULE PO (08:15)
--- NOTE | 2025-05-11 09:02 | PC.SS ---
SS follow up note; Patient is pending a EGD at the time. Patient will discharge home when medically cleared.
[2025-05-11] MEDS: AZITHROMYCIN INJ 250 MG, Sterile Water 2.5 ML in SODIUM CHLORIDE 0.9% 250 ML 250 ML 252.5 MG IV (10:35)
[2025-05-11] MEDS: INSULIN LISPRO (AdmeLOG) 1 UNIT/0.01 ML UNIT SC (12:00)
--- NOTE | 2025-05-11 13:53 | PC.PT ---
Patient will be D/C from PT 06/20 patient is back to his PLOF and reports he is feeling back to his normal. RN made aware.
--- NOTE | 2025-05-11 14:44 | ESDS_ITS ---
<Statement entered by Davon Tubbs MD - 05/12/25 18:14> Patient was seen and examined at bedside. Agree with assessment and plan in this note. - Patient's plan and care discussed with my attending, Dr. Chelle Tubbs MD Internal Medicine PGY- Planned Discharge Date 05/11/25 DS: Providers Provider Date of admission: 05/09/25 09:09 Primary care physician: Mitchel Lima MD Admitting Provider: Jose Jain MD Attending Provider on Admission: Razia Martins DO Consults: 05/09/25 12:56 Consult to Cardiology Routine Comment: Consulting Provider: Juni Whitfield 05/09/25 15:30 Consult to Gastroenterology Urgent Comment: Consulting Provider: Sulema Santo 05/09/25 17:20 Referral [place] Stat Comment: Referral Physical Therapy Stat Comment: Physician Instructions: Referral Registered Dietitian Stat Comment: Referral Respiratory Therapy Stat Comment: 05/09/25 17:29 Health Equity Referral - Knowledge Deficit Routine Comment: Positive screening for knowledge deficit needs. Health Equity Referral - Nutrition Routine Comment: Positive screening for nutrition needs. Health Equity Referral - Transportation Routine Comment: Positive screening for transportation needs. Attending Provider on DC: Varun Corbett MD Discharging Provider: Varun Corbett MD Anticipated date of discharge: 05/11/25 DS: Diagnosis Problem List Completed Was Problem List Reviewed/Reconciled?: Yes Hospital Course Hospital Course Hospital course: Mr. Le, he is a 70-year-old male past medical symptom CVA (x 3 with left-sided weakness), insulin-dependent diabetes mellitus, hypertension, hyperlipidemia presented to the ED on 05/09/2025 with chief complaint of chest pain. Presented to the ED with substernal chest pain radiating to the left arm, associated with clamminess, numbness, shortness of breath, and a headache. The episode lasted for approximately 15 minutes and was followed by generalized weakness. On arrival, the patient's blood pressure was significantly elevated at 212/70 mmHg, and elevated troponin levels were noted 0.448. These findings, along with the patient's clinical presentation, are most consistent with an NSTEMI likely secondary to ischemia from a hypertensive emergency, with elevated blood pressure contributing to end-organ damage and myocardial injury. Patient was admitted for NSTEMI and hypertensive emergency evaluation and management. EKG done showed sinus bradycardia rate of 50, chest CTA showed moderate left heart failure with additional pulmonary edema, mild pleural fluid. Chest x-ray showed bilateral pneumonia. Patient was started on IV antibiotics ceftriaxone on azithromycin,resumed BP medication clonidine, lisinopril, started hydralazine 10 mg IVP as needed,nitroglycerin 0.5 sublingual as needed. Cardiology was consulted, concern for sinus bradycardia with first-degree heart block and moderate aortic stenosis. Patient had episode of orthostatic hypotension and clonidine was discontinued. Was started on amlodipine 5 mg for better BP control. Patient blood pressure was stabilized and a orthostatic improved. For acute blood loss anemia GI was consulted, patient received 1 unit of PRBC and one-time dose of 125 mg IV ferric sodium. EGD was done and showed Sidney esophagitis and patient was started on nystatin swish. Throughout the hospital course patient other problems were managed and his condition improved remarkably with progression of hospital course. Further plan to discharge the patient home with home health since he is hemodynamically stable to be discharged home to self care with the following instructions. Discharge recommendation: - Follow up with PCP in 1-2 weeks, If you don't have a PCP, you can make an appointment at the [facility]: - Follow up with matzo forming machine operator Dr. Whitfield in 1 week for the bradycardia (first degree AV block) - Prescribe antibiotic keplex and azithromycin for pneumonia - Prescribe amlodipine 5mg, inform your PCP to consider increasing dosage to 10mg if BP is still elevated - Prescribe nystatin swish and swallow for sidney esophagitis - STOP clonidine, furosemide and Metoprolol succinate - Continue rest of medications as previously prescribed - Return to the ED or call EMS is symptoms return and/or worsen Hospital Diagnoses: Acute decompensated Heart failure ACS rule out NSTEMI likely type II in setting of Hypertensive emergency Sinus bradycardia with First-degree heart block Moderate aortic stenosis ?Paroxysmal Atrial fibrillation Bilateral pneumonia Mild left pleural effusion Mild to moderate HF with pulmonary edeme Acute blood loss anemia Microcytic hypochromic anemia with anisopoikilocytosis Sidney esophagitis Gastritis Iron deficiency anemia Insulin-dependent diabetes mellitus Diabetic neuropathy Primary hypertension Multiple CVAs with residual deficits Patient assessed under supervision of attending physician and senior resident Dr. Tubbs PGY-3 Radha Montero MD PGY-1, Internal Medicine Please note: this document was transcribed using voice recognition technology; minor inaccuracies may be present. Time Spent with Patient Time attestation: Total time spent providing and/or coordinating discharge services: 35 minutes Time spent: Greater than 30 minutes Home Health Home Health Referral Orders: 05/11/25 13:05 Home Health Referral Routine Reason For Exam: weakness Home-Bound The patient must either because of illness or injury, need the aid of supportive devices such as crutches, canes, wheelchairs, and walkers; the use of special transportation; or the assistance of another person in order to leave their place of residence; OR have a condition such that leaving his or her home is medically contraindicated. In addition, the patient also meets the following criteria: patient is normally unable to leave the home and leaving home requires considerable taxing effort. Addendum to Home Health Certification Practitioner's Certification: I certify that the patient has been under my care in the hospital and the care of attending physician (see below). We had a [id number] encounter on (see date below). My clinical findings indicate that the patient is home bound per the above criteria and the Home Health Services noted in these orders are medically necessary. The primary reason for the mmun-qk-[id number] encounter is related to the fact that the patient requires home health services. Date Certifying Aqyc-lk-Vieg Physician Encounter: 05/09/25 Physician's Name who will Assume Oversight for Services: Mitchel Lima Physician's Phone No.who will Assume Oversight for Service: PLASTIC PANEL INSTALLER - Community Resources: No PT to Evaluate: Yes PT to evaluate and provide a treatmnet plan to increase patient's mobility and strength. Wound Care: No IV Therapy: No RN Safety Evaluation: Yes RN to evaluate and create a plan of care that will produce positive outcomes. Palliative Treatment: No Palliative treatment and evaluate the need for hospice. Home Health Aide - Personal Care: No Home Health Aide to assist with any ADL's. Exam Vital Signs Temp Pulse Resp BP Pulse Ox O2 Del Method O2 Flow Rate 97.8 F 60 23 H 154/70 H 91 L Room Air 2 05/11/25 08:01 05/11/25 12:00 05/11/25 12:00 05/11/25 12:00 05/11/25 12:00 05/09/25 11:51 05/10/25 17:00 Narrative Exam General: Alert, no acute distress.Conversational and non-toxic appearing. Skin: Warm, dry, intact. No rash or ecchymoses. Head: Telangiectasia at glabella. Normocephalic, atraumatic. Eye: Normal conjunctiva, PERRL. Throat: Oral mucosa moist. No obvious lesions in oropharynx. Cardiovascular: 3/6 systolic murmur at left sternal boarder consistent of aortic stenosis , no murmur, +S1/S2. Respiratory: Lungs are clear to auscultation, respirations unlabored, no crack les, no wheezing. Gastrointestinal: Soft, nontender, the patient presents with a significant hernia protrusion resulting from a prior trauma, accompanied by an indentation at the border of the sternum. No guarding or rebound tenderness. Extremities: no pitting edema, LUE and LLE 3/5 strength. No cyanosis, no clubbing. Neuro: Alert and oriented x3.No focal deficits observed. Conversant, moving all extremities. No overt cerebellar signs/incoordination. Psychiatric: Cooperative, appropriate affect Discharge Plan Plan Patient Disposition: Home w/HOME HEALTH Patient condition on transfer: Stable Care Plan Goals: - Follow up with PCP in 1-2 weeks, If you don't have a PCP, you can make an appointment at the [facility]: - Follow up with matzo forming machine operator Dr. Whitfield in 1 week for the bradycardia (first degree AV block) - Prescribe antibiotic keplex and azithromycin for pneumonia - Prescribe amlodipine 5mg, inform your PCP to consider increasing dosage to 10mg if BP is still elevated - Prescribe nystatin swish and swallow for sidney esophagitis - STOP clonidine, furosemide and Metoprolol succinate - Continue rest of medications as previously prescribed - Return to the ED or call EMS is symptoms return and/or worsen Prescriptions/Referrals Prescriptions/Med Rec: New nystatin 100,000 unit/mL Suspension 5 ml PO TID 7 Days Qty: 105 0RF amlodipine 5 mg Tablet 5 mg PO QDAY 14 Days Qty: 14 0RF bumetanide 1 mg tablet 1 mg PO QDAY Qty: 14 0RF cephalexin 500 mg capsule 500 mg PO QID 4 Days Qty: 16 0RF azithromycin 500 mg tablet See Rx Instructions .ROUTE .COMPLEX Qty: 3 0RF Rx Instructions: For 500 mg dose pack: take 500 mg once daily for 3 days Continued (DME) FreeStyle Antonino 14 Day [place] Misc See Rx Instructions .Route Qty: 1 0RF Rx Instructions: As directed (DME) FreeStyle Antonino 2 Sensor Kit See Rx Instructions .Route Qty: 1 0RF Rx Instructions: As directed (DME) Accu-Chek Angelina Plus test strp Strip See Rx Instructions .Route Qty: 50 0RF Rx Instructions: As directed (DME) lancets Misc See Rx Instructions .Route Qty: 100 0RF Rx Instructions: As directed gabapentin 400 mg capsule 400 mg PO TID Patient Comments: TOME 1 C PSULA POR V A ORAL YUNIOR VECES AL D A aspirin 81 mg tablet,delayed release (DR/EC) 81 mg PO QDAY Patient Comments: TOME 1 TABLETA POR V A ORAL TODOS LOS D lisinopril 40 mg Tablet 40 mg PO QDAY Eliquis 5 mg tablet 5 mg PO BID Qty: 60 3RF (DME) compress.stocking,knee,reg,lrg Misc See Rx Instructions .Route Qty: 2 0RF Rx Instructions: As directed tamsulosin 0.4 mg capsule 0.4 mg PO QDAY Qty: 30 0RF omeprazole 20 mg capsule,delayed release(DR/EC) 20 mg PO .QD Patient Comments: TOME 1 C PSULA POR V A ORAL TODOS LOS D duloxetine 30 mg capsule,delayed release(DR/EC) 30 mg PO .QD Patient Comments: TOME 1 C PSULA POR V A ORAL DOS VECES AL D A metformin 500 mg tablet 500 mg PO QPM Discontinued furosemide 20 mg tablet 20 mg PO QDAY insulin degludec [Tresiba U-100 Insulin] 100 unit/mL solution 20 unit subcut QDAY Qty: 10 0RF metoprolol succinate 50 mg tablet extended release 24 hr 50 mg PO QDAY Patient Comments: TOME 1 TABLETA POR V A ORAL TODOS LOS D FOR 90 DAYS clonidine HCl 0.2 mg tablet 0.2 mg PO BID Patient Comments: TOME 1 TABLETA POR V A ORAL DOS VECES AL D A PARA LA PRESI N ARTERIAL Referrals: Mitchel Lima MD [Primary Care Provider, Family Practice] Patient/Caregiver Discharge Instructions Discharge Activity: as per physical therapy Education Materials: AFL/Afib, Heart Failure Signs of Flare-Up, DASH Plan Eat Heart Healthy Food, Blood Pressure Check Steps, ED Esophagitis, Sidney Print Language: Cymro Stand Alone Forms: Kellen Award Info., Patient Portal Info Letter Discharge Order Discharge Orders: Discharge (Routine); Ordered 05/11/25 Ordered By: Davon Tubbs Quality Discharge Quality Measures VTE prophylaxis MD Attestestation MD Attestation I have seen and examined the patient. I was physically present for the [place] portions of the services provided including history, physical exam, diagnosis, treatment plans and orders. I agree with assessment and plan of care as documented by residents. Even though this this note was carefully revised there may still be minor errors in liquified natural gas specialist due to voice recognition software. Varun Corbett MD
--- NOTE | 2025-05-12 07:46 | PC.CC ---
HH ref sent out, waiting for responses
== END 2025-05-11 14:45 | disposition home health service (06) | DRG 280 ==
LOC: SERX 09:10 → SERHOLD 09:21 → S2SX 13:41
PROVIDERS: Emergency Medicine; Nurse Practitioner Family; Specialist; Student in an Organized Health Care Education/Training Program; Admitting Provider Student in an Organized Health Care Education/Training Program; Emergency Provider Family Medicine; PCP Family Medicine; Visit Provider Internal Medicine
PROC: (CPT 43239; principal; 2025-05-10 17:00)
DX: I16.1 Hypertensive emergency (principal); I50.33 Acute on chronic diastolic (congestive) heart failure; I21.A1 Myocardial infarction type 2; J18.9 Pneumonia, unspecified organism; D62 Acute posthemorrhagic anemia; B37.81 Candidal esophagitis; I11.0 Hypertensive heart disease with heart failure; R06.09 Other forms of dyspnea; Z86.73 Personal history of transient ischemic attack (TIA), and cerebral infarction without residual deficits; E78.5 Hyperlipidemia, unspecified; I35.0 Nonrheumatic aortic (valve) stenosis; I44.0 Atrioventricular block, first degree; D50.9 Iron deficiency anemia, unspecified; E11.40 Type 2 diabetes mellitus with diabetic neuropathy, unspecified; Z79.4 Long term (current) use of insulin; I48.0 Paroxysmal atrial fibrillation; I95.1 Orthostatic hypotension; Z79.01 Long term (current) use of anticoagulants; Z79.84 Long term (current) use of oral hypoglycemic drugs; Z79.899 Other long term (current) drug therapy; K29.70 Gastritis, unspecified, without bleeding
CPT/HCPCS: 36415; 36430; 71045; 71275; 80053; 80061; 81001; 82728; 82803; 83036; 83540; 83550; 83605; 83735; 83880; 84100; 84484; 85014; 85018; 85025; 85379; 85610; 85730; 86850; 86900; 86901; 86923; 87040; 87081; 93005; 93225; 93306; 97162; 99283; A4216; A4649; J0456; J0613; J0696; J1200; J1815; J1938; J2250; J2470; J2916; J3010; J3475; J3490; J7050; P9016; Q9967; A9270